=== PATIENT | female | born 1950 | race Caucasian/White ===

== ENCOUNTER → 2016-10-16 | Outpatient (CLI) | payer OTHER ==
[~2016-10-16] MED LIST: ADVIN25/60 INH; ALBUAER2 INH; CHOL100027 PO; CLCC1250 PO; FLUT50SP14 NAE; LEVO25TA34 PO; LORA10TA5 PO; LRT5 PO; OMEP20CA59 PO; [UNRECOGNIZED DRUG - OTHER] PO
--- NOTE | 2016-10-17 14:35 | MAMMOGRAPHY REPORT ---
BILATERAL DIGITAL SCREENING MAMMOGRAM WITH CAD: 10/16/2016 CLINICAL HISTORY: Routine screening. Patient has no complaints. TECHNIQUE: Bilateral CC and MLO views, repeat MLO views and left cleavage view were obtained. Curre nt study was also evaluated with a Computer Aided Detection (CAD) system. COMPARISON: Comparison is made to exams dated: 12/12/2011 mammogram, 09/18/2010 mammogram, 09/15/2009 mammogram - [facility], 08/17/2008, 07/07/2007, and 07/04/2006. BREAST COMPOSITION: The tissue of both breasts is almost entirely fatty. FINDINGS: There are a few benign rim calcifications and minimal vascular calcification in the breast s. No suspicious mass, architectural distortion or cluster of microcalcifications is seen. IMPRESSION: ACR BI-RADS CATEGORY 1: NEGATIVE There is no mammographic evidence of malignancy. A 1 year screening mammogram is recommended. The p atient will receive written notification of the results. Approximately 10% of breast cancers are not detected with mammography. A negative mammographic repor t should not delay biopsy if a clinically suggestive mass is present. Althea Burrell M.D. ay/:10/16/2016 17:14:22 Energy Efficiency Specialist: Genevieve PENN(Albino)([place]), [facility] letter sent: Normal 1/2 BI-RADS Code: ACR BI-RADS Category 1: Negative
== END | disposition home or self-care (01) ==
LOC: C.MAMM 14:22
PROVIDERS: ATTEND Family Medicine
DX: Z12.31 Encounter for screening mammogram for malignant neoplasm of breast (principal)

== ENCOUNTER → 2016-12-17 | Outpatient (CLI) | payer OTHER ==
[2016-12-17 18:25] LABS: ALT/SGPT 20 U/L (12-78); BLOOD UREA NITROGEN 19 mg/dl (7-18); CALCIUM 8.6 mg/dl (8.5-10.1); CARBON DIOXIDE 22 mmol/L (21-32); CHLORIDE 109 mmol/L (98-107); GLUCOSE 100 mg/dl (70-99); POTASSIUM 4.6 mmol/L (3.5-5.1); SODIUM 140 mmol/L (136-145)
[2016-12-17 18:37] LABS: ALB/GLOB RATIO 0.6 (0.9-2); ALKALINE PHOSPHATASE 54 U/L (45-117); AST/SGOT 20 U/L (15-37)
--- NOTE | 2016-12-24 12:31 | CODING QUERY MEDICAL NECESSITY ---
CQSUPPORTING DIAGNOSIS NEEDED A supporting diagnosis is required for the test/procedure performed on this patient in order for us to be reimbursed by the patient's insurance. Please provide a supporting diagnosis for the following test/procedure listed below next to the test name along with your signature. *If there is no additional diagnosis for this patient that would support the following test/procedure please document that below next to the test/procedure. Test(s)/Procedure(s) that require a supporting diagnosis: DOS 12/17/16 VITAMIN D TEST Provider Signature: Date: Thank you Gavi Alford Health Information Management Once completed, please kindly fax back to [phone] For questions please call [phone]
== END | disposition home or self-care (01) ==
LOC: C.LABPVFM 10:59
PROVIDERS: ATTEND Family Medicine
DX: I10 Essential (primary) hypertension (principal); J45.909 Unspecified asthma, uncomplicated; B37.2 Candidiasis of skin and nail; E55.9 Vitamin D deficiency, unspecified

== ENCOUNTER → 2017-01-17 | Outpatient (CLI) | payer OTHER ==
[2017-01-17 17:54] LABS: BASO % 0.6 %; BASO ABS # 0.07 K/uL (0-0.2); COMPLETE YES; EOS % 8.8 %; HEMATOCRIT 44.3 % (37-47); IG% 0.4 %; LYMPH % 16.2 %; LYMPH ABS # 1.77 K/uL (1.2-3.4); MEAN CELL VOLUME 93.3 fL (80-100); MEAN CORPUSCULAR HEMOGLOBIN 29.5 pg (25-34); MEAN CORPUSCULAR HGB CONC 31.6 g/dl (32-36); MEAN PLATELET VOLUME 10.4 fL (7.4-10.4); MONO % 6.7 %; NEUT % 67.3 %; PLATELET COUNT 456 K/uL (130-400); RED BLOOD COUNT 4.75 M/uL (4.2-5.4); WHITE BLOOD COUNT 10.92 K/uL (4.8-10.8)
[2017-01-17 18:26] LABS: ALT/SGPT 18 U/L (12-78); AST/SGOT 22 U/L (15-37); BLOOD UREA NITROGEN 12 mg/dl (7-18); BUN/CREATININE RATIO 11.7 (10-20); CALCIUM 8.5 mg/dl (8.5-10.1); CARBON DIOXIDE 25 mmol/L (21-32); CHLORIDE 108 mmol/L (98-107); GLUCOSE 113 mg/dl (70-99); POTASSIUM 4.4 mmol/L (3.5-5.1); SODIUM 142 mmol/L (136-145)
[2017-01-17 18:29] LABS: ALB/GLOB RATIO 0.7 (0.9-2); ALKALINE PHOSPHATASE 60 U/L (45-117)
== END | disposition home or self-care (01) ==
LOC: C.LABPVFM 10:31
PROVIDERS: ATTEND Nurse Practitioner Family
DX: R21 Rash and other nonspecific skin eruption (principal)

== ENCOUNTER → 2017-07-03 | Outpatient (CLI) | payer OTHER ==
[~2017-07-03] MED LIST changes: -LORA10TA5 PO; +LORA10TA6 PO
[2017-07-03 13:08] LABS: HEMOGLOBIN A1C 5.4 % (4.5-5.6)
[2017-07-03 13:11] LABS: ALT/SGPT 18 U/L (12-78); BLOOD UREA NITROGEN 19 mg/dl (7-18); CARBON DIOXIDE 24 mmol/L (21-32); CREATININE 0.97 mg/dl (0.60-1.20); GLUCOSE 93 mg/dl (70-99); POTASSIUM 4.4 mmol/L (3.5-5.1); SODIUM 141 mmol/L (136-145)
[2017-07-03 13:14] LABS: ALKALINE PHOSPHATASE 49 U/L (45-117); AST/SGOT 22 U/L (15-37); TOTAL PROTEIN 6.9 gm/dl (6.4-8.2)
== END | disposition home or self-care (01) ==
LOC: C.LABPVFM 09:06
PROVIDERS: ATTEND Family Medicine
DX: I10 Essential (primary) hypertension (principal); J45.909 Unspecified asthma, uncomplicated; E66.01 Morbid (severe) obesity due to excess calories; E03.9 Hypothyroidism, unspecified; J30.9 Allergic rhinitis, unspecified; E55.9 Vitamin D deficiency, unspecified; R73.01 Impaired fasting glucose

== ENCOUNTER 2024-09-04 12:56 | Inpatient (IN) ==
--- NOTE | 2024-09-04 13:57 | Emergency Department Note ---
Impression & Plan Wound of left groin, Cellulitis, Elevated lactic acid level ED Provider Note NAME: VONNIE IVY AGE: 74 SEX: F : 1950 ARRIVES VIA: Walk-In INFORMANT: Patient, friend, prior notes ED PROVIDER(S): Rahat Quintanilla MD CHIEF COMPLAINT: Left groin wound, outpatient referral MEDICAL DECISION MAKING: Patient presents with the above. IV was established and blood work was obtained. The patient does have cellulitic change with an open wound in the patient with prior reports of purulent drainage. No obvious purulence on my exam; however, the patient was covered with broad-spectrum antibiotics vancomycin and Zosyn. Patient ordered 1 L of IV fluids. Patient did request pain medication did receive IV morphine [address] abdomen pelvis also performed. Patient with a white count of 11.7 with normal hemoglobin. Platelet count of 479. The patient's kidney function is unremarkable. BSG 120 but nonfasting not DKA. Initial lactate of 2.4. Pro-Gallito not elevated. Patient CT abdomen pelvis shows bilateral inguinal lymphadenopathy left greater than right. 2 of the nodes in the left inguinal area are grossly large and necrotic in appearance. Given these concerns with the addition of significant wound which is been ongoing over the last 2 months do believe the patient would benefit from inpatient treatment as well as further IV antibiotics and wound care assessment. I did speak the on-call hospital service Dr. Rod and the patient was admitted to the medicine service. Repeat lactate was less than 2. Discussion w/ other healthcare providers: Dr. Rod inpatient medicine service Prior /Outside records reviewed: I reviewed parts of prior PCP notes from June and July from Dr. Freeman. The patient had been placed on nystatin prior subsequent follow-up in July patient refused exam but was placed on mupirocin ointment. Of the wound. I reviewed part of a wound care visit note from Dr. Nazario from earlier today which noted the patient to have left perineal wound. Differential diagnosis: Cellulitis, abscess, MRSA infection, DVT, necrotizing fasciitis, dermatitis, drug eruption, allergic reaction, as well as other pathologies were considered. Diagnostics, as interpreted by me: ECG: None Cardiac monitoring: An order was placed for continuous cardiac monitoring. The monitor shows a rate of 75 with sinus rhythm. Patient was placed on pulse oximetry Medical decision rules: None Imaging studies: I informally interpreted the patient's CT abdomen/pelvis does not show evidence of obvious obstruction with formal report to follow. HPI: Patient presents due to concern for wound which has been ongoing for approximate 3 Brownson duration. The patient states that her PCP "was not listening." Patient states that she was initially prescribed some creams and that this has worsened. Patient denies any chest pains or shortness of breath. The patient has had occasional chills but no fevers. No falls or trauma. Patient denies any abdominal pain. No issues with defecation or urination. Patient was reportedly seen in wound care clinic today and then referred here for further evaluation and treatment. PAST MEDICAL HISTORY: See Below PAST SURGICAL HISTORY: See Below SOCIAL HISTORY: See Below HOME MEDICATIONS: See Below ALLERGIES: See Below VITALS: See Below PHYSICAL EXAMINATION: GENERAL: NAD, non-toxic. EYE EXAM: Normal conjunctiva. PERRL, no anisocoria and EOM's grossly intact w/o pain. OROPHARYNX: Moist mucus membranes, grossly normal dentition. NECK: Trachea midline, no stridor. Supple, no nuchal rigidity, no adenopathy, non-tender. No signs of meningismus. FROM of the neck with good chin to chest and neck extension. LUNGS: Clear to auscultation. Normal chest wall mechanics. HEART: NSR, no MRG. ABDOMEN: Abdomen soft, non-tender, no masses, no rebound or guarding. BACK: No CVA TTP. SKIN: No rashes and no bruising. UPPER EXTREMITIES: Upper extremities are grossly normal. LOWER EXTREMITIES: Wound noted to the left medial thigh/perineal, serous drainage noted, surrounding erythema, approximately 9 x 6 cm. NEURO EXAM: A&O x3, cranial nerves II-XII grossly intact, normal speech, moves all 4 extremities. Past Med/Surg History Problem List Wound of left groin Nausea vomiting and diarrhea Rash Wound of groin Family hx of colon cancer Sister Dxed with colon cancer when she was 65yo. RLQ abdominal pain Hypothyroidism associated with surgical procedure Impaired fasting glucose Vitamin D deficiency Asthma no inhalers Macular degeneration of left eye Hearing deficit Osteoarthritis Morbid obesity with BMI of 50.0-59.9, adult HTN (hypertension) GERD (gastroesophageal reflux disease) Medical History COVID-19 virus detected 07/03/21 positive; asymptomatic Nausea and vomiting after administration of anesthetic agent Surgical History History of total hysterectomy with bilateral salpingo-oophorectomy (BSO) History of tooth extraction S/P tonsillectomy and adenoidectomy S/P thyroid surgery x2--d/t goiter S/P cholecystectomy S/P arthroscopy of knee left Family History Sister Colorectal cancer Other Cardiac disorder Diabetes Hypertension Hypothyroidism No family history of adverse response to anesthesia Denies family history of Ovarian cancer Prostate cancer Myocardial infarction Breast cancer Social History Smoking Status: Former smoker Tobacco Type: Cigarettes Smoking End Date: 1999; Second Hand Exposure: No; Do You Dip or Chew Tobacco: No; Hx Alcohol Use: No Hx Substance Use: No Preferred Language: Nepali Communication Ability: Effective Visual Impairment: No Limitations Hearing Ability: Normal Home Care Aide Required: No Beliefs That Will Affect Care: None marital status: Single Current Living Situation: Alone Current Living Situation Comment: lives with daughter current occupational status: retired How many Children do You have: 2 Other Information That Helps Us Care for You: No Feels Safe at Home: Yes Safety Concerns: Feels Safe At This Time Childhood Exposure to Second-Hand Smoke: Yes Diet: regular caffeine: Yes during the past year weight has: remained stable Dental Care, Regularly: Yes Physical Activity Frequency: 1-2 Times per Week Seatbelt Use: always Sunscreen Use: Yes Do you think of yourself as: straight/heterosexual Sexual Activity: has been sexually active, but not for at least 12 months Gender Identity: Female Assistive Devices: Cane and Glasses Allergies Allergies Allergy/AdvReac Type Severity Reaction Status Date / Time tolterodine Allergy Intermediate plaque Verified 09/04/24 10:58 psoriasis nickel Allergy Mild Rash Verified 09/04/24 10:58 Home Meds Home Medications Medication Instructions Recorded Confirmed ascorbate calcium (vitamin C) 500 500 mg PO DAILY 08/12/23 09/04/24 mg tablet multivitamin 1 tab PO DAILY 08/12/23 09/04/24 mv-mn-folic 200 mcg-vit K 15 1 cap PO DIRECTED 09/04/24 09/04/24 mcg-lutein 5 mg-zeaxanthin 1 mg capsule (PreserVision AREDS 2 Plus Multivit) Previous Rx's Medication Instructions Recorded cholecalciferol (vitamin D3) 125 125 mcg PO DAILY #30 caps 06/13/21 mcg (5,000 unit) capsule omeprazole 20 mg capsule,delayed 20 mg PO DAILY PRN Acid Reflux #90 02/07/23 release caps nystatin 100,000 unit/gram topical 1 applic topical BID #30 grams 07/20/24 cream nystatin 100,000 unit/gram topical 1 applic topical BID #60 grams 07/20/24 powder levothyroxine 200 mcg capsule 200 mcg PO QAM #90 caps 08/21/24 levothyroxine 25 mcg capsule 25 mcg PO DAILY #90 caps 08/21/24 lisinopril 20 mg tablet 20 mg PO DAILY #90 tabs 08/21/24 mupirocin 2 % topical ointment 1 applic topical BID #22 grams 08/21/24 Results & Data (ED) Vital Signs Vital Signs - 24 hr 09/04/24 13:02 09/04/24 13:26 09/04/24 15:09 Temperature 36.4 C L Temperature Source Oral Pulse Rate 94 H 80 85 Pulse Rate [Apical] Pulse Rate from SpO2 Sensor Pulse Strength [Apical] Respiratory Rate 25 H 14 Respiratory Effort / Characteristics Spontaneous Respiratory Depth Respiratory Pattern Regular Blood Pressure 135/78 155/69 H Blood Pressure [Right Arm] Blood Pressure Mean 97 97 Blood Pressure Mean [Right Arm] Pulse Oximetry 97 100 Oxygen Delivery Method Room Air Sepsis Recent Fever Within 48 Hours No Sepsis New/Unexplained Change in Mental Status No Sepsis Action Taken by Nursing No Action Required 09/04/24 15:18 09/04/24 15:33 09/04/24 16:00 Temperature Temperature Source Pulse Rate 83 Pulse Rate [Apical] 75 Pulse Rate from SpO2 Sensor 77 82 Pulse Strength [Apical] Normal Respiratory Rate 19 15 Respiratory Effort / Characteristics Non-Labored Spontaneous Respiratory Depth Normal Respiratory Pattern Blood Pressure Blood Pressure [Right Arm] 155/59 H Blood Pressure Mean Blood Pressure Mean [Right Arm] 91 Pulse Oximetry 100 97 100 Oxygen Delivery Method Room Air Room Air Room Air Sepsis Recent Fever Within 48 Hours Sepsis New/Unexplained Change in Mental Status Sepsis Action Taken by Nursing 09/04/24 16:18 Temperature Temperature Source Pulse Rate 75 Pulse Rate [Apical] Pulse Rate from SpO2 Sensor Pulse Strength [Apical] Respiratory Rate 15 Respiratory Effort / Characteristics Respiratory Depth Respiratory Pattern Blood Pressure Blood Pressure [Right Arm] Blood Pressure Mean Blood Pressure Mean [Right Arm] Pulse Oximetry Oxygen Delivery Method Sepsis Recent Fever Within 48 Hours Sepsis New/Unexplained Change in Mental Status Sepsis Action Taken by [facility] Medications Current Medication List: was personally reviewed by me Laboratory Data Attestation: I reviewed the patient's lab results. 09/04/24 13:25 09/04/24 13:25 Lab Results 09/04/24 09/04/24 09/04/24 Range/Units 13:25 13:29 14:58 WBC 11.71 H (4.8-10.8) K/ul RBC 4.10 L (4.20-5.40) M/uL Hgb 12.1 (12.0-16.0) g/dl Hct 36.7 L (37.0-47.0) % MCV 89.5 (80.0-100.0) fL MCH 29.5 (25.0-34.0) pg MCHC 33.0 (32.0-36.0) g/dL RDW Std Deviation 42.4 (36.4-46.3) fL RDW Coeff of Melida 12.9 (11.5-14.5) % Plt Count 479 H (130-400) K/uL MPV 10.2 (9.4-12.4) fL Immature Gran % (Auto) 0.6 % Neut % (Auto) 74.8 % Lymph % (Auto) 12.5 % Dubois % (Auto) 8.0 % Eos % (Auto) 3.1 % Baso % (Auto) 1.0 % Neut # (Auto) 8.76 H (1.40-6.50) K/uL Lymph # (Auto) 1.46 (1.20-3.40) K/uL Dubois # (Auto) 0.94 H (0.11-0.59) K/uL Eos # (Auto) 0.36 (0.00-0.50) K/uL Baso # (Auto) 0.12 (0.00-0.20) K/uL Immature Gran # (Auto) 0.07 (0.01-0.20) K/uL PT Cancelled 11.1 INR Cancelled 1.0 Sodium 139 (136-145) mmol/L Potassium 4.1 (3.5-5.1) mmol/L Chloride 106 (98-107) mmol/L Carbon Dioxide 24 (21-32) mmol/L Anion Gap 9 (3-11) BUN 18 (6-23) mg/dl Creatinine 1.10 (0.6-1.2) mg/dl Est Cr Clr Drug Dosing 66.7 ml/min eGFR 53.06 BUN/Creatinine Ratio 16.4 (10-20) Glucose 120 H (70-99(Fasting)) mg/dl Lactate 2.4 H* (0.4-2.0) mmol/L Calcium 8.9 (8.6-10.3) mg/dl Total Bilirubin 0.8 (0.2-1.0) mg/dl AST 19 (13-39) U/L ALT 15 (7-52) U/L Alkaline Phosphatase 52 (34-104) U/L Troponin I High Sens 5.2 (0-14) pg/ml Total Protein 7.4 (6.0-8.3) gm/dl Albumin 3.4 (3.4-5.0) gm/dl Globulin 4.0 (2.5-4.0) gm/dl Albumin/Globulin Ratio 0.9 (0.9-2) Procalcitonin < 0.02 (0-0.5) ng/ml Adenovirus (PCR) Not Detected (NotDetected) B. pertussis DNA (PCR) Not Detected (NotDetected) B.parapertussis DNA PCR Not Detected (NotDetected) C. pneumoniae DNA (PCR) Not Detected (NotDetected) Coronavirus OC43 (PCR) Not Detected (NotDetected) Coronavirus HKU1 (PCR) Not Detected (NotDetected) Coronavirus 229E (PCR) Not Detected (NotDetected) SARS-CoV-2 (PCR) Not Detected (NotDetected) Coronavirus NL63 (PCR) Not Detected (NotDetected) Human Metapneumovir PCR Not Detected (NotDetected) Influenza Type A (PCR) Not Detected (NotDetected) Influenza Type B (PCR) Not Detected (NotDetected) M. pneumoniae (PCR) Not Detected (NotDetected) Parainfluenza 1 (PCR) Not Detected (NotDetected) Parainfluenza 2 (PCR) Not Detected (NotDetected) Parainfluenza 3 (PCR) Not Detected (NotDetected) Parainfluenza 4 (PCR) Not Detected (NotDetected) RSV (PCR) Not Detected (NotDetected) Entero/Rhino (PCR) Not Detected (NotDetected) 09/04/24 Range/Units 16:13 WBC (4.8-10.8) K/ul RBC (4.20-5.40) M/uL Hgb (12.0-16.0) g/dl Hct (37.0-47.0) % MCV (80.0-100.0) fL MCH (25.0-34.0) pg MCHC (32.0-36.0) g/dL RDW Std Deviation (36.4-46.3) fL RDW Coeff of Melida (11.5-14.5) % Plt Count (130-400) K/uL MPV (9.4-12.4) fL Immature Gran % (Auto) % Neut % (Auto) % Lymph % (Auto) % Dubois % (Auto) % Eos % (Auto) % Baso % (Auto) % Neut # (Auto) (1.40-6.50) K/uL Lymph # (Auto) (1.20-3.40) K/uL Dubois # (Auto) (0.11-0.59) K/uL Eos # (Auto) (0.00-0.50) K/uL Baso # (Auto) (0.00-0.20) K/uL Immature Gran # (Auto) (0.01-0.20) K/uL PT INR Sodium (136-145) mmol/L Potassium (3.5-5.1) mmol/L Chloride (98-107) mmol/L Carbon Dioxide (21-32) mmol/L Anion Gap (3-11) BUN (6-23) mg/dl Creatinine (0.6-1.2) mg/dl Est Cr Clr Drug Dosing ml/min eGFR BUN/Creatinine Ratio (10-20) Glucose (70-99(Fasting)) mg/dl Lactate 1.2 (0.4-2.0) mmol/L Calcium (8.6-10.3) mg/dl Total Bilirubin (0.2-1.0) mg/dl AST (13-39) U/L ALT (7-52) U/L Alkaline Phosphatase (34-104) U/L Troponin I High Sens (0-14) pg/ml Total Protein (6.0-8.3) gm/dl Albumin (3.4-5.0) gm/dl Globulin (2.5-4.0) gm/dl Albumin/Globulin Ratio (0.9-2) Procalcitonin (0-0.5) ng/ml Adenovirus (PCR) (NotDetected) B. pertussis DNA (PCR) (NotDetected) B.parapertussis DNA PCR (NotDetected) C. pneumoniae DNA (PCR) (NotDetected) Coronavirus OC43 (PCR) (NotDetected) Coronavirus HKU1 (PCR) (NotDetected) Coronavirus 229E (PCR) (NotDetected) SARS-CoV-2 (PCR) (NotDetected) Coronavirus NL63 (PCR) (NotDetected) Human Metapneumovir PCR (NotDetected) Influenza Type A (PCR) (NotDetected) Influenza Type B (PCR) (NotDetected) M. pneumoniae (PCR) (NotDetected) Parainfluenza 1 (PCR) (NotDetected) Parainfluenza 2 (PCR) (NotDetected) Parainfluenza 3 (PCR) (NotDetected) Parainfluenza 4 (PCR) (NotDetected) RSV (PCR) (NotDetected) Entero/Rhino (PCR) (NotDetected) Administered Medications Discontinued Medications Sodium Chloride (Nss) 1,000 mls @ 999 mls/hr IV .Q1H1M ONE Stop: 09/04/24 15:20 Last Infusion: 09/04/24 15:44 Dose: Infused Documented By: Admin: 09/04/24 14:43 Dose: 999 mls/hr Documented By: ADELAIDE Vancomycin HCl 2,750 mg/ (Sodium Chloride) 555 mls @ 200 mls/hr IV NOW ONE Stop: 09/04/24 17:06 Last Admin: 09/04/24 15:19 Dose: 200 mls/hr Documented By: KATHE Piperacillin Sod/Tazobactam Sod (Zosyn) 4.5 gm in 100 mls @ 200 mls/hr IV NOW ONE; Protocol Stop: 09/04/24 14:49 Last Infusion: 09/04/24 15:15 Dose: Infused Documented By: Admin: 09/04/24 14:43 Dose: 200 mls/hr Documented By: ADELAIDE Ioversol (Optiray 320 125ml) 118 ml IV ONCE ONE Stop: 09/04/24 15:06 Last Admin: 09/04/24 15:06 Dose: 118 ml Documented By: SADE Morphine Sulfate (Morphine Sulfate 4 Mg/Ml 1 Ml Carp\\Vial) 4 mg IV NOW STA Stop: 09/04/24 15:24 Last Admin: 09/04/24 15:35 Dose: 4 mg Documented By: BRIANNE Imaging Data Radiologist's Impression: Abdomen/Pelvis CT 09/04/24 14:[address] WITH IV CONTRAST CT DOSE: 1579.08 mGy.cm HISTORY: L groin wound, cellulitic TECHNIQUE: Multiaxial CT images of the abdomen and pelvis were performed following the IV administration of 118 cc of Optiray, sagittal and coronal reconstructions were done. A dose lowering technique was utilized adhering to the principles of ALARA. COMPARISON STUDY: None FINDINGS: The lung bases and bone windows demonstrate no acute findings. There is diffuse hepatic steatosis. There are no focal liver lesions identified. The gallbladder surgically absent. The bile ducts are not significantly enlarged. There is no pancreatic lesion identified. There is a small left adrenal nodule that is likely benign. The spleen is unremarkable. There is no obstructive uropathy. Several bilateral renal cysts are identified to clearly on the left. There are no urinary tract calcifications present. There is no bowel obstruction or free air. There is no ascites. There is no aortic aneurysm or periaortic adenopathy. In the pelvis, the appendix is not identified. There is no evidence of appendicitis. There is no fluid in the cul-de-sac. There is no diverticulitis. The uterus is absent. The unopacified urinary bladder is negative. There are enlarged, necrotic lymph nodes identified in the left groin the largest measuring 3.3 cm in long axis. A second necrotic node measures 2.3 cm. Additional nonnecrotic lymph node prominence is noted elsewhere in the left groin and in the right groin. IMPRESSION: Bilateral inguinal lymphadenopathy left greater than right. 2 of the nodes in the left inguinal area are grossly enlarged and necrotic. ACT 112: Negative or not required by law. The above report was generated using voice recognition software. It may contain grammatical, syntax or spelling errors. Electronically signed by: Clarisa Torres M.D. 09/04/2024 3:22 PM Discharge Plan Visit Data Chief Complaint: Infection Stated Complaint: WOUND CENTER REFFERAL, INFECTION ED Provider: Rahat Quintanilla Discharge Problem: Wound of left groin, Cellulitis, Elevated lactic acid level Patient Disposition: Admitted As Inpatient Discharge Instructions Interventions: ED Discharge Assessment Last Done: 09/04/24 17:37 Discharge Problem: Wound of left groin Qualifiers: Encounter type: initial encounter Qualified Code(s): S31.109A - Unspecified open wound of abdominal wall, unspecified quadrant without penetration into peritoneal cavity, initial encounter Cellulitis Qualifiers: Site of cellulitis: extremity Site of cellulitis of extremity: lower extremity Laterality: left Qualified Code(s): L03.116 - Cellulitis of left lower limb
[2024-09-04 14:10] LABS: Basophils # (auto) 0.12 K/uL (0.00-0.20); Eosinophils # (auto) 0.36 K/uL (0.00-0.50); Eosinophils % (auto) 3.1 %; Hematocrit (blood only) 36.7 % (37.0-47.0); Hemoglobin 12.1 g/dl (12.0-16.0); Immature Granulocytes # (auto) 0.07 K/uL (0.01-0.20); Immature Granulocytes % (auto) 0.6 %; Lymphocytes # (auto) 1.46 K/uL (1.20-3.40); Lymphocytes % (auto) 12.5 %; Mean Corpuscular Hemoglobin 29.5 pg (25.0-34.0); Mean Corpuscular Volume 89.5 fL (80.0-100.0); Mean Platelet Volume 10.2 fL (9.4-12.4); Monocytes # (auto) 0.94 K/uL (0.11-0.59); Neutrophils # (auto) 8.76 K/uL (1.40-6.50); Neutrophils % (auto) 74.8 %; Platelet Count 479 K/uL (130-400); RDW Coefficient of Variation 12.9 % (11.5-14.5); RDW Standard Deviation 42.4 fL (36.4-46.3); White Blood Count 11.71 K/ul (4.8-10.8)
[2024-09-04] MEDS ORDERED: VANCOMYCIN CONSULT ACTIVE PRN ×2 (14:20→17:57)
[2024-09-04 14:24] LABS: Albumin Globulin Ratio 0.9 (0.9-2); Albumin Level 3.4 gm/dl (3.4-5.0); BUN Creatinine Ratio 16.4 (10-20); Bilirubin,Total 0.8 mg/dl (0.2-1.0); Calcium 8.9 mg/dl (8.6-10.3); Creatinine Clr Calc Pharmacy 66.7 ml/min; Potassium 4.1 mmol/L (3.5-5.1); Total Protein 7.4 gm/dl (6.0-8.3)
[2024-09-04 14:31] LABS: Troponin I High Sensitivity 5.2 pg/ml (0-14)
[2024-09-04] MEDS: PIPERACILLIN/TAZOBACTAM 4.5 GM/100 ML BAG IV ONE (14:43)
[2024-09-04] MEDS: SODIUM CHLORIDE 0.9% 1,000 ML IV ONE (14:43)
[2024-09-04 14:56] LABS: Adenovirus PCR Not Detected (NotDetected); Bordetella parapertussis PCR Not Detected (NotDetected); Bordetella pertussis PCR Not Detected (NotDetected); Chlamydia pneumoniae PCR Not Detected (NotDetected); Coronavirus 229E PCR Not Detected (NotDetected); Coronavirus CoV-2 (COVID19)PCR Not Detected (NotDetected); Coronavirus HKU1 PCR Not Detected (NotDetected); Coronavirus NL63 PCR Not Detected (NotDetected); Coronavirus OC43PCR Not Detected (NotDetected); Human Metapneumovirus PCR Not Detected (NotDetected); Influenza A PCR Not Detected (NotDetected); Influenza B PCR Not Detected (NotDetected); Mycoplasma pneumoniae PCR Not Detected (NotDetected); Parainfluenza Virus 1 PCR Not Detected (NotDetected); Parainfluenza Virus 2 PCR Not Detected (NotDetected); Parainfluenza Virus 3 PCR Not Detected (NotDetected); Parainfluenza Virus 4 PCR Not Detected (NotDetected); Respiratory Syncytial VirusPCR Not Detected (NotDetected); Rhinovirus/Enterovirus PCR Not Detected (NotDetected)
[2024-09-04] MEDS: OPTIRAY 320 125ml IV ONE (15:06)
[2024-09-04] MEDS: VANCOMYCIN HCL 2,750 MG in SODIUM CHLORIDE 0.9% 500 ML IV ONE (15:19)
--- NOTE | 2024-09-04 15:24 | CT Scan Report ---
ABDOMEN AND PELVIS CT WITH IV CONTRAST CT DOSE: 1579.08 mGy.cm HISTORY: L groin wound, cellulitic TECHNIQUE: Multiaxial CT images of the abdomen and pelvis were performed following the IV administrat ion of 118 cc of Optiray, sagittal and coronal reconstructions were done. A dose lowering technique was utilized adhering to the principles of ALARA. COMPARISON STUDY: None FINDINGS: The lung bases and bone windows demonstrate no acute findings. There is diffuse hepatic steatosis. There are no focal liver lesions identified. The gallbladder surg ically absent. The bile ducts are not significantly enlarged. There is no pancreatic lesion identified. There is a small left adrenal nodule that is likely benign. The spleen is unremarkable. There is no obstructive uropathy. Several bilateral renal cysts are identified to clearly on the left . There are no urinary tract calcifications present. There is no bowel obstruction or free air. There is no ascites. There is no aortic aneurysm or periao rtic adenopathy. In the pelvis, the appendix is not identified. There is no evidence of appendicitis. There is no flui d in the cul-de-sac. There is no diverticulitis. The uterus is absent. The unopacified urinary bladde r is negative. There are enlarged, necrotic lymph nodes identified in the left groin the largest augustus uring 3.3 cm in long axis. A second necrotic node measures 2.3 cm. Additional nonnecrotic lymph node prominence is noted elsewhere in the left groin and in the right groin. IMPRESSION: Bilateral inguinal lymphadenopathy left greater than right. 2 of the nodes in the left in guinal area are grossly enlarged and necrotic. ACT 112: Negative or not required by law. The above report was generated using voice recognition software. It may contain grammatical, syntax o r spelling errors. Electronically signed by: Clarisa Torres M.D. 09/04/2024 3:22 PM
[2024-09-04] MEDS: MoRPHine SULFATE 4 MG/ML 1 ML CARP\\VIAL IV STA (15:35)
[2024-09-04 15:57] LABS: Prothrombin Time 11.1 Seconds (9.0-12.0)
--- NOTE | 2024-09-04 16:07 | History & Physical Report ---
Date of Service September 04, 2024 Assessment & Plan (1) Wound of left groin: Deangelo Thomas is a pleasant 74-year-old female who presented on 09/04 at the behest of the wound clinic for an ongoing left posterior groin infection. She has not been on p.o. antibiotics for this infection (has been on a topical nystatin and mupirocin); wound gradually worsening. Coming in for IV antibiotics. While no abscess on imaging, suspect patient will likely require debridement given depth of wound and purulent drainage. #Left groin wound/infection A/P CT did reveal bilateral inguinal lymphadenopathy with necrotic nodes General Surgery consult appreciated Will make patient n.p.o. at midnight on 09/04 in the event that patient requires debridement Mild leukocytosis at 11.71; afebrile Lactate 2.4 on arrival, repeat pending Procalcitonin WNL Zosyn 4.5 g IV q8h Vancomycin 2000 mg IV q12h; kidney function okay on admission Pain control with acetaminophen and oxycodone tablets as needed Will discontinue topical nystatin/mupirocin as patient reports these have been worsening her symptoms Continuous pulse oximetry Chronic stable conditions: Hypothyroidismlevothyroxine HTNlisinopril GERDomeprazole or Protonix Disposition: Admit to [facility] Full code Regular diet VTE PPx: SCDs; hold chemical DVT PPx prior to general surgery eval History of Present Illness Chief Complaint: Left groin infection Primary Care Provider: Petr Freeman DO Thomas is a pleasant 74-year-old female with PMH of hysterectomy, GERD, HTN, morbid obesity, and hypothyroidism. She was referred by the wound clinic on 09/04 for a left groin wound and ureteral mass with erosion. The wound has been worsening over the past 6 weeks. Patient has been following at the wound clinic for this wound, but today it was found to be malodorous with acute worsening. PPatient has been applying creams to the area (topical nystatin and mupirocin), with no improvement, and patient's daughter believes that these may have worsened her symptoms. Patient endorses pain at the wound site (left posterior groin), with occasional shooting pain down her leg. She rates the pain 0/10 at present while laying still in bed, but 9/10 at worst. She characterizes it as a burning, achy pain with occasional sharp stabbing. She has not been taking any p.o. medications to help with the pain; did try taking aspirin tablets x 2, but this did not help. Additionally, she reports she has had purulent drainage from the site for the past month, and occasional bleeding. She reports she has not been on any p.o. antibiotics for this. No prior history of MRSA infections to her knowledge. She does report she has had intermittent fever, chills, night sweats, but is unsure if this was secondary to her recent flu infections. Patient reports she has had the flu 3 times over the past several months, and has had ongoing congestion. Patient did not take her regular morning medicine today; only recent change in medication was that her lisinopril was decreased from 40 to 20 mg daily 2 weeks ago. Patient manages her own medicine at home. She lives by herself in [place] apartment, but does have a daughter who lives nearby. Patient denies smoking, tobacco use, recent alcohol use. She ambulates with a walker at baseline; no recent falls or injuries. Patient does have a history of gallbladder surgery and hysterectomy. No CPAP HS. Patient is hypertensive at 155/59 at time of admission; vitals otherwise stable. ED course: Vancomycin 2750 mg IV Zosyn 4.5 g IV Morphine 4 mg IV NSS 1000 L IV ROS: Patient endorses fever, chills, night-sweats, MAYER (attributes to pain), dry cough, abdominal pain, nausea, bilious vomiting (attributes to flu), diarrhea, loss of urinary continence (ongoing for years). Patient denies falls, injuries, blood in the urine/stool, dark tarry stool, saddle anesthesia, fecal incontinence, or numbness/tingling in the legs. Allergies Allergy/AdvReac Type Severity Reaction Status Date / Time tolterodine Allergy Intermediate plaque Verified 09/04/24 10:58 psoriasis nickel Allergy Mild Rash Verified 09/04/24 10:58 Home Medications Medication Instructions Recorded Confirmed Type cholecalciferol (vitamin D3) 125 125 mcg PO DAILY #30 caps 06/13/21 09/04/24 Rx mcg (5,000 unit) capsule omeprazole 20 mg capsule,delayed 20 mg PO DAILY PRN Acid Reflux #90 02/07/23 09/04/24 Rx release caps ascorbate calcium (vitamin C) 500 500 mg PO DAILY 08/12/23 09/04/24 History mg tablet multivitamin 1 tab PO DAILY 08/12/23 09/04/24 History nystatin 100,000 unit/gram topical 1 applic topical BID #30 grams 07/20/24 09/04/24 Rx cream nystatin 100,000 unit/gram topical 1 applic topical BID #60 grams 07/20/24 09/04/24 Rx powder levothyroxine 200 mcg capsule 200 mcg PO QAM #90 caps 08/21/24 09/04/24 Rx levothyroxine 25 mcg capsule 25 mcg PO DAILY #90 caps 08/21/24 09/04/24 Rx lisinopril 20 mg tablet 20 mg PO DAILY #90 tabs 08/21/24 09/04/24 Rx mupirocin 2 % topical ointment 1 applic topical BID #22 grams 08/21/24 09/04/24 Rx mv-mn-folic 200 mcg-vit K 15 1 cap PO DIRECTED 09/04/24 09/04/24 History mcg-lutein 5 mg-zeaxanthin 1 mg capsule (PreserVision AREDS 2 Plus Multivit) Past Med/Surg History Problem List (Updated 09/04/24 @ 18:36 by Laith Case PA-C) Wound of left groin Nausea vomiting and diarrhea Rash Wound of groin Family hx of colon cancer Sister Dxed with colon cancer when she was 65yo. RLQ abdominal pain Hypothyroidism associated with surgical procedure Impaired fasting glucose Vitamin D deficiency Asthma no inhalers Macular degeneration of left eye Hearing deficit Osteoarthritis Morbid obesity with BMI of 50.0-59.9, adult HTN (hypertension) GERD (gastroesophageal reflux disease) Medical History COVID-19 virus detected 07/03/21 positive; asymptomatic Nausea and vomiting after administration of anesthetic agent Surgical History History of total hysterectomy with bilateral salpingo-oophorectomy (BSO) History of tooth extraction S/P tonsillectomy and adenoidectomy S/P thyroid surgery x2--d/t goiter S/P cholecystectomy S/P arthroscopy of knee left Family History Sister Colorectal cancer Other Cardiac disorder Diabetes Hypertension Hypothyroidism No family history of adverse response to anesthesia Denies family history of Ovarian cancer Prostate cancer Myocardial infarction Breast cancer Social History Smoking Status: Former smoker Tobacco Type: Cigarettes Smoking End Date: 1999; Second Hand Exposure: No; Do You Dip or Chew Tobacco: No; Hx Alcohol Use: No Hx Substance Use: No Preferred Language: Bhutanese Communication Ability: Effective Visual Impairment: No Limitations Hearing Ability: Normal 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 Beliefs That Will Affect Care: None marital status: Single Current Living Situation: Alone Current Living Situation Comment: lives with daughter current occupational status: retired How many Children do You have: 2 Other Information That Helps Us Care for You: No Feels Safe at Home: Yes Safety Concerns: Feels Safe At This Time Childhood Exposure to Second-Hand Smoke: Yes Diet: regular caffeine: Yes during the past year weight has: remained stable Dental Care, Regularly: Yes Physical Activity Frequency: 1-2 Times per Week Seatbelt Use: always Sunscreen Use: Yes Do you think of yourself as: straight/heterosexual Sexual Activity: has been sexually active, but not for at least 12 months Gender Identity: Female Assistive Devices: Cane and Glasses Review of Systems Review of Systems: See HPI above Physical Exam Physical Exam: General: no acute distress; pleasant affect; daughter and grandson at bedside; non-toxic appearing; cooperative; SpO2 1% on RA HEENT: normocephalic, atraumatic; no scleral icterus; PERRLA; vision and hearing grossly intact Neck: supple; no lymphadenopathy; trachea midline Skin: warm, dry without signs of tenting; no cyanosis; no rashes, bruising, lesions, or erythema noted CV: chest wall NTP; RRR; S1/S2 normal; no murmurs/rubs/gallops; pulses intact and symmetric at radial, DP, and PT Lungs: no acute respiratory distress; symmetrical chest wall expansion; clear breath sounds across all lung bhatti w/o adventitious sounds; no wheezing : Patient's left posterior groin wound was examined with both Dr. Rod and nursing practice consultant at bedside; she does exhibit a deep, gaping wound with purulent drainage (see most recent wound clinic note for picture) ABD: Soft, obese, NTP; BS present; no rebound/guarding; distention secondary body habitus MSK: no tics or fasciculations; no edema noted in the LEs b/l, nonerythematous Neuro: A&Ox3; normal mood and affect; fluent speech; no focal deficits; sensation intact and symmetric in lower EXTR bilaterally Results & Data Results & Data Vital Signs (Past 12 Hours) Vital Signs Temp Pulse Pulse Resp BP BP Pulse Ox 09/04/24 15:18 75 19 155/59 H 100 09/04/24 15:09 85 14 155/69 H 100 09/04/24 13:26 80 09/04/24 13:02 36.4 C L 94 H 25 H 135/78 97 O2 Del Method 09/04/24 15:18 Room Air 09/04/24 15:09 09/04/24 13:26 09/04/24 13:02 Room Air Laboratory Results Abnormal lab results 09/04/24 Range/Units 13:25 WBC 11.71 H (4.8-10.8) K/ul RBC 4.10 L (4.20-5.40) M/uL Hct 36.7 L (37.0-47.0) % Plt Count 479 H (130-400) K/uL Neut # (Auto) 8.76 H (1.40-6.50) K/uL [place] # (Auto) 0.94 H (0.11-0.59) K/uL Glucose 120 H (70-99(Fasting)) mg/dl Lactate 2.4 H* (0.4-2.0) mmol/L Diagnostic Findings Abdomen/Pelvis CT 09/04/24 14:[address] WITH IV CONTRAST CT DOSE: 1579.08 mGy.cm HISTORY: L groin wound, cellulitic TECHNIQUE: Multiaxial CT images of the abdomen and pelvis were performed following the IV administration of 118 cc of Optiray, sagittal and coronal reconstructions were done. A dose lowering technique was utilized adhering to the principles of ALARA. COMPARISON STUDY: None FINDINGS: The lung bases and bone windows demonstrate no acute findings. There is diffuse hepatic steatosis. There are no focal liver lesions identified. The gallbladder surgically absent. The bile ducts are not significantly enlar ged. There is no pancreatic lesion identified. There is a small left adrenal nodule that is likely benign. The spleen is unremarkable. There is no obstructive uropathy. Several bilateral renal cysts are identified to clearly on the left. There are no urinary tract calcifications present. There is no bowel obstruction or free air. There is no ascites. There is no aortic aneurysm or periaortic adenopathy. In the pelvis, the appendix is not identified. There is no evidence of appendicitis. There is no fluid in the cul-de-sac. There is no diverticulitis. The uterus is absent. The unopacified urinary bladder is negative. There are enlarged, necrotic lymph nodes identified in the left groin the largest measuring 3.3 cm in long axis. A second necrotic node measures 2.3 cm. Additional nonnecrotic lymph node prominence is noted elsewhere in the left groin and in the right groin. IMPRESSION: Bilateral inguinal lymphadenopathy left greater than right. 2 of the nodes in the left inguinal area are grossly enlarged and necrotic. ACT 112: Negative or not required by law. The above report was generated using voice recognition software. It may contain grammatical, syntax or spelling errors. Electronically signed by: Clarisa Torres M.D. 09/04/2024 3:22 PM Code Status & VTE Plan Code Status Full code VTE Prophylaxis Plan VTE Prophylaxis will be ordered: Yes Supervising Physician Co-Signing Physician Notes I have personally seen, evaluated and examined the patient. I have also personally discussed the management of the patient with the resident physician/[place] and I agree with the exam findings documented in the history and physical examination and the documented assessment and plan unless otherwise stated below. Brief Exam: In general very pleasant 74-year-old female. Her only complaints are left groin pain. She interacts appropriate pleasantly. HEENT: Normocephalic atraumatic Heart: Regular rate and rhythm no appreciable murmur heart sounds distant due to body habitus. Neck: Greater than 20 inches in circumference by visual estimation. She denies a history of sleep apnea but I suspect there is a underlying occult sleep apnea. Will do continuous pulse ox. Outpatient workup should be considered. Lungs: Diminished but clear. Diminished mostly due to body habitus. Abdomen: Large abdominal wall pannus. Soft. Nontender. Remaining abdominal exam equivocal given her body habitus. Extremities: Intact with a trace peripheral edema. UG examination: Performed in the presence of physician assistant Ozuna and female supervisor public health nursing practice consultant: Patient has a large wound defect just left of labia major on the left. It has purulent discharge present appears to be quite tunneling. The defect appears to be approximately 7 to 8 cm in length. There is surrounding erythema/cellulitic changes. Neurologically: Alert and oriented with no acute distress. Assessment/plan: As discussed above. I personally discussed with general surgery. They are in the process of reviewing films. Will keep the patient n.p.o. after midnight for possible debridement. In the meantime blood cultures. IV antibiotic therapy broad-spectrum in the form of vancomycin and Zosyn. As needed analgesics for pain control. Please refer to orders for further planning. PG Care Time/CCT Total # of Minutes Spent Total Time Spent with Patient: Total time spent is greater than 50% in coordination of care (as documented) at patient's floor/unit and/or counseling patient: Coding [place] [address] INT INP/OBS CARE 3/75MIN Patient Type Established Medical Decision Making High Complexity Diagnoses Wound of left groin S31.109A
[2024-09-04] MEDS ORDERED: oxyCODONE HCL IR 5 MG TAB (IMMEDIATE RELEASE) PO PRN (17:57)
[2024-09-04] MEDS ORDERED: MELATONIN 3 MG TAB PO PRN (17:57)
[2024-09-04] MEDS ORDERED: PANTOprazole 40 MG TAB PO PRN (18:03)
--- NOTE | 2024-09-04 19:14 | Communication Note ---
Date of Service: September 04, 2024 Due to potential for med accumulation and subsequent increased risk of toxicity related to changes in dosing required for patient's weight, Vancomycin was discontinued and Linezolid 600 mg IV BID was ordered. No potential medication interactions found in current orders. Resident Activity Tracking Resident Involvement: Resident Care Provided Care Provided: Adult [facility]
--- NOTE | 2024-09-04 19:27 | Surgery Consultation ---
Date of Consultation September 04, 2024 Assessment & Plan (1) Wound of left groin: Discussion with the patient was had specifically stating that this is a wound that will be very hard to try to heal given its location but said that we probably need debridement but never having been treated with any antibiotics she was started on vancomycin 2000 mg IV every 12 hours and Zosyn 4.5 g IV every 8 hours Agree with antibiotic therapy at this time we will hold off formal debridement for day or 2 to see how she progresses with the cellulitis the surrounding tissue hopefully to try to limit the amount of debridement we need to do All question answered Plan Agree with the antibiotic therapy await 2448 hrs. to see how she progresses with the hope that the extent of the cellulitis in the area minimizes her amount of the debridement At this time we will apply some Aquacel Ag with ABD pad change as needed History of Present Illness Reason for Consultation: Open wound in the left groin area with necrotic lymph nodes Attending Physician: Lito Rod, PhD, DO History of Present Illness 74-year-old female with a past history total hysterectomy and bilateral salpingo-oophorectomy tonsillectomy thyroid surgery cholecystectomy arthroscopic exam of these was seen in the wound clinic today and referred to the emergency room for an open wound no left groin The patient states that this started about 3 months ago without any trauma started as a separation of the skin fold for the first month and a half did not pay any attention to it and did not seek any help but then was seen by primary physician who has been treating her with topical nystatin and mupirocin never received any antibiotic and the wound gradually getting worse and was referred to the wound clinic who referred her to the emergency room for further evaluation She was worked up with CT scan of the abdomen and pelvis which revealed bilateral inguinal lymphadenopathy with necrotic nodes and we were asked to see her for the possibility of debridement Allergies Allergy/AdvReac Type Severity Reaction Status Date / Time tolterodine Allergy Intermediate plaque Verified 09/04/24 10:58 psoriasis nickel Allergy Mild Rash Verified 09/04/24 10:58 Home Medications Medication Instructions Recorded Confirmed Type cholecalciferol (vitamin D3) 125 125 mcg PO DAILY #30 caps 06/13/21 09/04/24 Rx mcg (5,000 unit) capsule omeprazole 20 mg capsule,delayed 20 mg PO DAILY PRN Acid Reflux #90 02/07/23 09/04/24 Rx release caps ascorbate calcium (vitamin C) 500 500 mg PO DAILY 08/12/23 09/04/24 History mg tablet multivitamin 1 tab PO DAILY 08/12/23 09/04/24 History nystatin 100,000 unit/gram topical 1 applic topical BID #30 grams 07/20/24 09/04/24 Rx cream nystatin 100,000 unit/gram topical 1 applic topical BID #60 grams 07/20/24 09/04/24 Rx powder levothyroxine 200 mcg capsule 200 mcg PO QAM #90 caps 08/21/24 09/04/24 Rx levothyroxine 25 mcg capsule 25 mcg PO DAILY #90 caps 08/21/24 09/04/24 Rx lisinopril 20 mg tablet 20 mg PO DAILY #90 tabs 08/21/24 09/04/24 Rx mupirocin 2 % topical ointment 1 applic topical BID #22 grams 08/21/24 09/04/24 Rx mv-mn-folic 200 mcg-vit K 15 1 cap PO DIRECTED 09/04/24 09/04/24 History mcg-lutein 5 mg-zeaxanthin 1 mg capsule (PreserVision AREDS 2 Plus Multivit) Patient History Medical History COVID-19 virus detected 07/03/21 positive; asymptomatic Nausea and vomiting after administration of anesthetic agent Surgical History History of total hysterectomy with bilateral salpingo-oophorectomy (BSO) History of tooth extraction S/P tonsillectomy and adenoidectomy S/P thyroid surgery x2--d/t goiter S/P cholecystectomy S/P arthroscopy of knee left Family History Sister Colorectal cancer Other Cardiac disorder Diabetes Hypertension Hypothyroidism No family history of adverse response to anesthesia Denies family history of Ovarian cancer Prostate cancer Myocardial infarction Breast cancer Social History Smoking Status: Former smoker Tobacco Type: Cigarettes Smoking End Date: 1999; Second Hand Exposure: No; Do You Dip or Chew Tobacco: No; Hx Alcohol Use: No Hx Substance Use: No Preferred Language: Prydein[place] Communication Ability: Effective Visual Impairment: No Limitations Hearing Ability: Normal 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 Beliefs That Will Affect Care: None marital status: Single Current Living Situation: Alone Current Living Situation Comment: lives with daughter current occupational status: retired How many Children do You have: 2 Other Information That Helps Us Care for You: No Feels Safe at Home: Yes Safety Concerns: Feels Safe At This Time Childhood Exposure to Second-Hand Smoke: Yes Diet: regular caffeine: Yes during the past year weight has: remained stable Dental Care, Regularly: Yes Physical Activity Frequency: 1-2 Times per Week Seatbelt Use: always Sunscreen Use: Yes Do you think of yourself as: straight/heterosexual Sexual Activity: has been sexually active, but not for at least 12 months Gender Identity: Female Assistive Devices: Cane Review of Systems Review of Systems: Past as stated above Physical Exam Physical Exam: Patient alert coherent in no distress very pleasant with a BMI of 52.1 Head is normocephalic sclera nonicteric trachea midline Lungs no audible wheezing or rails Heart regular rate Abdomen grossly benign Trying to visualize the area of interest in the left groin the patient was examined with a service counselor externally rotating both upper thighs and with this maneuver we were able to see multiple redundant skin folds with no evidence of any cellulitis or tenderness in the groin areas but on further examination with retraction of the left leg showed a wound with significant slough and fibrin and some necrotic tissue odor present moderate amount of serosanguineous drainage the periwound integrity showed erythema and edema the wound size was 6.5 cm x 9.2 cm x 3.2 cm total size 59.80 cm volume 191.36 cm cub Results & Data Vital Signs (Past 12 Hours) Vital Signs Temp Pulse Pulse Pulse Resp BP BP 09/04/24 17:59 36.4 C L 76 16 157/80 H 09/04/24 17:37 09/04/24 17:33 09/04/24 17:31 128/83 09/04/24 17:18 09/04/24 17:09 09/04/24 17:00 145/73 H 09/04/24 16:18 75 15 09/04/24 16:00 83 15 09/04/24 15:33 09/04/24 15:18 75 19 09/04/24 15:09 85 14 155/69 H 09/04/24 13:26 80 09/04/24 13:02 36.4 C L 94 H 25 H 135/78 BP Pulse Ox O2 Del Method 09/04/24 17:59 98 Room Air 09/04/24 17:37 Room Air 09/04/24 17:33 100 Room Air 09/04/24 17:31 09/04/24 17:18 100 09/04/24 17:09 99 Room Air 09/04/24 17:00 09/04/24 16:18 09/04/24 16:00 100 Room Air 09/04/24 15:33 97 Room Air 09/04/24 15:18 155/59 H 100 Room Air 09/04/24 15:09 100 09/04/24 13:26 09/04/24 13:02 97 Room Air Laboratory Results Noted Diagnostic Findings CT scan was reviewed PG Care Time/CCT Total # of Minutes Spent Total Time Spent with Patient: Total time spent is greater than 50% in coordination of care (as documented) at patient's floor/unit and/or counseling patient: Coding Level of Care Code 09426 INT INP/OBS CARE 1/40MIN Diagnoses Wound of left groin S31.109A
[2024-09-04] MEDS ORDERED: PROCHLORPERAZINE 5 MG in SYRINGE 4 ML IV PRN (19:50)
[2024-09-04] MEDS: PROCHLORPERAZINE 5 MG in SYRINGE 4 ML IV ONE (20:18)
[2024-09-04] MEDS: LINEZOLID 600 MG/300 ML BAG IV SCH (21:07)
[2024-09-04] MEDS: PIPERACILLIN/TAZOBACTAM 4.5 GM/100 ML BAG IV SCH (21:08)
[2024-09-04] MEDS: ACETAMINOPHEN 325 MG TAB PO PRN (21:21)
[2024-09-04 21:54] LABS: Appearance Urine Cloudy (Clear); Bilirubin Urine Negative (Negative); Blood Urine 2+ (Negative); Cast Urine Automated 0-2 /lpf (0-2); Color Urine Yellow; Epithelial Cell Urine Auto 0-2 /hpf (0-2); Glucose Urine UA Negative (Negative); Ketones Urine Trace (Negative); Leukocyte Esterase Urine 2+ (Negative); Nitrite Urine Negative (Negative); Protein Urine Trace (Negative); RBC Urine Automated >20 /hpf (0-2); Specific Gravity Urine > 1.045 (1.000-1.030); Urobilinogen Urine Negative (Negative); WBC Urine Automated 21-50 /hpf (0-5); pH Urine 5.5 (4.5-7.5)
[2024-09-04 22:13] LABS: Amorphous Sediment Urine Present (None Prsent); Bacteria Urine Automated 3+ (None Seen)
[2024-09-05] MEDS: MICONAZOLE NITRATE POWDER 85 GM EXT PRN (01:06)
[2024-09-05] MEDS ORDERED: VANCOMYCIN HCL 2,000 MG in SODIUM CHLORIDE 0.9% 500 ML IV SCH (03:20)
[2024-09-05] MEDS: LEVOTHYROXINE SODIUM 25 MCG TABLET PO SCH (05:31)
[2024-09-05] MEDS: LEVOTHYROXINE SODIUM 200 MCG TABLET PO SCH (05:31)
[2024-09-05 05:55] LABS: Basophils # (auto) 0.08 K/uL (0.00-0.20); Basophils % (auto) 0.8 %; Eosinophils # (auto) 0.79 K/uL (0.00-0.50); Hematocrit (blood only) 33.3 % (37.0-47.0); Hemoglobin 10.8 g/dl (12.0-16.0); Immature Granulocytes # (auto) 0.04 K/uL (0.01-0.20); Immature Granulocytes % (auto) 0.4 %; Lymphocytes # (auto) 1.48 K/uL (1.20-3.40); Lymphocytes % (auto) 14.9 %; Mean Corpuscular Hemoglobin 29.4 pg (25.0-34.0); Mean Corpuscular Hgb Conc 32.4 g/dL (32.0-36.0); Mean Corpuscular Volume 90.7 fL (80.0-100.0); Monocytes # (auto) 0.78 K/uL (0.11-0.59); Monocytes % (auto) 7.9 %; Neutrophils # (auto) 6.73 K/uL (1.40-6.50); Platelet Count 365 K/uL (130-400); RDW Coefficient of Variation 12.9 % (11.5-14.5); RDW Standard Deviation 42.8 fL (36.4-46.3); Red Blood Count 3.67 M/uL (4.20-5.40)
[2024-09-05 06:10] LABS: BUN Creatinine Ratio 13.5 (10-20); Creatinine Clr Calc Pharmacy 71.6 ml/min; Potassium 3.7 mmol/L (3.5-5.1)
--- NOTE | 2024-09-05 08:10 | Hospitalist Progress Note ---
Date of Service September 05, 2024 Assessment & Plan (1) Wound of left groin: Plan: Culture with: Strep agalactiae (group B) No elevation of white count Patient is afebrile A/P CT did reveal bilateral inguinal lymphadenopathy with necrotic nodes General Surgery consult appreciated -they are following and hope to avoid surgical debridement Lactic acidosis is resolved Continue vancomycin and Zosyn (2) Hypothyroidism associated with surgical procedure: Plan: No levothyroxine (3) HTN (hypertension): Plan: Continue home meds (4) GERD (gastroesophageal reflux disease): Plan: Continue pantoprazole Plan Disposition: Admit to [facility] Full code Regular diet VTE PPx: SCDs; hold chemical DVT PPx prior to general surgery eval Admission and Anticipated Discharge Date Admission Date: September 04, 2024 Supervising Physician Co-Signing Physician Notes Attending Attestation - Chart reviewed, care plan d/w PA Vick Munguia. I agree w/ the combs components of his documentation. Drew Mitchell MD Subjective Attending: Dr. Mitchell Patient is a 74 yo female presenting with wound to the left groin. Bilateral inguinal lymphadenopathy with necrotic nodes. Surgery consulted. Procalcitonin within normal limits. IV antibiotics started with vancomycin 2000 mg IV every 12 hours and Zosyn 4.5 g IV every 8 hours. Surgery will follow for a day or 2 and if no improvement patient may need debridement. Patient is afebrile. WBC 10.8. No renal failure. Patient reports the pain is significantly improved. She remains afebrile. No acute complaints. Review of Systems 2 Review of Systems: A total of 10 systems was reviewed and is negative other than as listed in the HPI Physical Exam 2 Physical Exam: GENERAL : No acute distress EYES: No icterus, gaze conjugate NOSE: No evidence of epistaxis MOUTH: No lesions or candidiasis NECK: Supple LUNGS: CTA B/L, no wheezes, rales or rhonchi HEART: Regular, rate controlled ABDOMEN: Soft, NT, ND, BS Present. Wound examined. Patient also with intertriginous candidiasis. EXTREMITIES: No LE edema, pedal pulses intact NEURO: A&OX3 Results & Data Results & Data Vital Signs (Past 12 Hours) Vital Signs Temp Pulse Resp BP Pulse Ox O2 Del Method 09/05/24 07:41 36.7 C 65 18 144/82 H 92 Room Air Laboratory Results 09/05/24 05:25 09/05/24 05:25 Diagnostic Findings Abdomen/Pelvis CT 09/04/24 14:[address] WITH IV CONTRAST CT DOSE: 1579.08 mGy.cm HISTORY: L groin wound, cellulitic TECHNIQUE: Multiaxial CT images of the abdomen and pelvis were performed following the IV administration of 118 cc of Optiray, sagittal and coronal reconstructions were done. A dose lowering technique was utilized adhering to the principles of ALARA. COMPARISON STUDY: None FINDINGS: The lung bases and bone windows demonstrate no acute findings. There is diffuse hepatic steatosis. There are no focal liver lesions identified. The gallbladder surgically absent. The bile ducts are not significantly enlarged. There is no pancreatic lesion identified. There is a small left adrenal nodule that is likely benign. The spleen is unremarkable. There is no obstructive uropathy. Several bilateral renal cysts are identified to clearly on the left. There are no urinary tract calcifications present. There is no bowel obstruction or free air. There is no ascites. There is no aortic aneurysm or periaortic adenopathy. In the pelvis, the appendix is not identified. There is no evidence of appendicitis. There is no fluid in the cul-de-sac. There is no diverticulitis. The uterus is absent. The unopacified urinary bladder is negative. There are enlarged, necrotic lymph nodes identified in the left groin the largest measuring 3.3 cm in long axis. A second necrotic node measures 2.3 cm. Additional nonnecrotic lymph node prominence is noted elsewhere in the left groin and in the right groin. IMPRESSION: Bilateral inguinal lymphadenopathy left greater than right. 2 of the nodes in the left inguinal area are grossly enlarged and necrotic. ACT 112: Negative or not required by law. The above report was generated using voice recognition software. It may contain grammatical, syntax or spelling errors. Electronically signed by: Clarisa Torres M.D. 09/04/2024 3:22 PM PG Care Time/CCT Total # of Minutes Spent Total Time Spent with Patient: Total time spent is greater than 50% in coordination of care (as documented) at patient's floor/unit and/or counseling patient: 25 minutes Coding Level of Care Code 96027 SUB INP/OBS CARE 2/35MIN Diagnoses Wound of left groin S31.109A Hypothyroidism associated with surgical procedure E89.0 HTN (hypertension) I10 GERD (gastroesophageal reflux disease) K21.9 Time Spent (min) 25
[2024-09-05] MEDS: lisinopril 20 MG TAB PO SCH (08:11)
--- NOTE | 2024-09-05 12:59 | Surgery Progress Note ---
Date of Service September 05, 2024 Assessment & Plan (1) Wound of left groin: Plan: pt here w/ wound of L groin region wbc 9.9. vitals stable on IV abx will plan on making NPO at midnight and schedule her for wound debridement tomorrow in the OR pt seen/examined with dr. yuen Admission and Anticipated Discharge Date Admission Date: September 04, 2024 Subjective patient feeling okay, but having a little more pain after walking around this am. Physical Exam Physical Exam: awake/alert, no distress Skin: wound picture noted from wound care visit yesterday Results & Data Vital Signs (Past 12 Hours) Vital Signs Temp Pulse Resp BP Pulse Ox O2 Del Method 09/05/24 11:39 97.3 F L 72 16 134/78 96 Room Air 09/05/24 07:41 98.1 F 65 18 144/82 H 92 Room Air 09/05/24 07:35 Room Air PG Care Time/CCT Total # of Minutes Spent Total Time Spent with Patient: Total time spent is greater than 50% in coordination of care (as documented) at patient's floor/unit and/or counseling patient: Coding Level of Care Code 88728 SUB INP/OBS CARE 07/18MIN Diagnoses Wound of left groin S31.109A
--- NOTE | 2024-09-05 19:35 | Anesthesiology Consultation ---
Date of Service September 05, 2024 Assessment & Plan Chart Review Chart Review: Acceptable Risk for Surgery and Patient NOT seen in Pre Admission Testing Consults Requested none ASA [id number] Proposed Anesthesia Anesthesia Type: General History Surgery Operation Date: 09/06/24 07:30 Proposed Procedures p Incision and Drainage Left Posterior Groin(Left) - Kiel Ortez MD, FACS Height/Weight Height: 5 ft 6 in Weight: 146.4 kg Allergies Allergy/AdvReac Type Severity Reaction Status Date / Time tolterodine Allergy Intermediate plaque Verified 09/04/24 10:58 psoriasis nickel Allergy Mild Rash Verified 09/04/24 10:58 Medications Home Medications Medication Instructions Recorded Confirmed Last Taken cholecalciferol (vitamin D3) 125 125 mcg PO DAILY #30 caps 06/13/21 09/04/24 08/08/21 mcg (5,000 unit) capsule omeprazole 20 mg capsule,delayed 20 mg PO DAILY PRN Acid Reflux #90 02/07/23 09/04/24 Unknown release caps ascorbate calcium (vitamin C) 500 500 mg PO DAILY 08/12/23 09/04/24 Unknown mg tablet multivitamin 1 tab PO DAILY 08/12/23 09/04/24 Unknown nystatin 100,000 unit/gram topical 1 applic topical BID #30 grams 07/20/24 09/04/24 Unknown cream nystatin 100,000 unit/gram topical 1 applic topical BID #60 grams 07/20/24 09/04/24 Unknown powder levothyroxine 200 mcg capsule 200 mcg PO QAM #90 caps 08/21/24 09/04/24 Unknown levothyroxine 25 mcg capsule 25 mcg PO DAILY #90 caps 08/21/24 09/04/24 Unknown lisinopril 20 mg tablet 20 mg PO DAILY #90 tabs 08/21/24 09/04/24 Unknown mupirocin 2 % topical ointment 1 applic topical BID #22 grams 08/21/24 09/04/24 Unknown mv-mn-folic 200 mcg-vit K 15 1 cap PO DIRECTED 09/04/24 09/04/24 Unknown mcg-lutein 5 mg-zeaxanthin 1 mg capsule (PreserVision AREDS 2 Plus Multivit) Active Medications Generic Name Dose Route Start Last Admin Trade Name Freq PRN Reason Stop Dose Admin Acetaminophen 650 mg 09/04/24 17:57 09/05/24 19:32 Acetaminophen 325 Mg Tab PO 10/04/24 17:56 650 mg Q4H PRN Administration Fever/Mild Pain (Pain 1-5) Piperacillin Sod/Tazobactam Sod 4.5 gm in 100 mls @ 25 mls/hr 09/04/24 20:00 09/05/24 17:12 Zosyn IV 09/11/24 13:59 Infused Q8H AMADEO Infusion Protocol Linezolid 600 mg in 300 mls @ 300 mls/hr 09/04/24 20:00 09/05/24 09:52 Zyvox IV 09/11/24 19:59 Infused Q12H AMADEO Infusion Levothyroxine Sodium 25 mcg 09/05/24 06:30 09/05/24 05:31 Levothyroxine Sodium 25 Mcg Tablet PO 10/05/24 06:29 25 mcg DAILYBB AMADEO Administration Levothyroxine Sodium 200 mcg 09/05/24 06:30 09/05/24 05:31 Levothyroxine Sodium 200 Mcg Tablet PO 10/05/24 06:29 200 mcg DAILYBB AMADEO Administration Lisinopril 20 mg 09/05/24 09:00 09/05/24 08:11 Lisinopril 20 Mg Tab PO 10/05/24 08:59 20 mg DAILY AMADEO Administration Miconazole Nitrate 1 appln 09/04/24 23:46 09/05/24 01:06 Miconazole Nitrate Powder 85 Gm EXT 10/04/24 23:45 1 appln PRN PRN Administration Affected Skin Folds Past Medical History Medical History COVID-19 virus detected 07/03/21 positive; asymptomatic Nausea and vomiting after administration of anesthetic agent Hypothyroid HTN Gerd Morbid obesity Asthma OS macular degeneration DJD Anemia Exercise / Class Metabolic Activity III < 4 Walking/Shop/Light housework Past Family History Family History Sister Colorectal cancer Other Cardiac disorder Diabetes Hypertension Hypothyroidism No family history of adverse response to anesthesia Denies family history of Ovarian cancer Prostate cancer Myocardial infarction Breast cancer Past Surgical History Surgical History History of total hysterectomy with bilateral salpingo-oophorectomy (BSO) History of tooth extraction S/P tonsillectomy and adenoidectomy S/P thyroid surgery x2--d/t goiter S/P cholecystectomy S/P arthroscopy of knee left Past Anesthesia History No Hx of Anesthesia Complications and No Family Hx of Anesthesia Complications History of PONV No Hx of PONV and No Hx of Motion Sickness Social History Smoking Status: Former smoker Do You Dip or Chew Tobacco: No Smoking End Date: 1999 Hx Alcohol Use: No Hx Substance Use: No substance use type: does not use Physical Exam Vital Signs Last Vital Signs Temp 36.4 C L 09/05/24 15:11 Pulse 70 09/05/24 15:11 Resp 16 09/05/24 15:11 BP 98/64 L 09/05/24 15:11 Pulse Ox 96 09/05/24 15:11 O2 Del Method Room Air 09/05/24 15:11 Testing Laboratory Results 09/05/24 05:25 09/05/24 05:25 PT 11.1 Seconds (9.0-12.0) 09/04/24 14:58 INR 1.0 (0.9-1.1) 09/04/24 14:58 Urine Color Yellow 09/04/24 21:15 Urine Appearance Cloudy (Clear) A 09/04/24 21:15 Urine pH 5.5 (4.5-7.5) 09/04/24 21:15 Ur Specific [place] > 1.045 (1.000-1.030) H 09/04/24 21:15 Urine Protein Trace (Negative) H 09/04/24 21:15 Urine Glucose (UA) Negative (Negative) 09/04/24 21:15 Urine Ketones Trace (Negative) H 09/04/24 21:15 Urine Nitrite Negative (Negative) 09/04/24 21:15 Ur Leukocyte Esterase 2+ (Negative) H 09/04/24 21:15 Urine WBC (Auto) 21-50 /hpf (0-5) H 09/04/24 21:15 Urine RBC (Auto) >20 /hpf (0-2) H 09/04/24 21:15 U Hyaline Cast (Auto) 0-2 /lpf (0-2) 09/04/24 21:15 U Epithel Cells (Auto) 0-2 /hpf (0-2) 09/04/24 21:15 Urine Bacteria (Auto) 3+ (None Seen) H 09/04/24 21:15 09/04/24 13:30 Aerobic Blood Culture - Preliminary Blood No growth in Aerobic bottle after 24 hours. 09/04/24 13:25 Aerobic Blood Culture - Preliminary Blood No growth in Aerobic bottle after 24 hours. Anaerobic Blood Culture - Preliminary No growth in Anaerobic bottle after 24 hours. 09/04/24 21:15 Urine Culture - Preliminary Urine,Clean Catch No growth - Less than 1,000 colonies/mL, Final report to follow. 09/04/24 14:14 Gram Stain - Final Groin Wound Culture - Preliminary Strep agalactiae (group B)
[2024-09-06] MEDS ORDERED: ONDANSETRON INJ 2 MG/ML 2 ML VIAL ONE (07:18)
[2024-09-06] MEDS ORDERED: SUCCINYLCHOLINE CHLORIDE 20 MG/ML 10 ML VIAL IV ONE (07:18)
[2024-09-06] MEDS ORDERED: PROPOFOL IV EMULSION 10 MG/ML 20 ML VIAL IV ONE (07:18)
[2024-09-06] MEDS ORDERED: LIDOCAINE 2% 2 ML VIAL/AMP(20MG/ML) INFIL ONE (07:18)
[2024-09-06] MEDS ORDERED: fentaNYL citrate PF 100 MCG/2 ML VIAL ONE (07:18)
[2024-09-06] MEDS ORDERED: ACETAMINOPHEN 1000 MG/100 ML IV IV ONE (07:24)
--- NOTE | 2024-09-06 07:49 | Hospitalist Progress Note ---
Date of Service September 06, 2024 Assessment & Plan (1) Wound of left groin: Plan: Culture with: Strep agalactiae (group B) No elevation of white count Patient is afebrile A/P CT did reveal bilateral inguinal lymphadenopathy with necrotic nodes General Surgery consult appreciated -surgical debridement today. Biopsy results are pending. Wound size 6.5 cm x 9.2 cm x 3.2 cm total wound size 59.80 cm that included the slough and the friable granulation tissue (likely malignant) Lactic acidosis is resolved Continue antibiotics - Patient was on vancomycin and Zosyn - now on Linezolid and Zosyn (Today is day #3 IV abx) Can discharge home tomorrow if stable (2) Hypothyroidism associated with surgical procedure: Plan: No levothyroxine (3) HTN (hypertension): Plan: Continue home meds (4) GERD (gastroesophageal reflux disease): Plan: Continue pantoprazole (5) Anemia: Plan: Patient with a drop of hemoglobin of 2 g. No apparent bleeding. Hgb improved from 10.8 to 11.4 Plan Disposition: Admit to [facility] Full code Regular diet VTE PPx: SCDs; hold chemical DVT PPx prior to general surgery eval Anticipate discharge home tomorrow if patient is stable. Admission and Anticipated Discharge Date Admission Date: September 04, 2024 Supervising Physician Co-Signing Physician Notes Attending Attestation - Chart reviewed, care plan d/w RUPERT Munguia. I agree w/ the combs components of his documentation. Drew Mitchell MD Subjective Attending: Dr. Mitchell: Patient is a 74 yo female presenting with wound to the left groin. Bilateral inguinal lymphadenopathy with necrotic nodes. Surgery consulted. Procalcitonin within normal limits. IV antibiotics started with vancomycin 2000 mg IV every 12 hours and Zosyn 4.5 g IV every 8 hours. Patient is afebrile. WBC 10.8. No renal failure. Patient with to the operating room today for debridement. No complications. Patient states that the pain is much improved. Biopsies are pending. Patient will follow-up outpatient per her report. She is aware that there is a high likelihood that this could be malignant. Patient remains afebrile. No acute complaints. Review of Systems 2 Review of Systems: A total of 10 systems was reviewed and is negative other than as listed in the HPI Physical Exam 2 Physical Exam: GENERAL : No acute distress EYES: No icterus, gaze conjugate NOSE: No evidence of epistaxis MOUTH: No lesions or candidiasis NECK: Supple LUNGS: CTA B/L, no wheezes, rales or rhonchi HEART: Regular, rate controlled ABDOMEN: Soft, NT, ND, BS Present EXTREMITIES: No LE edema, pedal pulses intact. Wound not examined today as patient just got back from OR NEURO: A&OX3 Results & Data Results & Data Vital Signs (Past 12 Hours) Vital Signs Temp Pulse Resp BP Pulse Ox O2 Del Method 09/05/24 20:00 36.6 C 72 20 118/74 97 Room Air Laboratory Results 09/05/24 05:25 09/05/24 05:25 PG Care Time/CCT Total # of Minutes Spent Total Time Spent with Patient: Total time spent is greater than 50% in coordination of care (as documented) at patient's floor/unit and/or counseling patient: Coding Level of Care Code 68505 SUB INP/OBS CARE 07/18MIN Diagnoses Wound of left groin S31.109A Hypothyroidism associated with surgical procedure E89.0 HTN (hypertension) I10 GERD (gastroesophageal reflux disease) K21.9 Anemia D64.9
[2024-09-06] MEDS ORDERED: ONDANSETRON INJ 2 MG/ML 2 ML VIAL IV PRN ×2 (07:59→09:57)
[2024-09-06] MEDS ORDERED: FLUMAZENIL 0.1 MG/1 ML 10 ML VIAL IV PRN (07:59)
[2024-09-06] MEDS ORDERED: NALOXONE HCL 0.4 MG/1 ML VIAL/CARP IV PRN (07:59)
[2024-09-06] MEDS ORDERED: ATROPINE SULFATE 0.1 MG/ML 10ML SYR IV PRN (07:59)
[2024-09-06] MEDS ORDERED: fentaNYL citrate PF 100 MCG/2 ML VIAL IV PRN (07:59)
[2024-09-06] MEDS ORDERED: PROMETHAZINE HCL 6.25 MG in SODIUM CHLORIDE 0.9% 50 ML IV PRN (07:59)
[2024-09-06] MEDS ORDERED: ePHEDrine sulfate 50 MG/ML AMP IV PRN (07:59)
[2024-09-06] MEDS ORDERED: DEXAMETHASONE SOD INJ 4 MG/ML VIAL ONE (08:18)
[2024-09-06] MEDS ORDERED: KETAMINE HCL 10MG/ML SYR ONE (08:27)
[2024-09-06] MEDS ORDERED: MIDAZOLAM HCL 1 MG/ML 2ML VIAL ONE (08:33)
[2024-09-06] MEDS: SURGICEL ABSORB HEMOSTAT 2IN X 14IN TOP ONE (08:40)
--- NOTE | 2024-09-06 08:48 | Post Operative Brief Note ---
Immediate Post Op Note Date of Surgery September 06, 2024 Pre & Post Diagnosis Operation Date: 09/06/24 07:30 <No data on this case meets the specified criteria> I identified the patient and participated in the time-out.: Yes Procedure Operation Date: 09/06/24 07:30 <No data on this case meets the specified criteria> Surgeon Kiel Ortez MD, FACS Vessel Crew Member Oscar NOLASCO Estimated Blood Loss 100 Findings Consistent with Post-Op Diagnosis
--- NOTE | 2024-09-06 09:11 | Operative Report ---
PG Post Operative Report Pre & Post Diagnosis Operation Date: 09/06/24 07:30 <No data on this case meets the specified criteria> Open wound left inner thigh with slough present wound size 6.5 cm x 9.2 cm x 3.2 cm total wound size 59.80 cm I identified the patient and participated in the time-out.: Yes Procedure Operation Date: 09/06/24 07:30 <No data on this case meets the specified criteria> Open wound left inner thigh with slough present measuring 6.5 cm x 9.2 cm x 3.2 cm total size 59.80 cm Procedure debridement and biopsy of wound The patient was brought into the operating theater general trach anesthesia to expose the area of interest which was a left inner thigh going towards the labia of this large lesion we externally rotated through the left leg rather than placing stairs since the seem to be a more feasible way to expose the lesion that in the right leg was just similarly externally rotated we used tape on top of towels of both thighs to retract the large thighs laterally so we can expose the lesion once this had been performed we prepped the area with Betadine scrub and solution and properly draped a timeout was had the patient was identified the significant soft that was present on the wound and few areas with very friable tissue especially in the periphery we took some biopsies of and subcutaneous tissue adjacent to the lesion is significant slough that was present using a curette circumferentially freed all the slough and in doing so we found that we had very friable tissue for a granular inside suspicious that this may be a carcinoma therefore we continued with the debridement to we were able to get all the slough present on the wound with good bleeding base that was controlled with just pressure the multiple fragments of debridement were sent for cultures and also for cytology At this point I was suspicious that this was a malignancy I did not send it for frozen section at this time for if it were no malignancy the patient will have to go to a tertiary center where the whole area needed to be excised and poss at plastic surgery available if any reconstruction could be made We elected to dress the wounds the most feasible way with the place Surgicel on the wound and applied ABD pads sure that it would been very difficult to keep a dressing on there due to the location of the wound (pictures were taken) The procedure was tolerated well estimated blood loss 100 cc Addendum Oscar NOLASCO was present throughout the procedure and helped retraction exposure wound closure The patient stated a sister would be in the waiting area after the procedure no one was there I did not have the sister number the only member was her daughter which I did not call since I did not have permission to discuss this with her daughter In summary this was a debridement of the wound size 6.5 cm x 9.2 cm x 3.2 cm total wound size 59.80 cm that included the slough and the friable granulation tissue (likely malignant) Surgeon Kiel Ortez MD, FACS Hog Killer Oscar NOLASCO Estimated Blood Loss 100 Findings Consistent with Post-Op Diagnosis Open wound with very friable tissue slough present wound size greater than 20 cm 59.80 cm (6.5 cm x 9.2 cm x 3.2 cm) using a curette Specimens Multiple fragments of very friable tissue sent for permanent section 1 biopsy was taken that included to the surrounding skin and lesion this was approximately 1 cm in size this was an incisional biopsy Complications None Indications Open necrotic wound the left groin that started last April and the small lesion and recently seen in wound clinic who referred the patient to the hospital for further treatment Description of Procedure merda I attest to the content of the Intraoperative Record and any orders documented therein. Any exceptions are noted below.
[2024-09-06] MEDS ORDERED: MoRPHine SULFATE 4 MG/ML 1 ML CARP\\VIAL IV PRN (09:57)
[2024-09-06] MEDS ORDERED: MoRPHine SULFATE 2 MG/ML CARP IV PRN (09:57)
[2024-09-06] MEDS ORDERED: oxyCODONE HCL IR 5 MG TAB (IMMEDIATE RELEASE) PO PRN ×2 (09:57)
[2024-09-06] MEDS: FAMOTIDINE/PF 20 MG/2 ML VIAL IV ONE (09:58)
[2024-09-06 10:32] LABS: Basophils # (auto) 0.08 K/uL (0.00-0.20); Basophils % (auto) 0.8 %; Eosinophils # (auto) 0.74 K/uL (0.00-0.50); Hematocrit (blood only) 36.1 % (37.0-47.0); Hemoglobin 11.4 g/dl (12.0-16.0); Immature Granulocytes # (auto) 0.06 K/uL (0.01-0.20); Immature Granulocytes % (auto) 0.6 %; Lymphocytes # (auto) 0.78 K/uL (1.20-3.40); Lymphocytes % (auto) 7.4 %; Mean Corpuscular Hemoglobin 29.2 pg (25.0-34.0); Mean Corpuscular Hgb Conc 31.6 g/dL (32.0-36.0); Mean Corpuscular Volume 92.6 fL (80.0-100.0); Monocytes # (auto) 0.31 K/uL (0.11-0.59); Monocytes % (auto) 2.9 %; Neutrophils # (auto) 8.64 K/uL (1.40-6.50); Neutrophils % (auto) 81.3 %; Platelet Count 392 K/uL (130-400); RDW Coefficient of Variation 13.1 % (11.5-14.5); White Blood Count 10.61 K/ul (4.8-10.8)
[2024-09-06 11:06] LABS: BUN Creatinine Ratio 9.5 (10-20); Calcium 8.5 mg/dl (8.6-10.3); Creatinine Clr Calc Pharmacy 64.2 ml/min; Potassium 4.2 mmol/L (3.5-5.1)
--- NOTE | 2024-09-06 11:27 | Anesthesiology Progress Note ---
Date of Service September 06, 2024 Anesthesia Post Procedure Vital Signs Vital Signs: Temp Pulse Pulse Pulse Resp BP BP 09/06/24 11:03 36.3 C L 72 18 106/68 09/06/24 10:21 36.3 C L 64 18 126/81 09/06/24 09:50 36.3 C L 63 18 122/77 09/06/24 09:40 63 18 123/58 L 09/06/24 09:30 36.5 C 64 12 129/62 09/06/24 09:20 65 18 128/67 09/06/24 09:10 70 20 101/63 09/06/24 09:02 36.2 C L 71 14 119/61 09/05/24 20:00 36.6 C 72 20 118/74 09/05/24 19:45 09/05/24 15:11 36.4 C L 70 16 98/64 L 09/05/24 11:39 36.3 C L 72 16 134/78 Pulse Ox O2 Del Method O2 Flow Rate 09/06/24 11:03 97 Room Air 09/06/24 10:21 94 Room Air 09/06/24 09:50 98 Nasal Cannula 3 09/06/24 09:40 94 Nasal Cannula 3 09/06/24 09:30 96 Nasal Cannula 2 09/06/24 09:20 94 Oxymask 6 09/06/24 09:10 94 Oxymask 8 09/06/24 09:02 93 Oxymask 10 09/05/24 20:00 97 Room Air 09/05/24 19:45 Room Air 09/05/24 15:11 96 Room Air 09/05/24 11:39 96 Room Air Pain Intensity Left Groin: Pain Intensity: 5 Transfer of Care Handoff Completed per policy Notes Mental Status: alert / awake / arousable Patient Amnestic to Procedure: Yes Nausea / Vomiting: adequately controlled Pain: adequately controlled Airway Patency, RR, SpO2: stable & adequate BP & HR: stable & adequate Hydration State: stable & adequate Anesthetic Complications: no major complications apparent
--- NOTE | 2024-09-06 12:09 | Electrocardiogram Report ---
Test Reason : Blood Pressure : */* mmHG Vent. Rate : 71 BPM Atrial Rate : 71 BPM P-R Int : 170 ms QRS Dur : 86 ms QT Int : 456 ms P-R-T Axes : 37 41 38 degrees QTcB Int : 495 ms Normal sinus rhythm Prolonged QT Abnormal ECG Confirmed by Damien Burnette ([id number]) on 09/06/2024 12:08:58 PM Referred By: REFERRED SELF Confirmed By: Damien Burnette
[2024-09-07 04:42] VITALS: O2SAT 95
--- NOTE | 2024-09-07 06:32 | Surgery Progress Note ---
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 4 times daily Continue with Aquacel Ag and an attached to the groin area changes needed May shower no bathing Return to wound clinic next week She has not taken anything for pain I recommend she may take some Motrin or Advil on as-needed basis Admission and Anticipated Discharge Date Admission Date: September 04, 2024 Subjective She feels much better than when she first came in. Minimal discomfort in the left groin area She is the second postoperative day status post debridement and biopsy of a large lesion in the left groin area Physical Exam Physical Exam: The wound presents with dressing of Aquacel Ag and a #50 Surendra number as-needed basis This Results & Data Vital Signs (Past 12 Hours) Vital Signs Temp Pulse Resp BP Pulse Ox O2 Del Method 09/07/24 04:41 36.3 C L 78 16 129/79 95 Room Air 09/06/24 23:09 36.4 C L 71 16 129/75 98 Room Air 09/06/24 20:45 Room Air 09/06/24 19:01 36.6 C 89 18 158/90 H 94 Room Air
[2024-09-07 08:32] VITALS: BP 116/72; RESP 18; TEMP 97.5
[2024-09-07 09:16] VITALS: PULSE 63
--- NOTE | 2024-09-07 10:24 | Discharge Summary ---
Discharge Summary Date of Service September 07, 2024 Principal Dx & Hospital Course #1 = Principal Diagnosis (1) Wound of left groin: (2) Hypothyroidism associated with surgical procedure: (3) HTN (hypertension): (4) GERD (gastroesophageal reflux disease): (5) Anemia: Deangelo Thomas is a pleasant 74-year-old female who presented on 09/04 at the behest of the wound clinic for an ongoing left posterior groin infection. She has not be en on p.o. antibiotics for this infection (has been on a topical nystatin and mupirocin); wound gradually worsening. She was admitted for IV antibiotics and surgical consultation given depth of wound and purulent drainage. #Left groin wound/infection CT A/P revealed bilateral inguinal lymphadenopathy with necrotic nodes Wound culture with strep agalactiae (group B) General surgery consulted S/p chemical debridement on 09/[address] Ortez Wound size 6.5 cm x 9.2 cm x 3.2 cm total wound size 59.80 cm that included the slough and the friable granulation tissue (likely malignant). Final pathology report pending Treated with Linezolid IV and Zosyn IV while inpatient; transitioned to Keflex QID on discharge per surgical team Discontinued topical nystatin/mupirocin Follow-up in wound care clinic next week #Anemia Mild, stable at 11.4. No signs of active bleeding Chronic stable conditions: Hypothyroidismlevothyroxine HTNlisinopril GERDomeprazole or Protonix Dispo: Discharged home 09/07 Notes For Next Care Provider Wound of left groin with suspicion for malignancy given very friable tissue. Awaiting final pathology report Medication Changes From Visit Discontinue topical nystatin and mupirocin Continue Keflex 4 times daily until final sensitivities are back Admission HPI Per Admitting Provider Martha is a pleasant 74-year-old female with PMH of hysterectomy, GERD, HTN, morbid obesity, and hypothyroidism. She was referred by the wound clinic on 09/04 for a left groin wound and ureteral mass with erosion. The wound has been worsening over the past 6 weeks. Patient has been following at the wound clinic for this wound, but today it was found to be malodorous with acute worsening. PPatient has been applying creams to the area (topical nystatin and mupirocin), with no improvement, and patient's daughter believes that these may have worsened her symptoms. Patient endorses pain at the wound site (left posterior groin), with occasional shooting pain down her leg. She rates the pain 0/10 at present while laying still in bed, but 9/10 at worst. She characterizes it as a burning, achy pain with occasional sharp stabbing. She has not been taking any p.o. medications to help with the pain; did try taking aspirin tablets x 2, but this did not help. Additionally, she reports she has had purulent drainage from the site for the past month, and occasional bleeding. She reports she has not been on any p.o. antibiotics for this. No prior history of MRSA infections to her knowledge. She does report she has had intermittent fever, chills, night sweats, but is unsure if this was secondary to her recent flu infections. Patient reports she has had the flu 3 times over the past several months, and has had ongoing congestion. Patient did not take her regular morning medicine today; only recent change in medication was that her lisinopril was decreased from 40 to 20 mg daily 2 weeks ago. Patient manages her own medicine at home. She lives by herself in a senior care apartment, but does have a daughter who lives nearby. Patient denies smoking, tobacco use, recent alcohol use. She ambulates with a walker at baseline; no recent falls or injuries. Patient does have a history of gallbladder surgery and hysterectomy. No CPAP HS. Patient is hypertensive at 155/59 at time of admission; vitals otherwise stable. ED course: Vancomycin 2750 mg IV Zosyn 4.5 g IV Morphine 4 mg IV NSS 1000 L IV ROS: Patient endorses fever, chills, night-sweats, MAYER (attributes to pain), dry cough, abdominal pain, nausea, bilious vomiting (attributes to flu), diarrhea, loss of urinary continence (ongoing for years). Patient denies falls, injuries, blood in the urine/stool, dark tarry stool, saddle anesthesia, fecal incontinence, or numbness/tingling in the legs. Discharge Exam General: No acute distress, nondiaphoretic, well-developed, well-nourished. Cardiac: Regular rate and rhythm without murmurs gallops or rubs. Pulm: Clear to auscultation bilaterally without wheezes, rales or rhonchi. Normal respiratory effort. 95% on room air. Abdominal: Soft, nontender, distended secondary to body habitus. Bowel sounds present. : Exam deferred as patient states general surgery team just examined. Neuro: A&O x3. No focal neurological deficits. Discharge Plan Discharge Items Patient Disposition: Home - Self-Care Reason For Visit: LEFT POSTERIOR GROIN INFECTION Discharge Diagnosis: Left groin infection s/p chemical debridement Activity: Per Instructions section Bathing: No limitations Non-emergency contact: Primary Care Provider and Surgeon Call non-emergency contact if: you have any medication questions, your symptoms worsen, your pain is not controlled, your wound has increased redness, your wound has increased drainage and your wound pain has increased Follow-up/Referrals: Kiel Ortez MD, FACS [Surgeon] - (call for follow up in 1 week ) Petr Freeman DO [Primary Care Provider] - (Follow-up in 1-2 weeks) Diet: Regular Addtl Attending Provider Instructions: Keflex 500 mg p.o. 4 times daily Continue with Aquacel Ag and an attached to the groin area changes needed May shower no bathing Return to wound clinic next week Pending Studies at Discharge: Yes Studies:: Pathology report Stand-Alone Forms: My [facility], Smoking Cessation Medications and DC Order Prescriptions: New cephalexin 500 mg capsule 500 mg PO QID 10 Days Qty: 40 0RF Continued PreserVision AREDS 2 Plus MV 200 mcg-15 mcg- 5 mg-1 mg capsule 1 cap PO DIRECTED cholecalciferol (vitamin D3) 125 mcg (5,000 unit) capsule 125 mcg PO DAILY Qty: 30 0RF omeprazole 20 mg capsule,delayed release(DR/EC) 20 mg PO DAILY PRN (Reason: Acid Reflux) Qty: 90 3RF ascorbate calcium (vitamin C) 500 mg tablet 500 mg PO DAILY multivitamin Tablet 1 tab PO DAILY levothyroxine 25 mcg capsule 25 mcg PO DAILY Qty: 90 1RF levothyroxine 200 mcg capsule 200 mcg PO QAM Qty: 90 1RF lisinopril 20 mg tablet 20 mg PO DAILY Qty: 90 3RF Discontinued nystatin 100,000 unit/gram powder 1 applic topical BID Qty: 60 5RF nystatin 100,000 unit/gram cream 1 applic topical BID Qty: 30 5RF mupirocin 2 % ointment 1 applic topical BID Qty: 22 5RF Discharge Orders: Discharge Order (Routine); Ordered 09/07/24 Ordered By: Fina Cerrato Admission Data Admit Date/Time: 09/04/24 16:52 Attending Provider: Brent Salvador Admit Provider: Lito Rod Primary Care Provider: Petr Freeman Other Providers: Lito Rod; Kiel Ortez Other Interventions: Discharge Summary Assessment (RN) Last Done: 09/07/24 09:15 Hospital Stay Data Consultations 09/04/24 15:48 ED Decision to Admit Stat 09/04/24 18:27 Consult General Surgery Routine Procedures Performed Operation Date: 09/06/24 07:30 Actual Procedures p Incision and Drainage Left Posterior Groin(Left) - Kiel Ortez MD, FACS Diagnostic Imagining Performed Abdomen/Pelvis CT 09/04/24 14:[address] WITH IV CONTRAST CT DOSE: 1579.08 mGy.cm HISTORY: L groin wound, cellulitic TECHNIQUE: Multiaxial CT images of the abdomen and pelvis were performed following the IV administration of 118 cc of Optiray, sagittal and coronal reconstructions were done. A dose lowering technique was utilized adhering to the principles of ALARA. COMPARISON STUDY: None FINDINGS: The lung bases and bone windows demonstrate no acute findings. There is diffuse hepatic steatosis. There are no focal liver lesions identified. The gallbladder surgically absent. The bile ducts are not significantly enlarged. There is no pancreatic lesion identified. There is a small left adrenal nodule that is likely benign. The spleen is unremarkable. There is no obstructive uropathy. Several bilateral renal cysts are identified to clearly on the left. There are no urinary tract calcifications present. There is no bowel obstruction or free air. There is no ascites. There is no aortic aneurysm or periaortic adenopathy. In the pelvis, the appendix is not identified. There is no evidence of appendicitis. There is no fluid in the cul-de-sac. There is no diverticulitis. The uterus is absent. The unopacified urinary bladder is negative. There are enlarged, necrotic lymph nodes identified in the left groin the largest measuring 3.3 cm in long axis. A second necrotic node measures 2.3 cm. Additional nonnecrotic lymph node prominence is noted elsewhere in the left groin and in the right groin. IMPRESSION: Bilateral inguinal lymphadenopathy left greater than right. 2 of the nodes in the left inguinal area are grossly enlarged and necrotic. ACT 112: Negative or not required by law. The above report was generated using voice recognition software. It may contain grammatical, syntax or spelling errors. Electronically signed by: Clarisa Torres M.D. 09/04/2024 3:22 PM Pending Results Patient Have Any Pending Studies at Discharge: Yes Discharge Instructions Given to Patient (Per Discharging Provider) Keflex 500 mg p.o. 4 times daily Continue with Aquacel Ag and an attached to the groin area changes needed May shower no bathing Return to wound clinic next week Total Time Total Time Spent Total Time Spent (In Minutes): Greater than 30 minutes spent completing this discharge process including direct patient care, medication reconciliation, documentation, review of labs and images, and coordination of care. Coding Level of Care Code 34488 INP/OBS DISCH >30 MIN Diagnoses Wound of left groin S31.109A Hypothyroidism associated with surgical procedure E89.0 HTN (hypertension) I10 GERD (gastroesophageal reflux disease) K21.9 Anemia D64.9
--- NOTE | 2024-09-15 05:52 | Coding Query ---
PATHOLOGY To promote full compliance with coding requirements relating to patient care, physician participation is requested in all cases of state farm agent uncertainty. Please assist us with the question(s) below: Please review the Pathology report and please document any relevant diagnosis(es) below: Diagnosis(es): none Thank you Rowena GOTTLIEB
== END 2024-09-07 11:14 | disposition home or self-care (01) | DRG 829 ==
LOC: ED 12:56 → SUATTDRO 16:52 → 3E 16:52

== ENCOUNTER 2024-10-04 11:09 | Inpatient (IN) ==
--- OUTSIDE RECORDS SUMMARY | 2024-10-04 11:17 | External Medical Summary | Summary of Care ---
Author Name Unknown Organization [facility] Address [address] [place] [address] Phone [phone] Care Team Providers Care Electronics System Mechanic Name Role Phone Cha Richardson Jamison NOLASCO Primary Care Provider [phone]- [phone] Reason for Referral * Evaluate & Treat - Unlimited Visits (Within 3 days (urgent)) - Authorized Specialty Diagnoses / Procedures Referred By Meera laureano Referred To Contact SURGICAL ONCOLOGY / Surgical Oncology Diagnoses Squamous cell carcinoma of skin Open wound of abdominal wall Kiel Ortez MD [address] [facility] [address] [place] [address] Phone: tel: fax: Referral ID Status Reason Start Date Expiration Date Visits Requested Visits Authorized [id number] Authorized Specialty Services Required 09/21/2024 [id number] Question Answer Referral Priority Within 3 days (urgent) Where should this appointment be scheduled? [facility] Comments Requesting Dr Gonzalo Renee Encounter Details Date Type Department Care Team (Late st Contact Info) Description 09/21/2024 Orders Only Access Center, [address] *DO NOT REMOVE THIS DEPARTMENT* [place] [id number] Request, External Referral Squamous cell carcinoma of skin*; Open wound of abdominal wall Allergies No known active allergiesdocumented as of this encounter (statuses as of 09/22/2024) Medications OMEPRAZOLE 20 MG PO TBEC one tab daily Active LORATADINE 10 MG PO CAPS one tab daily Active LISINOPRIL-HYDROC HLOROTHIAZIDE 20-12.5 MG PO TABS one tab daily Active VITAMIN D3 1000 UNITS PO CAPS one tab daily Ac tive ADVAIR DISKUS 250-50 MCG/DOSE IN AEPB twice daily Active FLUTICASONE PROPIONATE 50 MCG/ACT NA SUSP 2 sprays each nostril once daily Active LEVOTHYROXINE SODIUM 25 MCG OR TABSIndications:N on-toxic multinodular goiter one a day before breakfast 30 Tab 0 2 Active tolterodine (DETROL) 2 MG Tablet 7 Active hydrOXYzine pamoate (VISTARIL) 25 MG Capsule Take 25 mg by mouth 3 times a day as needed for Itching. Active triamcinolone acetonide (ARISTOCORT) 0.1 % creamIndications: Pruritus Apply topically to affected area 2 times a day. Apply to affected areas in the arms. Legs and back twice a day x 2weeks 453.6 g 1 7 Active Betamethasone Dipropionate 0.05 % ointment apply to affected area at bedtime x 2 weeks then break 45 g 2 8 Active documented as of this encounter (statuses as of 09/22/2024) Active Problems Problem Noted Date Diagnosed Date Monoclonal gammopathy 03/04/2014 Asthma with severity to be determined 03/04/2006 Overview (10/03/2015): ICD-10 update of inactive term NONALLERGIC RHINITIS 03/04/2006 Esophageal reflux 03/04/2006 HTN, goal below 140/90 10/19/2003 Hemorrhoids 10/19/2003 Other specified disorders of thyroid 10/19/2003 Migraine 10/19/2003 NONTOX MULTINODUL GOITER 10/19/2003 documented as of this encounter (statuses as of 09/22/2024) Social History Tobacco Use Types Packs/Day Years Used Date Smoking Tobacco: Former Cigarettes 1 30 0 06/24/1968 - 06/24/1998 Smokeless Tobacco: Never Comments:no passive smoke ex posures Alcohol Use Standard Drinks/Week Comments No 0 (1 standard drink = 0.6 oz pur e alcohol) Utilities Answer Date Recorded Do you have trouble paying y our heating, water, or electric bill? (Adult - for ages 18 years and over) Not on file 12/10/2023 Is your family able to pay t he heat, water, or electric bill? (Household - for ages 0-17 years) Not on file 12/10/2023 Does your family have access to good internet? (Household - for ages 0-17 years) Not on file 12/10/2023 Social Connections Answer Date Recorded How often do you feel lonely or isolated from those around you? (Adult - for ages 18 years and over) Not on file 12/10/2023 Comments No Sex and Gender Information Value Date Recorded Sex Assigned at Not on file Legal Sex Female 6:03 AM EST Gender Identity Not on file Sexual Orientation Not on file documented as of this encounter Plan of Treatment Upcoming Encounters Date Type Department Care Team (Late st Contact Info) Description 09/29/2024 11:45 AM EDT Imaging Radiology [address] [place] [id number] 10/07/2024 1:30 PM EDT Office Visit Gynecology/Oncology, [place] [address] [place] [address] Fina Bryant MD [address] [place] [address] Scheduled Referrals Name Type Priority Associated Diagnoses Orde r Schedule SURGICAL ONCOLOGY REFERRAL OP Referral Within 3 days (urgent) Squamous cell carcinoma of skin Open wound of abdominal wall Ordered: 09/21/2024 Health Maintenance Due Date Last Done Comments DXA Scan 1951 Depression Screening 1963 Albumin/Creatinine Ratio 1969 Hepatitis C Screening 1969 DTap/Tdap Vaccines (1 - Tdap) 1970 Pneumococcal Vaccine: 50+ Years (1 of 2 - PCV) 1970 Mammogram 1991 Cologuard 1996 Colonoscopy 1996 Colorectal Cancer Screening 1996 Fecal Occult Blood Test 1996 Sigmoidoscopy 1996 Zoster Vaccines (1 of 2) 2001 Lipid Panel 06/09/2012 06/09/2007, 05/24, 02/10/1999 TSH 02/27/2013 02/28/2012, 05/24, 09/05/2004, Additional history exists GFR 03/04/2015 03/04/2014, 10/2011, 06/09/2007, Additional history exists COVID-19 Vaccine (2023- season) 2024 Influenza Vaccine (FLU shot) (#1) 2024 HPV (Gardasil) Vaccine Aged Out No lo nger eligible based on patient's age to complete this topic Hepatitis B Vaccine Aged Out No longe r eligible based on patient's age to complete this topic MENINGOCOCCAL (MENACTRA/MENVEO) Aged Out No longer eligible based on patient's age to complete this topic Meningitis B Vaccine (Bexsero/Trumemba) Aged Out No longer eligible based on patient's age to complete this topic documented as of this encounter Medical Devices Not on filedocumented as of this encounter Visit Diagnoses Diagnosis Squamous cell carcinoma of skin- Primary Squamous cell carcinoma of skin, site unspecified Open wound of abdominal wall Open wound of abdominal wall, anterior, without mention of complication documented in this encounter Care Teams Electronics System Mechanic Relationship Specialty Start Date End Date Cha Richardson CRNP [address] [place], [place] [address] [address] PCP - General Nurse Practitioner 01/21/17 documented as of this encounter
--- OUTSIDE RECORDS SUMMARY | 2024-10-04 11:17 | External Medical Summary | Summary of Care ---
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) Morbid obesity with BMI of 50.0-59.9, adult (HCC) Procedures PET CT SKULL BASE TO MID-THIGH FDG Fina Bryant MD [address] [place] [address] Phone: tel: fax: Referral ID Status Reason Start Date Expiration Date V isits Requested Visits Authorized [id number] Authorized 09/22/[phone] Encounter Details Date Type Department Care Team (Late st Contact Info) Description 09/21/2024 Orders Only Gynecology/Oncology, [place] [address] [place] [address] Fina Bryant MD [address] [place] [address] 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)*; Morbid obesity with BMI of 50.0-59.9, adult (HCC) Allergies No known active allergiesdocumented as of this encounter (statuses as of 09/21/2024) Medications OMEPRAZOLE 20 MG PO TBEC one [...] as of this encounter (statuses as of 09/21/2024) Active Problems Problem Noted Date Diagnosed Date Monoclonal gammopathy 03/04/2014 Asthma with severity to be determined 03/04/2006 Overview (10/03/2015): ICD-10 update of inactive term NONALLERGIC RHINITIS 03/04/2006 Esophageal reflux 03/04/2006 HTN, goal below 140/90 10/19/2003 Hemorrhoids 10/19/2003 Other specified disorders of thyroid 10/19/2003 Migraine 10/19/2003 NONTOX MULTINODUL GOITER 10/19/2003 documented as of this encounter (statuses as of 09/21/2024) Social History Tobacco Use Types Packs/Day Years [...] Description 09/29/2024 11:45 AM EDT Imaging Radiology [address] [place] [phone] 10/07/2024 1:30 PM EDT Office [facility] [place] [address] [facility] [address] [facility] [address] [facility] [id number] Scheduled Orders Name Type Priority Associated Diagnoses Orde r Schedule PET CT SKULL BASE TO MID-THIGH FDG Medical Imaging Routine 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) Morbid obesity with BMI of 50.0-59.9, adult (HCC) Expected: 09/22/2024, Expires: 10/21/2025 Health Maintenance Due Date Last Done Comments [...] 09/05/2004, Additional history exists GFR 03/04/2015 03/04/2014, 07/0 10/2011, 06/09/2007, Additional history exists COVID-19 Vaccine [...] as of this encounter Visit Diagnoses Diagnosis 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)- Primary Malignant neoplasm of other specified sites of female genital organs Morbid obesity with BMI of 50.0-59.9, adult (HCC) Morbid obesity documented in this encounter Care Teams Tire Stripper Relationship Specialty Start Date End Date Cha Richardson CRNP [address] [place] [address] PCP - General Nurse Practitioner 01/21/17 documented as of this encounter
--- OUTSIDE RECORDS SUMMARY | 2024-10-04 11:17 | External Medical Summary | Summary of Care ---
Author Name Unknown Organization [facility] Address [address] [place] [address] Phone [phone] Care Team Providers Care Car Hiker Name Role Phone Cha Richardson Primary Care Provider +1- [phone] Encounter Details Date Type Department Care Team (Late st Contact Info) Description 09/24/2024 Orders Only Gynecology/Oncology, [place] [address] [place] [address] Fina Bryant MD [address] [place] [address] Squamous cell carcinoma of vulva (HCC)* Allergies No known active allergiesdocumented as of this encounter (statuses as of 09/24/2024) Medications OMEPRAZOLE 20 MG PO TBEC one [...] as of this encounter (statuses as of 09/24/2024) Active Problems Problem Noted Date Diagnosed Date Monoclonal gammopathy 03/04/2014 Asthma with severity to be determined 03/04/2006 Overview (10/03/2015): ICD-10 update of inactive term NONALLERGIC RHINITIS 03/04/2006 Esophageal reflux 03/04/2006 HTN, goal below 140/90 10/19/2003 Hemorrhoids 10/19/2003 Other specified disorders of thyroid 10/19/2003 Migraine 10/19/2003 NONTOX MULTINODUL GOITER 10/19/2003 documented as of this encounter (statuses as of 09/24/2024) Social History Tobacco Use Types Packs/Day Years [...] Description 09/29/2024 11:45 AM EDT Imaging Radiology [facility], [place] [address] [place] [phone] 10/07/2024 1:30 PM EDT Office Visit Gynecology/Oncology, [place] [address] [place] [address] Fina Bryant MD [address] [place] [address] Pending Results Name Type Priority Associated Diagnoses Date /Time MICROSLIDE CONSULTATION Pathology Routine Squamous cell carcinoma of vulva (HCC) 09/24/2024 11:30 AM EDT Health Maintenance Due Date Last Done Comments [...] 09/05/2004, Additional history exists GFR 03/04/2015 03/04/2014, 07/10/2011, 06/09/2007, Additional history exists COVID-19 Vaccine ( season) 2024 Influenza Vaccine (FLU shot) (Season Ended) 2025 HPV (Gardasil) Vaccine Aged Out No lo [...] Visit Diagnoses Diagnosis Squamous cell carcinoma of vulva (HCC)- Primary Malignant neoplasm of vulva, unspecified site documented in this encounter Care Teams Car Hiker Relationship Specialty Start Date End Date Cha Richardson CRNP [address] [place] [address] [place] [address] PCP - General Nurse Practitioner 01/21/17 documented as of this encounter
--- OUTSIDE RECORDS SUMMARY | 2024-10-04 11:17 | External Medical Summary | Summary of Care ---
Author Name Unknown Organization [facility] Address [address] [place] [address] Phone [phone] Care Team Providers Care Bromination Equipment Operator Name Role Phone Cha Richardson CONSTANCE Primary Care Provider [phone] Reason for Referral * Evaluate & Treat - Unlimited Visits (Within 3 days (urgent)) - Authorized Specialty Diagnoses / Procedures Referred By Meera laureano Referred To Contact Gynecologic Oncology / Gynecology Oncology Diagnoses Squamous cell carcinoma of vulva (HCC) Gonzalo Renee MD [address] [place] [address] Phone: tel: fax: Referral ID Status Reason Start Date Expiration Date Visits Requested Visits Authorized [id number] Authorized Specialty Services Required 09/18/2024 999 [id number] Question Answer Referral Priority Within 3 days (urgent) Where should this appointment be scheduled? [facility] Reason for Visit * Reason Onset Date Comments Referral 09/18/2024 Encounter Details Date Type Department Care Team (Late st Contact Info) Description 09/18/2024 Telephone General Surgery, [facility] [address] [place] [address] Gonzalo Renee MD [address] [place] [address] Referral Allergies No known active allergiesdocumented as of this encounter (statuses as of 09/18/2024) Medications OMEPRAZOLE 20 MG PO TBEC one [...] as of this encounter (statuses as of 09/18/2024) Active Problems Problem Noted Date Diagnosed Date Monoclonal gammopathy 03/04/2014 Asthma with severity to be determined 03/04/2006 Overview (10/03/2015): ICD-10 update of inactive term NONALLERGIC RHINITIS 03/04/2006 Esophageal reflux 03/04/2006 HTN, goal below 140/90 10/19/2003 Hemorrhoids 10/19/2003 Other specified disorders of thyroid 10/19/2003 Migraine 10/19/2003 NONTOX MULTINODUL GOITER 10/19/2003 documented as of this encounter (statuses as of 09/18/2024) Social History Tobacco Use Types Packs/Day Years [...] on file documented as of this encounter Miscellaneous Notes * Telephone Encounter - Trinidad Agustin RN - 09/18/2024 3:42 PM EDT Referral received for SCC of the vulva. Notes scanned into the chart. Referral not appropriate for Surgical Oncology. Referral placed for plate cleaner/onc. documented in this encounter Plan of Treatment Scheduled Referrals Name Type Priority Associated Diagnoses Orde r Schedule DIRECTOR BUSINESS/ONC REFERRAL OP Referral Within 3 day s (urgent) Squamous cell carcinoma of vulva (HCC) Ordered: 09/18/2024 Health Maintenance Due Date Last Done Comments [...] site documented in this encounter Care Teams Bromination Equipment Operator Relationship Specialty Start Date End Date Cha Richardson CRNP [address] [place], [place] [address]RUPERT Merino [id number] PCP - General Nurse Practitioner 01/21/17 documented as of this encounter
--- NOTE | 2024-10-04 11:33 | Emergency Department Note ---
Impression & Plan Acute UTI (urinary tract infection), Abscess of groin, left, Sepsis ED Provider Note HISTORY OF PRESENT ILLNESS: Patient is a 74-year-old female presenting with left groin pain. 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 She had surgery during her last admission. Reports she been doing well immediately after surgery, but in the last 2 weeks she has had progressively worsening pain in her left groin. Reports the last 3 to 4 days have been significantly worse. Reports Tylenol and ibuprofen which she has been taking for pain management, have not been helping anymore. She reports subjective fevers and chills at home. Reports nausea and vomiting starting yesterday. States that she is having purulent drainage from the wound. Patient is tearful and stating that the pain is 10 out of 10. She has not been on any recent antibiotics since the end of August 2024. He denies any dysuria or hematuria. Denies any chest pain or significant shortness of breath. ROS: as above PHYSICAL EXAM: Constitutional: Patient appears in no acute distress. Morbidly obese HENT: Head: Normocephalic and atraumatic. Eyes: EOMI, PERRL Mouth/Throat: Mucous membranes moist. Neck: Trachea midline. Neck supple. Cardiovascular: RRR, No murmurs, rubs or gallops. Intact distal pulses. Pulmonary/Chest: No respiratory distress. Breath sounds clear and equal bilaterally. No wheezes or rales. Abdominal: Abdomen soft, no tenderness, rebound or guarding. : Chaperoned by nursing staff. Patient has diffuse erythema and excoriations to the left labia and groin region. Open wound with purulent drainage to the left groin. Area is tender to palpation. No palpable crepitus. Musculoskeletal: No edema, tenderness or deformity noted. Skin: Warm and dry. No rash, erythema, pallor or cyanosis Psychiatric: Appropriate mood and affect for situation. Neurological: Alert and keenly responsive. CN II-XII grossly intact, moving all extremities equally and fully. MDM: - Vitals signs showed tachycardia and tachypnea - History obtained via patient. History as above. - Chronic conditions affecting care: HTN; morbi obesity; squamous cell carcinoma - Differential diagnoses include, but are not limited to: Necrotizing fasciitis; Hiram's gangrene; abscess; cellulitis - Order placed for continuous cardiac monitoring. At this time, monitor showed rate of 78 bpm with normal sinus rhythm, per my interpretation. - External medical records reviewed. Discharge summary dated 09/07/2024 was reviewed. Patient was admitted that time for left groin wound/infection. She had chemical debridement on 09/[address] Ortez. - EKG image interpreted by myself showed normal sinus rhythm. Rate 86 bpm. QT 410. No acute ischemic changes. - Laboratory workup interpreted by myself showed leukocytosis (WBC 13.70); normal PT/INR; stable electrolytes other than slight hypocalcemia (Ca 8.5); normal lactate; normal troponin; normal procalcitonin - Blood cultures obtained - CXR image reviewed by myself is new for pneumonia, per my interpretation. - CT abdomen/pelvis with IV contrast showed increased metastatic lymphadenopathy in the left inguinal region. Noted have no soft tissue abscess in the left groin region. Noted to have superficial subcutaneous abscess in the medial aspect of the left thigh extending anteriorly to the posterior aspect of the left labia. - UA showed evidence of infection. - Patient given IV zosyn for antibiotic coverage. - Patient given 1L NS and 4 mg IV morphine for symptomatic management. - With patient's HR >90, RR >20, elevated WBC and UTI and groin abscess, she meets sepsis criteria. - Patient given an additional 1L NS for a total of 2L NS in ER. Patient's sepsis fluid volume calculation based on ideal body weight is 1772.70 mL. - Discussion was had with nurse case management about patient's case and need for admission - Hospitalist consulted for admission - [facility] for further evaluation and management. ASSESSMENT AND PLAN: Diagnosis: Acute UTI; left groin abscess; sepsis Plan: Admit Past Med/Surg History Problem List (Updated 10/04/24 @ 15:01 by Dianne Schuler MD) Sepsis (Acute) Abscess of groin, left (Acute) Acute UTI (urinary tract infection) (Acute) SCC (squamous cell carcinoma) Carcinoma Open wound of groin with complication (Acute) Anemia Wound of left groin Nausea vomiting and diarrhea Rash Wound of groin RLQ abdominal pain Hypothyroidism associated with surgical procedure Impaired fasting glucose Vitamin D deficiency Asthma no inhalers Macular degeneration of left eye Hearing deficit Osteoarthritis Morbid obesity with BMI of 50.0-59.9, adult HTN (hypertension) GERD (gastroesophageal reflux disease) Medical History (Updated 10/04/24 @ 15:01 by Dianne Schuler MD) Family hx of colon cancer Sister Dxed with colon cancer when she was 65yo. COVID-19 virus detected 07/03/21 positive; asymptomatic Nausea and vomiting after administration of anesthetic agent Surgical History (Updated 09/08/24 @ 16:39 by Elaine Dobson RN) S/P debridement (09/08/24) Open wound left inner thigh with slough present measuring 6.5 cm x 9.2 cm x 3.2 cm total size 59.80 cm History of total hysterectomy with bilateral salpingo-oophorectomy (BSO) History of tooth extraction S/P tonsillectomy and adenoidectomy S/P thyroid surgery x2--d/t goiter S/P cholecystectomy S/P arthroscopy of knee left Family History Sister Colorectal cancer Other Cardiac disorder Diabetes Hypertension Hypothyroidism No family history of adverse response to anesthesia Denies family history of Ovarian cancer Prostate cancer Myocardial infarction Breast cancer Social History Smoking Status: Former smoker Tobacco Type: Cigarettes Second Hand Exposure: No; Do You Dip or Chew Tobacco: No; Hx Alcohol Use: No Hx Substance Use: No Preferred Language: Vietnamese Communication Ability: Effective Visual Impairment: No Limitations Hearing Ability: Normal Dietist Required: No Beliefs That Will Affect Care: None marital status: Single Current Living Situation: Alone Current Living Situation Comment: lives with daughter current occupational status: retired How many Children do You have: 2 Feels Safe at Home: Yes Childhood Exposure to Second-Hand Smoke: Yes Diet: regular caffeine: Yes during the past year weight has: remained stable Dental Care, Regularly: Yes Physical Activity Frequency: 1-2 Times per Week Seatbelt Use: always Sunscreen Use: Yes Do you think of yourself as: straight/heterosexual Sexual Activity: has been sexually active, but not for at least 12 months Gender Identity: Female Assistive Devices: Cane Allergies Allergies Allergy/AdvReac Type Severity Reaction Status Date / Time tolterodine Allergy Intermediate plaque Verified 09/15/24 13:38 psoriasis nickel Allergy Mild Rash Verified 09/15/24 13:38 Home Meds Home Medications Medication Instructions Recorded Confirmed ascorbate calcium (vitamin C) 500 500 mg PO DAILY 08/12/23 09/09/24 mg tablet multivitamin 1 tab PO DAILY 08/12/23 09/09/24 mv-mn-folic 200 mcg-vit K 15 1 cap PO DIRECTED 09/04/24 09/09/24 mcg-lutein 5 mg-zeaxanthin 1 mg capsule (PreserVision AREDS 2 Plus Multivit) Previous Rx's Medication Instructions Recorded cholecalciferol (vitamin D3) 125 125 mcg PO DAILY #30 caps 06/13/21 mcg (5,000 unit) capsule omeprazole 20 mg capsule,delayed 20 mg PO DAILY PRN Acid Reflux #90 02/07/23 release caps levothyroxine 200 mcg capsule 200 mcg PO QAM #90 caps 08/21/24 levothyroxine 25 mcg capsule 25 mcg PO DAILY #90 caps 08/21/24 lisinopril 20 mg tablet 20 mg PO DAILY #90 tabs 08/21/24 Results & Data (ED) Vital Signs Vital Signs - 24 hr 10/04/24 11:13 10/04/24 11:33 10/04/24 11:33 Temperature 36.5 C Temperature Source Oral Pulse Rate 105 H 94 H 83 Pulse Rate from SpO2 Sensor 84 Pulse Strength Normal Respiratory Rate 26 H 16 Respiratory Effort / Characteristics Labored Respiratory Pattern Regular Blood Pressure 134/89 Blood Pressure Mean 104 Blood Pressure Position Sitting Pulse Oximetry 97 97 Oxygen Delivery Method Room Air Sepsis Recent Fever Within 48 Hours No Sepsis New/Unexplained Change in Mental Status No Sepsis Action Taken by Nursing Physician Notified 10/04/24 11:50 10/04/24 11:57 10/04/24 12:00 Temperature Temperature Source Pulse Rate 75 Pulse Rate from SpO2 Sensor 76 Pulse Strength Respiratory Rate 17 Respiratory Effort / Characteristics Respiratory Pattern Blood Pressure 121/71 166/66 H Blood Pressure Mean 87 97 Blood Pressure Position Pulse Oximetry 99 Oxygen Delivery Method Sepsis Recent Fever Within 48 Hours Sepsis New/Unexplained Change in Mental Status Sepsis Action Taken by Nursing 10/04/24 12:03 10/04/24 12:30 10/04/24 12:31 Temperature Temperature Source Pulse Rate 75 73 Pulse Rate from SpO2 Sensor 75 73 Pulse Strength Respiratory Rate 14 20 Respiratory Effort / Characteristics Respiratory Pattern Blood Pressure Blood Pressure Mean Blood Pressure Position Pulse Oximetry 98 98 Oxygen Delivery Method Room Air Sepsis Recent Fever Within 48 Hours Sepsis New/Unexplained Change in Mental Status Sepsis Action Taken by Nursing 10/04/24 12:38 10/04/24 13:00 10/04/24 13:00 Temperature Temperature Source Pulse Rate 98 H Pulse Rate from SpO2 Sensor Pulse Strength Respiratory Rate 21 Respiratory Effort / Characteristics Respiratory Pattern Blood Pressure 168/79 H 168/79 H Blood Pressure Mean 106 106 Blood Pressure Position Pulse Oximetry 98 Oxygen Delivery Method Room Air Sepsis Recent Fever Within 48 Hours Sepsis New/Unexplained Change in Mental Status Sepsis Action Taken by Nursing 10/04/24 13:00 10/04/24 13:30 10/04/24 13:30 Temperature Temperature Source Pulse Rate 76 75 Pulse Rate from SpO2 Sensor 77 74 Pulse Strength Respiratory Rate 23 20 Respiratory Effort / Characteristics Respiratory Pattern Blood Pressure 157/77 H Blood Pressure Mean 95 Blood Pressure Position Pulse Oximetry 98 100 Oxygen Delivery Method Sepsis Recent Fever Within 48 Hours Sepsis New/Unexplained Change in Mental Status Sepsis Action Taken by Nursing 10/04/24 14:00 10/04/24 14:30 Temperature Temperature Source Pulse Rate 80 77 Pulse Rate from SpO2 Sensor 81 77 Pulse Strength Respiratory Rate 22 22 Respiratory Effort / Characteristics Respiratory Pattern Blood Pressure 137/75 151/68 H Blood Pressure Mean 95 95 Blood Pressure Position Pulse Oximetry 100 100 Oxygen Delivery Method Sepsis Recent Fever Within 48 Hours Sepsis New/Unexplained Change in Mental Status Sepsis Action Taken by Nursing Laboratory Data 10/04/24 12:51 10/04/24 12:51 Lab Results 10/04/24 10/04/24 Range/Units 12:51 14:10 WBC 13.70 H (4.8-10.8) K/ul RBC 3.85 L (4.20-5.40) M/uL Hgb 11.3 L (12.0-16.0) g/dl Hct 35.9 L (37.0-47.0) % MCV 93.2 (80.0-100.0) fL MCH 29.4 (25.0-34.0) pg MCHC 31.5 L (32.0-36.0) g/dL RDW Std Deviation 45.8 (36.4-46.3) fL RDW Coeff of Mel[place] 13.5 (11.5-14.5) % Plt Count 432 H (130-400) K/uL MPV 9.9 (9.4-12.4) fL Immature Gran % (Auto) 0.4 % Neut % (Auto) 71.2 % Lymph % (Auto) 10.3 % [place] % (Auto) 9.3 % Eos % (Auto) 8.1 % Baso % (Auto) 0.7 % Neut # (Auto) 9.74 H (1.40-6.50) K/uL Lymph # (Auto) 1.41 (1.20-3.40) K/uL [place] # (Auto) 1.28 H (0.11-0.59) K/uL Eos # (Auto) 1.11 H (0.00-0.50) K/uL Baso # (Auto) 0.10 (0.00-0.20) K/uL Immature Gran # (Auto) 0.06 (0.01-0.20) K/uL PT 11.1 (9.0-12.0) Seconds INR 1.0 (0.9-1.1) APTT 29 (21-31) Seconds PTT Ratio 1.1 Sodium 139 (136-145) mmol/L Potassium 3.9 (3.5-5.1) mmol/L Chloride 107 (98-107) mmol/L Carbon Dioxide 28 (21-32) mmol/L Anion Gap 4 (3-11) BUN 17 (6-23) mg/dl Creatinine 0.92 (0.6-1.2) mg/dl Est Cr Clr Drug Dosing 77.2 ml/min eGFR 65.75 BUN/Creatinine Ratio 18.5 (10-20) Glucose 95 (70-99(Fasting)) mg/dl Lactate 1.5 (0.4-2.0) mmol/L Calcium 8.5 L (8.6-10.3) mg/dl Magnesium 1.9 (1.7-2.4) mg/dl Total Bilirubin 0.5 (0.2-1.0) mg/dl AST 18 (13-39) U/L ALT 10 (7-52) U/L Alkaline Phosphatase 51 (34-104) U/L Troponin I High Sens < 2.3 (0-14) pg/ml Total Protein 6.9 (6.0-8.3) gm/dl Albumin 3.4 (3.4-5.0) gm/dl Globulin 3.5 (2.5-4.0) gm/dl Albumin/Globulin Ratio 1.0 (0.9-2) Procalcitonin 0.03 (0-0.5) ng/ml Urine Color Yellow Urine Appearance Cloudy A (Clear) Urine pH 5.5 (4.5-7.5) Ur Specific [place] 1.037 H (1.000-1.030) Urine Protein Trace H (Negative) Urine Glucose (UA) Negative (Negative) Urine Ketones Trace H (Negative) Urine Blood 2+ H (Negative) Urine Nitrite Negative (Negative) Urine Bilirubin Negative (Negative) Urine Urobilinogen Negative (Negative) Ur Leukocyte Esterase 2+ H (Negative) Urine WBC (Auto) 21-50 H (0-5) /hpf Urine RBC (Auto) >20 H (0-2) /hpf U Hyaline Cast (Auto) 0-2 (0-2) /lpf U Epithel Cells (Auto) 6-10 H (0-2) /hpf Urine Bacteria (Auto) 2+ H (None Seen) Administered Medications Discontinued Medications Sodium Chloride (Nss) 1,000 mls @ 999 mls/hr IV .Q1H1M ONE Stop: 10/04/24 12:29 Last Infusion: 10/04/24 14:27 Dose: Infused Documented By: Admin: 10/04/24 11:54 Dose: 999 mls/hr Documented By: CEF Piperacillin Sod/Tazobactam Sod (Zosyn) 4.5 gm in 100 mls @ 200 mls/hr IV NOW ONE; Protocol Stop: 10/04/24 13:53 Last Infusion: 10/04/24 14:27 Dose: Infused Documented By: Admin: 10/04/24 13:38 Dose: 200 mls/hr Documented By: CEF Ioversol (Optiray 320 125ml) 112 ml IV ONCE ONE Stop: 10/04/24 13:46 Last Admin: 10/04/24 13:46 Dose: 112 ml Documented By: PURVI Morphine Sulfate (Morphine Sulfate 4 Mg/Ml 1 Ml Carp\Vial) 4 mg IV NOW STA Stop: 10/04/24 11:30 Last Admin: 10/04/24 11:51 Dose: 4 mg Documented By: CEF Imaging Data Radiologist's Impression: Chest X-Ray 10/04/24 11:29 XR chest 1V portable CLINICAL HISTORY: Sepsis COMPARISON STUDY: 02/13/2025 FINDINGS: Heart size and pulmonary vasculature are normal. No effusion, consolidation, or pneumothorax. IMPRESSION: No acute findings. ACT 112: Negative or not required by law. Electronically signed by: Mikal Steve M.D. 10/04/2024 11:[address] 10/04/24 11:29 CT pelvis w/IV con only CLINICAL HISTORY: L groin wound with drainage COMPARISON STUDY: 09/04/2024 FINDINGS: Uterus is absent. No adnexal mass. Urinary bladder is nondistended. Visualized bowel shows no inflammation or obstruction. No free fluid or free air. Enlarged necrotic appearing left inguinal lymph nodes are again seen, largest measuring 4.[address] axial dimension, increased in size. Minimally enlarged right inguinal lymph nodes are again seen. No acute osseous finding seen. The left groin wound mentioned in the history is not visualized on CT. No subcutaneous abscess or hematoma seen in the left groin region. There is mild subcutaneous stranding at the medial left upper thigh consistent with cellulitis. At the far medial aspect of the left upper thigh and left side of the buttock cleft there is an oval soft tissue density measuring 6.5 cm AP by 1.8 cm transverse by 3 cm craniocaudad in the superficial subcutaneous fatty tissues, best seen on axial series 3 image 219 and coronal series 300 image 120. This extends from posterior and to the left of the anus and extending anteriorly to near the posterior inferior aspect of the left labia. It has morphology suggestive of superficial subcutaneous abscess. IMPRESSION: 1. Increased metastatic lymphadenopathy at the left inguinal region and stable minimal lymphadenopathy right inguinal region. 2. No soft tissue abscess seen in the left groin region. 3. Findings suggestive of superficial subcutaneous abscess at the medial aspect of the uppermost left thigh extending anteriorly to near the posterior aspect of the left labia. ACT 112: Negative or not required by law. Electronically signed by: Mikal Steve M.D. 10/04/2024 2:07 PM Discharge Plan Visit Data Chief Complaint: Groin Pain Stated Complaint: GROIN PAIN ED Provider: Dianne Schuler Discharge Problem: Acute UTI (urinary tract infection), Abscess of groin, left, Sepsis Forms Stand Alone Forms: hopTo Prescriptions Prescriptions: No Action PreserVision AREDS 2 Plus MV 200 mcg-15 mcg- 5 mg-1 mg capsule 1 cap PO DIRECTED Rx Instructions: otc unable to verify cholecalciferol (vitamin D3) 125 mcg (5,000 unit) capsule 125 mcg PO DAILY Qty: 30 0RF Rx Instructions: otc unable to verify omeprazole 20 mg capsule,delayed release(DR/EC) 20 mg PO DAILY PRN (Reason: Acid Reflux) Qty: 90 3RF Rx Instructions: otc/no fill history available. unable to verify ascorbate calcium (vitamin C) 500 mg tablet 500 mg PO DAILY Rx Instructions: otc unable to verify multivitamin Tablet 1 tab PO DAILY Rx Instructions: otc unable to verify levothyroxine 25 mcg capsule 25 mcg PO DAILY Qty: 90 1RF levothyroxine 200 mcg capsule 200 mcg PO QAM Qty: 90 1RF lisinopril 20 mg tablet 20 mg PO DAILY Qty: 90 3RF Referrals Referrals: Petr Freeman DO [Primary Care Provider] -
[2024-10-04] MEDS: MoRPHine SULFATE 4 MG/ML 1 ML CARP\\VIAL IV STA (11:51)
--- NOTE | 2024-10-04 11:51 | XRay Report ---
XR chest 1V portable CLINICAL HISTORY: Sepsis COMPARISON STUDY: 02/13/2025 FINDINGS: Heart size and pulmonary vasculature are normal. No effusion, consolidation, or pneumothora x. IMPRESSION: No acute findings. ACT 112: Negative or not required by law. Electronically signed by: Mikal Steve M.D. 10/04/2024 11:50 AM
[2024-10-04] MEDS: SODIUM CHLORIDE 0.9% 1,000 ML IV ONE ×2 (11:54→15:02)
[2024-10-04 13:08] LABS: Basophils % (auto) 0.7 %; Eosinophils # (auto) 1.11 K/uL (0.00-0.50); Eosinophils % (auto) 8.1 %; Hematocrit (blood only) 35.9 % (37.0-47.0); Hemoglobin 11.3 g/dl (12.0-16.0); Immature Granulocytes # (auto) 0.06 K/uL (0.01-0.20); Immature Granulocytes % (auto) 0.4 %; Lymphocytes # (auto) 1.41 K/uL (1.20-3.40); Lymphocytes % (auto) 10.3 %; Mean Corpuscular Hemoglobin 29.4 pg (25.0-34.0); Mean Corpuscular Hgb Conc 31.5 g/dL (32.0-36.0); Mean Corpuscular Volume 93.2 fL (80.0-100.0); Mean Platelet Volume 9.9 fL (9.4-12.4); Monocytes # (auto) 1.28 K/uL (0.11-0.59); Monocytes % (auto) 9.3 %; Neutrophils # (auto) 9.74 K/uL (1.40-6.50); Neutrophils % (auto) 71.2 %; Platelet Count 432 K/uL (130-400); RDW Coefficient of Variation 13.5 % (11.5-14.5); RDW Standard Deviation 45.8 fL (36.4-46.3); Red Blood Count 3.85 M/uL (4.20-5.40)
[2024-10-04 13:20] LABS: Alanine Aminotransferase 10 U/L (7-52); Albumin Level 3.4 gm/dl (3.4-5.0); Alkaline Phosphatase 51 U/L (34-104); Anion Gap 4 (3-11); Aspartate Aminotransferase 18 U/L (13-39); BUN Creatinine Ratio 18.5 (10-20); Bilirubin,Total 0.5 mg/dl (0.2-1.0); Blood Urea Nitrogen 17 mg/dl (6-23); Calcium 8.5 mg/dl (8.6-10.3); Carbon Dioxide 28 mmol/L (21-32); Chloride 107 mmol/L (98-107); Creatinine Clr Calc Pharmacy 77.2 ml/min; Globulin 3.5 gm/dl (2.5-4.0); Glucose 95 mg/dl (70-99(Fasting)); Magnesium 1.9 mg/dl (1.7-2.4); Potassium 3.9 mmol/L (3.5-5.1); Sodium 139 mmol/L (136-145); Total Protein 6.9 gm/dl (6.0-8.3)
[2024-10-04 13:27] LABS: Troponin I High Sensitivity < 2.3 pg/ml (0-14)
[2024-10-04 13:34] LABS: Partial Thromboplastin Ratio 1.1; Partial Thromboplastin Time 29 Seconds (21-31); Prothrombin Time 11.1 Seconds (9.0-12.0)
[2024-10-04] MEDS: PIPERACILLIN/TAZOBACTAM 4.5 GM/100 ML BAG IV ONE (13:38)
[2024-10-04] MEDS: OPTIRAY 320 125ml IV ONE (13:46)
--- NOTE | 2024-10-04 14:09 | CT Scan Report ---
CT pelvis w/IV con only CLINICAL HISTORY: L groin wound with drainage COMPARISON STUDY: 09/04/2024 FINDINGS: Uterus is absent. No adnexal mass. Urinary bladder is nondistended. Visualized bowel shows no inflammation or obstruction. No free fluid or free air. Enlarged necrotic appearing left inguinal lymph nodes are again seen, largest measuring 4.[address] axial dimension, increased in size. Minimally enlarged right inguinal lymph nodes are again seen. No acute osseous finding seen. The left groin wound mentioned in the history is not visualized on CT. No subcutaneous abscess or hem atoma seen in the left groin region. There is mild subcutaneous stranding at the medial left upper thigh consistent with cellulitis. At th e far medial aspect of the left upper thigh and left side of the buttock cleft there is an oval soft tissue density measuring 6.5 cm AP by 1.8 cm transverse by 3 cm craniocaudad in the superficial subcu taneous fatty tissues, best seen on axial series 3 image 219 and coronal series 300 image 120. This e xtends from posterior and to the left of the anus and extending anteriorly to near the posterior infe rior aspect of the left labia. It has morphology suggestive of superficial subcutaneous abscess. IMPRESSION: 1. Increased metastatic lymphadenopathy at the left inguinal region and stable minimal lymphadenopath y right inguinal region. 2. No soft tissue abscess seen in the left groin region. 3. Findings suggestive of superficial subcutaneous abscess at the medial aspect of the uppermost left thigh extending anteriorly to near the posterior aspect of the left labia. ACT 112: Negative or not required by law. Electronically signed by: Mikal Steve M.D. 10/04/2024 2:07 PM
[2024-10-04 14:48] LABS: Appearance Urine Cloudy (Clear); Bacteria Urine Automated 2+ (None Seen); Bilirubin Urine Negative (Negative); Blood Urine 2+ (Negative); Cast Urine Automated 0-2 /lpf (0-2); Color Urine Yellow; Glucose Urine UA Negative (Negative); Ketones Urine Trace (Negative); Leukocyte Esterase Urine 2+ (Negative); Nitrite Urine Negative (Negative); Protein Urine Trace (Negative); RBC Urine Automated >20 /hpf (0-2); Specific Gravity Urine 1.037 (1.000-1.030); Urobilinogen Urine Negative (Negative); WBC Urine Automated 21-50 /hpf (0-5); pH Urine 5.5 (4.5-7.5)
--- NOTE | 2024-10-04 16:09 | History & Physical Report ---
Date of Service October 04, 2024 Assessment & Plan (1) SCC (squamous cell carcinoma): (2) Open wound of groin with complication: (3) Morbid obesity with BMI of 50.0-59.9, adult: Plan 74 yo female with h/o SCC of left groin, who has I and D for groin abscess 1 month ago, presented with severe pain at same site , more for last few days. Given extensive involvement of her groin along with posterior labia on left along with very foul smelling infection, she seems to have re-infection if I and D site. Hence admitting her for IV antibiotics and fluid management. We will coordinate with surgery if they will plan any debridement. #Infected wound of groin s/p I and D. - Open wound S/P I and D for groin abscess(09/06/24). - Sx worsening for last 2 weeks. - Previous Wound CS: Strep Agalactiae silva sensitive - WBC: 13.7 with neutrophil predominance, Procal: 0.03, Lactate: 1.5 - UA: Looks contaminated with 2+ LE, Neg Nitrite - Wound/ Blood / Urine CS ordered today. - CT( 10/04): Increased metastatic lymphadenopathy at the left inguinal region and stable minimal lymphadenopathy right inguinal region. No soft tissue abscess seen in the left groin region. Findings suggestive of superficial subcutaneous abscess at the medial aspect of the uppermost left thigh extending anteriorly to near the posterior aspect of the left labia. - Empiric Ceftriaxone 2 gm Q 24 hours should be covering GP and GN bacteria. Previous CS s/o Ceftriaxone sensitive S. agalactia as well. - No h/o MRSA in past, presentation does not favor sepsis criteria, though met some here and there transient. - Do not feel MRSA nasal screen will be much helpful in her case. - Follow CBC Q 24 hours. - Pain : Naren Tylenol + PRN Toradol/ Oxycodone and Dilaudid. - Surgery consult requested. # Superficial Abscess of left upper thigh extending upto posterior labia: - Imaging reveals abscess. Hard to say whether its SC edema or abscess given extensive location on imaging. - On exam no localized fluctuation noted. - Continue Ceftriaxone. - Surgery consul: awaited. # SCC: - ?vulval SCC vs surrounding area SCC. 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 - No e/o mets from anywhere. - Lung CT : Clear - Needs eval by [employer] and Uro team for definitive management. - Appt at [place] coming week. If prolonged admission here, would coordinate team at [place]. #Rash in upper chest - Endorses itching. - likely allergic dermatitis. -Will add Zyrtec and follow #Other Chronic Issues: - HTN: Continue Losartan - GERD: Continue Omeprazole. Dispo: Med/surg DVT prophylaxis: Lovenox 40 BID( BMI >40) Code status : Full History of Present Illness Chief Complaint: Primary Care Provider: Petr Freeman, DO 74 yo female with h/o SCC of left groin, who has I and D for groin abscess 1 month ago, presented with severe pain at same site , more for last few days. She says she was fine until 2 weeks ago, when Infection and drainage started. She felt frequent chills and warmth, however did not document temperature at home. Presented on 09/[address] Ortez, who did I and D for her, she was suggested to go to [facility] for further management of Squamous cell cancer reported on pathology per specimen sent on 09/06. She has appointment with [facility] coming week (Saturday). Meanwhile pain is so severe despite taking Tylenol and Ibuprofen at home, so she decided to come to ED. No urinary symptoms per se, no suprapubic/ flank pain but endorses some burning in incision site after peeing. H/O Hysterectomy done remote. Allergies Allergy/AdvReac Type Severity Reaction Status Date / Time tolterodine Allergy Intermediate plaque Verified 09/15/24 13:38 psoriasis nickel Allergy Mild Rash Verified 09/15/24 13:38 Home Medications Medication Instructions Recorded Confirmed Type cholecalciferol (vitamin D3) 125 125 mcg PO DAILY #30 caps 06/13/21 10/04/24 Rx mcg (5,000 unit) capsule omeprazole 20 mg capsule,delayed 20 mg PO DAILY PRN Acid Reflux #90 02/07/23 10/04/24 Rx release caps ascorbate calcium (vitamin C) 500 500 mg PO DAILY 08/12/23 10/04/24 History mg tablet multivitamin 1 tab PO DAILY 08/12/23 10/04/24 History levothyroxine 200 mcg capsule 200 mcg PO QAM #90 caps 08/21/24 10/04/24 Rx levothyroxine 25 mcg capsule 25 mcg PO DAILY #90 caps 08/21/24 10/04/24 Rx lisinopril 20 mg tablet 20 mg PO DAILY #90 tabs 08/21/24 10/04/24 Rx mv-mn-folic 200 mcg-vit K 15 1 cap PO DIRECTED 09/04/24 10/04/24 History mcg-lutein 5 mg-zeaxanthin 1 mg capsule (PreserVision AREDS 2 Plus Multivit) Past Med/Surg History Problem List (Updated 10/04/24 @ 15:01 by Dianne Schuler MD) Sepsis (Acute) Abscess of groin, left (Acute) Acute UTI (urinary tract infection) (Acute) SCC (squamous cell carcinoma) Carcinoma Open wound of groin with complication (Acute) Anemia Wound of left groin Nausea vomiting and diarrhea Rash Wound of groin RLQ abdominal pain Hypothyroidism associated with surgical procedure Impaired fasting glucose Vitamin D deficiency Asthma no inhalers Macular degeneration of left eye Hearing deficit Osteoarthritis Morbid obesity with BMI of 50.0-59.9, adult HTN (hypertension) GERD (gastroesophageal reflux disease) Medical History (Updated 10/04/24 @ 15:01 by Dianne Schuler MD) Family hx of colon cancer Sister Dxed with colon cancer when she was 65yo. COVID-19 virus detected 07/03/21 positive; asymptomatic Nausea and vomiting after administration of anesthetic agent Surgical History (Updated 09/08/24 @ 16:39 by Elaine Dobson RN) S/P debridement (09/08/24) Open wound left inner thigh with slough present measuring 6.5 cm x 9.2 cm x 3.2 cm total size 59.80 cm History of total hysterectomy with bilateral salpingo-oophorectomy (BSO) History of tooth extraction S/P tonsillectomy and adenoidectomy S/P thyroid surgery x2--d/t goiter S/P cholecystectomy S/P arthroscopy of knee left Family History Sister Colorectal cancer Other Cardiac disorder Diabetes Hypertension Hypothyroidism No family history of adverse response to anesthesia Denies family history of Ovarian cancer Prostate cancer Myocardial infarction Breast cancer Social History Smoking Status: Former smoker Tobacco Type: Cigarettes Second Hand Exposure: No; Do You Dip or Chew Tobacco: No; Hx Alcohol Use: No Hx Substance Use: No Preferred Language: Indonesian Communication Ability: Effective Visual Impairment: No Limitations Hearing Ability: Normal Business Control Specialist Required: No Beliefs That Will Affect Care: None marital status: Single Current Living Situation: Alone Current Living Situation Comment: lives with daughter current occupational status: retired How many Children do You have: 2 Feels Safe at Home: Yes Childhood Exposure to Second-Hand Smoke: Yes Diet: regular caffeine: Yes during the past year weight has: remained stable Dental Care, Regularly: Yes Physical Activity Frequency: 1-2 Times per Week Seatbelt Use: always Sunscreen Use: Yes Do you think of yourself as: straight/heterosexual Sexual Activity: has been sexually active, but not for at least 12 months Gender Identity: Female Assistive Devices: Cane Review of Systems Review of Systems: As per HPI Physical Exam Physical Exam: Constitutional: Well appearing, No acute distress. HEENT: Atraumatic, Normocephalic, No conjunctival injection CVS: S1 S2 no murmur, Regular Rhythm, no LE edema Respiratory: BL equal air entry with NVBS. No rhonchi, wheezes, or crackles. No increased work of breathing GI: Soft, Nondistended, Obese belly, Nontender, Normal Bowel sounds + MSK: No gross deformities noted. Skin: Warm, Dry, Some punctate macular rashes in her upper chest below neck, no similar rash elsewhere. Extensive skin involvement in BL groin alomg with posterior labia in left. 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 I and D incision site noted with slugh in base. Surrounding erythema +, tender diffusely. Very foul smelling order from wound. Neuro: Alert, Oriented to TPP, No Focal deficit Psych: Mood and Affect congruent, Cooperative on exam Results & Data Results & Data Vital Signs (Past 12 Hours) Vital Signs Temp Pulse Resp BP Pulse Ox O2 Del Method 10/04/24 15:27 76 10/04/24 14:30 77 22 151/68 H 100 10/04/24 14:00 80 22 137/75 100 10/04/24 13:30 75 20 100 10/04/24 13:30 157/77 H 10/04/24 13:00 76 23 98 10/04/24 13:00 168/79 H 10/04/24 13:00 168/79 H 10/04/24 12:38 98 H 21 98 Room Air 10/04/24 12:31 Room Air 10/04/24 12:30 73 20 98 10/04/24 12:03 75 14 98 10/04/24 12:00 166/66 H 10/04/24 11:57 75 17 99 10/04/24 11:50 121/71 10/04/24 11:33 83 16 97 10/04/24 11:33 94 H 10/04/24 11:13 36.5 C 105 H 26 H 134/89 97 Room Air Code Status & VTE Plan VTE Prophylaxis Plan VTE Prophylaxis will be ordered: Yes Supervising Physician Co-Signing Physician Notes I personally examined the patient and verified all combs points of history and exam, discussed case, and agree with decision making with Dr Vallejo groin pain. found to have infection/abscess vitals noted nad heent nc at mmm breathing unlabored no accessory muscles good effort skin no rashes no pallor or icterus but (+) excoriated appearance of L>R inner thighs, erythema lateral to labia with visual fullness corresponding w abscess seen on CT groin wound/squamous cell carcinoma with open wound - and now subsequent cellulitis and abscess with sepsis (SIRS HR, WBC) present on admission. -fortunately no severe sepsis/septic shock -> abx to cover gram positives/gram negatives (since pelvic floor) with rocephin, adjust as necessary based on clinical response and/or culture findings -surgical consult for drainage she notes that she is to see [facility] saturday as it relates to her SCC and ongoing care. if she is still hospitalized and unable to make that appointment, would ask that tax associate be informed to help reschedule [facility] follow up in a timely manner
--- NOTE | 2024-10-04 16:27 | Billing Data ---
Date of Service October 04, 2024 Coding Level of Care Code 27216 INT INP/OBS CARE
[2024-10-04] MEDS ORDERED: POLYETHYLENE (MIRALAX) 17 GM PACK PO PRN (18:11)
[2024-10-04] MEDS ORDERED: KETOROLAC TROMETHAMINE 10 MG TABLET PO PRN (18:11)
[2024-10-04] MEDS ORDERED: NON-FORMULARY MEDICATION (Mv-Min-Fa-Vit K-Lutein-Zeaxant [Preservision Areds 2 Plus Mv] 20 PO SCH (18:11)
[2024-10-04] MEDS ORDERED: MELATONIN 3 MG TAB PO PRN (18:11)
[2024-10-04] MEDS ORDERED: PANTOprazole 40 MG TAB PO PRN (18:28)
[2024-10-04] MEDS: ACETAMINOPHEN 325 MG TAB PO SCH (18:36)
[2024-10-04] MEDS: oxyCODONE HCL IR 5 MG TAB (IMMEDIATE RELEASE) PO PRN (18:36)
[2024-10-04] MEDS: cefTRIAXone SODIUM 2,000 MG/50 ML BAG IV ONE (18:44)
[2024-10-04] MEDS: ENOXAPARIN INJ 40 MG/0.4 ML SYR SQ SCH (19:10)
--- NOTE | 2024-10-04 19:25 | Surgery Consultation ---
<Statement entered by Nicol Gonzalez DO - 10/04/24 22:58> I have seen and examined this patient. Her pain is being caused by a very large infected appearing cancerous wound at the lateral aspect of the left labia which is currently very open and does not appear to contain any fluid collections. There is exudate over the base of the wound. Agree with abx management at this time Will follow up in the am. Date of Consultation October 04, 2024 Assessment & Plan (1) Abscess of groin, left: Patient has been admitted on the hospitalist service. From surgery perspective we recommend the following: Broad-spectrum antibiotics in form of Zosyn were initially administered in the emergency department and have been switched to Rocephin by the primary service. Antibiotic should continue to be altered based on patient's clinical response At the present time the patient is nontoxic-appearing (she is normotensive without tachycardia or fever. She does have slight leukocytosis but did not have an elevated lactic acid level.) I therefore, do not feel the patient requires an urgent surgical procedure at this time. We will make the patient empirically n.p.o. after midnight tonight. She will be reevaluated the morning of 10/05/2024 and a determination be made if patient requires further surgical drainage. Serial labs should be followed Local wound care should be employed Additional recommendations will be forthcoming based on her clinical course as it unfolds History of Present Illness Reason for Consultation: Left groin abscess Attending Physician: Sherwin Denise DO History of Present Illness This is a 74-year-old female with a history of a left groin wound. In August this year the patient was seen in the emergency department secondary to a left groin abscess. She was ultimately admitted to the medical service and surgery was consulted. On 09/04/2024 the patient did undergo a CT scan of the abdomen pelvis which demonstrated patient had bilateral inguinal lymphadenopathy with concern the patient had a grossly enlarged and necrotic lymph node in the left inguinal region. Patient was ultimately taken to the operating room on 09/06/[address] Mal Blair where he performed an incision and drainage of the left groin as well as biopsy of the tissue. Culture data from this procedure demonstrated no growth. Pathology results were also reviewed and patient was found to have squamous cell carcinoma (the interpreting pathologist could not determine if this was an in situ squamous cell carcinoma or if it was from an alternate source suggestive of metastatic disease). Patient does report that prior to having the incision and drainage she was having significant pain in her left groin but after the procedure she noted marked improvement of her symptoms. She does report however that the wound was left open and has never completely closed. Because of the diagnosis of squamous cell cancer the patient was referred to [facility] where she believes she is to see a TELECOMMUNICATIONS NETWORK ENGINEER oncologist. She reports that this appointment is scheduled for next week on . Patient presented to the emergency department today because over the past 2 weeks she has been having increased pain in the same groin. She says that the pain is now gone to the point where she cannot tolerated at home. In addition to the pain the patient reports that she is having green/puslike drainage from the wound. She has had some chills and sweats but admits she has not taken her temperature. She has had some intermittent nausea and vomiting. She notes that her bowels are moving normally and she also notes that she is not having any urinary issues. She denies any unexpected weight loss. Since arrival to the emergency department today she has had labs and imaging which independent reviewed. Chest x-ray showed no evidence of pneumonia. She did undergo a CT scan of the pelvis. This showed some subcutaneous stranding in the medial left upper thigh which was felt to be consistent with cellulitis. Patient was also noted to have an oval soft tissue density measuring approximately 6.5 cm x 3 cm in the left side of the buttock cleft concerning for superficial subcutaneous abscess. There is increased adenopathy suggestive of metastatic disease. There is no soft tissue abscess seen in the left groin. Labs including CBC were white blood cell count was elevated 13.7. Hemoglobin and hematocrit were 11.3 and 35.9. Platelet count was 4 and 32,000. Coagulation studies were normal. Chemistry profile showed sodium and potassium as well as the BUN and creatinine were normal. Lactic acid level was not elevated at 1.5. The urinalysis did show 2+ leukocyte esterase and 21-50 white blood cells per high-power field along with 2+ bacteria At the time of my interview she was resting comfortably in bed and she was in no distress. Allergies Allergy/AdvReac Type Severity Reaction Status Date / Time tolterodine Allergy Intermediate plaque Verified 09/15/24 13:38 psoriasis nickel Allergy Mild Rash Verified 09/15/24 13:38 Home Medications Medication Instructions Recorded Confirmed Type cholecalciferol (vitamin D3) 125 125 mcg PO DAILY #30 caps 06/13/21 10/04/24 Rx mcg (5,000 unit) capsule omeprazole 20 mg capsule,delayed 20 mg PO DAILY PRN Acid Reflux #90 02/07/23 10/04/24 Rx release caps ascorbate calcium (vitamin C) 500 500 mg PO DAILY 08/12/23 10/04/24 History mg tablet multivitamin 1 tab PO DAILY 08/12/23 10/04/24 History levothyroxine 200 mcg capsule 200 mcg PO QAM #90 caps 08/21/24 10/04/24 Rx levothyroxine 25 mcg capsule 25 mcg PO DAILY #90 caps 08/21/24 10/04/24 Rx lisinopril 20 mg tablet 20 mg PO DAILY #90 tabs 08/21/24 10/04/24 Rx mv-mn-folic 200 mcg-vit K 15 1 cap PO DIRECTED 09/04/24 10/04/24 History mcg-lutein 5 mg-zeaxanthin 1 mg capsule (PreserVision AREDS 2 Plus Multivit) Patient History Medical History Family hx of colon cancer Sister Dxed with colon cancer when she was 65yo. COVID-19 virus detected 07/03/21 positive; asymptomatic Nausea and vomiting after administration of anesthetic agent Surgical History S/P debridement (09/08/24) Open wound left inner thigh with slough present measuring 6.5 cm x 9.2 cm x 3.2 cm total size 59.80 cm History of total hysterectomy with bilateral salpingo-oophorectomy (BSO) History of tooth extraction S/P tonsillectomy and adenoidectomy S/P thyroid surgery x2--d/t goiter S/P cholecystectomy S/P arthroscopy of knee left Family History Sister Colorectal cancer Other Cardiac disorder Diabetes Hypertension Hypothyroidism No family history of adverse response to anesthesia Denies family history of Ovarian cancer Prostate cancer Myocardial infarction Breast cancer Social History Smoking Status: Former smoker Tobacco Type: Cigarettes Second Hand Exposure: No; Do You Dip or Chew Tobacco: No; Hx Alcohol Use: No Hx Substance Use: No Preferred Language: Bolivian Communication Ability: Effective Visual Impairment: No Limitations Hearing Ability: Normal Prosthetics Technician Required: No Beliefs That Will Affect Care: None marital status: Single Current Living Situation: Alone Current Living Situation Comment: lives with daughter current occupational status: retired How many Children do You have: 2 Other Information That Helps Us Care for You: No Feels Safe at Home: Yes Safety Concerns: Feels Safe At This Time Childhood Exposure to Second-Hand Smoke: Yes Diet: regular caffeine: Yes during the past year weight has: remained stable Dental Care, Regularly: Yes Physical Activity Frequency: 1-2 Times per Week Seatbelt Use: always Sunscreen Use: Yes Do you think of yourself as: straight/heterosexual Sexual Activity: has been sexually active, but not for at least 12 months Gender Identity: Female Assistive Devices: Cane Review of Systems Review of Systems: All systems reviewed & are unremarkable except as noted in HPI & below Physical Exam Constitutional: WD/WN, vitals as above Eyes: no conjunctival abnormality ENMT: Ears: no hearing impairment and no external ear abnormality Mouth: no oropharynx abnormality Neck: trachea midline Respiratory: normal respiratory effort; no respiratory distress and no labored breathing Cardiovascular: Rate/Rhythm: regular rate and regular rhythm Gastrointestinal (Abdomen): Abdomen is soft and nondistended. There is nonpainful to palpation Musculoskeletal: With a nurse coater smoking pipe present the patient's left groin was examined. Patient did have an open wound in the left groin in the medial aspect of the left groin crease extending towards the left labia. There is some slough and some purulent material noted at the wound base. There was a small amount of surrounding erythema but not appreciate any lymphatic streaking. There is no crepitus noted in the soft tissue. Skin: See above Neurologic: moves all extremities Psychiatric: A+Ox3, euthymic affect Results & Data Vital Signs (Past 12 Hours) Vital Signs Temp Pulse Pulse Resp BP BP Pulse Ox 10/04/24 19:00 80 19 127/60 97 10/04/24 17:03 75 15 97 10/04/24 17:00 141/73 H 10/04/24 16:57 74 22 98 10/04/24 16:39 79 22 98 10/04/24 16:35 164/77 H 10/04/24 16:03 75 13 100 10/04/24 16:01 139/86 10/04/24 15:27 76 10/04/24 15:00 76 18 118/73 96 10/04/24 14:30 151/68 H 10/04/24 14:30 77 22 151/68 H 100 10/04/24 14:00 80 22 137/75 100 10/04/24 13:30 75 20 100 10/04/24 13:30 157/77 H 10/04/24 13:00 76 23 98 10/04/24 13:00 168/79 H 10/04/24 13:00 168/79 H 10/04/24 12:38 98 H 21 98 10/04/24 12:31 10/04/24 12:30 73 20 98 10/04/24 12:03 75 14 98 10/04/24 12:00 166/66 H 10/04/24 11:57 75 17 99 10/04/24 11:50 121/71 10/04/24 11:33 83 16 97 10/04/24 11:33 94 H 10/04/24 11:13 36.5 C 105 H 26 H 134/89 97 O2 Del Method 10/04/24 19:00 Room Air 10/04/24 17:03 10/04/24 17:00 10/04/24 16:57 10/04/24 16:39 10/04/24 16:35 10/04/24 16:03 10/04/24 16:01 10/04/24 15:27 10/04/24 15:00 10/04/24 14:30 10/04/24 14:30 10/04/24 14:00 10/04/24 13:30 10/04/24 13:30 10/04/24 13:00 10/04/24 13:00 10/04/24 13:00 10/04/24 12:38 Room Air 10/04/24 12:31 Room Air 10/04/24 12:30 10/04/24 12:03 10/04/24 12:00 10/04/24 11:57 10/04/24 11:50 10/04/24 11:33 10/04/24 11:33 10/04/24 11:13 Room Air PG Care Time/CCT Total # of Minutes Spent Total Time Spent with Patient: Total time spent is greater than 50% in coordination of care (as documented) at patient's floor/unit and/or counseling patient: Coding Level of Care Code 82181 INT INP/OBS CARE 3/75MIN Diagnoses Abscess of groin, left L02.214
[2024-10-04] MEDS: CETIRIZINE HCL 10 MG TABLET PO SCH (20:16)
[2024-10-05] MEDS: LEVOTHYROXINE SODIUM 25 MCG TABLET PO SCH (05:36)
[2024-10-05] MEDS: LEVOTHYROXINE SODIUM 200 MCG TABLET PO SCH (05:37)
[2024-10-05] MEDS: MULTIVITAMIN TAB PO SCH (07:56)
[2024-10-05] MEDS: lisinopril 20 MG TAB PO SCH (07:56)
[2024-10-05] MEDS: CHOLECALCIFEROL 125 MCG (5,000 UNITS) TAB PO SCH (07:56)
[2024-10-05] MEDS: ASCORBIC ACID 500 MG TAB PO SCH (07:57)
--- NOTE | 2024-10-05 08:12 | Hospitalist Progress Note ---
Date of Service October 05, 2024 Assessment & Plan (1) Abscess of groin, left: (2) SCC (squamous cell carcinoma): (3) Morbid obesity with BMI of 50.0-59.9, adult: Plan 74 yo female with h/o SCC of left groin, s/p I and D for groin abscess 1 month ago, presented with severe pain at same site: #Superficial subcutaneous abscess of left groin: #SCC: - Wound S/P I and D for groin abscess(09/06/24). - Previous wound cx +Strep Agalactiae, silva sensitive - WBC with modest downtrend - No wound culture obtained this admission, blood cultures negative at 24H - CT( 10/04): Increased metastatic lymphadenopathy at the left inguinal region and stable minimal lymphadenopathy right inguinal region. No soft tissue abscess seen in the left groin region. Findings suggestive of superficial subcutaneous abscess at the medial aspect of the uppermost left thigh extending anteriorly to near the posterior aspect of the left labia. - Continue Ceftriaxone 2 gm Q 24 hours - Follow CBC Q 24 hours. - Pain : Naren Tylenol + PRN Oxycodone and Dilaudid. - Surgery consulted, appreciate recs: - No surgical intervention at this time, will need to establish with wound center upon discharge - Hopeful for discharge tomorrow so that patient can make it to [place] appointment on Saturday HTN: Continue Losartan GERD: Continue Omeprazole. DVT prophylaxis: Lovenox 40 BID( BMI >40) Admission and Anticipated Discharge Date Admission Date: October 04, 2024 Supervising Physician Co-Signing Physician Notes Attending attestation Pt seen and examined in concert with Dr. Hardy. In agreement with the documented findings as noted in the resident documentation with any exceptions or additions as noted here. Pain somewhat controlled at time of examination, though not routinely using PRN medication. Reports no fever, chills, worsening drainage. On examination, S1/S2 nl RRR no MCG. CTAB. Abd NT/ND BS+ve Groin abscess s/p I&D in the setting of SCC - continue ceftriaxone and narrow with culture results tomorrow with goal of d/c tomorrow for appointment in [place] on Saturday. Can increase oxycodone to 7.5mg TID if pain not adequately controlled. Else see resident documentation as noted. Subjective Pain more manageable, discharge decreased per patient. Denies fevers/chills. Patient has appointment in [place] on Saturday with professional tutor onc related to this wound. Review of Systems Review of Systems: as per HPI Physical Exam Physical Exam: Constitutional: no acute distress HEENT: NCAT, no conjunctival injection CV: extremities well-perfused, no LE edema Resp: no increased work of breathing GI: nondistended MSK: no gross deformities Skin: Fairly well demarcated lesion with erythema extending from superior medial thigh to left labia. Certain areas very tender to palpation. minimal fluctuance, +induration. Neuro: alert, oriented, no focal neurologic deficit appreciated Results & Data Results & Data Vital Signs (Past 12 Hours) Vital Signs Temp Pulse Pulse Resp BP BP Pulse Ox 10/05/24 07:29 36.6 C 75 16 121/72 94 10/04/24 21:45 36.6 C 76 18 134/76 95 10/04/24 21:33 86 18 127/69 97 O2 Del Method 10/05/24 07:29 Room Air 10/04/24 21:45 Room Air 10/04/24 21:33 Room Air Resident Activity Tracking Resident Involvement: Resident Care Provided Care Provided: Adult Hospital Medicine
[2024-10-05 09:20] LABS: Basophils % (auto) 0.9 %; Eosinophils # (auto) 1.09 K/uL (0.00-0.50); Eosinophils % (auto) 9.7 %; Hematocrit (blood only) 33.9 % (37.0-47.0); Hemoglobin 10.6 g/dl (12.0-16.0); Immature Granulocytes # (auto) 0.04 K/uL (0.01-0.20); Immature Granulocytes % (auto) 0.4 %; Lymphocytes # (auto) 1.35 K/uL (1.20-3.40); Mean Corpuscular Hemoglobin 28.7 pg (25.0-34.0); Mean Corpuscular Hgb Conc 31.3 g/dL (32.0-36.0); Mean Corpuscular Volume 91.9 fL (80.0-100.0); Neutrophils # (auto) 7.76 K/uL (1.40-6.50); Platelet Count 422 K/uL (130-400); RDW Coefficient of Variation 13.6 % (11.5-14.5); RDW Standard Deviation 46.3 fL (36.4-46.3); Red Blood Count 3.69 M/uL (4.20-5.40); White Blood Count 11.24 K/ul (4.8-10.8)
[2024-10-05 09:30] LABS: BUN Creatinine Ratio 15.7 (10-20); Calcium 8.5 mg/dl (8.6-10.3); Potassium 3.9 mmol/L (3.5-5.1)
[2024-10-05] MEDS: MoRPHine SULFATE 4 MG/ML 1 ML CARP\\VIAL IV STA (09:39)
--- NOTE | 2024-10-05 10:05 | Surgery Progress Note ---
<Statement entered by Nicol Gonzalez, - 10/05/24 13:32> I have seen and examined this patient this am with the surgical team and I agree with this plan. Most of the soft/thin exudate present was able to be wiped away with a saline soaked gauze. A wet to dry dressing was applied. Date of Service October 05, 2024 Assessment & Plan (1) Abscess of groin, left: Plan: Pt is s/p I&D of L groin wound w/ dr. yuen on 09/06, pathology concerning for squamous cell carcinoma, since has been managed with local wound care and f/u in wound center Pt has referral to doctor in [place] for opinion on wound/cancer diagnosis, this is scheduled for this upcoming saturday wound evaluated with dr. gonzalez, some of the superficial exudate was debrided at bedside, we then irrigated the wound and dressed it with moist/dry kerlex gauze, dry 4x4 gauze, and medipore tape Can continue local wound care w/ daily/prn dressing changes. CT scan has been reviewed, we have no plans for surgical intervention recommend course of abx, WBC down to 11 (13). and hopefully we can have patient discharged in the next 24 hours so that she can attend her appointment with mann regarding further workup/care of this wound & diagnosis would see if medicine can secure her an appt in the wound care center for this upcoming or saturday Admission and Anticipated Discharge Date Admission Date: October 04, 2024 Subjective Patient with ongoing wound pain, but reports it is manageable with PO pain pills. She has an appt with mann this saturday that she really would like to attend regarding her wound. Physical Exam Physical Exam: awake/alert Gastrointestinal (Abdomen): L groin wound open with surrounding erythema, some slough; no significant rossy inage noted. some exudate like tissue noted in wound Results & Data Vital Signs (Past 12 Hours) Vital Signs Temp Pulse Resp BP Pulse Ox O2 Del Method 10/05/24 07:29 97.9 F 75 16 121/72 94 Room Air PG Care Time/CCT Total # of Minutes Spent Total Time Spent with Patient: Total time spent is greater than 50% in coordination of care (as documented) at patient's floor/unit and/or counseling patient: Coding Level of Care Code 96392 SUB INP/OBS CARE 07/18MIN Diagnoses Abscess of groin, left L02.214
--- NOTE | 2024-10-05 11:17 | Electrocardiogram Report ---
Test Reason : Blood Pressure : */* mmHG Vent. Rate : 86 BPM Atrial Rate : 86 BPM P-R Int : 152 ms QRS Dur : 80 ms QT Int : 410 ms P-R-T Axes : 56 53 56 degrees QTcB Int : 490 ms Normal sinus rhythm with sinus arrhythmia Low voltage QRS Prolonged QT Abnormal ECG When compared with ECG of 05-Sep-2024 21:00, No significant change was found Confirmed by Juan Zapata ([id number]) on 10/05/2024 11:17:34 AM Referred By: REFERRED SELF Confirmed By: Juan Zapata
[2024-10-05] MEDS: HYDROmorphone HCL 2 MG TAB PO PRN (14:16)
[2024-10-05] MEDS: LIDOCAINE 2% JELLY 5 ML TUBE EXT ONE (14:16)
[2024-10-05 15:12] VITALS: RESP 18
[2024-10-05] MEDS: cefTRIAXone SODIUM 2,000 MG/50 ML BAG IV SCH (18:00)
[2024-10-06 06:55] LABS: Basophils # (auto) 0.12 K/uL (0.00-0.20); Basophils % (auto) 1.1 %; Eosinophils # (auto) 1.26 K/uL (0.00-0.50); Eosinophils % (auto) 11.1 %; Hematocrit (blood only) 32.3 % (37.0-47.0); Hemoglobin 10.4 g/dl (12.0-16.0); Immature Granulocytes # (auto) 0.06 K/uL (0.01-0.20); Immature Granulocytes % (auto) 0.5 %; Lymphocytes # (auto) 1.44 K/uL (1.20-3.40); Lymphocytes % (auto) 12.7 %; Mean Corpuscular Hemoglobin 29.5 pg (25.0-34.0); Mean Corpuscular Hgb Conc 32.2 g/dL (32.0-36.0); Mean Corpuscular Volume 91.8 fL (80.0-100.0); Mean Platelet Volume 10.3 fL (9.4-12.4); Monocytes # (auto) 0.92 K/uL (0.11-0.59); Monocytes % (auto) 8.1 %; Neutrophils # (auto) 7.55 K/uL (1.40-6.50); Neutrophils % (auto) 66.5 %; Platelet Count 405 K/uL (130-400); RDW Coefficient of Variation 13.3 % (11.5-14.5); RDW Standard Deviation 44.4 fL (36.4-46.3); Red Blood Count 3.52 M/uL (4.20-5.40); White Blood Count 11.35 K/ul (4.8-10.8)
--- NOTE | 2024-10-06 08:32 | Surgery Progress Note ---
Date of Service October 06, 2024 Assessment & Plan (1) Abscess of groin, left: Plan: Pt is s/p I&D of L groin wound w/ dr. yuen on 09/06, pathology concerning for squamous cell carcinoma, since has been managed with local wound care and f/u in wound center Pt has referral to doctor in [place] for opinion on wound/cancer diagnosis, this is scheduled for tomorrow WBC 11 (11, 13). Afebrile Currently wound dressed with wet-dry kerlex, covered by 4x4 gauze, and medipore tape. patient states at home she was just using an ABD in the area Can continue local wound care w/ daily/prn dressing changes. CT scan has been reviewed, we have no plans for surgical intervention Johnson in place to help keep wound clean and cut down on frequent dressing changes if becomes saturated Pt does have appointment with [place] [facility] tomorrow regarding further workup/care of this wound & diagnosis would see if medicine can secure her an appt in the wound care center for this upcoming or saturday If medically cleared can consider dispo and complete course of abx and local wound care, may need home nursing along w/ wound care outpatient f/u Admission and Anticipated Discharge Date Admission Date: October 04, 2024 Subjective Patient reports some ongoing pain in groin/wound but that it is much better than when she came in. Reports dressing needed changed after we did it yesterday Physical Exam Physical Exam: awake/alert, sitting up in bed eating bfast Skin: did not examine wound this AM given patient in bed eating bfast PG Care Time/CCT Total # of Minutes Spent Total Time Spent with Patient: Total time spent is greater than 50% in coordination of care (as documented) at patient's floor/unit and/or counseling patient: Coding Level of Care Code 10339 SUB INP/OBS CARE 07/18MIN Diagnoses Abscess of groin, left L02.214
[2024-10-06 09:14] VITALS: BP 158/77; TEMP 97.3; O2SAT 95
--- NOTE | 2024-10-06 11:07 | Discharge Summary ---
Date of Service October 06, 2024 Admission HPI Per Admitting Provider 74 yo female with h/o SCC of left groin, who has I and D for groin abscess 1 month ago, presented with severe pain at same site , more for last few days. She says she was fine until 2 weeks ago, when Infection and drainage started. She felt frequent chills and warmth, however did not document temperature at home. Presented on 09/[address] Ortez, who did I and D for her, she was suggested to go to [facility] for further management of Squamous cell cancer reported on pathology per specimen sent on 09/06. She has appointment with Shirley coming week (Saturday). Meanwhile pain is so severe despite taking Tylenol and Ibuprofen at home, so she decided to come to ED. No urinary symptoms per se, no suprapubic/ flank pain but endorses some burning in incision site after peeing. H/O Hysterectomy done remote. Admission Exam Per Admitting Provider Constitutional: Well appearing, No acute distress. HEENT: Atraumatic, Normocephalic, No conjunctival injection CVS: S1 S2 no murmur, Regular Rhythm, no LE edema Respiratory: BL equal air entry with NVBS. No rhonchi, wheezes, or crackles. No increased work of breathing GI: Soft, Nondistended, Obese belly, Nontender, Normal Bowel sounds + MSK: No gross deformities noted. Skin: Warm, Dry, Some punctate macular rashes in her upper chest below neck, no similar rash elsewhere. Extensive skin involvement in BL groin alomg with posterior labia in left. 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 I and D incision site noted with slugh in base. Surrounding erythema +, tender diffusely. Very foul smelling order from wound. Neuro: Alert, Oriented to TPP, No Focal deficit Psych: Mood and Affect congruent, Cooperative on exam Principal Diagnosis Groin abscess Discharge Exam Constitutional: no acute distress HEENT: NCAT, no conjunctival injection CV: extremities well-perfused, no LE edema Resp: no increased work of breathing GI: nondistended MSK: no gross deformities Skin: Fairly well demarcated lesion with erythema extending from superior medial thigh to left labia. Certain areas very tender to palpation. minimal fluctuance, +induration. Neuro: alert, oriented, no focal neurologic deficit appreciated Discharge Data Allergies Allergy/AdvReac Type Severity Reaction Status Date / Time tolterodine Allergy Intermediate plaque Verified 09/15/24 13:38 psoriasis nickel Allergy Mild Rash Verified 09/15/24 13:38 Consultations 10/04/24 14:57 ED Decision to Admit Stat 10/04/24 18:11 Consult General Surgery Routine Ordered Studies 10/04/24 11:29 CT pelvis w/IV con only Urgent Hospital Course (1) Abscess of groin, left: (2) SCC (squamous cell carcinoma): (3) Morbid obesity with BMI of 50.0-59.9, adult: Plan 74 yo female with h/o SCC of left groin, s/p I and D for groin abscess 1 month ago, presented with severe pain at same site: #Superficial subcutaneous abscess of left groin: #SCC: - Wound S/P I and D for groin abscess(09/06/24). - WBC with modest downtrend 13->11 - No wound culture obtained this admission, blood cultures negative at 48H (Previous wound cx +Strep Agalactiae, silva sensitive) - CT on admission: Increased metastatic lymphadenopathy at the left inguinal region and stable minimal lymphadenopathy right inguinal region. No soft tissue abscess seen in the left groin region. Findings suggestive of superficial subcutaneous abscess at the medial aspect of the uppermost left thigh extending anteriorly to near the posterior aspect of the left labia. - Treated with IV Ceftriaxone. Discharged on Cefdinir x10 days. - Surgery consulted, no surgical intervention, recommend outpatient wound care and display director-onc evaluation - Test Designer onc eval in [place] scheduled for 10/07/24 - Pt has appointment with wound care on 10/08/24 - Discharged with Perez catheter in place d/t recurrent contamination of wound bed - follow up on Perez management/removal as outpatient. Total Time Total Time Spent Total Time Spent (In Minutes): see attending attestation Discharge Plan Discharge Items Patient Disposition: Home - Self-Care Reason For Visit: INFECTED GROIN WOUND Discharge Diagnosis: Groin abscess, wound infection Activity: Resume your previous activity Non-emergency contact: Primary Care Provider Call non-emergency contact if: you have any medication questions, your symptoms worsen, your pain is worsening and you have a fever Follow-up/Referrals: Zaina Nazario DO, FACEP [Physician] - 10/08/24 2:30 pm Petr Freeman DO [Primary Care Provider] - Diet: Heart Healthy Addtl Attending Provider Instructions: Please continue to follow up in the wound care center for your wound . we recommend you be seen by them by the end of the week. Our case management team set you up for an appointment on 10/08 at 2:30PM. [address], [address], [place] [address] # [phone] Your wound is currently being dressed with moist-dry kerlex gauze, covered with 4x4 gauze, ABD pad, and secured with tape. Change daily and as needed You are being discharged on an antibiotic called Cefdinir - please take 1 tab twice daily for 10 more days. We recommend being evaluated if this fails to improve or if you develop new fevers or increased drainage. Follow up with wound care about your Perez catheter. Should also f/u with your PCP about your Perez catheter. Pending Studies at Discharge: No Stand-Alone Forms: My [facility], Smoking Cessation Medications and DC Order Prescriptions: New cefdinir 300 mg capsule 300 mg PO BID 10 Days Qty: 20 0RF Continued PreserVision AREDS 2 Plus MV 200 mcg-15 mcg- 5 mg-1 mg capsule 1 cap PO DIRECTED Rx Instructions: otc unable to verify cholecalciferol (vitamin D3) 125 mcg (5,000 unit) capsule 125 mcg PO DAILY Qty: 30 0RF Rx Instructions: otc unable to verify omeprazole 20 mg capsule,delayed release(DR/EC) 20 mg PO DAILY PRN (Reason: Acid Reflux) Qty: 90 3RF Rx Instructions: otc/no fill history available. unable to verify ascorbate calcium (vitamin C) 500 mg tablet 500 mg PO DAILY Rx Instructions: otc unable to verify multivitamin Tablet 1 tab PO DAILY Rx Instructions: otc unable to verify levothyroxine 25 mcg capsule 25 mcg PO DAILY Qty: 90 1RF levothyroxine 200 mcg capsule 200 mcg PO QAM Qty: 90 1RF lisinopril 20 mg tablet 20 mg PO DAILY Qty: 90 3RF Discharge Orders: Discharge Order (Routine); Ordered 10/06/24 Ordered By: Jonathan West/Other Patient Handouts: Indwelling Urinary Catheter Dc, ED Perez Catheter, Care Admission Data Admit Date/Time: 10/04/24 16:06 Attending Provider: Juan Barrett Admit Provider: Ignacia Vallejo Primary Care Provider: Petr Freeman Other Providers: Sherwin Denise; Jennifer Pacheco; Maximo Terrell; Kiel Ortez; Fredrick Gonzales; Mikal Villasenor; Acacia Hood; Kashmir Ng; Dale Ahn; Nicol Gonzalez; Felecia Doss; Kehinde Patterson; [facility] Other Interventions: Discharge Summary Assessment (RN) Last Done: 10/06/24 12:15 Supervising Physician Co-Signing Physician Notes Attending attestation Pt seen and examined in concert with Dr. Hardy. In agreement with the documented findings as noted in the resident documentation with any exceptions or additions as noted here. Pain controlled at time of examination, not routinely using PRN medication. Reports no fever, chills, worsening drainage. On examination, S1/S2 nl RRR no MCG. CTAB. Abd NT/ND BS+ve Groin abscess s/p I&D in the setting of SCC - transition to cefdinir with close follow up with appointment in [place] on Saturday. Continue perez until then and re-evaluate. Resume home pain control regimen. Else see resident documentation as noted. Total attending physician time spent with this patient's care on the day of discharge: 35 minutes.
[2024-10-06 12:17] VITALS: PULSE 80
--- NOTE | 2024-10-08 11:11 | Coding Query ---
To promote full compliance with coding requirements relating to patient care, provider participation is requested in all cases of dovetailer uncertainty. Please assist us with the question(s) below: Coding Question(s): The diagnosis below was documented in the ER and H&P, then subsequently fell off all further documentation. Please indicate if it is still a possible diagnosis or ruled out. Physician's Response(s): SEPSIS (documented in ER and by Supervising Physician on H&P) ( ) Diagnosed and POA ( ) Diagnosed and not POA ( x ) Ruled out ( ) Other (please specify) MTDD
--- NOTE | 2024-10-08 11:16 | Coding Query ---
CODING QUERY To promote full compliance with coding requirements relating to patient care, provider participation is requested in all cases of remote inpatient coder uncertainty. Please assist us with the question(s) below: Coding Question(s): There is documentation in the record, as on the H&P of, " Open wound of groin with complication", and, "she seems to have re-infection if I and D site", and, "groin wound/squamous cell carcinoma with open wound - and now subsequent cellulitis and abscess". Please specify below, in your clinical opinion: ( ) likely postoperative complication ( X ) not postoperative complication Physician's Response(s): Thank you Ruma Graham Principal Diagnosis: "that condition established after study, to be chiefly responsible for occasioning the admission of the patient to the hospital for care." Co-Existing Principal Diagnosis: "when two or more diagnoses equally meet the criteria for principal diagnosis as determined by the circumstances of admission, diagnostic work up, and/or therapy provided, and the Alphabetic Index, Tabular List, or another coding guideline does not provide sequencing direction, any one of the diagnoses may be sequenced first." "When the physician has documented what appears to be a current diagnosis in the body of the record, but has not included the diagnosis in the final diagnostic statement, the physician should be asked whether the diagnosis should be added." (Source Coding [facility] 2 QTR90. p3-4) CHERY
== END 2024-10-06 14:09 | disposition home or self-care (01) | DRG 603 ==
LOC: ED 11:09 → SUATTDRO 16:06 → EDINP 16:06 → 3W 22:03

== ENCOUNTER 2024-12-28 10:37 | Inpatient (IN) ==
--- NOTE | 2024-12-28 11:13 | Emergency Department Note ---
Impression & Plan Cellulitis, Anemia, Hypomagnesemia, Leukopenia, Urinary tract infection ED Provider Note NAME: VONNIE IVY AGE: 74 SEX: F : 1950 ARRIVES VIA: Ambulance INFORMANT: Patient, ED PROVIDER(S): Damien Kessler DO CHIEF COMPLAINT: Abdominal pain HPI: The patient is a 74-year-old female who has a diagnosis of squamous cell carcinoma of the vulva who presented to the emergency department for pain. The patient noticed lower abdominal pain as well as pelvic pain over the course of the last 10 days. She was recently in [facility] for similar issues. The patient does receive radiation to that area. She is denying pain and discharge in that area for many months. The patient called the ambulance today because she cannot take this anymore. ROS: See above HPI for pertinent positives & negatives. A total of 10 systems reviewed and were otherwise negative. PAST MEDICAL HISTORY: See Below PAST SURGICAL HISTORY: See Below FAMILY HISTORY: See Below SOCIAL HISTORY: See Below HOME MEDICATIONS: See Below ALLERGIES: See Below VITALS: See Below PHYSICAL EXAMINATION: GENERAL: The patient is awake and alert. She is very anxious and appears to be uncomfortable. EYES: The conjunctivae are clear. The pupils are round and reactive. EARS, NOSE, MOUTH AND THROAT: The nose is without any evidence of any deformity. NECK: The neck is nontender and supple. RESPIRATORY: Normal respiratory effort is noted there is no evidence of wheezing rhonchi or rales CARDIOVASCULAR: Regular rate and rhythm noted there no murmurs rubs or gallops normal S1 normal S2. GASTROINTESTINAL: The abdomen is soft. There is significant left-sided tenderness to palpation. : The external genitalia is very excoriated and red. There is significant amounts of discharge. Tenderness diffusely in that area. MUSCULOSKELETAL/EXTREMITIES: There is no evidence of gross deformity full range of motion is noted in the hips and shoulders. SKIN: Skin is warm and dry. There is no significant pedal edema. NEUROLOGIC: Patient is awake alert and oriented x3 MEDICAL DECISION MAKING: The patient is a 74-year-old female who presented to the emergency department for an evaluation of perineal pain. The patient has a history of vulvar cancer which is being treated with radiation and chemotherapy. The patient has had diarrhea and discharge in that area. I discussed patient's laboratory and radiographic studies with her. She was treated with IV antibiotics IV pain medication and IV fluids. Ultimately there was no signs of Hiram's gangrene but given the patient's findings I do not feel that she is a good candidate for outpatient management. This reason I discussed her condition with the on-call [facility] hospitalist. They have agreed to evaluate the patient in the emergency department. Triage Nursing notes reviewed. Prior medical records reviewed Vital Signs: reviewed and remarkable for hypotension. Differential diagnosis: Cellulitis, abscess, MRSA infection, DVT, necrotizing fasciitis, dermatitis, drug eruption, allergic reaction, as well as other pathologies. ER treatment provided: See below Diagnostics interpreted by me: ECG: EKG was obtained in the emergency department. My interpretation is normal sinus rhythm at 83 bpm. There is no ectopy. There is no acute ST segment abnormalities noted. QTc was 470 ms. Cardiac Monitoring: An order was placed for continuous cardiac monitoring. The monitor shows a rate of 80 bpm with sinus rhythm. Laboratory studies: As stated above and show below. Imaging studies: See below. Radiographic imaging was reviewed by myself Consultation(s): I discussed this case with Dr. Singleton who is on-call for the [facility] hospitalist group. Past Med/Surg History Problem List (Updated 12/28/24 @ 16:45 by Zuri Mendieta) Urinary tract infection (Acute) Cellulitis of groin Urinary tract infection Neutropenia associated with infection Leukopenia (Acute) Hypomagnesemia (Acute) Anemia (Acute) Cellulitis (Acute) Wound discharge 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 COVID-19 virus detected 07/03/21 positive; asymptomatic Nausea and vomiting after administration of anesthetic agent Surgical History History of cataract surgery Bilateral H/O thyroidectomy Excision of cystic mass left neck, completion total thyroidectomy with resection of the right lobe of the thyroid and the remaining part of the isthmus 01/15/12 H/O partial thyroidectomy Left thyroid lobectomy and isthmectomy 11/10/03 S/P debridement (09/08/24) Open wound left inner thigh with slough present measuring 6.5 cm x 9.2 cm x 3.2 cm total size 59.80 cm History of total hysterectomy with bilateral salpingo-oophorectomy (BSO) History of tooth extraction S/P tonsillectomy and adenoidectomy S/P thyroid surgery x2--d/t goiter S/P cholecystectomy S/P arthroscopy of knee left Family History Sister Colorectal cancer Mother , in her 80s Diabetes Stroke Asthma Father , in his 80s Myocardial infarction Brother Hypertension Asthma COPD (chronic obstructive pulmonary disease) Sister Asthma Endometrial cancer Brother Stroke Sister Medical history unknown Sister No problems noted. Daughter No problems noted. Son No problems noted. Other Cardiac disorder Hypothyroidism No family history of adverse response to anesthesia Denies family history of Ovarian cancer Prostate cancer Breast cancer Social History Smoking Status: Never smoker Tobacco Type: Cigarettes Cigarettes Per Day: 1 PPD x 30yrs; Second Hand Exposure: No; Do You Dip or Chew Tobacco: No; Hx Alcohol Use: No Hx Substance Use: No Preferred Language: Amharic Communication Ability: Effective Visual Impairment: No Limitations Hearing Ability: Normal Refining Supervisor Required: No Beliefs That Will Affect Care: None marital status: Single Current Living Situation: Alone Current Living Situation Comment: lives with daughter current occupational status: retired How many Children do You have: 2 Feels Safe at Home: Yes Childhood Exposure to Second-Hand Smoke: Yes Diet: regular caffeine: Yes during the past year weight has: remained stable Dental Care, Regularly: Yes Physical Activity Frequency: 1-2 Times per Week Seatbelt Use: always Sunscreen Use: Yes Do you think of yourself as: straight/heterosexual Sexual Activity: has been sexually active, but not for at least 12 months Gender Identity: Female Assistive Devices: Cane and Glasses Allergies Allergies Allergy/AdvReac Type Severity Reaction Status Date / Time tolterodine Allergy Intermediate plaque Verified 12/21/24 08:20 psoriasis nickel Allergy Mild Rash Verified 12/21/24 08:20 Home Meds Home Medications Medication Instructions Recorded Confirmed multivitamin 1 tab PO DAILY 08/12/23 12/28/24 mv-mn-folic 200 mcg-vit K 15 1 cap PO DIRECTED 09/04/24 12/28/24 mcg-lutein 5 mg-zeaxanthin 1 mg capsule (PreserVision AREDS 2 Plus Multivit) betamethasone dipropionate 0.05 % 1 applic topical DAILY PRN Other 10/14/24 12/28/24 topical ointment calcium 600 mg (as 1 tab PO DAILY 10/14/24 12/28/24 carbonate)-vitamin D3 10 mcg (400 unit) tablet (Calcium with Vitamin D) cholecalciferol (vitamin D3) 25 25 mcg PO DAILY 10/14/24 12/28/24 mcg (1,000 unit) capsule fluticasone 250 mcg-salmeterol 50 1 inh inhalation BID PRN sob 10/14/24 12/28/24 mcg/dose blistr powdr for inhalation (Advair Diskus) hydroxyzine HCl 25 mg tablet 25 mg PO TID PRN Other 10/14/24 12/28/24 loratadine 10 mg tablet 10 mg PO DAILY 10/14/24 12/28/24 omeprazole 20 mg capsule,delayed 0 mg PO DAILY Acid Reflux 10/14/24 12/28/24 release ondansetron HCl 8 mg tablet 8 mg PO Q8H PRN n/v 10/14/24 12/28/24 oxycodone 5 mg tablet 5 mg PO Q4H PRN Pain 10/14/24 12/28/24 prochlorperazine maleate 10 mg 10 mg PO Q6H PRN n/v 10/14/24 12/28/24 tablet (Compazine) triamcinolone acetonide 0.1 % 1 applic topical BID PRN Other 10/14/24 12/28/24 topical cream apixaban 5 mg tablet (Eliquis) 0 mg PO BID 11/23/24 12/28/24 silver sulfadiazine 1 % topical 1 applic topical BID 12/21/24 12/28/24 cream (Silvadene) diphenoxylate-atropine 2.5 1 tab PO QID PRN Diarrhea 12/28/24 12/28/24 mg-0.025 mg tablet fluconazole 100 mg tablet 0 mg PO DAILY 12/28/24 12/28/24 (Diflucan) levothyroxine 200 mcg capsule 0 mcg PO QAM 12/28/24 12/28/24 levothyroxine 25 mcg capsule 0 mcg PO DAILY 12/28/24 12/28/24 lisinopril 20 mg tablet 0 mg PO DAILY 12/28/24 12/28/24 Results & Data (ED) Vital Signs Vital Signs - 24 hr 12/28/24 10:46 12/28/24 10:46 12/28/24 11:01 Temperature 36.9 C Temperature Source Oral Pulse Rate 85 94 H Pulse Rate from SpO2 Sensor Pulse Rhythm Regular Pulse Strength Normal Respiratory Rate 24 22 Respiratory Effort / Characteristics Non-Labored Spontaneous Respiratory Depth Normal Respiratory Pattern Regular Blood Pressure 114/92 Blood Pressure Mean 99 Blood Pressure Position Semi-fowlers Pulse Oximetry 95 95 93 Oxygen Delivery Method Room Air Room Air Room Air Sepsis Recent Fever Within 48 Hours No Sepsis New/Unexplained Change in Mental Status N/A Sepsis Action Taken by Nursing No Action Required 12/28/24 11:01 12/28/24 11:12 12/28/24 11:21 Temperature Temperature Source Pulse Rate 88 90 Pulse Rate from SpO2 Sensor 87 91 H Pulse Rhythm Pulse Strength Respiratory Rate 22 19 Respiratory Effort / Characteristics Respiratory Depth Respiratory Pattern Blood Pressure 124/84 Blood Pressure Mean 100 Blood Pressure Position Pulse Oximetry 100 100 Oxygen Delivery Method Sepsis Recent Fever Within 48 Hours Sepsis New/Unexplained Change in Mental Status Sepsis Action Taken by Nursing 12/28/24 11:30 12/28/24 11:30 12/28/24 11:33 Temperature Temperature Source Pulse Rate 80 Pulse Rate from SpO2 Sensor 81 Pulse Rhythm Pulse Strength Respiratory Rate 13 Respiratory Effort / Characteristics Respiratory Depth Respiratory Pattern Blood Pressure 132/62 132/62 Blood Pressure Mean 76 76 Blood Pressure Position Pulse Oximetry 100 Oxygen Delivery Method Sepsis Recent Fever Within 48 Hours Sepsis New/Unexplained Change in Mental Status Sepsis Action Taken by Nursing 12/28/24 11:42 12/28/24 12:12 12/28/24 12:30 Temperature Temperature Source Pulse Rate 89 89 78 Pulse Rate from SpO2 Sensor 84 Pulse Rhythm Pulse Strength Respiratory Rate 18 22 16 Respiratory Effort / Characteristics Respiratory Depth Respiratory Pattern Blood Pressure Blood Pressure Mean Blood Pressure Position Pulse Oximetry 100 Oxygen Delivery Method Sepsis Recent Fever Within 48 Hours Sepsis New/Unexplained Change in Mental Status Sepsis Action Taken by Nursing 12/28/24 12:45 12/28/24 12:46 12/28/24 12:46 Temperature Temperature Source Pulse Rate 112 H Pulse Rate from SpO2 Sensor 93 H Pulse Rhythm Pulse Strength Respiratory Rate 18 Respiratory Effort / Characteristics Respiratory Depth Respiratory Pattern Blood Pressure 128/70 128/70 Blood Pressure Mean 79 79 Blood Pressure Position Pulse Oximetry 77 L Oxygen Delivery Method Sepsis Recent Fever Within 48 Hours Sepsis New/Unexplained Change in Mental Status Sepsis Action Taken by Nursing 12/28/24 12:57 12/28/24 13:01 12/28/24 13:01 Temperature Temperature Source Pulse Rate 109 H Pulse Rate from SpO2 Sensor 110 H Pulse Rhythm Pulse Strength Respiratory Rate 18 Respiratory Effort / Characteristics Respiratory Depth Respiratory Pattern Blood Pressure 118/91 118/91 Blood Pressure Mean 104 104 Blood Pressure Position Pulse Oximetry 100 Oxygen Delivery Method Sepsis Recent Fever Within 48 Hours Sepsis New/Unexplained Change in Mental Status Sepsis Action Taken by Nursing 12/28/24 13:06 12/28/24 13:09 12/28/24 13:15 Temperature Temperature Source Pulse Rate 108 H 103 H Pulse Rate from SpO2 Sensor 107 H 103 H Pulse Rhythm Pulse Strength Respiratory Rate 18 28 H Respiratory Effort / Characteristics Respiratory Depth Respiratory Pattern Blood Pressure 108/59 L Blood Pressure Mean 92 Blood Pressure Position Pulse Oximetry 100 100 Oxygen Delivery Method Sepsis Recent Fever Within 48 Hours Sepsis New/Unexplained Change in Mental Status Sepsis Action Taken by Nursing 12/28/24 13:27 12/28/24 13:30 12/28/24 13:30 Temperature Temperature Source Pulse Rate 93 H Pulse Rate from SpO2 Sensor 93 H Pulse Rhythm Pulse Strength Respiratory Rate 19 Respiratory Effort / Characteristics Respiratory Depth Respiratory Pattern Blood Pressure 109/77 109/77 Blood Pressure Mean 99 99 Blood Pressure Position Pulse Oximetry 100 Oxygen Delivery Method Sepsis Recent Fever Within 48 Hours Sepsis New/Unexplained Change in Mental Status Sepsis Action Taken by Nursing 12/28/24 13:39 12/28/24 13:41 12/28/24 13:45 Temperature Temperature Source Pulse Rate 86 84 Pulse Rate from SpO2 Sensor 89 82 Pulse Rhythm Pulse Strength Respiratory Rate 22 17 Respiratory Effort / Characteristics Respiratory Depth Respiratory Pattern Blood Pressure 106/80 Blood Pressure Mean 82 Blood Pressure Position Pulse Oximetry 97 100 Oxygen Delivery Method Sepsis Recent Fever Within 48 Hours Sepsis New/Unexplained Change in Mental Status Sepsis Action Taken by Nursing 12/28/24 13:45 12/28/24 13:45 12/28/24 13:45 Temperature Temperature Source Pulse Rate 89 Pulse Rate from SpO2 Sensor 87 Pulse Rhythm Pulse Strength Respiratory Rate 24 Respiratory Effort / Characteristics Respiratory Depth Respiratory Pattern Blood Pressure 106/80 106/80 Blood Pressure Mean 82 82 Blood Pressure Position Pulse Oximetry 100 Oxygen Delivery Method Sepsis Recent Fever Within 48 Hours Sepsis New/Unexplained Change in Mental Status Sepsis Action Taken by Nursing 12/28/24 14:00 Temperature Temperature Source Pulse Rate 80 Pulse Rate from SpO2 Sensor 79 Pulse Rhythm Pulse Strength Respiratory Rate 18 Respiratory Effort / Characteristics Respiratory Depth Respiratory Pattern Blood Pressure Blood Pressure Mean Blood Pressure Position Pulse Oximetry 67 L Oxygen Delivery Method Sepsis Recent Fever Within 48 Hours Sepsis New/Unexplained Change in Mental Status Sepsis Action Taken by Usp Medications Current Medication List: was personally reviewed by me Laboratory Data Attestation: I reviewed the patient's lab results. 12/28/24 11:17 12/28/24 11:17 Lab Results 12/28/24 12/28/24 12/28/24 Range/Units 11:17 12:30 12:57 WBC 1.67 L (4.8-10.8) K/ul RBC 2.38 L (4.20-5.40) M/uL Hgb 7.7 L (12.0-16.0) g/dl Hct 23.3 L (37.0-47.0) % MCV 97.9 (80.0-100.0) fL MCH 32.4 (25.0-34.0) pg MCHC 33.0 (32.0-36.0) g/dL RDW Std Deviation 65.9 H (36.4-46.3) fL RDW Coeff of Melida 18.6 H (11.5-14.5) % Plt Count 288 (130-400) K/uL MPV 10.4 (9.4-12.4) fL Immature Gran % (Auto) 1.2 % Neut % (Auto) 61.0 % Lymph % (Auto) 8.4 % [place] % (Auto) 17.4 % Eos % (Auto) 10.8 % Baso % (Auto) 1.2 % Neut # (Auto) 1.02 L (1.40-6.50) K/uL Lymph # (Auto) 0.14 L (1.20-3.40) K/uL [place] # (Auto) 0.29 (0.11-0.59) K/uL Eos # (Auto) 0.18 (0.00-0.50) K/uL Baso # (Auto) 0.02 (0.00-0.20) K/uL Immature Gran # (Auto) 0.02 (0.01-0.20) K/uL Polychromasia 1+ Ovalocytes 1+ PT Cancelled 11.4 INR Cancelled 1.1 APTT Cancelled 22 PTT Ratio Cancelled 0.8 VBG pH 7.51 H (7.36-7.41) VBG pCO2 32 L (38-50) mmHg VBG pO2 32 mmHg VBG HCO3 26 mmol/L VBG O2 Saturation < 60.0 % VBG Base Excess 2.5 mEq/L Sodium 138 (136-145) mmol/L Potassium 3.7 (3.5-5.1) mmol/L Chloride 102 (98-107) mmol/L Carbon Dioxide 26 (21-32) mmol/L Anion Gap 10 (3-11) BUN 19 (6-23) mg/dl Creatinine 1.05 (0.6-1.2) mg/dl Est Cr Clr Drug Dosing 66.6 ml/min eGFR 56.10 BUN/Creatinine Ratio 18.1 (10-20) Glucose 101 H (70-99(Fasting)) mg/dl Lactate 1.5 (0.4-2.0) mmol/L Calcium 7.5 L (8.6-10.3) mg/dl Magnesium 1.5 L (1.7-2.4) mg/dl Total Bilirubin 1.1 H (0.2-1.0) mg/dl Direct Bilirubin 0.3 H (0-0.2) mg/dl AST 15 (13-39) U/L ALT 9 (7-52) U/L Alkaline Phosphatase 46 (34-104) U/L Troponin I High Sens 13.2 (0-14) pg/ml Total Protein 5.6 L (6.0-8.3) gm/dl Albumin 2.7 L (3.4-5.0) gm/dl Procalcitonin 0.06 (0-0.5) ng/ml Urine Color Yellow Urine Appearance Clear (Clear) Urine pH 5.5 (4.5-7.5) Ur Specific [place] 1.037 H (1.000-1.030) Urine Protein 1+ H (Negative) Urine Glucose (UA) Negative (Negative) Urine Ketones 1+ H (Negative) Urine Blood Negative (Negative) Urine Nitrite Positive A (Negative) Urine Bilirubin Negative (Negative) Urine Urobilinogen Negative (Negative) Ur Leukocyte Esterase 2+ H (Negative) Urine WBC (Auto) 21-50 H (0-5) /hpf Urine RBC (Auto) 3-5 H (0-2) /hpf U Hyaline Cast (Auto) 3-5 H (0-2) /lpf U Epithel Cells (Auto) 0-2 (0-2) /hpf Urine Bacteria (Auto) 4+ H (None Seen) Urine Comment Blood Type Antibody Screen 12/28/24 Range/Units 13:52 WBC (4.8-10.8) K/ul RBC (4.20-5.40) M/uL Hgb (12.0-16.0) g/dl Hct (37.0-47.0) % MCV (80.0-100.0) fL MCH (25.0-34.0) pg MCHC (32.0-36.0) g/dL RDW Std Deviation (36.4-46.3) fL RDW Coeff of Mel[place] (11.5-14.5) % Plt Count (130-400) K/uL MPV (9.4-12.4) fL Immature Gran % (Auto) % Neut % (Auto) % Lymph % (Auto) % [place] % (Auto) % Eos % (Auto) % Baso % (Auto) % Neut # (Auto) (1.40-6.50) K/uL Lymph # (Auto) (1.20-3.40) K/uL [place] # (Auto) (0.11-0.59) K/uL Eos # (Auto) (0.00-0.50) K/uL Baso # (Auto) (0.00-0.20) K/uL Immature Gran # (Auto) (0.01-0.20) K/uL Polychromasia Ovalocytes PT INR APTT PTT Ratio VBG pH (7.36-7.41) VBG pCO2 (38-50) mmHg VBG pO2 mmHg VBG HCO3 mmol/L VBG O2 Saturation % VBG Base Excess mEq/L Sodium (136-145) mmol/L Potassium (3.5-5.1) mmol/L Chloride (98-107) mmol/L Carbon Dioxide (21-32) mmol/L Anion Gap (3-11) BUN (6-23) mg/dl Creatinine (0.6-1.2) mg/dl Est Cr Clr Drug Dosing ml/min eGFR BUN/Creatinine Ratio (10-20) Glucose (70-99(Fasting)) mg/dl Lactate (0.4-2.0) mmol/L Calcium (8.6-10.3) mg/dl Magnesium (1.7-2.4) mg/dl Total Bilirubin (0.2-1.0) mg/dl Direct Bilirubin (0-0.2) mg/dl AST (13-39) U/L ALT (7-52) U/L Alkaline Phosphatase (34-104) U/L Troponin I High Sens (0-14) pg/ml Total Protein (6.0-8.3) gm/dl Albumin (3.4-5.0) gm/dl Procalcitonin (0-0.5) ng/ml Urine Color Urine Appearance (Clear) Urine pH (4.5-7.5) Ur Specific [place] (1.000-1.030) Urine Protein (Negative) Urine Glucose (UA) (Negative) Urine Ketones (Negative) Urine Blood (Negative) Urine Nitrite (Negative) Urine Bilirubin (Negative) Urine Urobilinogen (Negative) Ur Leukocyte Esterase (Negative) Urine WBC (Auto) (0-5) /hpf Urine RBC (Auto) (0-2) /hpf U Hyaline Cast (Auto) (0-2) /lpf U Epithel Cells (Auto) (0-2) /hpf Urine Bacteria (Auto) (None Seen) Urine Comment Blood Type O Positive Antibody Screen NEGATIVE Administered Medications Magnesium Sulfate/Dextrose (Magnesium Sulfate / D5w) 1 gm in 100 mls @ 50 mls/hr IV Q2H AMADEO Stop: 12/28/24 18:14 Last Admin: 12/28/24 17:13 Dose: 50 mls/hr Documented By: Infusion: 12/28/24 16:47 Dose: Infused Documented By: Admin: 12/28/24 14:47 Dose: 50 mls/hr Documented By: CHARLENE Albumin Human (Albumin 25%) 25 gm in 100 mls @ 50 mls/hr IV Q2H AMADEO Stop: 12/28/24 18:14 Last Admin: 12/28/24 17:13 Dose: 50 mls/hr Documented By: Infusion: 12/28/24 16:20 Dose: Infused Documented By: Admin: 12/28/24 14:20 Dose: 50 mls/hr Documented By: CHARLENE Potassium Chloride/Sodium Chloride (Normal Saline W/20 Meq Kcl) 20 meq in 1,000 mls @ 100 mls/hr IV .Q10H AMADEO Stop: 12/29/24 10:29 Last Admin: 12/28/24 15:07 Dose: 100 mls/hr Documented By: CHARLENE Discontinued Medications Hydromorphone HCl (Hydromorphone Inj 0.5 Mg/0.5 Ml Syr) 0.5 mg IV Q15M PRN PRN Reason: Pain Stop: 01/11/25 11:00 Last Admin: 12/28/24 13:09 Dose: 0.5 mg Documented By: Admin: 12/28/24 12:45 Dose: 0.5 mg Documented By: Admin: 12/28/24 11:15 Dose: 0.5 mg Documented By: CHARLENE Sodium Chloride (Nss) 1,000 mls @ 999 mls/hr IV .Q1H1M ONE Stop: 12/28/24 12:01 Last Infusion: 12/28/24 14:01 Dose: Infused Documented By: Admin: 12/28/24 11:15 Dose: 999 mls/hr Documented By: CHARLENE Ceftriaxone Sodium (Rocephin) 2,000 mg in 50 mls @ 100 mls/hr IV NOW STA Stop: 12/28/24 13:18 Last Infusion: 12/28/24 14:01 Dose: Infused Documented By: Admin: 12/28/24 13:07 Dose: 100 mls/hr Documented By: CHARLENE Sodium Chloride (Nss) 1,000 mls @ 999 mls/hr IV .Q1H1M ONE Stop: 12/28/24 14:31 Last Infusion: 12/28/24 17:13 Dose: Infused Documented By: Admin: 12/28/24 13:35 Dose: 999 mls/hr Documented By: CHARLENE Vancomycin HCl 2,750 mg/ (Sodium Chloride) 555 mls @ 200 mls/hr IV NOW ONE Stop: 12/28/24 16:21 Last Admin: 12/28/24 13:58 Dose: 200 mls/hr Documented By: CHARLENE Piperacillin Sod/Tazobactam Sod (Zosyn) 4.5 gm in 100 mls @ 200 mls/hr IV NOW ONE; Protocol Stop: 12/28/24 14:04 Last Infusion: 12/28/24 14:59 Dose: Infused Documented By: Admin: 12/28/24 13:41 Dose: 200 mls/hr Documented By: CHARLENE Ioversol (Optiray 320 100ml) 93 ml IV ONCE ONE Stop: 12/28/24 12:06 Last Admin: 12/28/24 12:06 Dose: 93 ml Documented By: SERG Ondansetron HCl (Ondansetron Inj 2 Mg/Ml 2 Ml Vial) 4 mg IV NOW STA Stop: 12/28/24 11:02 Last Admin: 12/28/24 11:15 Dose: 4 mg Documented By: CHARLENE Imaging Data Attestation: I personally reviewed and interpreted this imaging study as follows: My Impression: CT of the abdomen and pelvis was obtained in the emergency department. My interpretation is no free air or signs of bowel obstruction, final report below. Radiologist's Impression: Abdomen/Pelvis CT 12/28/24 11:[address] WITH IV CONTRAST CT DOSE: 1394.82 mGy.cm HISTORY: Acute left lower quadrant abdominal pain LLQ pain TECHNIQUE: Multiaxial CT images of the abdomen and pelvis were performed following the IV administration of 93 cc of Optiray, A dose lowering technique was utilized adhering to the principles of ALARA. COMPARISON STUDY: CT pelvis 10/04/2024, PET/CT 09/29/2024 FINDINGS: No acute lower thoracic abnormality. There are a few subpleural nodular foci within the lung bases measuring up to 6 mm within the left lower lobe on image 63, likely atelectatic. No pneumatosis or pneumoperitoneum. Unremarkable spleen, pancreas and adrenal glands. Cholecystectomy with likely postsurgical biliary ductal dilation, unchanged. Liver is within normal limits. Patent portal vein. Renal cysts are redemonstrated. No hydronephrosis. Decompressed urinary bladder. Hysterectomy. Atherosclerosis of the aorta without aneurysm. Inguinal lymphadenopathy redemonstrated. Index right inguinal lymph node on image 317 measures 2.3 x 1.6 cm, 2.1 x 1.2 cm on the prior pelvic CT. Hypodense left inguinal lesion/collection measures 8.3 x 8.3 cm on image 338, previously 5.0 x 4.3 cm. Additional left inguinal lymph nodes appear generally stable. Small hiatal hernia. No bowel obstruction or bowel wall thickening. Colonic diverticulosis without acute diverticulitis. No CT evidence of acute appendicitis. Body wall edema. Degenerative changes of the spine, pelvis and hips. IMPRESSION: 1. Pathologic inguinal lymphadenopathy redemonstrated. Hypodense lesion within the left inguinal tissues has increased in size from the October 04, 2024 exam suggestive of a necrotic lymph node. Lymphocele or postoperative collection could appear similarly. 2. No bowel obstruction or bowel wall thickening. 3. Cholecystectomy and hysterectomy. 4. Colonic diverticulosis. ACT 112: Negative or not required by law. The above report was generated using voice recognition software. It may contain grammatical, syntax or spelling errors. Electronically signed by: Kimani Gutierrez M.D. 12/28/2024 12:38 PM Chest X-Ray 12/28/24 11:01 SINGLE VIEW CHEST CLINICAL HISTORY: Sepsis FINDINGS: 2 AP, portable, upright chest radiographs are compared to study dated 10/04/2024 and correlated with chest CT dated 09/13/2024. The examination is degraded by portable technique and apical lordotic positioning. The cardiomediastinal silhouette is unremarkable noting atherosclerotic calcification of the thoracic aorta. Chronic interstitial thickening is similar to previous. There is mild elevation of the right hemidiaphragm and bibasilar scarring/atelectasis. No airspace consolidation or large pleural effusion is identified. No pneumothorax is seen. The skeletal structures are osteopenic. The bony thorax is grossly intact. Degenerative change is noted in the thoracic spine. IMPRESSION: No acute cardiopulmonary abnormality is identified. ACT 112: Negative or not required by law. Electronically signed by: Vick Jett M.D. 12/28/2024 11:46 AM Discharge Plan Visit Data Chief Complaint: Weakness ED Provider: Damien Kessler Discharge Problem: Cellulitis, Anemia, Hypomagnesemia, Leukopenia, Urinary tract infection Patient Disposition: Admitted As Inpatient Condition: Fair Discharge Instructions Interventions: ED Discharge Assessment Last Done: 12/28/24 16:05
[2024-12-28] MEDS: ONDANSETRON INJ 2 MG/ML 2 ML VIAL IV STA (11:15)
[2024-12-28] MEDS: SODIUM CHLORIDE 0.9% 1,000 ML IV ONE ×2 (11:15→13:35)
[2024-12-28] MEDS: HYDROmorphone INJ 0.5 MG/0.5 ML SYR IV PRN (11:15)
[2024-12-28 11:27] LABS: Base Excess VBG 2.5 mEq/L; HCO3 VBG 26 mmol/L; Oxygen Saturation VBG < 60.0 %; PCO2 VBG 32 mmHg (38-50); PO2 VBG 32 mmHg; pH VBG 7.51 (7.36-7.41)
[2024-12-28 11:35] LABS: Hematocrit (blood only) 23.3 % (37.0-47.0); Hemoglobin 7.7 g/dl (12.0-16.0); Mean Corpuscular Hemoglobin 32.4 pg (25.0-34.0); Mean Corpuscular Volume 97.9 fL (80.0-100.0); Platelet Count 288 K/uL (130-400); RDW Standard Deviation 65.9 fL (36.4-46.3); Red Blood Count 2.38 M/uL (4.20-5.40); White Blood Count 1.67 K/ul (4.8-10.8)
--- NOTE | 2024-12-28 11:47 | XRay Report ---
SINGLE VIEW CHEST CLINICAL HISTORY: Sepsis FINDINGS: 2 AP, portable, upright chest radiographs are compared to study dated 10/04/2024 and correla veronica with chest CT dated 09/13/2024. The examination is degraded by portable technique and apical lordo tic positioning. The cardiomediastinal silhouette is unremarkable noting atherosclerotic calcificatio n of the thoracic aorta. Chronic interstitial thickening is similar to previous. There is mild elevat ion of the right hemidiaphragm and bibasilar scarring/atelectasis. No airspace consolidation or large pleural effusion is identified. No pneumothorax is seen. The skeletal structures are osteopenic. The bony thorax is grossly intact. Degenerative change is noted in the thoracic spine. IMPRESSION: No acute cardiopulmonary abnormality is identified. ACT 112: Negative or not required by law. Electronically signed by: Vick Jett M.D. 12/28/2024 11:46 AM
[2024-12-28 11:54] LABS: Alanine Aminotransferase 9.0 U/L (7-52); Alkaline Phosphatase 46.0 U/L (34-104); Anion Gap 10.0 (3-11); Bilirubin,Total 1.1 mg/dl (0.2-1.0); Blood Urea Nitrogen 19.0 mg/dl (6-23); Calcium 7.5 mg/dl (8.6-10.3); Carbon Dioxide 26.0 mmol/L (21-32); Chloride 102.0 mmol/L (98-107); Creatinine Clr Calc Pharmacy 66.6 ml/min; Glucose 101.0 mg/dl (70-99(Fasting)); Magnesium 1.5 mg/dl (1.7-2.4); Potassium 3.7 mmol/L (3.5-5.1); Sodium 138.0 mmol/L (136-145); Total Protein 5.6 gm/dl (6.0-8.3)
[2024-12-28] MEDS: OPTIRAY 320 100ml IV ONE (12:06)
[2024-12-28 12:08] LABS: Immature Granulocytes # (auto) 0.02 K/uL (0.01-0.20); Immature Granulocytes % (auto) 1.2 %; Ovalocytes 1+; Polychromasia 1+
--- NOTE | 2024-12-28 12:41 | CT Scan Report ---
ABDOMEN AND PELVIS CT WITH IV CONTRAST CT DOSE: 1394.82 mGy.cm HISTORY: Acute left lower quadrant abdominal pain LLQ pain TECHNIQUE: Multiaxial CT images of the abdomen and pelvis were performed following the IV administrat ion of 93 cc of Optiray, A dose lowering technique was utilized adhering to the principles of ALARA. COMPARISON STUDY: CT pelvis 10/04/2024, PET/CT 09/29/2024 FINDINGS: No acute lower thoracic abnormality. There are a few subpleural nodular foci within the autumn g bases measuring up to 6 mm within the left lower lobe on image 63, likely atelectatic. No pneumatos is or pneumoperitoneum. Unremarkable spleen, pancreas and adrenal glands. Cholecystectomy with likely postsurgical biliary ductal dilation, unchanged. Liver is within normal limits. Patent portal vein. Renal cysts are redemonstrated. No hydronephrosis. Decompressed urinary bladder. Hysterectomy. Athero sclerosis of the aorta without aneurysm. Inguinal lymphadenopathy redemonstrated. Index right inguinal lymph node on image 317 measures 2.3 x 1.6 cm, 2.1 x 1.2 cm on the prior pelvic CT. Hypodense left inguinal lesion/collection measures 8.3 x 8.3 cm on image 338, previously 5.0 x 4.3 cm. Additional left inguinal lymph nodes appear generally stable. Small hiatal hernia. No bowel obstruction or bowel wall thickening. Colonic diverticulosis without ac deering diverticulitis. No CT evidence of acute appendicitis. Body wall edema. Degenerative changes of th e spine, pelvis and hips. IMPRESSION: 1. Pathologic inguinal lymphadenopathy redemonstrated. Hypodense lesion within the left inguinal tiss ues has increased in size from the October 04, 2024 exam suggestive of a necrotic lymph node. Lymphocel e or postoperative collection could appear similarly. 2. No bowel obstruction or bowel wall thickening. 3. Cholecystectomy and hysterectomy. 4. Colonic diverticulosis. ACT 112: Negative or not required by law. The above report was generated using voice recognition software. It may contain grammatical, syntax o r spelling errors. Electronically signed by: Kimani Gutierrez M.D. 12/28/2024 12:38 PM
[2024-12-28] MEDS: cefTRIAXone SODIUM 2,000 MG/50 ML BAG IV STA (13:07)
[2024-12-28 13:17] LABS: INR 1.1 (0.9-1.1); Partial Thromboplastin Time 22 Seconds (21-31); Prothrombin Time 11.4 Seconds (9.0-12.0)
[2024-12-28 13:29] LABS: Appearance Urine Clear (Clear); Bacteria Urine Automated 4+ (None Seen); Epithelial Cell Urine Auto 0-2 /hpf (0-2); Glucose Urine UA Negative (Negative); WBC Urine Automated 21-50 /hpf (0-5)
[2024-12-28] MEDS ORDERED: VANCOMYCIN CONSULT ACTIVE PRN ×2 (13:35→17:13)
[2024-12-28] MEDS: PIPERACILLIN/TAZOBACTAM 4.5 GM/100 ML BAG IV ONE (13:41)
[2024-12-28] MEDS: VANCOMYCIN HCL 2,750 MG in SODIUM CHLORIDE 0.9% 500 ML IV ONE (13:58)
--- NOTE | 2024-12-28 14:07 | History & Physical Report ---
Date of Service December 28, 2024 Assessment & Plan (1) Neutropenia associated with infection: (2) Leukopenia: (3) Hypomagnesemia: (4) Squamous cell carcinoma of vulva: (5) Urinary tract infection: (6) Cellulitis of groin: Plan Neutropenia associated with groin infection/vulvitis/urinary tract infection/ongoing chemotherapy- Patient had already been given ceftriaxone in the ED Changing to vancomycin IV and Zosyn IV Consult wound care Infection as source of borderline blood pressure, patient will therefore be admitted to the PCU Neutropenic precautions are ordered now Follow urine culture and sensitivity Follow blood culture and sensitivity Follow serial CBC with differential, chemistry profile Relative hypotension- Holding lisinopril Receiving 1 L normal saline in ED Continue rehydration with NSS at 80 mL/h x 2 L Anemia- Hemoglobin 7.7 on admission, with most recent 10.4 Hemoccult stools Follow laboratory serially Have asked emergency department to add type and screen to laboratories Patient would be willing to undergo transfusion if needed Right lower extremity DVT- Patient reports being diagnosed about 2 weeks ago Continue Eliquis Squamous cell carcinoma of vulva- Patient is due to have radiation therapy with Dr. Doe the next [address] Doe and allow him to determine whether radiation therapy can still be given at this time Patient reports that she completed cisplatin therapy on 12/24/2024. She does have upcoming Keytruda therapy but does not know the date. Hypomagnesemia- Magnesium 1.5 on admission She did receive 2 g magnesium IV on 12/24 Give 2 g magnesium sulfate IV, and repeat laboratory in the a.m. History of Present Illness Chief Complaint: The patient presents to the emergency department with complaint of severe and worsening groin and pelvic pain over the past several days. She has a known history of vulvar cancer, with secondary groin infection for which she has been admitted most recently from 10/04-10/06/2024. Primary Care Provider: Petr Freeman DO The patient is a 74-year-old female with a past medical history including localized spread of vulvar carcinoma, hypomagnesemia, groin infection, anemia, hypothyroidism, asthma, morbid obesity, hypertension, and GERD. She presents to the emergency department with complaint of severe and worsening groin and pelvic pain over the past several days. Her most recent chemotherapy with cisplatin was on 7/3, and is expected to undergo radiation therapy on Saturday, Saturday and , the next 3 days. She also is undergoing treatment with Keytruda, does not have her schedule with her at this time. In emergency department, patient was noted to be neutropenic, with a WBC of 1.67, and ANC of 1.02. She was also noted to have urinary tract infection. Emergency department was asked to change antibiotics from ceftriaxone to vancomycin IV and Zosyn IV. Patient will be placed on neutropenic precautions. Allergies Allergy/AdvReac Type Severity Reaction Status Date / Time tolterodine Allergy Intermediate plaque Verified 12/21/24 08:20 psoriasis nickel Allergy Mild Rash Verified 12/21/24 08:20 Home Medications Medication Instructions Recorded Confirmed Type multivitamin 1 tab PO DAILY 08/12/23 12/21/24 History levothyroxine 200 mcg capsule 200 mcg PO QAM #90 caps 08/21/24 12/21/24 Rx levothyroxine 25 mcg capsule 25 mcg PO DAILY #90 caps 08/21/24 12/21/24 Rx lisinopril 20 mg tablet 20 mg PO DAILY #90 tabs 08/21/24 12/21/24 Rx mv-mn-folic 200 mcg-vit K 15 1 cap PO DIRECTED 09/04/24 12/21/24 History mcg-lutein 5 mg-zeaxanthin 1 mg capsule (PreserVision AREDS 2 Plus Multivit) betamethasone dipropionate 0.05 % 1 applic topical DAILY PRN 10/14/24 12/21/24 History topical ointment calcium 600 mg (as 1 tab PO DAILY 10/14/24 12/21/24 History carbonate)-vitamin D3 10 mcg (400 unit) tablet (Calcium with Vitamin D) cholecalciferol (vitamin D3) 25 25 mcg PO DAILY 10/14/24 12/21/24 History mcg (1,000 unit) capsule fluticasone 250 mcg-salmeterol 50 1 inh inhalation BID PRN 10/14/24 12/21/24 History mcg/dose blistr powdr for inhalation (Advair Diskus) hydroxyzine HCl 25 mg tablet 25 mg PO TID PRN 10/14/24 12/21/24 History loratadine 10 mg tablet 10 mg PO DAILY 10/14/24 12/21/24 History omeprazole 20 mg capsule,delayed 20 mg PO DAILY Acid Reflux 10/14/24 12/21/24 History release ondansetron HCl 8 mg tablet 8 mg PO Q8H PRN 10/14/24 12/21/24 History oxycodone 5 mg tablet 5 mg PO Q4H PRN 10/14/24 12/21/24 History prochlorperazine maleate 10 mg 10 mg PO Q6H PRN 10/14/24 12/21/24 History tablet (Compazine) triamcinolone acetonide 0.1 % 1 applic topical BID PRN 10/14/24 12/21/24 History topical cream apixaban 5 mg tablet (Eliquis) 5 mg PO BID 11/23/24 12/21/24 History fluconazole 100 mg tablet 100 mg PO DAILY #10 tabs 11/23/24 12/21/24 Rx (Diflucan) silver sulfadiazine 1 % topical 1 applic topical BID 12/21/24 12/21/24 History cream (Silvadene) Past Med/Surg History Problem List (Updated 12/28/24 @ 14:33 by Damien Kessler DO) Urinary tract infection (Acute) Cellulitis of groin Urinary tract infection Neutropenia associated with infection Leukopenia (Acute) Hypomagnesemia (Acute) Anemia (Acute) Cellulitis (Acute) Wound discharge 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 COVID-19 virus detected 07/03/21 positive; asymptomatic Nausea and vomiting after administration of anesthetic agent Surgical History History of cataract surgery Bilateral H/O thyroidectomy Excision of cystic mass left neck, completion total thyroidectomy with resection of the right lobe of the thyroid and the remaining part of the isthmus 01/15/12 H/O partial thyroidectomy Left thyroid lobectomy and isthmectomy 11/10/03 S/P debridement (09/08/24) Open wound left inner thigh with slough present measuring 6.5 cm x 9.2 cm x 3.2 cm total size 59.80 cm History of total hysterectomy with bilateral salpingo-oophorectomy (BSO) History of tooth extraction S/P tonsillectomy and adenoidectomy S/P thyroid surgery x2--d/t goiter S/P cholecystectomy S/P arthroscopy of knee left Family History Sister Colorectal cancer Mother , in her 80s Diabetes Stroke Asthma Father , in his 80s Myocardial infarction Brother Hypertension Asthma COPD (chronic obstructive pulmonary disease) Sister Asthma Endometrial cancer Brother Stroke Sister Medical history unknown Sister No problems noted. Daughter No problems noted. Son No problems noted. 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 Beliefs That Will Affect Care: None marital status: Single Current Living Situation: Alone Current Living Situation Comment: lives with daughter current occupational status: retired How many Children do You have: 2 Feels Safe at Home: Yes Childhood Exposure to Second-Hand Smoke: Yes Diet: regular caffeine: Yes during the past year weight has: remained stable Dental Care, Regularly: Yes Physical Activity Frequency: 1-2 Times per Week Seatbelt Use: always Sunscreen Use: Yes Do you think of yourself as: straight/heterosexual Sexual Activity: has been sexually active, but not for at least 12 months Gender Identity: Female Assistive Devices: Cane Review of Systems Review of Systems: The patient denies chest pain, palpitations, shortness of breath, dyspnea on exertion, cough, lower extremity swelling, sore throat, fevers, chills, sweats, nausea, vomiting, diarrhea , constipation, blood in urine or stool, lightheadedness, dizziness, headache, memory loss, loss of consciousness, imbalance, focal or generalized weakness, numbness or tingling in arms or legs, generalized arthralgias or myalgias, back or neck pain, or night sweats. The review of systems is otherwise negative other than for that already noted above, and at least 10 systems have been reviewed. Physical Exam Physical Exam: The patient is awake, alert and oriented 3, well developed and well nourished, normocephalic and atraumatic, lying in bed and in pain with movement of covers over excoriated groin and pelvic area HEENT--PERRL, EOMI, mucous membranes and oropharynx mildly dry. Neck--supple. No JVD. No bruits. Thyroid normal, trachea midline, no adenopathy. Heart--normal S1 and S2. No murmurs, rubs or gallops. Lungs--clear bilaterally, no respiratory distress, no accessory muscle use. Abdomen--normal bowel sounds and soft. Nontender. Nondistended, no hernias or masses, no organomegaly. Extremities--no cyanosis or clubbing. No edema. There are good distal pulses b/l. Dermatologic-- excoriation noted over the vulvar area, groin and lower pelvic area. Any available Neurologic--cranial nerves II through XII grossly intact. Rheumatologic--normal range of motion. Psychiatric--normal affect. Results & Data Results & Data Vital Signs (Past 12 Hours) Vital Signs Temp Pulse Resp BP Pulse Ox O2 Del Method 12/28/24 13:45 89 24 100 12/28/24 13:45 106/80 12/28/24 13:45 106/80 12/28/24 13:45 /80 12/28/24 13:41 84 17 100 12/28/24 13:39 86 22 97 12/28/24 13:30 109/77 12/28/24 13:30 109/77 12/28/24 13:27 93 H 19 100 12/28/24 13:15 108/59 L 12/28/24 13:09 103 H 28 H 100 12/28/24 13:06 108 H 18 12/28/24 13:01 118/12/28/24 13:01 118/12/28/24 12:57 109 H 18 100 12/28/24 12:46 128/70 12/28/24 12:46 128/70 12/28/24 12:45 112 H 18 77 L 12/28/24 12:30 78 16 12/28/24 12:12 89 22 12/28/24 11:42 89 18 100 12/28/24 11:33 80 13 100 12/28/24 11:30 132/62 12/28/24 11:30 132/62 12/28/24 11:21 90 19 100 12/28/24 11:12 88 22 100 12/28/24 11:01 124/84 12/28/24 11:01 94 H 22 93 Room Air 12/28/24 10:46 95 Room Air 12/28/24 10:46 36.9 C 85 24 114/92 95 Room Air Laboratory Results Laboratory Results WBC 1.67 K/ul (4.8-10.8) L 12/28/24 11:17 RBC 2.38 M/uL (4.20-5.40) L 12/28/24 11:17 Hgb 7.7 g/dl (12.0-16.0) L 12/28/24 11:17 Hct 23.3 % (37.0-47.0) L 12/28/24 11:17 MCV 97.9 fL (80.0-100.0) 12/28/24 11:17 MCH 32.4 pg (25.0-34.0) 12/28/24 11:17 MCHC 33.0 g/dL (32.0-36.0) 12/28/24 11:17 RDW Std Deviation 65.9 fL (36.4-46.3) H 12/28/24 11:17 RDW Coeff of Melida 18.6 % (11.5-14.5) H 12/28/24 11:17 Plt Count 288 K/uL (130-400) 12/28/24 11:17 MPV 10.4 fL (9.4-12.4) 12/28/24 11:17 Immature Gran % (Auto) 1.2 % 12/28/24 11:17 Neut % (Auto) 61.0 % 12/28/24 11:17 Lymph % (Auto) 8.4 % 12/28/24 11:17 [place] % (Auto) 17.4 % 12/28/24 11:17 Eos % (Auto) 10.8 % 12/28/24 11:17 Baso % (Auto) 1.2 % 12/28/24 11:17 Neut # (Auto) 1.02 K/uL (1.40-6.50) L 12/28/24 11:17 Lymph # (Auto) 0.14 K/uL (1.20-3.40) L 12/28/24 11:17 [place] # (Auto) 0.29 K/uL (0.11-0.59) 12/28/24 11:17 Eos # (Auto) 0.18 K/uL (0.00-0.50) 12/28/24 11:17 Baso # (Auto) 0.02 K/uL (0.00-0.20) 12/28/24 11:17 Immature Gran # (Auto) 0.02 K/uL (0.01-0.20) 12/28/24 11:17 Polychromasia 1+ 12/28/24 11:17 Ovalocytes 1+ 12/28/24 11:17 PT 11.4 Seconds (9.0-12.0) 12/28/24 12:30 INR 1.1 (0.9-1.1) 12/28/24 12:30 APTT 22 Seconds (21-31) 12/28/24 12:30 PTT Ratio 0.8 12/28/24 12:30 VBG pH 7.51 (7.36-7.41) H 12/28/24 11:17 VBG pCO2 32 mmHg (38-50) L 12/28/24 11:17 VBG pO2 32 mmHg 12/28/24 11:17 VBG HCO3 26 mmol/L 12/28/24 11:17 VBG O2 Saturation < 60.0 % 12/28/24 11:17 VBG Base Excess 2.5 mEq/L 12/28/24 11:17 Sodium 138 mmol/L (136-145) 12/28/24 11:17 Potassium 3.7 mmol/L (3.5-5.1) 12/28/24 11:17 Chloride 102 mmol/L (98-107) 12/28/24 11:17 Carbon Dioxide 26 mmol/L (21-32) 12/28/24 11:17 Anion Gap 10 (3-11) 12/28/24 11:17 BUN 19 mg/dl (6-23) 12/28/24 11:17 Creatinine 1.05 mg/dl (0.6-1.2) 12/28/24 11:17 Est Cr Clr Drug Dosing 66.6 ml/min 12/28/24 11:17 eGFR 56.10 12/28/24 11:17 BUN/Creatinine Ratio 18.1 (10-20) 12/28/24 11:17 Glucose 101 mg/dl (70-99(Fasting)) H 12/28/24 11:17 Lactate 1.5 mmol/L (0.4-2.0) 12/28/24 11:17 Calcium 7.5 mg/dl (8.6-10.3) L 12/28/24 11:17 Magnesium 1.5 mg/dl (1.7-2.4) L 12/28/24 11:17 Total Bilirubin 1.1 mg/dl (0.2-1.0) H 12/28/24 11:17 Direct Bilirubin 0.3 mg/dl (0-0.2) H 12/28/24 11:17 AST 15 U/L (13-39) 12/28/24 11:17 ALT 9 U/L (7-52) 12/28/24 11:17 Alkaline Phosphatase 46 U/L (34-104) 12/28/24 11:17 Troponin I High Sens 13.2 pg/ml (0-14) 12/28/24 11:17 Total Protein 5.6 gm/dl (6.0-8.3) L 12/28/24 11:17 Albumin 2.7 gm/dl (3.4-5.0) L 12/28/24 11:17 Procalcitonin 0.06 ng/ml (0-0.5) 12/28/24 11:17 Urine Color Yellow 12/28/24 12:57 Urine Appearance Clear (Clear) 12/28/24 12:57 Urine pH 5.5 (4.5-7.5) 12/28/24 12:57 Ur Specific Banks 1.037 (1.000-1.030) H 12/28/24 12:57 Urine Protein 1+ (Negative) H 12/28/24 12:57 Urine Glucose (UA) Negative (Negative) 12/28/24 12:57 Urine Ketones 1+ (Negative) H 12/28/24 12:57 Urine Blood Negative (Negative) 12/28/24 12:57 Urine Nitrite Positive (Negative) A 12/28/24 12:57 Urine Bilirubin Negative (Negative) 12/28/24 12:57 Urine Urobilinogen Negative (Negative) 12/28/24 12:57 Ur Leukocyte Esterase 2+ (Negative) H 12/28/24 12:57 Urine WBC (Auto) 21-50 /hpf (0-5) H 12/28/24 12:57 Urine RBC (Auto) 3-5 /hpf (0-2) H 12/28/24 12:57 U Hyaline Cast (Auto) 3-5 /lpf (0-2) H 12/28/24 12:57 U Epithel Cells (Auto) 0-2 /hpf (0-2) 12/28/24 12:57 Urine Bacteria (Auto) 4+ (None Seen) H 12/28/24 12:57 Urine Comment 12/28/24 12:57 Impressions Abdomen/Pelvis CT 12/28/24 11:[address] WITH IV CONTRAST CT DOSE: 1394.82 mGy.cm HISTORY: Acute left lower quadrant abdominal pain LLQ pain TECHNIQUE: Multiaxial CT images of the abdomen and pelvis were performed following the IV administration of 93 cc of Optiray, A dose lowering technique was utilized adhering to the principles of ALARA. COMPARISON STUDY: CT pelvis 10/04/2024, PET/CT 09/29/2024 FINDINGS: No acute lower thoracic abnormality. There are a few subpleural nodular foci within the lung bases measuring up to 6 mm within the left lower lobe on image 63, likely atelectatic. No pneumatosis or pneumoperitoneum. Unremarkable spleen, pancreas and adrenal glands. Cholecystectomy with likely postsurgical biliary ductal dilation, unchanged. Liver is within normal limits. Patent portal vein. Renal cysts are redemonstrated. No hydronephrosis. Decompressed urinary bladder. Hysterectomy. Atherosclerosis of the aorta without aneurysm. Inguinal lymphadenopathy redemonstrated. Index right inguinal lymph node on image 317 measures 2.3 x 1.6 cm, 2.1 x 1.2 cm on the prior pelvic CT. Hypodense left inguinal lesion/collection measures 8.3 x 8.3 cm on image 338, previously 5.0 x 4.3 cm. Additional left inguinal lymph nodes appear generally stable. Small hiatal hernia. No bowel obstruction or bowel wall thickening. Colonic diverticulosis without acute diverticulitis. No CT evidence of acute appendicitis. Body wall edema. Degenerative changes of the spine, pelvis and hips. IMPRESSION: 1. Pathologic inguinal lymphadenopathy redemonstrated. Hypodense lesion within the left inguinal tissues has increased in size from the October 04, 2024 exam suggestive of a necrotic lymph node. Lymphocele or postoperative collection could appear similarly. 2. No bowel obstruction or bowel wall thickening. 3. Cholecystectomy and hysterectomy. 4. Colonic diverticulosis. ACT 112: Negative or not required by law. The above report was generated using voice recognition software. It may contain grammatical, syntax or spelling errors. Electronically signed by: Kimani Gutierrez M.D. 12/28/2024 12:38 PM Chest X-Ray 12/28/24 11:01 SINGLE VIEW CHEST CLINICAL HISTORY: Sepsis FINDINGS: 2 AP, portable, upright chest radiographs are compared to study dated 10/04/2024 and correlated with chest CT dated 09/13/2024. The examination is degraded by portable technique and apical lordotic positioning. The cardiomediastinal silhouette is unremarkable noting atherosclerotic calcification of the thoracic aorta. Chronic interstitial thickening is similar to previous. There is mild elevation of the right hemidiaphragm and bibasilar scarring/atelectasis. No airspace consolidation or large pleural effusion is identified. No pneumothorax is seen. The skeletal structures are osteopenic. The bony thorax is grossly intact. Degenerative change is noted in the thoracic spine. IMPRESSION: No acute cardiopulmonary abnormality is identified. ACT 112: Negative or not required by law. Electronically signed by: Vick Jett M.D. 12/28/2024 11:46 AM Code Status & VTE Plan Code Status full [email or web address] Dr. Hawkins 0 VTE Prophylaxis Plan VTE Prophylaxis will be ordered: Yes PG Care Time/CCT Total # of Minutes Spent Total Time Spent with Patient: Total time spent is greater than 50% in coordination of care (as documented) at patient's floor/unit and/or counseling patient: Coding Level of Care Code 12688 INT INP/OBS CARE 375MIN Diagnoses Neutropenia associated with infection D70.3 Leukopenia D72.819 Hypomagnesemia E83.42 Squamous cell carcinoma of vulva C51.9 Urinary tract infection N39.0 Cellulitis of groin L03.314
[2024-12-28] MEDS: ALBUMIN 25% 25 GM/100 ML VIAL IV SCH (14:20)
[2024-12-28] MEDS: MAGNESIUM SULFATE / D5W 1 GM/100 ML BAG IV SCH (14:47)
[2024-12-28] MEDS: NSS + 20MEQ KCL 20 MEQ/1,000 ML BAG IV SCH (15:07)
[2024-12-28] MEDS ORDERED: ACETAMINOPHEN 325 MG TAB PO PRN (17:13)
[2024-12-28] MEDS ORDERED: NON-FORMULARY MEDICATION (Mv-Min-Fa-Vit K-Lutein-Zeaxant [Preservision Areds 2 Plus Mv] 20 PO SCH (17:13)
--- NOTE | 2024-12-28 18:02 | Pharmacy Report ---
Pharmacy PK ABX Note - Date of Service December 28, 2024 - Assessment and Plan Assessment 74 year old started on vancomycin/zosyn for groin infection/UTI in setting of neutropenia. PMHx significant for squamous cell carcinoma and is receiving chemotherapy with last session 12/24. Cultures pending. Plan Vancomycin * Loading dose: 2750 mg IV x 1 * Maintenance dose: 1250 mg IV every 24 hours * Regimen is predicted to achieve target AUC/NADIRA of 400-600 mg/L.hr * Level to be ordered if continued >48 hours Pharmacy will continue to follow and will adjust dose/frequency as necessary. Thank you. Pharmacy has transitioned to AUC monitoring for vancomycin. AUC/NADIRA is the preferred PK/PD target and is associated with decreased risk of nephrotoxicity compared to traditional trough targets.
--- NOTE | 2024-12-28 18:31 | Electrocardiogram Report ---
Test Reason : Blood Pressure : */* mmHG Vent. Rate : 83 BPM Atrial Rate : 83 BPM P-R Int : 152 ms QRS Dur : 74 ms QT Int : 400 ms P-R-T Axes : 87 60 56 degrees QTcB Int : 470 ms Normal sinus rhythm Low voltage QRS Borderline ECG When compared with ECG of 04-Oct-2024 11:24, No significant change was found Confirmed by Juan Zapata ([id number]) on 12/28/2024 6:31:33 PM Referred By: REFERRED SELF Confirmed By: Juan Zapata
[2024-12-28] MEDS: PIPERACILLIN/TAZOBACTAM 4.5 GM/100 ML BAG IV SCH (20:37)
[2024-12-28] MEDS: APIXABAN 5 MG TABLET PO SCH (20:38)
[2024-12-28] MEDS: SILVER SULFADIAZINE 1% CR 50 GM JAR/TUBE TOP SCH (20:45)
[2024-12-29] MEDS: VANCOMYCIN HCL 1,250 MG in SODIUM CHLORIDE 0.9% 250 ML IV SCH (04:52)
[2024-12-29 06:01] LABS: Anion Gap 7.0 (3-11); Bilirubin,Total 0.8 mg/dl (0.2-1.0); Calcium 6.8 mg/dl (8.6-10.3); Carbon Dioxide 24.0 mmol/L (21-32); Chloride 107.0 mmol/L (98-107); Magnesium 1.8 mg/dl (1.7-2.4); Potassium 3.7 mmol/L (3.5-5.1); Sodium 138.0 mmol/L (136-145)
[2024-12-29 06:07] LABS: Alanine Aminotransferase 6.0 U/L (7-52); Albumin Globulin Ratio 1.3 (0.9-2); Alkaline Phosphatase 39.0 U/L (34-104); Blood Urea Nitrogen 15.0 mg/dl (6-23); Creatinine Clr Calc Pharmacy 65.8 ml/min; Globulin 2.1 gm/dl (2.5-4.0); Glucose 86.0 mg/dl (70-99(Fasting)); Total Protein 4.8 gm/dl (6.0-8.3)
[2024-12-29] MEDS: LEVOTHYROXINE SODIUM 200 MCG TABLET PO SCH (06:18)
[2024-12-29] MEDS: LEVOTHYROXINE SODIUM 25 MCG TABLET PO SCH (06:18)
[2024-12-29 07:13] LABS: Mean Corpuscular Hemoglobin 31.1 pg (25.0-34.0); Mean Corpuscular Volume 99.0 fL (80.0-100.0); Platelet Count 188 K/uL (130-400); RDW Standard Deviation 67.9 fL (36.4-46.3); Red Blood Count 1.93 M/uL (4.20-5.40); White Blood Count 1.54 K/ul (4.8-10.8)
[2024-12-29 07:33] LABS: Anisocytosis Present; Hematocrit (blood only) 19.1 % (37.0-47.0); Hemoglobin 6.0 g/dl (12.0-16.0); Immature Granulocytes # (auto) 0.02 K/uL (0.01-0.20); Immature Granulocytes % (auto) 1.3 %; Ovalocytes 1+; Polychromasia 1+; Tear Drop Cells 1+
[2024-12-29] MEDS ORDERED: SODIUM CHLORIDE 0.9% 100 ML IV PRN (07:45)
--- NOTE | 2024-12-29 07:51 | Hospitalist Progress Note ---
Date of Service December 29, 2024 Assessment & Plan (1) Neutropenia associated with infection: (2) Leukopenia: (3) Hypomagnesemia: (4) Squamous cell carcinoma of vulva: (5) Urinary tract infection: (6) Cellulitis of groin: Plan 74yo female presented with worsening groin pain and pelvic pain over the past several days. Recent chemotherapy for vulvar carcinoma on 12/24 with cisplatin and has been undergoing radiation to affected area. Also reporting increased urinary frequency/burning and found to have UA concerning for infection as well as neutropenic on admission w/ ANC 1.02/WBC 1.67 likely from recent chemotherapy. CTAP on admission w/ noted pathological lymphadenopathy redomonstrated w/ hypodense lesion within left inguinal tissues increased from September 2024 concerning for necrotic lymph noted, lymphocele or post op collection could appear similarly. #Neutropenia associated with groin infection/vulvitis/urinary tract infection/ongoing chemotherapy-Given Ceftriaxone, 2L IVF in ER Continue Vancomycin, Zosyn IV given neutopenia/fever/chills at home WBC 1.67--> 1.54, ANC 1.02--> 0.73 Continue Neutropenic precautions Follow up urine cx Blood culture pending Wound care pending Hgb 7.7--> 6.0- suspect aspect of dilution as given 2L on admission and additional 2L for hypotension/LAURA, but given recent chemo/neutropenia/BP 99/64 will obtain consent for transfusion for 1u PRBC. (Per message to oncology, does not need to be irradiated.) Will check iron studies prior for completeness, but also add B12/folate given MCV 99 to ensure no other deficiencies needing addressed Ca 6.8, ionized ca added - 1gm IV calcium gluconate. Ionized Ca 1.03L -Monitor to repeat Radiation consult placed to see if still able to undergo radiation at this time- per patient, likely not until tomorrow DVT proph- continue eliquis BID for recent hx DVT, protonix once daily for GI proph No bleeding reported but ?increase PPI to BID if any issues. Diclofenac on hold #Relative hypotension- suspected 2nd to ongoing lisinopril in setting of UTI/infection IVF ordered x2L, 1u PRBC for anemia above PO intake encouraged Continue to hold lisinopril Monitor #Anemia- Hemoglobin 7.7 on admission, with most recent 10.4 Hemoccult stools (denied blood in stool but on eliquis and using diclofenac for pain) Hgb down to 6 as above, no active bleeding reported but consent obtained and type/cross/transfuse 1u PRBC and will monitor on repeat Added iron/B12/folate prior to transfusion and can replete as needed Monitor CBC #Right lower extremity DVT- Patient reports being diagnosed about 2 weeks ago (acute RLE DVT/PE) and has been complaint with eliquis BID. No pleuritic CP, not hypoxia. RLE is edematous. Continue eliquis BID #Squamous cell carcinoma of vulva- Patient is due to have radiation therapy with Dr. Doe the next 3 days - consult has been placed and hopefully can still occur Recent tx cisplatin on 12/24, upcoming Keytruda therapy but does not know date and can touch base w/ [facility] oncology as needed Transfusion for anemia above Maintain neutropenia precautions, wound care, abx as outlined. May need antifungals #Hypomagnesemia- Magnesium 1.5 on admission, IV replacement ordered and wnl on repeat but did get IV mag on 12/24 and will monitor in AM #Hypocalcemia- low, ionized ca added and low. 1gm IV ca gluconate ordered and monitor on repeat Dispo: continued inpatient stay for IV abx/tx infection, tranfusion DVT proph: eliquis, recent DVT 2 wks ago Admission and Anticipated Discharge Date Admission Date: December 28, 2024 Supervising Physician Co-Signing Physician Notes Attending Attestation - Chart reviewed, care plan d/w RUPERT Rene. I agree w/ the combs components of her documentation. Drew Mitchell MD Subjective Evaluated this morning, resting in bed. Some chills at night prior but none overnight. Did report some burning with urination, remains on antibiotics. Hungry, hasn't eaten in ~ 2 days. Was taking diclofenac for pain, stable at present. Also using topical Silvadene. Consult for radiation, reports being seen this morning and not getting today but potentially tomorrow. Discussed hgb 6.0, no bleeding reported in urine/stool with diclofenac use. Has been on Eliquis for DVT to her RLE, not missed any doses. Discussed hgb, never received blood before. Discussed w/ her oncology team, no need for irradiated product. Obtained consent under direction of supervising provider for PRBC and discussed s/sx to alert nursing if occurs. No CP/SOB. Remains inpatient at this time. Questions/concerns addressed at this time. Physical Exam 2 Physical Exam: General: 74yo female sitting up in bed, NAD, fatigued appearing HEENT: head atraumatic, normocephalic, mmm, trachea midline Resp: even/unlabored, slightly diminished in the bases but no wheezing/rales, on room air CV: regular, no significant m/r/g, RLE edema > LLE (RLE recent DVT), sensation intact, cap refill wnl GI: +BS, soft, slight distended, no overt tenderness but some suprapubic fullness/discomfort /groin/skin: no perez excoriated over vulvar region/groin/lower pelvis area, +tenderness/warmth, fungal appearance MSK/Neuro: nonfocal not confused Psych: AOx3, cooperative with exam Results & Data Results & Data Vital Signs (Past 12 Hours) Vital Signs Temp Pulse Pulse Resp BP Pulse Ox O2 Del Method 12/29/24 07:22 36.5 C 71 18 99/64 L 97 Room Air 12/29/24 03:04 36.5 C 72 18 103/61 97 Nasal Cannula 12/28/24 23:00 79 12/28/24 22:37 37.0 C 81 20 105/61 96 Nasal Cannula O2 Flow Rate 12/29/24 07:22 12/29/24 03:04 1.0 12/28/24 23:00 12/28/24 22:37 1.0 Laboratory Results 12/29/24 06:32 12/29/24 04:43 Ca 6.8 Ionized Ca 1.03 Iron 28, TIBC TNP Transferrin <95, Transferrin % sat TNP, ferritin pending TB 0.8, AST 12, ALT6, ALP 39 B12, folate pending Diagnostic Findings Abdomen/Pelvis CT 12/28/24 11:[address] WITH IV CONTRAST CT DOSE: 1394.82 mGy.cm HISTORY: Acute left lower quadrant abdominal pain LLQ pain TECHNIQUE: Multiaxial CT images of the abdomen and pelvis were performed following the IV administration of 93 cc of Optiray, A dose lowering technique was utilized adhering to the principles of ALARA. COMPARISON STUDY: CT pelvis 10/04/2024, PET/CT 09/29/2024 FINDINGS: No acute lower thoracic abnormality. There are a few subpleural nodular foci within the lung bases measuring up to 6 mm within the left lower lobe on image 63, likely atelectatic. No pneumatosis or pneumoperitoneum. Unremarkable spleen, pancreas and adrenal glands. Cholecystectomy with likely postsurgical biliary ductal dilation, unchanged. Liver is within normal limits. Patent portal vein. Renal cysts are redemonstrated. No hydronephrosis. Decompressed urinary bladder. Hysterectomy. Atherosclerosis of the aorta without aneurysm. Inguinal lymphadenopathy redemonstrated. Index right inguinal lymph node on image 317 measures 2.3 x 1.6 cm, 2.1 x 1.2 cm on the prior pelvic CT. Hypodense left inguinal lesion/collection measures 8.3 x 8.3 cm on image 338, previously 5.0 x 4.3 cm. Additional left inguinal lymph nodes appear generally stable. Small hiatal hernia. No bowel obstruction or bowel wall thickening. Colonic diverticulosis without acute diverticulitis. No CT evidence of acute appendicitis. Body wall edema. Degenerative changes of the spine, pelvis and hips. IMPRESSION: 1. Pathologic inguinal lymphadenopathy redemonstrated. Hypodense lesion within the left inguinal tissues has increased in size from the October 04, 2024 exam suggestive of a necrotic lymph node. Lymphocele or postoperative collection could appear similarly. 2. No bowel obstruction or bowel wall thickening. 3. Cholecystectomy and hysterectomy. 4. Colonic diverticulosis. ACT 112: Negative or not required by law. The above report was generated using voice recognition software. It may contain grammatical, syntax or spelling errors. Electronically signed by: Kimani Gutierrez M.D. 12/28/2024 12:38 PM Chest X-Ray 12/28/24 11:01 SINGLE VIEW CHEST CLINICAL HISTORY: Sepsis FINDINGS: 2 AP, portable, upright chest radiographs are compared to study dated 10/04/2024 and correlated with chest CT dated 09/13/2024. The examination is degraded by portable technique and apical lordotic positioning. The cardiomediastinal silhouette is unremarkable noting atherosclerotic calcification of the thoracic aorta. Chronic interstitial thickening is similar to previous. There is mild elevation of the right hemidiaphragm and bibasilar scarring/atelectasis. No airspace consolidation or large pleural effusion is identified. No pneumothorax is seen. The skeletal structures are osteopenic. The bony thorax is grossly intact. Degenerative change is noted in the thoracic spine. IMPRESSION: No acute cardiopulmonary abnormality is identified. ACT 112: Negative or not required by law. Electronically signed by: Vick Jett M.D. 12/28/2024 11:46 AM PG Care Time/CCT Total # of Minutes Spent Total Time Spent with Patient: Total time spent is greater than 50% in coordination of care (as documented) at patient's floor/unit and/or counseling patient: Coding Level of Care Code 51486 SUB INP/OBS CARE 3/50MIN Diagnoses Neutropenia associated with infection D70.3 Leukopenia D72.819 Hypomagnesemia E83.42 Squamous cell carcinoma of vulva C51.9 Urinary tract infection N39.0 Cellulitis of groin L03.314
[2024-12-29] MEDS ORDERED: FLUCONAZOLE 100 MG TAB PO SCH (09:00)
[2024-12-29 09:09] LABS: Iron 28 mcg/dl (35-150); Transferrin < 95 mg/dl (200-360)
[2024-12-29 09:25] LABS: Ferritin 530.7 ng/ml (8-388)
[2024-12-29] MEDS: CALCIUM GLUCONATE 1,000 MG/60 ML BAG IV STA (09:34)
[2024-12-29 09:39] LABS: Folate (Folic Acid),Ser orPlas 9.46 ng/ml (>5.38)
[2024-12-29 09:40] LABS: Vitamin B12 886.0 pg/ml (180-914)
[2024-12-29] MEDS: MULTIVITAMIN TAB PO SCH (09:44)
[2024-12-29] MEDS: CALCIUM 600MG + VIT D 400 IU TAB PO SCH (09:44)
[2024-12-29] MEDS: LORATADINE 10 MG TAB PO SCH (09:44)
[2024-12-29] MEDS: CHOLECALCIFEROL 25 MCG (1000 UNITS) TAB PO SCH (09:44)
--- NOTE | 2024-12-29 12:24 | Radiation OncologyConsultation ---
Date of Consultation December 29, 2024 Assessment & Plan (1) Squamous cell carcinoma of vulva: Plan ATTENDING ADDENDUM Assessment: Ms. Womack is a 74-year-old female who is currently under treatment with chemotherapy and radiation therapy for vulvar cancer. She has received 35/39 fractions of radiation therapy. The patient has been admitted for infections including cellulitis and neutropenia. We have been asked to evaluate the patient regarding continuation of radiation therapy. Plan: 1. Hold radiation therapy for today. 2. Reevaluate patient's status and consider treatment depending on patient's status. 3. Defer all other management to primary medical team. 4. Patient and primary medical team are encouraged to call us with any further questions or concerns. History of Present Illness Reason for Consultation: Patient currently undergoing radiation therapy. Requesting Physician: Drew Mitchell MD Attending Physician: Drew Mitchell MD History of Present Illness 07/20/2024. Patient seen by primary care due to left groin wound. This had started in June. Nystatin powder given. 09/04/2024. CT of the abdomen and pelvis. Due to cellulitis of the left groin wound. Bilateral inguinal lymphadenopathy left greater than right. 2 of the nodes in the left groin are grossly enlarged and necrotic. 09/06/2024. Patient was hospitalized. Patient underwent debridement and biopsy lesion. Path report reveals: FINAL DIAGNOSIS A. Skin and subcutaneous tissue, left groin, "biopsy of left groin wound" (debridement and biopsy of wound): - Moderately differentiated squamous cell carcinoma with associated necrosis is seen. - The epidermis reveals pseudoepitheliomatous epidermal hyperplasia but an in situ squamous cell carcinoma is not seen on microscopy. - See comment. B. Skin and subcutaneous tissue, left groin, "skin lesion left groin" (debridement and biopsy of wound): - Moderately differentiated, infiltrative squamous cell carcinoma is seen. - An in situ squamous cell carcinoma is not identified on microscopy. - See comment. Comment: As in situ squamous cell carcinoma is not seen in the epidermis, I cannot exclude the possibility that this represents metastatic squamous cell carcinoma from a distant site such as the cervix of uterus in light of the anatomic location of the debridement at left groin. Clinical correlation is required in this regard. 09/07/2024. Hospital discharge. 09/18/2024. Wound care. Patient's wound care is guarded secondary to malignancy. Patient will need oncologic follow-up. Dressings only at this time. 09/13/2024. Chest CT. No evidence of metastatic disease to the chest. 09/15/2024. Surgical consultation (Dr. Ortez). Patient was referred for tertiary care to be seen. 09/24/2024 pathology review at [facility]. Poorly differentiated invasive squamous cell carcinoma right groin. 09/29/2024. PET/CT. Hypermetabolic left vulvar mass with metastatic left inguinal lymphadenopathy. No evidence of distant metastatic disease. 10/04/2024. Hospital discharge. 10/04/2024. Surgical consultation (Dr. Gonzalez). Patient will be on a broad-spectrum antibiotic. She was normotensive without tachycardia or fever. 10/04/2024. CT of the abdomen pelvis. 1. Increased metastatic lymphadenopathy at the left inguinal region and stable minimal lymphadenopathy right inguinal region. 2. No soft tissue abscess seen in the left groin region. 3. Findings suggestive of superficial subcutaneous abscess at the medial aspect of the uppermost left thigh extending anteriorly to near the posterior aspect of the left labia. 10/05/2024. Surgical follow-up. Continue wound care with daily dressings. Continue antibiotic therapy. Continue to follow wound care. Planning evaluation at tertiary care in [place]. 10/06/2024. Surgical inpatient follow-up. Will be seen in [place]. 10/07/2024. Gynecologic oncology consultation (Dr. [facility]). Patient has vulvar cancer. 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 Based on the size of the tumor surgical resection is not an option. There is a recommendation for chemotherapy with radiation. It will be discussed at their tumor board. Referral to radiation oncology at [facility] and medical oncology at [facility] 10/14/2024. Radiation oncology consultation. Patient is symptomatic with discomfort and pain. Plans to proceed with chemotherapy and radiation therapy. 11/02/2024. Initiation of combined radiation and chemotherapy. Chemotherapy comprised of weekly cisplatin. 12/28/2024. Patient is admitted with neutropenia. She has an infection of the groin. She also has a urinary tract infection. She was started on ceftriaxone in the emergency room. This was changed to vancomycin and Zosyn. She has ongoing wound care. She was also found to have anemia. 12/29/2024. Radiation oncology consultation (Marcelo/Sharon Doe). She has completed 35 of a planned 39 fractions of therapy. She has had ongoing skin breakdown issues. Initially was on Keflex. She completed a regimen of 7 days. She was then on Diflucan for 7 days. There has been breakdown in the groin as well as perineum. Yesterday she developed chills. She felt poorly in general and presented to the emergency room. She was found to have neutropenia. Workup has revealed a urinary tract infection. She has a ongoing cellulitis of the groin. She was admitted for further evaluation and treatment. Allergies Allergy/AdvReac Type Severity Reaction Status Date / Time tolterodine Allergy Intermediate plaque Verified 12/21/24 08:20 psoriasis nickel Allergy Mild Rash Verified 12/21/24 08:20 Home Medications Medication Instructions Recorded Confirmed Type multivitamin 1 tab PO DAILY 08/12/23 12/28/24 History mv-mn-folic 200 mcg-vit K 15 1 cap PO DIRECTED 09/04/24 12/28/24 History mcg-lutein 5 mg-zeaxanthin 1 mg capsule (PreserVision AREDS 2 Plus Multivit) betamethasone dipropionate 0.05 % 1 applic topical DAILY PRN Other 10/14/24 12/28/24 History topical ointment calcium 600 mg (as 1 tab PO DAILY 10/14/24 12/28/24 History carbonate)-vitamin D3 10 mcg (400 unit) tablet (Calcium with Vitamin D) cholecalciferol (vitamin D3) 25 25 mcg PO DAILY 10/14/24 12/28/24 History mcg (1,000 unit) capsule fluticasone 250 mcg-salmeterol 50 1 inh inhalation BID PRN sob 10/14/24 12/28/24 History mcg/dose blistr powdr for inhalation (Advair Diskus) hydroxyzine HCl 25 mg tablet 25 mg PO TID PRN Other 10/14/24 12/28/24 History loratadine 10 mg tablet 10 mg PO DAILY 10/14/24 12/28/24 History omeprazole 20 mg capsule,delayed 0 mg PO DAILY Acid Reflux 10/14/24 12/28/24 History release ondansetron HCl 8 mg tablet 8 mg PO Q8H PRN n/v 10/14/24 12/28/24 History oxycodone 5 mg tablet 5 mg PO Q4H PRN Pain 10/14/24 12/28/24 History prochlorperazine maleate 10 mg 10 mg PO Q6H PRN n/v 10/14/24 12/28/24 History tablet (Compazine) triamcinolone acetonide 0.1 % 1 applic topical BID PRN Other 10/14/24 12/28/24 History topical cream apixaban 5 mg tablet (Eliquis) 0 mg PO BID 11/23/24 12/28/24 History silver sulfadiazine 1 % topical 1 applic topical BID 12/21/24 12/28/24 History cream (Silvadene) diphenoxylate-atropine 2.5 1 tab PO QID PRN Diarrhea 12/28/24 12/28/24 History mg-0.025 mg tablet fluconazole 100 mg tablet 0 mg PO DAILY 12/28/24 12/28/24 History (Diflucan) levothyroxine 200 mcg capsule 0 mcg PO QAM 12/28/24 12/28/24 History levothyroxine 25 mcg capsule 0 mcg PO DAILY 12/28/24 12/28/24 History lisinopril 20 mg tablet 0 mg PO DAILY 12/28/24 12/28/24 History Patient History Medical History Rhinitis Migraines Hemorrhoids Family hx of colon cancer Sister Dxed with colon cancer when she was 65yo. COVID-19 virus detected 07/03/21 positive; asymptomatic Nausea and vomiting after administration of anesthetic agent Surgical History History of cataract surgery Bilateral H/O thyroidectomy Excision of cystic mass left neck, completion total thyroidectomy with resection of the right lobe of the thyroid and the remaining part of the isthmus 01/15/12 H/O partial thyroidectomy Left thyroid lobectomy and isthmectomy 11/10/03 S/P debridement (09/08/24) Open wound left inner thigh with slough present measuring 6.5 cm x 9.2 cm x 3.2 cm total size 59.80 cm History of total hysterectomy with bilateral salpingo-oophorectomy (BSO) History of tooth extraction S/P tonsillectomy and adenoidectomy S/P thyroid surgery x2--d/t goiter S/P cholecystectomy S/P arthroscopy of knee left Family History Sister Colorectal cancer Mother , in her 80s Diabetes Stroke Asthma Father , in his 80s Myocardial infarction Brother Hypertension Asthma COPD (chronic obstructive pulmonary disease) Sister Asthma Endometrial cancer Brother Stroke Sister Medical history unknown Sister No problems noted. Daughter No problems noted. Son No problems noted. Other Cardiac disorder Hypothyroidism No family history of adverse response to anesthesia Denies family history of Ovarian cancer Prostate cancer Breast cancer Social History Smoking Status: Never smoker Tobacco Type: Cigarettes Cigarettes Per Day: 1 PPD x 30yrs; Second Hand Exposure: No; Do You Dip or Chew Tobacco: No; Hx Alcohol Use: No Hx Substance Use: No Preferred Language: Arabic Communication Ability: Effective Visual Impairment: No Limitations Hearing Ability: Normal Utility Forester Required: No Beliefs That Will Affect Care: None marital status: Single Current Living Situation: Alone Current Living Situation Comment: lives with daughter current occupational status: retired How many Children do You have: 2 Feels Safe at Home: Yes Childhood Exposure to Second-Hand Smoke: Yes Diet: regular caffeine: Yes during the past year weight has: remained stable Dental Care, Regularly: Yes Physical Activity Frequency: 1-2 Times per Week Seatbelt Use: always Sunscreen Use: Yes Do you think of yourself as: straight/heterosexual Sexual Activity: has been sexually active, but not for at least 12 months Gender Identity: Female Assistive Devices: Cane and Walker Physical Exam Constitutional: WD/WN, vitals as above Eyes: PERRL, conjunctivae normal, anicteric sclerae ENMT: Ears: no hearing impairment Neck: trachea midline, no thyromegaly Respiratory: normal respiratory effort, lungs clear to auscultation Cardiovascular: Rate/Rhythm: regular rate and regular rhythm Gastrointestinal (Abdomen): normal bowel sounds, soft, nontender, no hepatosplenomegaly Skin: no rashes, warm and dry There is wet desquamation of the left groin. There are some areas of skin islands. There is purulent drainage. Examination is limited to large body habitus and current position. Psychiatric: A+Ox3, euthymic affect Time Spent Midlevel I spent [15] minutes in preparation for this follow up evaluation including reviewing all the clinical records, reviewing laboratory studies, pathology reports and imaging results. I spent [25] minutes with direct face to face interaction with the patient and/or family including performing a physical exam and answering all questions. I spent [10] minutes documenting this patient's visit. Attending I spent 10 minutes in total reviewing the case with the midlevel provider and documenting regarding her care. PG Care Time/CCT Total # of Minutes Spent Total Time Spent with Patient: Total time spent is greater than 50% in coordination of care (as documented) at patient's floor/unit and/or counseling patient: Coding [place] [address] INT INP/OBS CARE 1/40MIN Patient Type Established History Problem Focused Exam Problem Focused Medical Decision Making Straight Forward Diagnoses Squamous cell carcinoma of vulva C51.9
[2024-12-29] MEDS: HYDROmorphone INJ 0.5 MG/0.5 ML SYR IV PRN (13:19)
[2024-12-29] MEDS ORDERED: VANCOMYCIN HCL 2,000 MG in SODIUM CHLORIDE 0.9% 500 ML IV SCH (14:00)
[2024-12-29] MEDS: NYSTATIN POWDER 15GM BTL EXT SCH (20:39)
[2024-12-29] MEDS: ONDANSETRON INJ 2 MG/ML 2 ML VIAL IV PRN (22:40)
[2024-12-29] MEDS: SODIUM CHLORIDE 0.9% 500 ML IV ONE (23:06)
[2024-12-29 23:32] LABS: Hematocrit (blood only) 23.6 % (37.0-47.0); Hemoglobin 7.4 g/dl (12.0-16.0)
[2024-12-29] MEDS: SODIUM CHLORIDE 0.9% 1,000 ML IV SCH (23:57)
[2024-12-30] MEDS ORDERED: PROCHLORPERAZINE 10 MG in SYRINGE 4 ML IV ONE
[2024-12-30] MEDS: ACETAMINOPHEN 325 MG TAB PO SCH (00:12)
[2024-12-30] MEDS: PROCHLORPERAZINE 10 MG in SYRINGE 8 ML IV ONE (00:12)
[2024-12-30] MEDS: PROCHLORPERAZINE 5 MG/ML 2 ML VIAL IV STA (02:04)
[2024-12-30 04:09] LABS: Hematocrit (blood only) 23.8 % (37.0-47.0); Hemoglobin 7.7 g/dl (12.0-16.0); Mean Corpuscular Hemoglobin 31.6 pg (25.0-34.0); Mean Corpuscular Volume 97.5 fL (80.0-100.0); Platelet Count 214 K/uL (130-400); RDW Standard Deviation 65.3 fL (36.4-46.3); Red Blood Count 2.44 M/uL (4.20-5.40); White Blood Count 1.92 K/ul (4.8-10.8)
[2024-12-30 04:23] LABS: Alanine Aminotransferase 7.0 U/L (7-52); Albumin Globulin Ratio 1.0 (0.9-2); Alkaline Phosphatase 45.0 U/L (34-104); Anion Gap 7.0 (3-11); Bilirubin,Total 0.9 mg/dl (0.2-1.0); Blood Urea Nitrogen 14.0 mg/dl (6-23); Calcium 7.1 mg/dl (8.6-10.3); Carbon Dioxide 23.0 mmol/L (21-32); Chloride 108.0 mmol/L (98-107); Creatinine Clr Calc Pharmacy 53.2 ml/min; Globulin 2.7 gm/dl (2.5-4.0); Glucose 117.0 mg/dl (70-99(Fasting)); Magnesium 1.6 mg/dl (1.7-2.4); Potassium 3.5 mmol/L (3.5-5.1); Sodium 138.0 mmol/L (136-145); Total Protein 5.3 gm/dl (6.0-8.3)
[2024-12-30 04:38] LABS: Thyroid Stimulating Hormone 22.493 uIu/ml (0.300-4.500)
[2024-12-30 05:05] LABS: Adenovirus F 40/41 PCR Not Detected (NotDetected); Campylobacter PCR Not Detected (NotDetected); Enteroaggregative E.coli(EAEC) Not Detected (NotDetected); Shiga-like Toxin E.coli (STEC) Not Detected (NotDetected); Vibrio species PCR Not Detected (NotDetected)
[2024-12-30 05:15] LABS: Immature Granulocytes # (auto) 0.03 K/uL (0.01-0.20); Immature Granulocytes % (auto) 1.6 %; RBC Morphology Unremarkable
[2024-12-30 05:17] LABS: Cdiff Toxin B Gene (2yr or >) Positive Cdiff Gene (Neg)
[2024-12-30 05:39] LABS: Cdiff Toxin A+B Negative Cdiff Toxin (Negative)
--- NOTE | 2024-12-30 08:32 | Hospitalist Progress Note ---
Date of Service December 30, 2024 Assessment & Plan (1) Neutropenia associated with infection: (2) Leukopenia: (3) Hypomagnesemia: (4) Squamous cell carcinoma of vulva: (5) Urinary tract infection: (6) Cellulitis of groin: Plan 74yo female presented with worsening groin pain and pelvic pain over the past several days. Recent chemotherapy for vulvar carcinoma on 12/24 with cisplatin and has been undergoing radiation to affected area. Also reporting increased urinary frequency/burning and found to have UA concerning for infection as well as neutropenic on admission w/ ANC 1.02/WBC 1.67 likely from recent chemotherapy. CTAP on admission w/ noted pathological lymphadenopathy re-demonstrated w/ hypodense lesion within left inguinal tissues increased from September 2024 concerning for necrotic lymph noted, lymphocele or post op collection could appear similarly. #Neutropenia associated with groin infection/vulvitis/urinary tract infection/ongoing chemotherapy.candidiasis-Given Ceftriaxone, 2L IVF in ER. WBC 1.67 w/ ANC 1.02 and placed on neutropenic precautions. WBC 1.53--> 1.2, neutropenia improving Groin cx MSSA/pseudomonas. Urine Citrobacter -- follow sensitivities Continue Zosyn. Vanco has been discontinued and should be covered w/ Zosyn Blood cultures pending Wound RN consulted Topical Nystatin powder -->slight improvement w/ topical nystatin powder but given severe nature/immunocompromised status, will order FLUCONAZOLE 150mg PO x 1, repeat q72hr 2-3 doses. DC topical silvadene 1u PRBC for hgb 6.0--> 7.7 and stable/no bleeding reported IVF ordered for hydration/hypotension. Pain control Cr bump 1.23 w/ concentrated/darkened urine. ?ATN vs transfusion reaction. CK/LDH/Haptoglobin level ordered - CK wnl, minimal elevation LDH, haptoglobin pending but does not appear w/ transfusion reaction but will monitor 1u PRBC. LFTs wnl PT/OT consults placed Monitor labs/exam in AM #Diarrhea reported in setting of abx/immunocompromised state cdiff testing obtained and cdiff gene + but negative toxin No prior hx -- placing on Vanco 125mg PO daily w/ ongoing abx for above. Monitor for increase if worsened diarrhea #Hypomagnesemia - low 1.6, IV replacement ordered and monitoring on repeat #Hypocalcemia- ca/ionized ca remain low -- 1gm IV ca-gluconate ordered. Monitor on repeat #Hypothyroidism - TSH ELEVATED 22.4, T4 wnl 0.94. Checking T3, on 225mcg Synthroid daily. Given acute infection could repeat as outpatient prior to adjustment but does appear TSH 5 in Fe and on Keytruda. ?adjustment. Will f/u discussion w/ supervising provider given normal T3/T4 but if not increasing would rec repeat TFT outpatient and increase pending results #Relative hypotension- suspected 2nd to ongoing lisinopril in setting of UTI/infection. IVF have been ordered and will monitor once completed. Remaining OFF lisinopril to prevent hypotension and has had adjustments over the past couple months and may need to consider holding off resuming at dc BP 103/68 and monitoring #Anemia- Hemoglobin 7.7 on admission, with most recent 10.4 and suspect related to recent chemotherapy but also had been using diclofenac for pain with recent rx Eliquis 2 wks ago for DVT/PE and advised AGAINST NSAIDs. No epigastric discomfort and remains on PPI once daily s/p 1u PRBC for hgb 6.0 on 12/29, improved and stable 7.7 and checking hemoccult stools (no bleeding reported) Checking LDH,CK, Haptoglobin as above Monitor CBC #Right lower extremity DVT- Patient reports being diagnosed about 2 weeks ago (acute RLE DVT/PE) and has been complaint with eliquis BID. No pleuritic CP, not hypoxia. RLE is edematous.Continues on eliquis BID #Squamous cell carcinoma of vulva- patient is due to have radiation therapy with Dr. Doe the next 3 days - consult has been placed and to go for XRT 12/30 per discussion Recent tx cisplatin on 12/24, upcoming Keytruda therapy but does not know date and can touch base w/ [facility] as needed Transfusion for anemia above w/ improvement and neutropenia improving Wound care, antifungals for tyson as above DVT proph: eliquis, recent DVT 2 wks ago Dispo: continued inpatient stay for IV abx/tx infection and therapy evaluations Admission and Anticipated Discharge Date Admission Date: December 28, 2024 Supervising Physician Co-Signing Physician Notes The patient was not seen by me. The chart was reviewed. Case discussed with RUPERT Pedersen. Agree with assessment and plan Subjective Evaluated this morning, had significant diarrhea explosion. Cdiff gene positive but toxin negative however given immunocompromised state and diarrhea will put on once daily vanco. To alert nursing if any worsened diarrhea. Agreeable to radiation. Discussed wound culture Reports feeling better today, still painful to groin. Discussed fungal appearance, wound care to see. Dc Silvadene, continue nystatin and will add PO antifungal given significant appearance. Peerz in place, darkened urine. No significant hypotension/low back pain or rash but given PRBC will check labs for hemolysis. No CP/SOB. Questions/concerns addressed at this time. PT/OT consults placed. Physical Exam 2 Physical Exam: General: 74yo female sitting up in bed, NAD, fatigued appearing but appears IMPROVED from yesterday HEENT: head atraumatic, normocephalic, mmm, trachea midline Resp: even/unlabored, slightly diminished in the bases but no wheezing/rales, on room air CV: regular, no significant m/r/g, RLE edema > LLE (RLE recent DVT), sensation intact, cap refill wnl GI: +BS, soft, slight distended, +lower abdominal tenderness (region of significant fungal appearance to groin folds) : perez w/ darkened urine/?myoglobin vs ATN tea type colored, SIGNIFICANT fungal appearance to groins w/ exudate, +tenderness/warmth, no abscess/fluid collection appreciated MSK/Neuro: nonfocal not confused Psych: AOx3, cooperative with exam Results & Data Results & Data Vital Signs (Past 12 Hours) Vital Signs Temp Pulse Pulse Resp BP Pulse Ox O2 Del Method 12/30/24 07:21 36.4 C L 73 18 116/75 99 Room Air 12/30/24 02:45 36.4 C L 73 18 112/72 98 Room Air 12/29/24 22:40 36.7 C 70 19 99/53 L 93 Room Air 12/29/24 21:44 69 Laboratory Results 12/30/24 03:49 12/30/24 03:44 Diagnostic Findings 12/30/24 12/30/24 12/30/24 Range/Units Unknown 09:33 09:27 WBC (4.8-10.8) K/ul RBC (4.20-5.40) M/uL Hgb (12.0-16.0) g/dl Hct (37.0-47.0) % MCV (80.0-100.0) fL MCH (25.0-34.0) pg MCHC (32.0-36.0) g/dL RDW Std Deviation (36.4-46.3) fL RDW Coeff of Melida (11.5-14.5) % Plt Count (130-400) K/uL MPV (9.4-12.4) fL Immature Gran % (Auto) % Neut % (Auto) % Lymph % (Auto) % Miner % (Auto) % Eos % (Auto) % Baso % (Auto) % Neut # (Auto) (1.40-6.50) K/uL Lymph # (Auto) (1.20-3.40) K/uL Miner # (Auto) (0.11-0.59) K/uL Eos # (Auto) (0.00-0.50) K/uL Baso # (Auto) (0.00-0.20) K/uL Immature Gran # (Auto) (0.01-0.20) K/uL RBC Morphology Haptoglobin Pending Sodium (136-145) mmol/L Potassium (3.5-5.1) mmol/L Chloride (98-107) mmol/L Carbon Dioxide (21-32) mmol/L Anion Gap (3-11) BUN (6-23) mg/dl Creatinine (0.6-1.2) mg/dl Est Cr Clr Drug Dosing ml/min eGFR BUN/Creatinine Ratio (10-20) Glucose (70-99(Fasting)) mg/dl Calcium (8.6-10.3) mg/dl Ionized Calcium (1.12-1.32) mmol/L Magnesium (1.7-2.4) mg/dl Total Bilirubin (0.2-1.0) mg/dl AST (13-39) U/L ALT (7-52) U/L Alkaline Phosphatase (34-104) U/L Lactate Dehydrogenase 257 H (86-244) U/L Total Creatine Kinase 27 (26-192) U/L Total Protein (6.0-8.3) gm/dl Albumin (3.4-5.0) gm/dl Globulin (2.5-4.0) gm/dl Albumin/Globulin Ratio (0.9-2) TSH (0.300-4.500) uIu/ml Free T4 (0.61-1.60) ng/dl Free T3 2.30 (2.3-4.2) pg/ml Urine Color Pending Urine Appearance Pending Urine pH Pending Ur Specific Scurry Pending Urine Protein Pending Urine Glucose (UA) Pending Urine Ketones Pending Urine Blood Pending Urine Nitrite Pending Urine Bilirubin Pending Urine Urobilinogen Pending Ur Leukocyte Esterase Pending Urine Comment Pending Stl C. cayetanensis PCR (NotDetected) Stool Rotavirus A PCR (NotDetected) Stl Adenov F 40/41 PCR (NotDetected) Stool Astrovirus (PCR) (NotDetected) Stool Campylobacter PCR (NotDetected) Stl C. diff Tox B Gene (Neg) Stl C.difficile Tox A&B (Negative) Stl C. diff 027-NAP1-BI Stool Cryptosporidium PCR (NotDetected) Stl E.coli Shiga Tox PCR (NotDetected) Stl Enterotoxigenic E PCR (NotDetected) Stool EPEC (PCR) (NotDetected) Stool EAEC (PCR) (NotDetected) Stl E. histolytica PCR (NotDetected) Stool Giardia Lamblia PCR (NotDetected) Stool Salmonella PCR (NotDetected) Stool Sapovirus (PCR) (NotDetected) Stl P. shigelloides PCR (NotDetected) Stl Shigella/EIEC PCR (NotDetected) St Y.enterocolitica PCR (NotDetected) Stool Vibrio (PCR) (NotDetected) Stl Vibrio cholerae PCR (NotDetected) Stl Norovirus GI/GII PCR (NotDetected) Blood Type Antibody Screen Crossmatch 12/30/24 12/30/24 12/30/24 Range/Units 03:49 03:44 03:00 WBC 1.92 L (4.8-10.8) K/ul RBC 2.44 L (4.20-5.40) M/uL Hgb 7.7 L (12.0-16.0) g/dl Hct 23.8 L (37.0-47.0) % MCV 97.5 (80.0-100.0) fL MCH 31.6 (25.0-34.0) pg MCHC 32.4 (32.0-36.0) g/dL RDW Std Deviation 65.3 H (36.4-46.3) fL RDW Coeff of Melida 19.0 H (11.5-14.5) % Plt Count 214 (130-400) K/uL MPV 10.1 (9.4-12.4) fL Immature Gran % (Auto) 1.6 % Neut % (Auto) 54.2 % Lymph % (Auto) 9.9 % Miner % (Auto) 16.1 % Eos % (Auto) 17.2 % Baso % (Auto) 1.0 % Neut # (Auto) 1.04 L (1.40-6.50) K/uL Lymph # (Auto) 0.19 L (1.20-3.40) K/uL Miner # (Auto) 0.31 (0.11-0.59) K/uL Eos # (Auto) 0.33 (0.00-0.50) K/uL Baso # (Auto) 0.02 (0.00-0.20) K/uL Immature Gran # (Auto) 0.03 (0.01-0.20) K/uL RBC Morphology Unremarkable Haptoglobin Sodium 138 (136-145) mmol/L Potassium 3.5 (3.5-5.1) mmol/L Chloride 108 H (98-107) mmol/L Carbon Dioxide 23 (21-32) mmol/L Anion Gap 7 (3-11) BUN 14 (6-23) mg/dl Creatinine 1.32 H (0.6-1.2) mg/dl Est Cr Clr Drug Dosing 53.2 ml/min eGFR 42.63 BUN/Creatinine Ratio 10.6 (10-20) Glucose 117 H (70-99(Fasting)) mg/dl Calcium 7.1 L (8.6-10.3) mg/dl Ionized Calcium 1.02 L (1.12-1.32) mmol/L Magnesium 1.6 L (1.7-2.4) mg/dl Total Bilirubin 0.9 (0.2-1.0) mg/dl AST 13 (13-39) U/L ALT 7 (7-52) U/L Alkaline Phosphatase 45 (34-104) U/L Lactate Dehydrogenase (86-244) U/L Total Creatine Kinase (26-192) U/L Total Protein 5.3 L (6.0-8.3) gm/dl Albumin 2.6 L (3.4-5.0) gm/dl Globulin 2.7 (2.5-4.0) gm/dl Albumin/Globulin Ratio 1.0 (0.9-2) TSH 22.493 H (0.300-4.500) uIu/ml Free T4 0.94 (0.61-1.60) ng/dl Free T3 (2.3-4.2) pg/ml Urine Color Urine Appearance Urine pH Ur Specific Scurry Urine Protein Urine Glucose (UA) Urine Ketones Urine Blood Urine Nitrite Urine Bilirubin Urine Urobilinogen Ur Leukocyte Esterase Urine Comment Stl C. cayetanensis PCR Not Detected (NotDetected) Stool Rotavirus A PCR Not Detected (NotDetected) Stl Adenov F 40/41 PCR Not Detected (NotDetected) Stool Astrovirus (PCR) Not Detected (NotDetected) Stool Campylobacter PCR Not Detected (NotDetected) Stl C. diff Tox B Gene Positive Cdiff Gene A (Neg) Stl C.difficile Tox A&B Negative Cdiff Toxin (Negative) Stl C. diff 027-NAP1-BI NEGATIVE Stool Cryptosporidium PCR Not Detected (NotDetected) Stl E.coli Shiga Tox PCR Not Detected (NotDetected) Stl Enterotoxigenic E PCR Not Detected (NotDetected) Stool EPEC (PCR) Not Detected (NotDetected) Stool EAEC (PCR) Not Detected (NotDetected) Stl E. histolytica PCR Not Detected (NotDetected) Stool Giardia Lamblia PCR Not Detected (NotDetected) Stool Salmonella PCR Not Detected (NotDetected) Stool Sapovirus (PCR) Not Detected (NotDetected) Stl P. shigelloides PCR Not Detected (NotDetected) Stl Shigella/EIEC PCR Not Detected (NotDetected) St Y.enterocolitica PCR Not Detected (NotDetected) Stool Vibrio (PCR) Not Detected (NotDetected) Stl Vibrio cholerae PCR Not Detected (NotDetected) Stl Norovirus GI/GII PCR Not Detected (NotDetected) Blood Type Antibody Screen Crossmatch 12/29/24 12/29/24 12/28/24 Range/Units 23:11 16:44 13:52 WBC (4.8-10.8) K/ul RBC (4.20-5.40) M/uL Hgb 7.4 L 8.6 L (12.0-16.0) g/dl Hct 23.6 L 26.9 L (37.0-47.0) % MCV (80.0-100.0) fL MCH (25.0-34.0) pg MCHC (32.0-36.0) g/dL RDW Std Deviation (36.4-46.3) fL RDW Coeff of Melida (11.5-14.5) % Plt Count (130-400) K/uL MPV (9.4-12.4) fL Immature Gran % (Auto) % Neut % (Auto) % Lymph % (Auto) % Miner % (Auto) % Eos % (Auto) % Baso % (Auto) % Neut # (Auto) (1.40-6.50) K/uL Lymph # (Auto) (1.20-3.40) K/uL Miner # (Auto) (0.11-0.59) K/uL Eos # (Auto) (0.00-0.50) K/uL Baso # (Auto) (0.00-0.20) K/uL Immature Gran # (Auto) (0.01-0.20) K/uL RBC Morphology Haptoglobin Sodium (136-145) mmol/L Potassium (3.5-5.1) mmol/L Chloride (98-107) mmol/L Carbon Dioxide (21-32) mmol/L Anion Gap (3-11) BUN (6-23) mg/dl Creatinine (0.6-1.2) mg/dl Est Cr Clr Drug Dosing ml/min eGFR BUN/Creatinine Ratio (10-20) Glucose (70-99(Fasting)) mg/dl Calcium (8.6-10.3) mg/dl Ionized Calcium (1.12-1.32) mmol/L Magnesium (1.7-2.4) mg/dl Total Bilirubin (0.2-1.0) mg/dl AST (13-39) U/L ALT (7-52) U/L Alkaline Phosphatase (34-104) U/L Lactate Dehydrogenase (86-244) U/L Total Creatine Kinase (26-192) U/L Total Protein (6.0-8.3) gm/dl Albumin (3.4-5.0) gm/dl Globulin (2.5-4.0) gm/dl Albumin/Globulin Ratio (0.9-2) TSH (0.300-4.500) uIu/ml Free T4 (0.61-1.60) ng/dl Free T3 (2.3-4.2) pg/ml Urine Color Urine Appearance Urine pH Ur Specific Scurry Urine Protein Urine Glucose (UA) Urine Ketones Urine Blood Urine Nitrite Urine Bilirubin Urine Urobilinogen Ur Leukocyte Esterase Urine Comment Stl C. cayetanensis PCR (NotDetected) Stool Rotavirus A PCR (NotDetected) Stl Adenov F 40/41 PCR (NotDetected) Stool Astrovirus (PCR) (NotDetected) Stool Campylobacter PCR (NotDetected) Stl C. diff Tox B Gene (Neg) Stl C.difficile Tox A&B (Negative) Stl C. diff 027-NAP1-BI Stool Cryptosporidium PCR (NotDetected) Stl E.coli Shiga Tox PCR (NotDetected) Stl Enterotoxigenic E PCR (NotDetected) Stool EPEC (PCR) (NotDetected) Stool EAEC (PCR) (NotDetected) Stl E. histolytica PCR (NotDetected) Stool Giardia Lamblia PCR (NotDetected) Stool Salmonella PCR (NotDetected) Stool Sapovirus (PCR) (NotDetected) Stl P. shigelloides PCR (NotDetected) Stl Shigella/EIEC PCR (NotDetected) St Y.enterocolitica PCR (NotDetected) Stool Vibrio (PCR) (NotDetected) Stl Vibrio cholerae PCR (NotDetected) Stl Norovirus GI/GII PCR (NotDetected) Blood Type O Positive Antibody Screen NEGATIVE Crossmatch See Detail PG Care Time/CCT Total # of Minutes Spent Total Time Spent with Patient: Total time spent is greater than 50% in coordination of care (as documented) at patient's floor/unit and/or counseling patient: Coding Level of Care Code 84386 SUB INP/OBS CARE 50MIN Diagnoses Neutropenia associated with infection D70.3 Leukopenia D72.819 Hypomagnesemia E83.42 Squamous cell carcinoma of vulva C51.9 Urinary tract infection N39.0 Cellulitis of groin L03.314
[2024-12-30] MEDS: MAGNESIUM SULFATE / D5W 1 GM/100 ML BAG IV SCH (09:19)
[2024-12-30] MEDS: CALCIUM GLUCONATE 1,000 MG/60 ML BAG IV STA (09:40)
[2024-12-30] MEDS: VANCOMYCIN HCL 125 MG/2.5ML SOLN PO SCH (10:38)
[2024-12-30] MEDS: CHERRY SYRUP 5 ML UDP PO SCH (10:38)
[2024-12-30] MEDS: FLUCONAZOLE 50 MG TAB PO SCH (10:40)
[2024-12-30 12:06] LABS: Creatine Kinase 27 U/L (26-192)
[2024-12-30] MEDS: Nursing to Pharmacy Communication SCH (14:15)
[2024-12-30 14:27] LABS: Appearance Urine Turbid (Clear); Glucose Urine UA Negative (Negative); RBC Urine Automated >20 /hpf (0-2)
[2024-12-30 14:51] LABS: Bacteria Urine Automated 1+ (None Seen); Cast Urine Automated 0-2 /lpf (0-2)
[2024-12-31] MEDS ORDERED: VANCOMYCIN LEVEL ONE (05:00)
[2024-12-31 05:49] LABS: Hematocrit (blood only) 23.0 % (37.0-47.0); Hemoglobin 7.3 g/dl (12.0-16.0); Mean Corpuscular Hemoglobin 30.9 pg (25.0-34.0); Mean Corpuscular Volume 97.5 fL (80.0-100.0); Platelet Count 207 K/uL (130-400); RDW Standard Deviation 66.2 fL (36.4-46.3); Red Blood Count 2.36 M/uL (4.20-5.40); White Blood Count 1.80 K/ul (4.8-10.8)
[2024-12-31 06:04] LABS: Alanine Aminotransferase 7.0 U/L (7-52); Albumin Globulin Ratio 1.0 (0.9-2); Alkaline Phosphatase 41.0 U/L (34-104); Anion Gap 6.0 (3-11); Bilirubin,Total 0.6 mg/dl (0.2-1.0); Blood Urea Nitrogen 12.0 mg/dl (6-23); Calcium 7.0 mg/dl (8.6-10.3); Carbon Dioxide 24.0 mmol/L (21-32); Chloride 110.0 mmol/L (98-107); Creatinine Clr Calc Pharmacy 62.0 ml/min; Globulin 2.4 gm/dl (2.5-4.0); Glucose 80.0 mg/dl (70-99(Fasting)); Magnesium 1.7 mg/dl (1.7-2.4); Potassium 3.4 mmol/L (3.5-5.1); Sodium 140.0 mmol/L (136-145); Total Protein 4.8 gm/dl (6.0-8.3)
[2024-12-31 07:31] LABS: Ovalocytes 1+; Polychromasia 1+; Tear Drop Cells 1+
[2024-12-31 07:33] LABS: Immature Granulocytes # (auto) 0.06 K/uL (0.01-0.20); Immature Granulocytes % (auto) 3.3 %
--- NOTE | 2024-12-31 09:10 | Hospitalist Progress Note ---
Date of Service December 31, 2024 Assessment & Plan (1) Neutropenia associated with infection: (2) Leukopenia: (3) Hypomagnesemia: (4) Squamous cell carcinoma of vulva: (5) Urinary tract infection: (6) Cellulitis of groin: Plan 74yo female presented with worsening groin pain and pelvic pain over the past several days. Recent chemotherapy for vulvar carcinoma on 12/24 with cisplatin and has been undergoing radiation to affected area. Also reporting increased urinary frequency/burning and found to have UA concerning for infection as well as neutropenic on admission w/ ANC 1.02/WBC 1.67 likely from recent chemotherapy. CTAP on admission w/ noted pathological lymphadenopathy redemonstrated w/ hypodense lesion within left inguinal tissues increased from September 2024 concerning for necrotic lymph node, lymphocele or post op collection could appear similarly. #Neutropenia due to antineoplastic chemotherapy #SSTI of pannus/vulva/groins with wounds #UTI Continue pip-tazo based on wound cultures (MSSA, Pseudomonas, Prevotella), reviewed UTI - Cx silva-sensitive citrobacter on 12/28 Blood cultures reviewed - ngtd ANC improved to 900 Continue wound care, WON consulted #Squamous cell carcinoma of vulva with mets to groin lymph nodes but no distant spread Too large for surgical resection so treatment with chemo and XRT was recommended She reports she completed her chemotherapy with cisplatin 12/24 and going forward will be on keytruda q2 week infusion Has undergone 36/39 fractions of planned XRT. Should be completed saturday #Anemia due to antineoplastic chemotherapy- Transfused 1 unit RBC for Hg 6 early in admission. Thereafter has been stable at apx 7.5 Iron mildly low at 28, ferritin in 500s consistent with inflammatory block. B12/folate were normal Monitor CBC #Right lower extremity DVT- diagnosed about 2 weeks ago Continue eliquis BID #Hypomagnesemia- Magnesium 1.5 on admission, IV replacement. 1.7 today #Hypocalcemia- low, ionized ca added and low. 1gm IV ca gluconate given, remains low, not symptomatic #HTN - mild hypotension early admission resolved with treatment of infection, transfusion. Normotensive currently. Holding lisinopril Dispo: continued inpatient stay for IV abx/tx infection. Lives alone, elevator access, below baseline functional status. Continue PT/OT, ambulated 15 feet to recliner today, planned to return home with home health however may need short- term rehab DVT proph: domenic, recent DVT 2 wks ago Admission and Anticipated Discharge Date Admission Date: December 28, 2024 Subjective pannus and vulvar area still really sore getting cleaned up for wound care was very tender has been OOB to commode otherwise in bed XRT 12/30, today, tomorrow, then one more day completed chemo with weekly cisplatin and going on to a q2week treatment in the future Physical Exam 2 Physical Exam: Last 24h vitals reviewed GEN: no acute distress, lying flat on bed HEENT: pupils equal, sclerae anicteric, moist MM RESP: normal WOB, CTAB anteriiorly CV: reg no mrg ABD: soft/nt/nd +BT : vulvar and pannus induration and darkening erythema, skin breakdown/ulceration in groins, pannus folds SKIN: warm and dry, no generalized rashes. Photos of multiple bilateral buttock wounds reviewed NEURO: AOx person, place, and situation. Face symmetric, speech normal, moves 4 ext spontaneously and equally Results & Data Results & Data Vital Signs (Past 12 Hours) Vital Signs Temp Pulse Pulse Resp BP Pulse Ox O2 Del Method 12/31/24 08:07 36.2 C L 72 18 113/64 98 Room Air 12/31/24 04:39 36.7 C 74 18 105/65 99 Room Air 12/30/24 21:54 73 Laboratory Results 12/31/24 05:33 12/31/24 05:33 ANC 910 Mag 1.7 Albumin 2.4 PG Care Time/CCT Total # of Minutes Spent Total Time Spent with Patient: Total time spent is greater than 50% in coordination of care (as documented) at patient's floor/unit and/or counseling patient: Coding Level of Care Code 02410 SUB INP/OBS CARE 2/35MIN Diagnoses Neutropenia associated with infection D70.3 Leukopenia D72.819 Hypomagnesemia E83.42 Squamous cell carcinoma of vulva C51.9 Urinary tract infection N39.0 Cellulitis of groin L03.314
[2025-01-01 06:08] LABS: Hematocrit (blood only) 22.1 % (37.0-47.0); Hemoglobin 7.2 g/dl (12.0-16.0); Mean Corpuscular Hemoglobin 32.1 pg (25.0-34.0); Mean Corpuscular Volume 98.7 fL (80.0-100.0); Platelet Count 225 K/uL (130-400); RDW Standard Deviation 67.2 fL (36.4-46.3); Red Blood Count 2.24 M/uL (4.20-5.40); White Blood Count 1.89 K/ul (4.8-10.8)
[2025-01-01 06:23] LABS: Anion Gap 4.0 (3-11); Blood Urea Nitrogen 12.0 mg/dl (6-23); Calcium 7.0 mg/dl (8.6-10.3); Carbon Dioxide 25.0 mmol/L (21-32); Chloride 110.0 mmol/L (98-107); Creatinine Clr Calc Pharmacy 59.8 ml/min; Glucose 75.0 mg/dl (70-99(Fasting)); Magnesium 1.6 mg/dl (1.7-2.4); Potassium 3.4 mmol/L (3.5-5.1); Sodium 139.0 mmol/L (136-145)
[2025-01-01] MEDS: POTASSIUM CHLORIDE CRTAB 20 MEQ TABCR PO ONE (08:46)
[2025-01-01] MEDS: MAGNESIUM SULFATE / D5W 1 GM/100 ML BAG IV SCH (08:47)
[2025-01-01] MEDS: LOPERAMIDE HCL 2 MG CAP PO PRN (08:55)
[2025-01-01 09:20] LABS: Hematocrit (blood only) 23.7 % (37.0-47.0); Hemoglobin 7.7 g/dl (12.0-16.0); Mean Corpuscular Hemoglobin 32.2 pg (25.0-34.0); Mean Corpuscular Volume 99.2 fL (80.0-100.0); Platelet Count 230 K/uL (130-400); RDW Standard Deviation 68.5 fL (36.4-46.3); Red Blood Count 2.39 M/uL (4.20-5.40); White Blood Count 1.82 K/ul (4.8-10.8)
[2025-01-01 09:42] LABS: Dohle Bodies 1+; Ovalocytes 1+; Polychromasia 1+; Toxic Granulation 1+; Toxic Vacuolation 1+
[2025-01-01 09:52] LABS: Immature Granulocytes # (auto) 0.05 K/uL (0.01-0.20); Immature Granulocytes % (auto) 2.7 %
[2025-01-01] MEDS: HYDROmorphone INJ 0.5 MG/0.5 ML SYR IV PRN (12:00)
--- NOTE | 2025-01-01 17:12 | Hospitalist Progress Note ---
Date of Service January 01, 2025 Assessment & Plan (1) Neutropenia associated with infection: (2) Leukopenia: (3) Hypomagnesemia: (4) Squamous cell carcinoma of vulva: (5) Urinary tract infection: (6) Cellulitis of groin: Plan 74yo female presented with worsening groin pain and pelvic pain over the past several days. Recent chemotherapy for vulvar carcinoma on 12/24 with cisplatin and has been undergoing radiation to affected area. Also reporting increased urinary frequency/burning and found to have UA concerning for infection as well as neutropenic on admission w/ ANC 1.02/WBC 1.67 likely from recent chemotherapy. CTAP on admission w/ noted pathological lymphadenopathy redemonstrated w/ hypodense lesion within left inguinal tissues increased from September 2024 concerning for necrotic lymph node, lymphocele or post op collection could appear similarly. #Neutropenia due to antineoplastic chemotherapy #SSTI of pannus/vulva/groins with wounds #UTI Continue pip-tazo based on wound cultures (MSSA, Pseudomonas, Prevotella), reviewed UTI - Cx silva-sensitive citrobacter on 12/28 Blood cultures reviewed - ngtd ANC improved to 970 Continue wound care, WON consulted Plan to continue pip-tazo through the weekend - still with neutropenia and undergoing radiation. 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 Last session saturday #Anemia due to antineoplastic chemotherapy- Transfused 1 unit RBC for Hg 6 early in admission. Thereafter has been stable at apx 7.5 Iron mildly low at 28, ferritin in 500s consistent with inflammatory block. B12/folate were normal Monitor CBC - Hg 7.5 #Right lower extremity DVT- diagnosed about 2 weeks ago Continue eliquis BID #Hypomagnesemia- Magnesium 1.5 on admission, IV replacement. IV replacement ordered today for mild hypomag #Diarrhea- recent chemo and IV antibiotics aggravating this. PRN loperamide. Avoid probiotic while neutropenic #Hypocalcemia- low, ionized ca added and low. 1gm IV ca gluconate given, remains low, not symptomatic #HTN - mild hypotension early admission resolved with treatment of infection, transfusion. Normotensive currently. Holding lisinopril Dispo: continued inpatient stay for IV abx/tx infection. Was well below functional status on PT/OT eval. Significant wound care. Will benefit from rehab. [facility]. Probably d ischarge Saturday next week DVT proph: domenic, recent DVT 2 wks ago Admission and Anticipated Discharge Date Admission Date: December 28, 2024 Subjective Martha feels a lot better today constitutionally Her sister is visiting at bedside - updated Wounds still painful but much less tender than on admission Physical Exam Physical Exam: Last 24h vitals reviewed GEN: no acute distress, semi-upright in bed HEENT: pupils equal, sclerae anicteric, moist MM RESP: normal WOB CV: reg no mrg ABD: soft/nt/nd +BT : not examined today with visitor present: vulvar and pannus induration and da rkening erythema, skin breakdown/ulceration in groins, pannus folds SKIN: warm and dry, no generalized rashes. Photos of multiple bilateral buttock wounds reviewed NEURO: AOx person, place, and situation. Face symmetric, speech normal, moves 4 ext spontaneously and equally Results & Data Results & Data Vital Signs (Past 12 Hours) Vital Signs Temp Pulse Pulse Pulse Resp BP Pulse Ox 01/01/25 15:48 77 01/01/25 15:41 36.5 C 95 H 18 115/77 92 01/01/25 13:05 36.4 C L 76 150/75 H 97 01/01/25 11:12 69 01/01/25 11:00 01/01/25 10:51 36.6 C 68 18 132/75 98 01/01/25 08:09 01/01/25 07:27 36.6 C 78 18 130/74 96 01/01/25 05:44 36.5 C 77 18 96/63 L 96 Pulse Ox O2 Del Method O2 Del Method 01/01/25 15:48 01/01/25 15:41 Room Air 01/01/25 13:05 Room Air 01/01/25 11:12 01/01/25 11:00 98 Room Air 01/01/25 10:51 Room Air 01/01/25 08:09 Room Air 01/01/25 07:27 Room Air 01/01/25 05:44 Room Air PG Care Time/CCT Total # of Minutes Spent Total Time Spent with Patient: Total time spent is greater than 50% in coordination of care (as documented) at patient's floor/unit and/or counseling patient: Coding Level of Care Code 14697 SUB INP/OBS CARE 2/35MIN Diagnoses Neutropenia associated with infection D70.3 Leukopenia D72.819 Hypomagnesemia E83.42 Squamous cell carcinoma of vulva C51.9 Urinary tract infection N39.0 Cellulitis of groin L03.314
[2025-01-02 05:55] LABS: Hematocrit (blood only) 23.1 % (37.0-47.0); Hemoglobin 7.5 g/dl (12.0-16.0); Immature Granulocytes # (auto) 0.07 K/uL (0.01-0.20); Immature Granulocytes % (auto) 3.0 %; Mean Corpuscular Hemoglobin 31.8 pg (25.0-34.0); Mean Corpuscular Volume 97.9 fL (80.0-100.0); Platelet Count 205 K/uL (130-400); RDW Standard Deviation 67.7 fL (36.4-46.3); Red Blood Count 2.36 M/uL (4.20-5.40); White Blood Count 2.31 K/ul (4.8-10.8)
[2025-01-02 06:45] LABS: Ovalocytes 1+
--- NOTE | 2025-01-02 15:17 | Hospitalist Progress Note ---
Date of Service January 02, 2025 Assessment & Plan (1) Cellulitis of groin: (2) Neutropenia associated with infection: (3) Hypomagnesemia: (4) Squamous cell carcinoma of vulva: (5) Urinary tract infection: Plan 74yo female presented with worsening groin pain and pelvic pain over the past several days. Recent chemotherapy for vulvar carcinoma on 12/24 with cisplatin and has been undergoing radiation to affected area. Also reporting increased urinary frequency/burning and found to have UA concerning for infection as well as neutropenic on admission w/ ANC 1.02/WBC 1.67 likely from recent chemotherapy. CTAP on admission w/ noted pathological lymphadenopathy redemonstrated w/ hypodense lesion within left inguinal tissues increased from September 2024 concerning for necrotic lymph node, lymphocele or post op collection could appear similarly. #Neutropenia due to antineoplastic chemotherapy #SSTI of pannus/vulva/groins with wounds #UTI Continue pip-tazo based on wound cultures (MSSA, Pseudomonas, Prevotella), reviewed UTI - Cx silva-sensitive citrobacter on 12/28 Blood cultures reviewed - finalized negative ANC improved to 1400, neutropenia resolved Continue wound care, WON consulted cellulitis improved, immune system and wound healing are impaired. 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 Last session saturday #Anemia due to antineoplastic chemotherapy- Transfused 1 unit RBC for Hg 6 early in admission. Thereafter has been stable at apx 7.5 Iron mildly low at 28, ferritin in 500s consistent with inflammatory block. B12/folate were normal Monitor CBC - Hg remains 7.5 #Right lower extremity DVT- diagnosed about 2 weeks ago, symptomatically improved Continue eliquis BID #Hypomagnesemia- repleting #Diarrhea- recent chemo and IV antibiotics aggravating this. PRN loperamide. Avoid probiotic while neutropenic but can start soon #Hypocalcemia- low, ionized ca added and low. 1gm IV ca gluconate given, remains low, not symptomatic -BMP with mag and iCa in AM for these issues #HTN - mild hypotension early admission resolved with treatment of infection, transfusion. Normotensive currently. Holding lisinopril Dispo: continued inpatient stay for IV abx/tx infection. Was well below functional status on PT/OT eval. Significant wound care. Will benefit from rehab. She is agreeable to [facility] if there is a bed. Probably discharge Saturday next week DVT proph: domenic, recent DVT 2 wks ago Admission and Anticipated Discharge Date Admission Date: December 28, 2024 Subjective Feeling a lot better than a few days ago pannus/vulva area still sore but less painful tolerating being up to chair Physical Exam 2 Physical Exam: Last 24h vitals reviewed GEN: no acute distress, semi-upright in bed HEENT: pupils equal, sclerae anicteric, moist MM RESP: normal WOB CV: reg no mrg ABD: soft/nt/nd +BT : cellulitis of pannus, vulva resolving - erythema and induration improed, continues to have multiple ulcers in groins and between folds of pannus SKIN: warm and dry, no generalized rashes. Photos of multiple bilateral buttock wounds reviewed EXT: right calf mild-moderately larger than L calf NEURO: AOx person, place, and situation. Face symmetric, speech normal, moves 4 ext spontaneously and equally Results & Data Results & Data Vital Signs (Past 12 Hours) Vital Signs Temp Pulse Pulse Resp BP Pulse Ox O2 Del Method 01/02/25 14:15 108 H 01/02/25 11:00 01/02/25 10:33 36.5 C 81 138/81 96 Room Air 01/02/25 08:02 36.4 C L 81 18 103/67 97 Room Air 01/02/25 07:50 Room Air 01/02/25 07:06 76 01/02/25 03:18 36.5 C 84 20 136/66 95 Room Air O2 Del Method 01/02/25 14:15 01/02/25 11:00 Room Air 01/02/25 10:33 01/02/25 08:02 01/02/25 07:50 01/02/25 07:06 01/02/25 03:18 Laboratory Results 01/02/25 05:20 01/01/25 05:19 PG Care Time/CCT Total # of Minutes Spent Total Time Spent with Patient: Total time spent is greater than 50% in coordination of care (as documented) at patient's floor/unit and/or counseling patient: Coding Level of Care Code 11384 SUB INP/OBS CARE MIN Diagnoses Cellulitis of groin L03.314 Neutropenia associated with infection D70.3 Hypomagnesemia E83.42 Squamous cell carcinoma of vulva C51.9 Urinary tract infection N39.0
[2025-01-03 06:22] LABS: Hematocrit (blood only) 23.6 % (37.0-47.0); Hemoglobin 7.5 g/dl (12.0-16.0); Mean Corpuscular Hemoglobin 31.6 pg (25.0-34.0); Mean Corpuscular Volume 99.6 fL (80.0-100.0); Platelet Count 215 K/uL (130-400); RDW Standard Deviation 71.3 fL (36.4-46.3); Red Blood Count 2.37 M/uL (4.20-5.40); White Blood Count 1.99 K/ul (4.8-10.8)
[2025-01-03 06:43] LABS: Anion Gap 6.0 (3-11); Blood Urea Nitrogen 14.0 mg/dl (6-23); Calcium 7.2 mg/dl (8.6-10.3); Carbon Dioxide 23.0 mmol/L (21-32); Chloride 110.0 mmol/L (98-107); Creatinine Clr Calc Pharmacy 60.0 ml/min; Glucose 85.0 mg/dl (70-99(Fasting)); Magnesium 1.7 mg/dl (1.7-2.4); Potassium 3.5 mmol/L (3.5-5.1); Sodium 139.0 mmol/L (136-145)
[2025-01-03 07:08] LABS: Immature Granulocytes # (auto) 0.08 K/uL (0.01-0.20); Immature Granulocytes % (auto) 4.0 %
[2025-01-03 07:09] LABS: Ovalocytes 1+
[2025-01-03 07:22] VITALS: RESP 16
--- NOTE | 2025-01-03 08:16 | Hospitalist Progress Note ---
Date of Service January 03, 2025 Assessment & Plan (1) Cellulitis of groin: (2) Neutropenia associated with infection: (3) Hypomagnesemia: (4) Squamous cell carcinoma of vulva: (5) Urinary tract infection: Plan 74yo female presented with worsening groin pain and pelvic pain over the past several days. Recent chemotherapy for vulvar carcinoma on 12/24 with cisplatin and has been undergoing radiation to affected area. Also reporting increased urinary frequency/burning and found to have UA concerning for infection as well as neutropenic on admission w/ ANC 1.02/WBC 1.67 likely from recent chemotherapy. CTAP on admission w/ noted pathological lymphadenopathy redemonstrated w/ hyp odense lesion within left inguinal tissues increased from September 2024 concerning for necrotic lymph node, lymphocele or post op collection could appear similarly. #Neutropenia due to antineoplastic chemotherapy #SSTI of pannus/vulva/groins with wounds #UTI Continue pip-tazo based on wound cultures (MSSA, Pseudomonas, Prevotella), reviewed UTI - Cx silva-sensitive citrobacter on 12/28 Blood cultures reviewed - finalized negative ANC improved to 1400, neutropenia resolved -- now again 0.93 but ? if 2nd to fluconazole yesterday and will monitor but significantly improved on exam Continue wound care, WON consulted. wicking sheets to keep try, also on topical antifungal and Fluconazole q72hr x 3 doses per UTD guidelines cellulitis improved, immune system and wound healing are impaired. 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 Last session saturday this upcoming week #Anemia due to antineoplastic chemotherapy- Transfused 1 unit RBC for Hg 6 early in admission. Thereafter has been stable at apx 7.5 Iron mildly low at 28, ferritin in 500s consistent with inflammatory block. B12/folate were normal Monitor CBC - Hg remains 7.5. Does report some darkened black stools today and fecal occult has been ordered but vitals/renal function stable and monitor fecal occult testing/cbc. defer increasing PPI to BID for now until cdiff testing negative given diarrhea complaints #Right lower extremity DVT- diagnosed about 2 weeks ago, symptomatically improved Continue eliquis BID #Hypomagnesemia- repleting, stable on repeat and monitoring with continued PPI therapy. Can plan once daily slow mag in AM if remains borderline to prevent lows w ongoing PPI #Diarrhea- recent chemo and IV antibiotics aggravating this. PRN loperamide ordered but prior cdiff testing +gene but negative toxin and placed on empiric vanco once daily while ongoing abx. Avoid probiotic while neutropenic but can start soon, pending repeat cdiff testing. If +, avoid loperamide #Hypocalcemia- low, ionized ca added and low. 1gm IV ca gluconate given, remains low, not symptomatic -BMP with mag in AM #HTN - mild hypotension early admission resolved with treatment of infection, transfusion. Normotensive currently. Holding lisinopril Dispo: continued inpatient stay for IV abx/tx infection. Radiation for tomorrow to complete course. Continue perez at [place], wound care, complete course fluconazole. Consider extending abx for 10-14 day course give immunocompromised on chemo. PT/OT w benefit for rehab rec, CM following and agreeable to [facility] this upcomign week DVT proph: eliquis, recent DVT 2 wks ago. Monitor to inc PPI pending Admission and Anticipated Discharge Date Admission Date: December 28, 2024 Supervising Physician Co-Signing Physician Notes The patient was not seen by me. The chart was reviewed. Case discussed with RUPERT Pedersen. Agree with assessment and plan Subjective Patient evaluated this morning, sitting up in the chair, looks and reports feeling MUCH better than when I saw her last. Improvement in groin appearance, improvement w/ wicking and antifungal therapy. No fever. Perez in place. Some diarrhea -- x5, repeat cdiff discussed and ordered and message to nursing to alert for collection in place. For now on once daily empiric vancomycin. Reports stools also dark/black in color. No overt abdominal pain but also checking w anemia. Remains on eliquis for remote hx DVT/PE. On PPI once daily, may need increased. Reports cream to buttocks also helpful. Has repeat radiation tomorrow. Rehab planned in next day or two. Questions/concerns addressed at this time. Physical Exam Physical Exam: General: 74yo female sitting up in chair, appears and reports feeling MUCH better HEENT: head atraumatic, normocephalic, mmm, trachea midline Resp: even/unlabored, slightly diminished in the bases but no wheezing/rales, on room air CV: regular, no significant m/r/g, RLE edema > LLE (RLE recent DVT), sensation intact, cap refill wnl GI: +BS, soft, slight distension but no overt tenderness/guarding (does have lower abd tenderness to palpation to groin/skin folds as below) : perez w/ some blood tinged appearance but no overt clots Groin/skin: significant appearance in fungal appearance, improvement in erythema, much improved tenderness. wicking sheets needing changed MSK/Neuro: nonfocal not confused Psych: AOx3, cooperative with exam Results & Data Results & Data Vital Signs (Past 12 Hours) Vital Signs Temp Pulse Resp BP Pulse Ox O2 Del Method 01/03/25 07:19 36.3 C L 74 16 116/63 97 Room Air 01/02/25 22:40 36.6 C 83 116/74 97 Room Air Laboratory Results 01/03/25 Range/Units 05:54 WBC 1.99 L (4.8-10.8) K/ul RBC 2.37 L (4.20-5.40) M/uL Hgb 7.5 L (12.0-16.0) g/dl Hct 23.6 L (37.0-47.0) % MCV 99.6 (80.0-100.0) fL MCH 31.6 (25.0-34.0) pg MCHC 31.8 L (32.0-36.0) g/dL RDW Std Deviation 71.3 H (36.4-46.3) fL RDW Coeff of Melida 19.6 H (11.5-14.5) % Plt Count 215 (130-400) K/uL MPV 10.5 (9.4-12.4) fL Immature Gran % (Auto) 4.0 % Neut % (Auto) 46.7 % Lymph % (Auto) 12.1 % Love % (Auto) 21.1 % Eos % (Auto) 15.1 % Baso % (Auto) 1.0 % Neut # (Auto) 0.93 L* (1.40-6.50) K/uL Lymph # (Auto) 0.24 L (1.20-3.40) K/uL Love # (Auto) 0.42 (0.11-0.59) K/uL Eos # (Auto) 0.30 (0.00-0.50) K/uL Baso # (Auto) 0.02 (0.00-0.20) K/uL Immature Gran # (Auto) 0.08 (0.01-0.20) K/uL Ovalocytes 1+ Sodium 139 (136-145) mmol/L Potassium 3.5 (3.5-5.1) mmol/L Chloride 110 H (98-107) mmol/L Carbon Dioxide 23 (21-32) mmol/L Anion Gap 6 (3-11) BUN 14 (6-23) mg/dl Creatinine 1.18 (0.6-1.2) mg/dl Est Cr Clr Drug Dosing 60.0 ml/min eGFR 48.77 BUN/Creatinine Ratio 11.9 (10-20) Glucose 85 (70-99(Fasting)) mg/dl Calcium 7.2 L (8.6-10.3) mg/dl Ionized Calcium 1.10 L (1.12-1.32) mmol/L Magnesium 1.7 (1.7-2.4) mg/dl PG Care Time/CCT Total # of Minutes Spent Total Time Spent with Patient: Total time spent is greater than 50% in coordination of care (as documented) at patient's floor/unit and/or counseling patient: Coding Level of Care Code 40167 SUB INP/OBS CARE 3/50MIN Diagnoses Cellulitis of groin L03.314 Neutropenia associated with infection D70.3 Hypomagnesemia E83.42 Squamous cell carcinoma of vulva C51.9 Urinary tract infection N39.0
[2025-01-04 07:36] VITALS: TEMP 98.1; O2SAT 97
[2025-01-04 10:45] LABS: Hematocrit (blood only) 25.9 % (37.0-47.0); Hemoglobin 8.3 g/dl (12.0-16.0); Immature Granulocytes # (auto) 0.07 K/uL (0.01-0.20); Immature Granulocytes % (auto) 2.9 %; Mean Corpuscular Hemoglobin 32.3 pg (25.0-34.0); Mean Corpuscular Volume 100.8 fL (80.0-100.0); Platelet Count 244 K/uL (130-400); RDW Standard Deviation 71.4 fL (36.4-46.3); Red Blood Count 2.57 M/uL (4.20-5.40); White Blood Count 2.38 K/ul (4.8-10.8)
[2025-01-04 11:04] LABS: Anion Gap 7.0 (3-11); Blood Urea Nitrogen 15.0 mg/dl (6-23); Calcium 7.6 mg/dl (8.6-10.3); Carbon Dioxide 23.0 mmol/L (21-32); Chloride 108.0 mmol/L (98-107); Creatinine Clr Calc Pharmacy 54.1 ml/min; Glucose 87.0 mg/dl (70-99(Fasting)); Magnesium 1.6 mg/dl (1.7-2.4); Potassium 3.5 mmol/L (3.5-5.1); Sodium 138.0 mmol/L (136-145)
[2025-01-04 12:28] LABS: Cdiff Toxin B Gene (2yr or >) Negative Cdiff Gene (Neg)
--- NOTE | 2025-01-04 13:22 | Discharge Summary ---
Discharge Summary Date of Service January 04, 2025 Principal Dx & Hospital Course #1 = Principal Diagnosis (1) Cellulitis of groin: (2) Neutropenia associated with infection: (3) Hypomagnesemia: (4) Squamous cell carcinoma of vulva: (5) Urinary tract infection: Plan 74yo female presented with worsening groin pain and pelvic pain over the past several days. Recent chemotherapy for vulvar carcinoma on 12/24 with cisplatin and has been undergoing radiation to affected area. Also reporting increased urinary frequency/burning and found to have UA concerning for infection as well as neutropenic on admission w/ ANC 1.02/WBC 1.67 likely from recent chemotherapy. CTAP on admission w/ noted pathological lymphadenopathy redemonstrated w/ hypodense lesion within left inguinal tissues increased from September 2024 concerning for necrotic lymph node, lymphocele or post op collection could appear similarly. #Neutropenia due to antineoplastic chemotherapy #SSTI of pannus/vulva/groins with wounds #possible UTI Treated with pip-tazo based on wound cultures (MSSA, Pseudomonas, Prevotella), completed 7 days of treatment today UTI - Cx silva-sensitive citrobacter on 12/28. Never had urinary symptoms so may be colonization or contamination. Citrobacter has inducible PCN resistance so may develop PCN/cephalosporin resistance during treatment - if UTI symptoms start treatment with non- PCN/cephalosporin until C/S results Blood cultures reviewed - finalized negative ANC improved to 1400, 930, 1360 past three days neutropenia resolved Continue wound care, WON consulted. wicking sheets to keep dry, also on topical antifungal and Fluconazole q72hr x 3 doses per UTD guidelines - last dose 01/05 cellulitis resolved, immune system and wound healing are impaired. 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 Last treatment was today 01/04 #Anemia due to antineoplastic chemotherapy- Transfused 1 unit RBC for Hg 6 early in admission. Thereafter has been stable at apx 7.5 Iron mildly low at 28, ferritin in 500s consistent with inflammatory block. B12/folate were normal FOBT negative 01/04 #Right lower extremity DVT- diagnosed about 2 weeks ago, symptomatically improved Continue eliquis BID #Hypomagnesemia- repleted IV but remains borderline. No oral mag replacement at this time because of diarrhea #Diarrhea- ongoing/subacute. stool Biofire negative. recent chemo and IV antibiotics aggravating this. PRN loperamide prior cdiff testing +gene but negative toxin - continue oral vancomycin prophylaxis for 7 more days. C. diff negative on 01/04 -avoided probiotic while neutropenic but can start soon #Hypocalcemia- low, ionized ca added and low. 1gm IV ca gluconate given, remains low, not symptomatic #HTN - mild hypotension early admission resolved with treatment of infection, transfusion. Normotensive currently. Holding lisinopril Discharged to acute rehab at [facility] Notes For Next Care Provider last dose fluconazole 01/04 completed 7 days of IV pip-tazo on 01/04 finished XRT 01/04 planned to start keytruda q2 weeks in future perez left in place for now, wound healing Admission HPI Per Admitting Provider The patient is a 74-year-old female with a past medical history including localized spread of vulvar carcinoma, hypomagnesemia, groin infection, anemia, hypothyroidism, asthma, morbid obesity, hypertension, and GERD. She presents to the emergency department with complaint of severe and worsening groin and pelvic pain over the past several days. Her most recent chemotherapy with cisplatin was on 12/24, and is expected to undergo radiation therapy on Saturday, Saturday and , the next 3 days. She also is undergoing treatment with Keytruda, does not have her schedule with her at this time. In emergency department, patient was noted to be neutropenic, with a WBC of 1.67, and ANC of 1.02. She was also noted to have urinary tract infection. Emergency department was asked to change antibiotics from ceftriaxone to vancomycin IV and Zosyn IV. Patient will be placed on neutropenic precautions. Discharge Exam Last 24h vitals reviewed GEN: no acute distress, sitting up in chair HEENT: pupils equal, sclerae anicteric, moist MM RESP: dyspneic after up to commode but now improved CV: reg no mrg ABD: soft/nt/nd +BT : cellulitis of pannus, vulva resolved, continues to have multiple ulcers in groins and between folds of pannus SKIN: warm and dry, no generalized rashes. Photos of multiple bilateral buttock wounds reviewed EXT: right calf mild larger than L calf NEURO: AOx person, place, and situation. Face symmetric, speech normal, moves 4 ext spontaneously and equally Discharge Plan Discharge Items Patient Disposition: Transfer Inpatient Rehab Fac Reason For Visit: NEUTROPENIC INFECTION,HYPOTENSION,UTI,GROIN INFECT Discharge Diagnosis: Locally advanced vulvar carcinoma with chronic wounds, SSTI of pannus/groins/vulva Condition on Discharge: Fair Activity: Per Instructions section Weightbearing: Full weightbearing Non-emergency contact: Primary Care Provider and Oncologist Call non-emergency contact if: you have any medication questions and your symptoms worsen Follow-up/Referrals: Jenna Robertson PA-C [Physician Processes Chemical Design Engineer] - 04/21/25 2:30 pm (Radiation Oncology Post Treatment follow up. If you are unable to keep this appt, please call [phone].) Petr Freeman DO [Primary Care Provider] - [facility] [Non-Staff] - Analilia Espino MD [Hospitalist] - Diet: Regular Addtl Attending Provider Instructions: PT and OT evaluate and treat Completed course of pip-tazo 01/04 for SSTI Last dose of fluconazole due 01/05 Continue oral vancomycin prophylaxis for 7 days C. diff and FOBT negative 01/04 OK to use imodium PRN for diarrhea Not on oral magnesium because of diarrhea - probably related to chemotherapy and antibiotics. OK to start probiotic soon if ANC remaining >1200 Please check CBC with diff and BMP, mag in a few days Completed 39 fractions of XRT to vulvar carcinoma on 01/04 - end of treatment Planned to start keytruda q2 weeks - please schedule follow up with Dr. Kenzie Cheung heme/onc. CONSTANCE Womack. On apixaban because of RLE DVT diagnosed early December Hx hypertension but lisinopril held, has been normotensive Continue wound care for pannus/groins/vulva Leaving perez catheter in for now, to help with wound healing. Remove once mobility improved and able to get to commode more easily and avoid soiling wounds. Urine culture was positive for citrobacter freundii, silva-sensitive. She never had UTI symptoms, so may not represent infection. This bacteria has inducible B-lactamase and may develop resistance to PCN and cephalosporin during treatment. If onset of UTI symptoms start treatment with alternative antibiotic pending culture/sensis Pending Studies at Discharge: No Stand-Alone Forms: My [facility] Skilled Items Patient informed of condition?: Yes DNR: No Discharge Level of Care: Acute rehab Communicable Disease: No Discharge Prognosis: Improving Lines: None Urinary Catheter: Yes Medications and DC Order Prescriptions: New vancomycin 1,000 mg Recon Soln 125 mg PO DAILY Qty: 7 0RF nystatin [Nystop] 100,000 unit/gram Powder 1 applic EXT TID Qty: 0 0RF acetaminophen 325 mg Tablet 650 mg PO Q4H Qty: 0 0RF fluconazole 50 mg Tablet 150 mg PO Q72H Qty: 1 0RF Rx Instructions: last dose is 7/15 AM loperamide 2 mg Capsule 2 mg PO Q1H PRNQty: 0 0RF Continued PreserVision AREDS 2 Plus MV 200 mcg-15 mcg- 5 mg-1 mg capsule 1 cap PO DIRECTED Patient Comments: 12/28- otc unable to verify Rx Instructions: otc unable to verify oxycodone 5 mg tablet 5 mg PO Q4H PRN (Reason: Pain) omeprazole 20 mg capsule,delayed release(DR/EC) 0 mg PO DAILY Patient Comments: 12/28- OTC/ no fill history unable to verify loratadine 10 mg tablet 10 mg PO DAILY Patient Comments: 12/28- otc unable to verify cholecalciferol (vitamin D3) 25 mcg (1,000 unit) capsule 25 mcg PO DAILY Patient Comments: 12/28- otc unable to verify triamcinolone acetonide 0.1 % cream 1 applic topical BID PRN (Reason: Other) betamethasone dipropionate 0.05 % ointment 1 applic topical DAILY PRN (Reason: Other) Patient Comments: 12/28- no fill history unable to verify fluticasone propion-salmeterol [Advair Diskus] 250-50 mcg/dose blister with device 1 inh inhalation BID PRN (Reason: sob) Patient Comments: 12/28- no fill history unable to verify calcium carbonate-vitamin D3 [Calcium with Vitamin D] 600 mg-10 mcg (400 unit) tablet 1 tab PO DAILY Patient Comments: 12/28- otc unable to verify prochlorperazine maleate [Compazine] 10 mg tablet 10 mg PO Q6H PRN (Reason: n/v) Eliquis 5 mg tablet 0 mg PO BID Patient Comments: 12/28- last filled 11/18 30 day supply multivitamin Tablet 1 tab PO DAILY Patient Comments: 12/28- otc unable to verify Rx Instructions: otc unable to verify levothyroxine 25 mcg capsule 0 mcg PO DAILY Patient Comments: 12/28-Last filled 08/21/24 90 day supply levothyroxine 200 mcg capsule 0 mcg PO QAM Patient Comments: 12/28-Last filled 08/21/24 90 day supply Held hydroxyzine HCl 25 mg tablet 25 mg PO TID PRN (Reason: Other) Hold Instructions: Resume on 01/11/25. held because of interaction with fluconazole Patient Comments: 12/28- no fill history unable to verify ondansetron HCl 8 mg tablet 8 mg PO Q8H PRN (Reason: n/v) Hold Instructions: Resume on 01/11/25. held because of interaction with fluconazole silver sulfadiazine [Silvadene] 1 % cream 1 applic topical BID Hold Instructions: Resume on 01/18/25. resume depending on wound care plan Rx Instructions: apply a 1.5 mm thickness diphenoxylate-atropine 2.5-0.025 mg tablet 1 tab PO QID PRN (Reason: Diarrhea) Hold Instructions: Resume on 01/11/25. lisinopril 20 mg tablet 0 mg PO DAILY Hold Instructions: Resume on 01/18/25. held because BP has been normal to low normal Patient Comments: last filled 08/21 90 day supply Discontinued fluconazole [Diflucan] 100 mg tablet 0 mg PO DAILY Patient Comments: 12/28- filled 11/23 10 day supply Discharge Orders: Discharge Order (Routine); Ordered 01/04/25 Ordered By: Fina Maciel Admission Data Admit Date/Time: 12/28/24 14:06 Attending Provider: Fina Maciel Admit Provider: Chacorta Morgan Primary Care Provider: Petr Freeman Other Providers: [facility]; Chacorta Morgan; Kenyetta Doe Hospital Stay Data Consultations 12/28/24 13:31 ED Decision to Admit Stat 12/29/24 07:44 Consult Radiation Oncology Routine Diagnostic Imagining Performed 12/28/24 11:01 CT abd pelvis IV con only Stat Pending Results Patient Have Any Pending Studies at Discharge: No Discharge Instructions Given to Patient (Per Discharging Provider) PT and OT evaluate and treat Completed course of pip-tazo 01/04 for SSTI Last dose of fluconazole due 01/05 Continue oral vancomycin prophylaxis for 7 days C. diff and FOBT negative 01/04 OK to use imodium PRN for diarrhea Not on oral magnesium because of diarrhea - probably related to chemotherapy and antibiotics. OK to start probiotic soon if ANC remaining >1200 Please check CBC with diff and BMP, mag in a few days Completed 39 fractions of XRT to vulvar carcinoma on 01/04 - end of treatment Planned to start keytruda q2 weeks - please schedule follow up with Dr. Kenzie Cheung heme/onc. CONSTANCE Womack. On apixaban because of RLE DVT diagnosed early December Hx hypertension but lisinopril held, has been normotensive Continue wound care for pannus/groins/vulva Leaving perez catheter in for now, to help with wound healing. Remove once mobility improved and able to get to commode more easily and avoid soiling wounds. Urine culture was positive for citrobacter freundii, silva-sensitive. She never had UTI symptoms, so may not represent infection. This bacteria has inducible B-lactamase and may develop resistance to PCN and cephalosporin during treatment. If onset of UTI symptoms start treatment with alternative antibiotic pending culture/sensis Total Time Total Time Spent Total Time Spent (In Minutes): I personally spent: 50 minutes today on clinical care activities including: reviewing chart notes and vital signs x reviewing labs x discussion with daycare provider, bedside RN x examining and counseling the patient x writing orders x writing prescriptions, discharge instructions documentation Coding Level of Care Code 35346 INP/OBS DISCH >30 MIN Diagnoses Cellulitis of groin L03.314 Neutropenia associated with infection D70.3 Hypomagnesemia E83.42 Squamous cell carcinoma of vulva C51.9 Urinary tract infection N39.0
[2025-01-04 13:32] VITALS: BP 124/65; PULSE 77
== END 2025-01-04 13:33 | DRG 690 ==
LOC: ED 10:37 → 4W 14:06 → SUATTDRO 14:06 → 4W 16:05 → 3W 01-02 22:39

== ENCOUNTER 2025-05-09 22:41 | Inpatient (IN) ==
--- NOTE | 2025-05-09 22:53 | Emergency Department Note ---
Impression & Plan Fall, Acute dehydration, Hypomagnesemia, Elevated troponin I level ED Provider Note NAME: VONNIE IVY AGE: 75 SEX: F : 1950 ARRIVES VIA: Ambulance INFORMANT: Patient, EMS ED PROVIDER(S): Damien Kessler DO CHIEF COMPLAINT: Injury alert HPI: The patient is a 75-year-old female who presented to the emergency department after a fall. The patient fell on . She was not able to stand or get into her bed. She laid on the floor since . The patient has not been taking her medications. She complains of right knee pain and right hip pain. She denies having any back pain. She denies having any neck pain. She does complain of dizziness as well as a slight headache. The patient came to the emergency department by ambulance. Her family found her on the floor and called 911. ROS: See above HPI for pertinent positives & negatives. A total of 10 systems reviewed and were otherwise negative. PAST MEDICAL HISTORY: See Below PAST SURGICAL HISTORY: See Below FAMILY HISTORY: See Below SOCIAL HISTORY: See Below HOME MEDICATIONS: See Below ALLERGIES: See Below VITALS: See Below PHYSICAL EXAMINATION: Primary Survey Airway: Intact Breathing: Normal, breath sounds equal bilaterally Circulation: Skin warm, distal pulses 2+, capillary refill less than 2 seconds Disability Pupils: Equal and reactive to light, 4mm, brisk GCS: 15, Motor Function: Moves all extremities. Sensory: No deficits Secondary Survey GEN: Well developed and well-nourished HEAD: Normal cephalic atraumatic EYES: Pupils round reactive to light, conjunctiva clear, extraocular movements intact, no raccoons eyes. ENT: Mucous membranes are dry. NECK: No JVD, midline trachea, no cervical spine tenderness, C-collar in place HEART: Regular rate and rhythm LUNGS: Clear to auscultation bilaterally. CHEST: Chest wall non-tender, no bruising/deformity ABD: There is no tenderness guarding or rigidity noted. BACK: No step offs or deformities, T-L spine non tender SKIN: Trace pedal edema is noted bilaterally. There was some skin breakdown on the buttocks but no obvious pressure ulcer. EXT: 2+ global pulses, moving all extremities well, +5/5 muscle strength globally NEURO: The patient is awake alert and oriented x 3. Strength was symmetric. MEDICAL DECISION MAKING: The patient is a 75-year-old female who presented to the emergency department from her home. The patient was admitted to our facility recently. [facility] The patient was sent home and apparently when she got home she was trying to get into her bed. She had a fall onto her leg. She did not sustain any significant injury but she was not able to stand. She laid on her floor since . The patient arrived at the emergency department via ambulance. She was treated with IV fluids emergency department. Clinically she does appear to be very dehydrated. The patient has anemia which is not new. She has a history of GI bleed as well as a soft tissue infection. The patient states that she has not been taking her medications. The patient denies having any fever. I discussed the patient's condition with the on-call [facility] hospitalist. At this time I do not feel the patient would be a good candidate for outpatient management. Triage Nursing notes reviewed. Prior medical records reviewed Vital Signs: reviewed and remarkable for no significant abnormalities Differential diagnosis: Infection, dehydration, metabolic abnormality, hypo/hyperglycemia, electrolyte disturbance, anemia, hypoxia, cardiac sources, intracerebral event, toxicologic, neurologic, as well as other pathologies. ER treatment provided: See below Diagnostics interpreted by me: ECG: EKG was obtained in the emergency department. My interpretation is normal sinus rhythm at 82 bpm. There was no ectopy. There is no acute ST segment abnormalities noted. This was compared to a tracing from April 19, 2025. No changes were noted. Cardiac Monitoring: An order was placed for continuous cardiac monitoring. The monitor shows a rate of 76 bpm with sinus rhythm. Laboratory studies: As stated above and show below. Imaging studies: See below. Radiographic imaging was reviewed by myself Consultation(s): I discussed this case with Dr. Singleton [facility] 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 COVID-19 virus detected 07/03/21 positive; asymptomatic Nausea and vomiting after administration of anesthetic agent Surgical History History of cataract surgery Bilateral H/O thyroidectomy Excision of cystic mass left neck, completion total thyroidectomy with resection of the right lobe of the thyroid and the remaining part of the isthmus 01/15/12 H/O partial thyroidectomy Left thyroid lobectomy and isthmectomy 11/10/03 S/P debridement (09/08/24) Open wound left inner thigh with slough present measuring 6.5 cm x 9.2 cm x 3.2 cm total size 59.80 cm History of total hysterectomy with bilateral salpingo-oophorectomy (BSO) History of tooth extraction S/P tonsillectomy and adenoidectomy S/P thyroid surgery x2--d/t goiter S/P cholecystectomy S/P arthroscopy of knee left Family History Sister Colorectal cancer Mother , in her 80s Diabetes Stroke Asthma Father , in his 80s Myocardial infarction Brother Hypertension Asthma COPD (chronic obstructive pulmonary disease) Sister Asthma Endometrial cancer Brother Stroke Sister Medical history unknown Sister No problems noted. Daughter No problems noted. Son No problems noted. Other Cardiac disorder Hypothyroidism No family history of adverse response to anesthesia Denies family history of Ovarian cancer Prostate cancer Breast cancer Social History Smoking Status: Never smoker Second Hand Exposure: No; Do You Dip or Chew Tobacco: No; Hx Alcohol Use: No Hx Substance Use: No Preferred Language: Syriac Communication Ability: Effective Visual Impairment: No Limitations Hearing Ability: Normal Binder Lockstitch Required: No Beliefs That Will Affect Care: None marital status: Single Current Living Situation: Alone Current Living Situation Comment: lives with daughter current occupational status: retired How many Children do You have: 2 Feels Safe at Home: No Is there a partner from a previous relationship who is making you feel unsafe now?: No Childhood Exposure to Second-Hand Smoke: Yes Diet: regular caffeine: Yes during the past year weight has: decreased > 10 lbs Dental Care, Regularly: Yes Physical Activity Frequency: 1-2 Times per Week Seatbelt Use: always Sunscreen Use: Yes Do you think of yourself as: straight/heterosexual Sexual Activity: has been sexually active, but not for at least 12 months Gender Identity: Female Assistive Devices: None Allergies Allergies Allergy/AdvReac Type Severity Reaction Status Date / Time nickel Allergy Mild Rash Verified 05/09/25 23:35 tolterodine AdvReac Intermediate plaque Verified 05/09/25 23:35 psoriasis Home Meds Home Medications Medication Instructions Recorded Confirmed multivitamin 1 tab PO DAILY 08/12/23 05/09/25 mv-mn-folic 200 mcg-vit K 15 1 cap PO BID 09/04/24 05/09/25 mcg-lutein 5 mg-zeaxanthin 1 mg capsule (PreserVision AREDS 2 Plus Multivit) calcium 600 mg (as 1 tab PO DAILY 10/14/24 05/09/25 carbonate)-vitamin D3 10 mcg (400 unit) tablet (Calcium with Vitamin D) cholecalciferol (vitamin D3) 25 25 mcg PO DAILY 10/14/24 05/09/25 mcg (1,000 unit) capsule hydroxyzine HCl 25 mg tablet 25 mg PO TID PRN Anxiety 10/14/24 05/09/25 omeprazole 20 mg capsule,delayed 20 mg PO DAILY Acid Reflux 10/14/24 05/09/25 release diphenoxylate-atropine 2.5 1 tab PO QID PRN Diarrhea 12/28/24 05/09/25 mg-0.025 mg tablet levothyroxine 200 mcg capsule 200 mcg PO QAM 12/28/24 05/09/25 levothyroxine 25 mcg capsule 25 mcg PO DAILY 12/28/24 05/09/25 acetaminophen 325 mg tablet 650 mg PO Q4H PRN PAIN/FEVER 01/29/25 05/09/25 loperamide 2 mg capsule 2 mg PO Q1H PRN Diarrhea 05/09/25 05/09/25 nystatin 100,000 unit/gram topical 1 applic topical BID PRN SKIN 05/09/25 05/09/25 powder FOLDS NEEDED Previous Rx's Medication Instructions Recorded folic acid 1 mg tablet 1 mg PO QAM #30 tabs 04/26/25 loratadine 10 mg tablet 10 mg PO DAILY PRN Allergies #0 04/26/25 tabs rivaroxaban 20 mg tablet (Xarelto) 20 mg PO PM #30 tabs 04/26/25 Results & Data (ED) Vital Signs Vital Signs - 24 hr 05/09/25 22:45 05/09/25 22:45 05/09/25 22:45 Temperature 36.5 C Temperature Source Oral Pulse Rate 82 Pulse Rate [Right Finger] 87 79 Pulse Rhythm Pulse Rhythm [Right Finger] Regular Respiratory Rate 18 18 18 Respiratory Effort / Characteristics Non-Labored Non-Labored Non-Labored Respiratory Depth Normal Normal Normal Respiratory Pattern Regular Blood Pressure 117/66 Blood Pressure [Right Arm] 117/66 117/66 Blood Pressure Mean 83 Blood Pressure Mean [Right Arm] 83 83 Pulse Oximetry 100 100 100 Oxygen Delivery Method Room Air Room Air Room Air Oxygen Flow Rate Sepsis Recent Fever Within 48 Hours No Sepsis New/Unexplained Change in Mental Status No Sepsis Action Taken by Nursing No Action Required 05/09/25 22:49 05/09/25 23:02 05/09/25 23:02 Temperature Temperature Source Pulse Rate 85 85 Pulse Rate [Right Finger] 81 Pulse Rhythm Regular Pulse Rhythm [Right Finger] Regular Respiratory Rate 18 18 Respiratory Effort / Characteristics Non-Labored Respiratory Depth Normal Respiratory Pattern Blood Pressure Blood Pressure [Right Arm] 103/60 Blood Pressure Mean Blood Pressure Mean [Right Arm] 74 Pulse Oximetry 100 100 Oxygen Delivery Method Room Air Room Air Oxygen Flow Rate Sepsis Recent Fever Within 48 Hours Sepsis New/Unexplained Change in Mental Status Sepsis Action Taken by Nursing 05/09/25 23:15 05/09/25 23:30 05/10/25 00:06 Temperature Temperature Source Pulse Rate Pulse Rate [Right Finger] 80 90 87 Pulse Rhythm Pulse Rhythm [Right Finger] Regular Regular Regular Respiratory Rate 18 16 18 Respiratory Effort / Characteristics Non-Labored Non-Labored Non-Labored Respiratory Depth Normal Normal Normal Respiratory Pattern Blood Pressure Blood Pressure [Right Arm] 136/77 125/71 139/99 Blood Pressure Mean Blood Pressure Mean [Right Arm] 96 89 112 Pulse Oximetry 99 98 100 Oxygen Delivery Method Room Air Room Air Room Air Oxygen Flow Rate Sepsis Recent Fever Within 48 Hours Sepsis New/Unexplained Change in Mental Status Sepsis Action Taken by Nursing 05/10/25 00:45 Temperature Temperature Source Pulse Rate Pulse Rate [Right Finger] 76 Pulse Rhythm Pulse Rhythm [Right Finger] Regular Respiratory Rate 18 Respiratory Effort / Characteristics Respiratory Depth Normal Respiratory Pattern Blood Pressure Blood Pressure [Right Arm] 102/72 Blood Pressure Mean Blood Pressure Mean [Right Arm] 82 Pulse Oximetry 99 Oxygen Delivery Method Nasal Cannula Oxygen Flow Rate 2 Sepsis Recent Fever Within 48 Hours Sepsis New/Unexplained Change in Mental Status Sepsis Action Taken by [facility] Medications Current Medication List: was personally reviewed by me Laboratory Data Attestation: I reviewed the patient's lab results. 05/10/25 00:10 05/10/25 00:10 Lab Results 05/10/25 Range/Units 00:10 WBC 3.92 L (4.8-10.8) K/ul RBC 2.30 L (4.20-5.40) M/uL Hgb 7.5 L (12.0-16.0) g/dL Hct 22.9 L (37.0-47.0) % MCV 99.6 (80.0-100.0) fL MCH 32.6 (25.0-34.0) pg MCHC 32.8 (32.0-36.0) g/dL RDW Std Deviation 70.5 H (36.4-46.3) fL RDW Coeff of Melida 19.5 H (11.5-14.5) % Plt Count 304 (130-400) K/uL MPV 9.9 (9.4-12.4) fL Immature Gran % (Auto) 0.5 % Neut % (Auto) 57.3 % Lymph % (Auto) 13.8 % Greer % (Auto) 10.5 % Eos % (Auto) 17.1 % Baso % (Auto) 0.8 % Neut # (Auto) 2.25 (1.40-6.50) K/uL Lymph # (Auto) 0.54 L (1.20-3.40) K/uL Greer # (Auto) 0.41 (0.11-0.59) K/uL Eos # (Auto) 0.67 H (0.00-0.50) K/uL Baso # (Auto) 0.03 (0.00-0.20) K/uL Immature Gran # (Auto) 0.02 (0.01-0.20) K/uL Anisocytosis Present PT 11.9 (9.0-12.0) Seconds INR 1.1 (0.9-1.1) APTT 20 L (21-31) Seconds PTT Ratio 0.7 VBG pH 7.46 H (7.36-7.41) VBG pCO2 25 L (38-50) mmHg VBG pO2 43 mmHg VBG HCO3 18 mmol/L VBG O2 Saturation 69.3 % VBG Base Excess -4.3 mEq/L Sodium 148 H (136-145) mmol/L Potassium 3.5 (3.5-5.1) mmol/L Chloride 114 H (98-107) mmol/L Carbon Dioxide 20 L (21-32) mmol/L Anion Gap 14 H (3-11) BUN 21 (6-23) mg/dl Creatinine 1.30 H (0.6-1.2) mg/dl Est Cr Clr Drug Dosing 48.2 ml/min eGFR 43.15 BUN/Creatinine Ratio 16.2 (10-20) Glucose 64 L (70-99(Fasting)) mg/dl Lactate 1.3 (0.4-2.0) mmol/L Calcium 7.8 L (8.6-10.3) mg/dl Magnesium 1.4 L (1.7-2.4) mg/dl Total Bilirubin 1.0 (0.2-1.0) mg/dl Direct Bilirubin 0.3 H (0-0.2) mg/dl AST 14 (13-39) U/L ALT 9 (7-52) U/L Alkaline Phosphatase 48 (34-104) U/L Total Creatine Kinase 42 (26-192) U/L Troponin I High Sens 18.9 H (0-14) pg/ml Total Protein 5.3 L (6.0-8.3) gm/dl Albumin 2.4 L (3.4-5.0) gm/dl Procalcitonin 0.07 (0-0.5) ng/ml Administered Medications Discontinued Medications Sodium Chloride (Nss) 1,000 mls @ 999 mls/hr IV .Q1H1M ONE Stop: 05/09/25 23:48 Last Admin: 05/09/25 23:29 Dose: 999 mls/hr Documented By: ASHLEY Imaging Data Attestation: I personally reviewed and interpreted this imaging study as follows: My Impression: 1 view chest x-ray was obtained in the emergency department. My interpretation is no free air or definite infiltrate, final report below. Radiologist's Impression: Cervical Spine CT 05/09/25 22:48 Exam(s): CT C SPINE EXAM: CT Cervical Spine Without Intravenous Contrast CLINICAL HISTORY: fall. per ems, pt fell 3 days ago, -LOC, -head strike, +BT. pt states she felt too weak to get up. pt states she feels dizzy, lightheaded weak, n/v. pt currently throwing up attm. pt denies cp, sob, abdominal pain, arm hip or leg pain. pt has an abrasion on L buttox. pt has hx of cancer but not sure which, pt has hx of blood clots TECHNIQUE: Axial computed tomography images of the cervical spine without intravenous contrast. CTDI is 25.24 mGy and DLP is 407.25 mGy-cm. Automated exposure control was utilized for the study. A dose lowering technique was utilized adhering to the principles of ALARA. COMPARISON: 09/27/2011. FINDINGS: Vertebrae: No acute fracture. Maintenance of height of the vertebral bodies. Unchanged 1.6 mm anterior subluxation of C3 on C4 of the base of the degenerative facet changes. Discs/spinal canal/neural foramina: Multilevel degenerative changes, greatest at C5-6 and C6-7. Soft tissues: Prevertebral soft tissues are unremarkable. IMPRESSION: No acute post-traumatic abnormality. Multilevel degenerative changes. Electronically signed by: Mukul Grace M.D. 05/10/25 00:23 AM Chest X-Ray 05/09/25 22:48 Exam(s): XR CXR 1 VIEW EXAM: XR Chest, 1 View CLINICAL HISTORY: Sepsis. TECHNIQUE: Frontal view of the chest. COMPARISON: 04/19/2025. FINDINGS: Lungs: Unchanged interstitial changes of the right lung base suggesting scarring versus atelectasis. No CHF. Pleural space: No pleural effusion. No pneumothorax. Heart: Unremarkable. No cardiomegaly. Mediastinum: Unremarkable. Normal mediastinal contour. Bones/joints: Unremarkable. No acute fracture. IMPRESSION: No acute abnormality. Electronically signed by: Mukul Grace M.D. 05/10/25 01:[address] 05/09/25 22:48 Exam(s): CT HEAD Without Contrast EXAM: CT Head Without Intravenous Contrast CLINICAL HISTORY: fall. OTHER: Other Notes: per ems, pt fell 3 days ago, -LOC, -head strike, +BT. pt states she felt too weak to get up. pt states she feels dizzy, lightheaded weak, n/v. pt currently throwing up attm. pt denies cp, sob, abdominal pain, arm hip or leg pain. pt has an abrasion on L buttox. pt has hx of cancer but not sure which, pt has hx of blood clots TECHNIQUE: Axial computed tomography images of the head/brain without intravenous contrast. CTDI is 46.15 mGy and DLP is 699.34 mGy-cm. Automated exposure control was utilized for the study. A dose lowering technique was utilized adhering to the principles of ALARA. COMPARISON: 01/29/2025. FINDINGS: Study is limited by patient motion. Brain: Age-appropriate generalized atrophy. No acute stroke. Mild supratentorial periventricular and subcortical white matter changes. No acute hemorrhage or abnormal extra-axial fluid collection. Ventricles: No hydrocephalus. No midline shift. Bones/joints: Unremarkable. No acute fracture. Soft tissues: Unremarkable. Sinuses: Unremarkable as visualized. No acute sinusitis. IMPRESSION: No acute post-traumatic intracranial abnormality. Electronically signed by: Mukul Grace M.D. 05/10/25 00:12 AM Hip/Pelvis X-Ray 05/09/25 22:48 Exam(s): XR HIP + PELVIS, 2-3 views EXAM: XR Right Hip With Pelvis, 3 Views CLINICAL HISTORY: fall. TECHNIQUE: Three views of the right hip with pelvis. COMPARISON: No relevant prior studies available. FINDINGS: Bones/joints: Diffuse osteopenia. No acute fracture. No dislocation. Degenerative changes of the lower lumbar spine Soft tissues: Vascular calcifications. IMPRESSION: No acute post-traumatic abnormality. Electronically signed by: Mukul Grace M.D. 05/10/25 01:01 AM Knee X-Ray 05/09/25 22:48 Exam(s): XR RIGHT KNEE, 1-2 views EXAM: XR Right Knee, 2 Views CLINICAL HISTORY: fall. TECHNIQUE: Frontal and/or lateral views of the right knee. COMPARISON: No relevant prior studies available. FINDINGS: Diffuse soft tissue swelling. Lateral joint space narrowing with marginal osteophytes. No acute fracture. Bone mineralization is within normal limits. Suprapatellar joint fluid. IMPRESSION: No acute fracture. Suprapatellar joint effusion. Lateral joint space degenerative changes. Electronically signed by: Mukul Grace M.D. 05/10/25 00:54 AM Discharge Plan Visit Data Chief Complaint: Fall Stated Complaint: FELL OUT OF BED ON . ON FLOOR SINCE ED Provider: Damien Kessler Discharge Problem: Fall, Acute dehydration, Hypomagnesemia, Elevated troponin I level Patient Disposition: Being Evaluated by Hospitalist Condition: Fair Forms Stand Alone Forms: My [facility] [employer] Prescriptions Prescriptions: No Action PreserVision AREDS 2 Plus MV 200 mcg-15 mcg- 5 mg-1 mg capsule 1 cap PO BID Patient Comments: 12/28- otc unable to verify omeprazole 20 mg capsule,delayed release(DR/EC) 20 mg PO DAILY Patient Comments: 12/28- OTC/ no fill history unable to verify cholecalciferol (vitamin D3) 25 mcg (1,000 unit) capsule 25 mcg PO DAILY Patient Comments: 12/28- otc unable to verify hydroxyzine HCl 25 mg tablet 25 mg PO TID PRN (Reason: Anxiety) Hold Instructions: Resume on 01/11/25. held because of interaction with fluconazole Patient Comments: 12/28- no fill history unable to verify calcium carbonate-vitamin D3 [Calcium with Vitamin D] 600 mg-10 mcg (400 unit) tablet 1 tab PO DAILY Patient Comments: 12/28- otc unable to verify multivitamin Tablet 1 tab PO DAILY Patient Comments: 12/28- otc unable to verify diphenoxylate-atropine 2.5-0.025 mg tablet 1 tab PO QID PRN (Reason: Diarrhea) Hold Instructions: Resume on 01/11/25. levothyroxine 25 mcg capsule 25 mcg PO DAILY Rx Instructions: TOTAL DOSE 225 MCG--TAKES WITH 200 MCG TAB. levothyroxine 200 mcg capsule 200 mcg PO QAM Patient Comments: 12/28-Last filled 08/21/24 90 day supply Rx Instructions: TOTAL DOSE 225 MCG--TAKES WITH 25 MCG TAB. acetaminophen 325 mg tablet 650 mg PO Q4H PRN (Reason: PAIN/FEVER) folic acid 1 mg Tablet 1 mg PO QAM Qty: 30 0RF Xarelto 20 mg tablet 20 mg PO PM Qty: 30 0RF Rx Instructions: PER PT "DAUGHTER NEVER PICKED UP FROM PHARMACY, DIDN'T START AT HOME". must administer with evening meal loratadine 10 mg tablet 10 mg PO DAILY PRN (Reason: Allergies) Qty: 0 0RF Patient Comments: 12/28- otc unable to verify loperamide 2 mg capsule 2 mg PO Q1H PRN (Reason: Diarrhea) nystatin 100,000 unit/gram powder 1 applic topical BID PRN (Reason: SKIN FOLDS NEEDED) Referrals Referrals: PCP,NO [Primary Care Provider] -
[2025-05-09] MEDS: SODIUM CHLORIDE 0.9% 1,000 ML IV ONE (23:29)
--- NOTE | 2025-05-10 00:14 | CT Scan Report ---
Exam(s): CT HEAD Without Contrast EXAM: CT Head Without Intravenous Contrast CLINICAL HISTORY: fall. OTHER: Other Notes: per ems, pt fell 3 days ago, -LOC, -head strike, +BT. pt states she felt too weak to get up. pt states she feels dizzy, lightheaded weak, n/v. pt currently throwing up attm. pt denies cp, sob, abdominal pain, arm hip or leg pain. pt has an abrasion on L buttox. pt has hx of cancer but not sure which, pt has hx of blood clots TECHNIQUE: Axial computed tomography images of the head/brain without intravenous contrast. CTDI is 46.15 mGy and DLP is 699.34 mGy-cm. Automated exposure control was utilized for the study. A dose lowering technique was utilized adhering to the principles of ALARA. COMPARISON: 01/29/2025. FINDINGS: Study is limited by patient motion. Brain: Age-appropriate generalized atrophy. No acute stroke. Mild supratentorial periventricular and subcortical white matter changes. No acute hemorrhage or abnormal extra-axial fluid collection. Ventricles: No hydrocephalus. No midline shift. Bones/joints: Unremarkable. No acute fracture. Soft tissues: Unremarkable. Sinuses: Unremarkable as visualized. No acute sinusitis. IMPRESSION: No acute post-traumatic intracranial abnormality. Electronically signed by: Mukul Grace M.D. 05/10/25 00:12 AM
--- NOTE | 2025-05-10 00:24 | CT Scan Report ---
Exam(s): CT C SPINE EXAM: CT Cervical Spine Without Intravenous Contrast CLINICAL HISTORY: fall. per ems, pt fell 3 days ago, -LOC, -head strike, +BT. pt states she felt too weak to get up. pt states she feels dizzy, lightheaded weak, n/v. pt currently throwing up attm. pt denies cp, sob, abdominal pain, arm hip or leg pain. pt has an abrasion on L buttox. pt has hx of cancer but not sure which, pt has hx of blood clots TECHNIQUE: Axial computed tomography images of the cervical spine without intravenous contrast. CTDI is 25.24 mGy and DLP is 407.25 mGy-cm. Automated exposure control was utilized for the study. A dose lowering technique was utilized adhering to the principles of ALARA. COMPARISON: 09/27/2011. FINDINGS: Vertebrae: No acute fracture. Maintenance of height of the vertebral bodies. Unchanged 1.6 mm anterior subluxation of C3 on C4 of the base of the degenerative facet changes. Discs/spinal canal/neural foramina: Multilevel degenerative changes, greatest at C5-6 and C6-7. Soft tissues: Prevertebral soft tissues are unremarkable. IMPRESSION: No acute post-traumatic abnormality. Multilevel degenerative changes. Electronically signed by: Mukul Grace M.D. 05/10/25 00:23 AM
[2025-05-10 00:29] LABS: Base Excess VBG -4.3 mEq/L; HCO3 VBG 18 mmol/L; Oxygen Saturation VBG 69.3 %; PCO2 VBG 25 mmHg (38-50); PO2 VBG 43 mmHg; pH VBG 7.46 (7.36-7.41)
[2025-05-10 00:34] LABS: Hematocrit (blood only) 22.9 % (37.0-47.0); Hemoglobin 7.5 g/dL (12.0-16.0); Immature Granulocytes # (auto) 0.02 K/uL (0.01-0.20); Immature Granulocytes % (auto) 0.5 %; Mean Corpuscular Hemoglobin 32.6 pg (25.0-34.0); Mean Corpuscular Volume 99.6 fL (80.0-100.0); Platelet Count 304 K/uL (130-400); RDW Standard Deviation 70.5 fL (36.4-46.3); Red Blood Count 2.30 M/uL (4.20-5.40); White Blood Count 3.92 K/ul (4.8-10.8)
[2025-05-10 00:52] LABS: Anisocytosis Present
[2025-05-10 00:53] LABS: Alanine Aminotransferase 9.0 U/L (7-52); Albumin Level 2.4 gm/dl (3.4-5.0); Alkaline Phosphatase 48.0 U/L (34-104); Anion Gap 14.0 (3-11); Bilirubin,Total 1.0 mg/dl (0.2-1.0); Blood Urea Nitrogen 21.0 mg/dl (6-23); Calcium 7.8 mg/dl (8.6-10.3); Carbon Dioxide 20.0 mmol/L (21-32); Chloride 114.0 mmol/L (98-107); Creatine Kinase 42.0 U/L (26-192); Creatinine Clr Calc Pharmacy 48.2 ml/min; Glucose 64.0 mg/dl (70-99(Fasting)); Magnesium 1.4 mg/dl (1.7-2.4); Potassium 3.5 mmol/L (3.5-5.1); Sodium 148.0 mmol/L (136-145); Total Protein 5.3 gm/dl (6.0-8.3)
--- NOTE | 2025-05-10 00:54 | XRay Report ---
Exam(s): XR RIGHT KNEE, 1-2 views EXAM: XR Right Knee, 2 Views CLINICAL HISTORY: fall. TECHNIQUE: Frontal and/or lateral views of the right knee. COMPARISON: No relevant prior studies available. FINDINGS: Diffuse soft tissue swelling. Lateral joint space narrowing with marginal osteophytes. No acute fracture. Bone mineralization is within normal limits. Suprapatellar joint fluid. IMPRESSION: No acute fracture. Suprapatellar joint effusion. Lateral joint space degenerative changes. Electronically signed by: Mukul Grace M.D. 05/10/25 00:54 AM
--- NOTE | 2025-05-10 01:02 | XRay Report ---
Exam(s): XR HIP + PELVIS, 2-3 views EXAM: XR Right Hip With Pelvis, 3 Views CLINICAL HISTORY: fall. TECHNIQUE: Three views of the right hip with pelvis. COMPARISON: No relevant prior studies available. FINDINGS: Bones/joints: Diffuse osteopenia. No acute fracture. No dislocation. Degenerative changes of the lower lumbar spine Soft tissues: Vascular calcifications. IMPRESSION: No acute post-traumatic abnormality. Electronically signed by: Mukul Grace M.D. 05/10/25 01:01 AM
[2025-05-10 01:03] LABS: INR 1.1 (0.9-1.1); Partial Thromboplastin Time 20 Seconds (21-31); Prothrombin Time 11.9 Seconds (9.0-12.0)
--- NOTE | 2025-05-10 01:03 | XRay Report ---
Exam(s): XR CXR 1 VIEW EXAM: XR Chest, 1 View CLINICAL HISTORY: Sepsis. TECHNIQUE: Frontal view of the chest. COMPARISON: 04/19/2025. FINDINGS: Lungs: Unchanged interstitial changes of the right lung base suggesting scarring versus atelectasis. No CHF. Pleural space: No pleural effusion. No pneumothorax. Heart: Unremarkable. No cardiomegaly. Mediastinum: Unremarkable. Normal mediastinal contour. Bones/joints: Unremarkable. No acute fracture. IMPRESSION: No acute abnormality. Electronically signed by: Mukul Grace M.D. 05/10/25 01:02 AM
--- NOTE | 2025-05-10 01:35 | History & Physical Report ---
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 Her workup reveals around baseline CBC with slightly worsening anemia. VBGs significant for respiratory alkalosis. Some electrolyte discrepancies (Na 148, AG 14, Cr 1.3, bili 0.3, Mg 1.4, Ca 7.8), but lactate, procal, and CK WNL. No acute findings on imaging. Admission for rehydration and ambulatory dysfunction. #Fall/Dehydration/Ambulatory dysfunction D/c from hospital, went to rehab and when d/c home still weak; was trying to get into bed, unable to and fell to ground. Laid on ground x 3 days, grandson found her. Denies symptoms prior to fall, was just too weak too get back up. [place] dizzy the longer she laid on the floor. Dehydrated on admission, x 3 days no food or water. Did not take medications for that duration as well. - CBC H/H 7.5/22.9 (denies active bleeding); VBG pH 7.46, pCO2 25 (h/o asthma, some anxiety surrounding event); CMP (see below) - CXR, C spine CT, head CT, hip/pelvis XR WNL - R knee XR no fracture, suprapatellar joint effusion - Venous doppler RLE pending -- reports never starting Xarelto at home from time last d/c -- restarted for evening of 05/10 LONG H/H STABLE/no bleed - Fall precautions - PT/OT consulted - appreciate assistance #Hypomagnesemia/Hypernatremia/Hypocalcemia Prior history of hypomagnesemia; Ca falsely low 2/2 hypoalbuminemia; Na likely related to dehydration. - Na 148 - IVF LR @ 80 mL/hr - BMP am - Ca 7.8 (albumin 2.4; corrected 9.1) - trend - Mg 1.4 - Mag sulfate 1g IV given in ED -- Provide additional 3g IV - Mg am #Elevated troponin No chest pain, palpitations, or SOB. - Trop 18.9, pending repeat - EKG NSR, low voltage, prolonged QT - Likely 2/2 demand #Anemia- H/H 7.5/22.9, slight decrease from baseline, ? 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 Please excuse any grammatical errors that may be secondary to use of this software. 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 Most recent hospital admission 04/20/2025 until 04/26/2025 for cellulitis of the groin. Pt reports that she was d/c from the hospital and rehab following most recent admission. When being d/c home from rehab, she still felt some weakness and notes having difficulty getting in and out of her bed by herself. She was requiring assistance from a family member to get her legs into the bed. However, when she was left alone at home she had gotten out of bed to use the restroom. She came back to her bed, and was unsuccessful in getting her legs back into the bed, causing her to slip and fall to the ground. She reports that she was too weak to get herself up after this and her phone was not nearby, so she laid on the ground for 3 days. Her grandson found her the day of arrival, and called for assistance. Pt reports that overall, she is fatigued and is slightly sore, but no additional concerns. She denies CP, SOB, palpitations, abdominal pain, N/V/D/C, numbness/tingling, URI symptoms, LUTS, or LOC. She has not taken her medications for 3 days. ED evaluation reveals CBC leukopenia 3.92, H/H 7.5/22.9; PT/INR WNL, aPTT 20; VBG pH 7.46, pCO2 25; Na 148, Cl 114, CO2 20, AG 14, Cr 1.30, glucose 64, protein 5.3, albumin 2.4; direct bilirubin 0.3; Mg 1.4; Ca 7.8; trop 18.9, pending repeat; procal 0.07; CK 42; lactate 1.3; cortisol pending; C spine CT no acute changes, with multilevel degenerative changes; CXR no acute findings; head CT no acute findings; hip/pelvis XR no acute findings; R knee XR no fx, with suprapatellar joint effusion; blood cultures pending; EKG NSR, low voltage QRS, prolonged QT @ 82 bpm.; Provided with 1L NSS, mag sulfate IV, and Ceftriaxone 2g IV in ED. Please see Dr. Morgan attestation for adjustments/additions to treatment plan. Allergies Allergy/AdvReac Type Severity Reaction Status Date / Time nickel Allergy Mild Rash Verified 05/09/25 23:35 lactose AdvReac Intermediate Diarrhea Verified 05/10/25 15:10 tolterodine AdvReac Intermediate plaque Verified 05/09/25 23:35 psoriasis Home Medications Medication Instructions Recorded Confirmed Type multivitamin 1 tab PO DAILY 08/12/23 05/09/25 History mv-mn-folic 200 mcg-vit K 15 1 cap PO BID 09/04/24 05/09/25 History mcg-lutein 5 mg-zeaxanthin 1 mg capsule (PreserVision AREDS 2 Plus Multivit) calcium 600 mg (as 1 tab PO DAILY 10/14/24 05/09/25 History carbonate)-vitamin D3 10 mcg (400 unit) tablet (Calcium with Vitamin D) cholecalciferol (vitamin D3) 25 25 mcg PO DAILY 10/14/24 05/09/25 History mcg (1,000 unit) capsule hydroxyzine HCl 25 mg tablet 25 mg PO TID PRN Anxiety 10/14/24 05/09/25 History omeprazole 20 mg capsule,delayed 20 mg PO DAILY Acid Reflux 10/14/24 05/09/25 History release diphenoxylate-atropine 2.5 1 tab PO QID PRN Diarrhea 07/07/25 11/16/25 History mg-0.025 mg tablet levothyroxine 200 mcg capsule 200 mcg PO QAM 12/28/24 05/09/25 History levothyroxine 25 mcg capsule 25 mcg PO DAILY 12/28/24 05/09/25 History acetaminophen 325 mg tablet 650 mg PO Q4H PRN PAIN/FEVER 01/29/25 05/09/25 History folic acid 1 mg tablet 1 mg PO QAM #30 tabs 04/26/25 05/09/25 Rx loratadine 10 mg tablet 10 mg PO DAILY PRN Allergies #0 04/26/25 05/09/25 Rx tabs rivaroxaban 20 mg tablet (Xarelto) 20 mg PO PM #30 tabs 04/26/25 05/09/25 Rx loperamide 2 mg capsule 2 mg PO Q1H PRN Diarrhea 05/09/25 05/09/25 History nystatin 100,000 unit/gram topical 1 applic topical BID PRN SKIN 05/09/25 05/09/25 History powder FOLDS NEEDED Past Med/Surg History Problem List (Updated 05/10/25 @ 03:33 by Mago Dutton PA-C) Hypernatremia Elevated troponin I level (Acute) Hypomagnesemia (Acute) Acute dehydration (Acute) Fall (Acute) Non compliance w medication regimen Gastrointestinal bleed Acute blood loss anemia Groin swelling Nausea vomiting and diarrhea Elevated lactic acid level (Acute) Acute hypokalemia (Acute) Hypomagnesemia (Acute) Abdominal pain (Acute) DVT (deep venous thrombosis) Neutropenia associated with infection Leukopenia (Acute) Hypomagnesemia (Acute) Anemia (Acute) Wound discharge 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 COVID-19 virus detected 07/03/21 positive; asymptomatic Nausea and vomiting after administration of anesthetic agent Surgical History History of cataract surgery Bilateral H/O thyroidectomy Excision of cystic mass left neck, completion total thyroidectomy with resection of the right lobe of the thyroid and the remaining part of the isthmus 01/15/12 H/O partial thyroidectomy Left thyroid lobectomy and isthmectomy 11/10/03 S/P debridement (09/08/24) Open wound left inner thigh with slough present measuring 6.5 cm x 9.2 cm x 3.2 cm total size 59.80 cm History of total hysterectomy with bilateral salpingo-oophorectomy (BSO) History of tooth extraction S/P tonsillectomy and adenoidectomy S/P thyroid surgery x2--d/t goiter S/P cholecystectomy S/P arthroscopy of knee left Family History Sister Colorectal cancer Mother , in her 80s Diabetes Stroke Asthma Father , in his 80s Myocardial infarction Brother Hypertension Asthma COPD (chronic obstructive pulmonary disease) Sister Asthma Endometrial cancer Brother Stroke Sister Medical history unknown Sister No problems noted. Daughter No problems noted. Son No problems noted. 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 Beliefs That Will Affect Care: None marital status: Single Current Living Situation: Alone Current Living Situation Comment: lives with daughter current occupational status: retired How many Children do You have: 2 Other Information That Helps Us Care for You: No Feels Safe at Home: Yes Safety Concerns: Feels Safe At This Time Childhood Exposure to Second-Hand Smoke: Yes Diet: regular caffeine: Yes during the past year weight has: decreased > 10 lbs Dental Care, Regularly: Yes Physical Activity Frequency: 1-2 Times per Week Seatbelt Use: always Sunscreen Use: Yes Do you think of yourself as: straight/heterosexual Sexual Activity: has been sexually active, but not for at least 12 months Gender Identity: Female Assistive Devices: Glasses and Walker Review of Systems Review of Systems: All systems reviewed & are unremarkable except as noted in Subjective Physical Exam Physical Exam: General: No acute distress Skin: Warm and dry; Chronic dry skin changes Head: Normocephalic, atraumatic Eyes: PERRL, conjunctivae clear, sclera non-icteric ENT: External ear and ear canal without swelling; nose atraumatic; fair dentition, tongue normal appearance, pharynx normal Neck: IV access R neck; Supple, no LAD Cardio: RRR, no M/G/R, S1 and S2 normal Resp: No respiratory distress, Lungs CTA in all lobes bilaterally, no wheezes, rales, or rhonchi Abdomen: Soft, symmetric, nontender; No masses or hepatosplenomegaly MSK: No deformities; pulses palpable and equal; LLE erythematous and slight tightness/edema at calf; no other edema. Neuro: Awake, alert; Sensation intact bilaterally; CN grossly intact Psych: Appropriate mood and affect; good judgement and insight. Results & Data Results & Data Vital Signs (Past 12 Hours) Vital Signs Temp Pulse Pulse Resp BP BP Pulse Ox 05/10/25 00:45 76 18 102/72 99 05/10/25 00:06 87 18 139/99 100 05/09/25 23:30 90 16 125/71 98 05/09/25 23:15 80 18 136/77 99 05/09/25 23:02 81 18 103/60 100 05/09/25 23:02 85 18 100 05/09/25 22:49 85 05/09/25 22:45 79 18 117/66 100 05/09/25 22:45 87 18 117/66 100 05/09/25 22:45 36.5 C 82 18 117/66 100 O2 Del Method O2 Flow Rate 05/10/25 00:45 Nasal Cannula 2 05/10/25 00:06 Room Air 05/09/25 23:30 Room Air 05/09/25 23:15 Room Air 05/09/25 23:02 Room Air 05/09/25 23:02 Room Air 05/09/25 22:49 05/09/25 22:45 Room Air 05/09/25 22:45 Room Air 05/09/25 22:45 Room Air Laboratory Results 05/10/25 01:17 Aerobic Blood Culture - Pending Blood Anaerobic Blood Culture - Pending 05/10/25 00:10 Aerobic Blood Culture - Pending Blood Anaerobic Blood Culture - Pending 05/10/25 00:10 WBC 3.92 L RBC 2.30 L Hgb 7.5 L Hct 22.9 L MCV 99.6 MCH 32.6 MCHC 32.8 RDW Std Deviation 70.5 H RDW Coeff of [place] 19.5 H Plt Count 304 MPV 9.9 Immature Gran % (Auto) 0.5 Neut % (Auto) 57.3 Lymph % (Auto) 13.8 [place] % (Auto) 10.5 Eos % (Auto) 17.1 Baso % (Auto) 0.8 Neut # (Auto) 2.25 Lymph # (Auto) 0.54 L [place] # (Auto) 0.41 Eos # (Auto) 0.67 H Baso # (Auto) 0.03 Immature Gran # (Auto) 0.02 Anisocytosis Present PT 11.9 INR 1.1 APTT 20 L PTT Ratio 0.7 VBG pH 7.46 H VBG pCO2 25 L VBG pO2 43 VBG HCO3 18 VBG O2 Saturation 69.3 VBG Base Excess -4.3 Sodium 148 H Potassium 3.5 Chloride 114 H Carbon Dioxide 20 L Anion Gap 14 H BUN 21 Creatinine 1.30 H Est Cr Clr Drug Dosing 48.2 eGFR 43.15 BUN/Creatinine Ratio 16.2 Glucose 64 L Lactate 1.3 Calcium 7.8 L Magnesium 1.4 L Total Bilirubin 1.0 Direct Bilirubin 0.3 H AST 14 ALT 9 Alkaline Phosphatase 48 Total Creatine Kinase 42 Troponin I High Sens 18.9 H Total Protein 5.3 L Albumin 2.4 L Procalcitonin 0.07 Diagnostic Findings Cervical Spine CT 05/09/25 22:48 Exam(s): CT C SPINE EXAM: CT Cervical Spine Without Intravenous Contrast CLINICAL HISTORY: fall. per ems, pt fell 3 days ago, -LOC, -head strike, +BT. pt states she felt too weak to get up. pt states she feels dizzy, lightheaded weak, n/v. pt currently throwing up attm. pt denies cp, sob, abdominal pain, arm hip or leg pain. pt has an abrasion on L buttox. pt has hx of cancer but not sure which, pt has hx of blood clots TECHNIQUE: Axial computed tomography images of the cervical spine without intravenous contrast. CTDI is 25.24 mGy and DLP is 407.25 mGy-cm. Automated exposure control was utilized for the study. A dose lowering technique was utilized adhering to the principles of ALARA. COMPARISON: 09/27/2011. FINDINGS: Vertebrae: No acute fracture. Maintenance of height of the vertebral bodies. Unchanged 1.6 mm anterior subluxation of C3 on C4 of the base of the degenerative facet changes. Discs/spinal canal/neural foramina: Multilevel degenerative changes, greatest at C5-6 and C6-7. Soft tissues: Prevertebral soft tissues are unremarkable. IMPRESSION: No acute post-traumatic abnormality. Multilevel degenerative changes. Electronically signed by: Mukul Grace M.D. 05/10/25 00:23 AM Chest X-Ray 05/09/25 22:48 Exam(s): XR CXR 1 VIEW EXAM: XR Chest, 1 View CLINICAL HISTORY: Sepsis. TECHNIQUE: Frontal view of the chest. COMPARISON: 04/19/2025. FINDINGS: Lungs: Unchanged interstitial changes of the right lung base suggesting scarring versus atelectasis. No CHF. Pleural space: No pleural effusion. No pneumothorax. Heart: Unremarkable. No cardiomegaly. Mediastinum: Unremarkable. Normal mediastinal contour. Bones/joints: Unremarkable. No acute fracture. IMPRESSION: No acute abnormality. Electronically signed by: Mukul Grace M.D. 05/10/25 01:[address] 05/09/25 22:48 Exam(s): CT HEAD Without Contrast EXAM: CT Head Without Intravenous Contrast CLINICAL HISTORY: fall. OTHER: Other Notes: per ems, pt fell 3 days ago, -LOC, -head strike, +BT. pt states she felt too weak to get up. pt states she feels dizzy, lightheaded weak, n/v. pt currently throwing up attm. pt denies cp, sob, abdominal pain, arm hip or leg pain. pt has an abrasion on L buttox. pt has hx of cancer but not sure which, pt has hx of blood clots TECHNIQUE: Axial computed tomography images of the head/brain without intravenous contrast. CTDI is 46.15 mGy and DLP is 699.34 mGy-cm. Automated exposure control was utilized for the study. A dose lowering technique was utilized adhering to the principles of ALARA. COMPARISON: 01/29/2025. FINDINGS: Study is limited by patient motion. Brain: Age-appropriate generalized atrophy. No acute stroke. Mild supratentorial periventricular and subcortical white matter changes. No acute hemorrhage or abnormal extra-axial fluid collection. Ventricles: No hydrocephalus. No midline shift. Bones/joints: Unremarkable. No acute fracture. Soft tissues: Unremarkable. Sinuses: Unremarkable as visualized. No acute sinusitis. IMPRESSION: No acute post-traumatic intracranial abnormality. Electronically signed by: Mukul Grace M.D. 05/10/25 00:12 AM Hip/Pelvis X-Ray 05/09/25 22:48 Exam(s): XR HIP + PELVIS, 2-3 views EXAM: XR Right Hip With Pelvis, 3 Views CLINICAL HISTORY: fall. TECHNIQUE: Three views of the right hip with pelvis. COMPARISON: No relevant prior studies available. FINDINGS: Bones/joints: Diffuse osteopenia. No acute fracture. No dislocation. Degenerative changes of the lower lumbar spine Soft tissues: Vascular calcifications. IMPRESSION: No acute post-traumatic abnormality. Electronically signed by: Mukul Grace M.D. 05/10/25 01:01 AM Knee X-Ray 05/09/25 22:48 Exam(s): XR RIGHT KNEE, 1-2 views EXAM: XR Right Knee, 2 Views CLINICAL HISTORY: fall. TECHNIQUE: Frontal and/or lateral views of the right knee. COMPARISON: No relevant prior studies available. FINDINGS: Diffuse soft tissue swelling. Lateral joint space narrowing with marginal osteophytes. No acute fracture. Bone mineralization is within normal limits. Suprapatellar joint fluid. IMPRESSION: No acute fracture. Suprapatellar joint effusion. Lateral joint space degenerative changes. Electronically signed by: Mukul Grace M.D. 05/10/25 00:54 AM Medications Administered 1L NSS Mag sulfate IV Ceftriaxone 2g IV ECG Additional Comments: NSR, low voltage QRS, prolonged QT 82 bpm, LA 162, QRS 74, Qt/QTc 468/546, PRT 81/60/43 Code Status & VTE Plan Code Status Full Supervising Physician Co-Signing Physician Notes Attending addendum: I have physically seen this patient, have supervised the HOUSTON's activities, and agree with the H&P unless as otherwise noted. Assessment and Plan: The patient is a 75-year-old female with past medical history including DVT, on chronic anticoagulation with Xarelto, groin cellulitis, history of neutropenia with infection, SCC of vulva, hypothyroidism, hypertension, GERD, and vitamin D deficiency. She presents to the emergency department reporting a fall at home that occurred 3 days prior to arrival, was unable to get up and laid on the floor for 3 days until found by family. Significant laboratory abnormalities: Hemoglobin 7.5, sodium 148, glucose 64, creatinine 1.30, magnesium 1.4, calcium 7.8, and albumin 2.4. CK was normal. Patient was referred for evaluation for admission to hospitalist service Status post fall/ambulatory dysfunction- Was admitted from 04/20-04/26/2025. Was discharged to [facility]. When she was discharged to home she was still feeling weak, trying to get in the bed, and twisted around, fell to the ground, could not get up. She laid on the floor for 3 days as noted, reports feeling progressively more dizzy, weak and dehydrated. She reports not having taken any of her medications during this time as well. CT of head and C-spine were normal. X-rays of chest, hip and pelvis were all normal. X-ray right knee shows suprapatellar joint effusion. Consult PT/OT Fall precautions Electrolyte disturbances/hypomagnesemia/hyponatremia/hypocalcemia- Placed on LR at 80 mL/h, recheck BMP in the a.m. Calcium 7.8 corrects with albumin 2.4-9.1 Magnesium 1.4, given a total of 4 g of mag IV, recheck in the a.m. Hyponatremia sodium 148, fluids as above and recheck laboratories in the a.m. Elevated troponin- Troponin 18.9 with follow-up pending Likely supply/demand mismatch Remaining orders and notations as noted above PG Care Time/CCT Total # of Minutes Spent Total Time Spent with Patient: Total time spent is greater than 50% in coordination of care (as documented) at patient's floor/unit and/or counseling patient: Coding Level of Care Code 95279 INT INP/OBS CARE 3/75MIN Diagnoses Fall W19.XXXA Acute dehydration E86.0 Hypomagnesemia E83.42 Hypernatremia E87.0 Elevated troponin I level R79.89
[2025-05-10] MEDS: cefTRIAXone SODIUM 2,000 MG/50 ML BAG IV STA (01:39)
[2025-05-10] MEDS: MAGNESIUM SULFATE / D5W 1 GM/100 ML BAG IV STA (01:48)
[2025-05-10] MEDS ORDERED: NYSTATIN POWDER 15GM BTL EXT PRN (03:46)
[2025-05-10] MEDS ORDERED: POLYETHYLENE (MIRALAX) 17 GM PACK PO PRN (03:46)
[2025-05-10] MEDS ORDERED: MELATONIN 3 MG TAB PO PRN (03:46)
[2025-05-10] MEDS: MAGNESIUM SULFATE / D5W 1 GM/100 ML BAG IV SCH (04:16)
[2025-05-10] MEDS: LACTATED RINGER'S 1,000 ML IV SCH (04:16)
[2025-05-10 04:54] LABS: Hematocrit (blood only) 25.6 % (37.0-47.0); Hemoglobin 8.3 g/dL (12.0-16.0); Mean Corpuscular Hemoglobin 32.4 pg (25.0-34.0); Mean Corpuscular Volume 100.0 fL (80.0-100.0); Platelet Count 339 K/uL (130-400); RDW Standard Deviation 71.0 fL (36.4-46.3); Red Blood Count 2.56 M/uL (4.20-5.40); White Blood Count 4.22 K/ul (4.8-10.8)
[2025-05-10 04:57] LABS: Appearance Urine Cloudy (Clear); Bacteria Urine Automated 1+ (None Seen); Cast Urine Automated 0-2 /lpf (0-2); Glucose Urine UA Negative (Negative); RBC Urine Automated >20 /hpf (0-2); WBC Urine Automated >50 /hpf (0-5)
[2025-05-10 05:16] LABS: Anion Gap 13.0 (3-11); Blood Urea Nitrogen 20.0 mg/dl (6-23); Calcium 7.5 mg/dl (8.6-10.3); Carbon Dioxide 20.0 mmol/L (21-32); Chloride 113.0 mmol/L (98-107); Creatinine Clr Calc Pharmacy 49.3 ml/min; Glucose 76.0 mg/dl (70-99(Fasting)); Magnesium 1.6 mg/dl (1.7-2.4); Potassium 3.6 mmol/L (3.5-5.1); Sodium 146.0 mmol/L (136-145)
[2025-05-10] MEDS: LEVOTHYROXINE SODIUM 25 MCG TABLET PO SCH (05:44)
[2025-05-10] MEDS: LEVOTHYROXINE SODIUM 200 MCG TABLET PO SCH (05:44)
[2025-05-10] MEDS: FOLIC ACID 1 MG TAB PO SCH (09:22)
--- NOTE | 2025-05-10 11:52 | Communication Note ---
Date of Service: May 10, 2025 Patient was seen and examined but admitted the same day therefore I will not be billing for this encounter. Patient eating and drinking. No rhabdo or LAURA therefore will discontinue IV fluids and encourage oral intake. Mild erythema on left leg likely from lying on the ground but will monitor for cellulitis. Added clotrimazole to use on both legs. Monitor dysuria and urine culture - may need to use micafungin if does not resolve. PT/OT. Suspect willl need longer term placement on this occasion.
[2025-05-10] MEDS: CLOTRIMAZOLE 1% CR 15 GM TUBE EXT SCH (13:01)
[2025-05-10] MEDS: RIVAROXABAN 20 MG TAB PO SCH (21:11)
[2025-05-11 06:13] LABS: Magnesium 1.9 mg/dl (1.7-2.4)
[2025-05-11 06:28] LABS: Thyroid Stimulating Hormone 3.477 uIu/ml (0.300-4.500)
[2025-05-11] MEDS: PNEUMOCOCCAL VACCINE (PCV20) 20-VAL CONJ-DIP CRM/PF 0.5 ML SYR IM ONE (08:33)
[2025-05-11] MEDS: INFLUENZA VACC TS2025-26(65y+)/PF (IIV3) 0.5mL Syr IM ONE (08:35)
--- NOTE | 2025-05-11 09:06 | Hospitalist Progress Note ---
Date of Service May 11, 2025 Assessment & Plan (1) Fall: (2) Acute dehydration: (3) Hypomagnesemia: (4) Hypernatremia: (5) Elevated troponin I level: Plan 75-year-old female PMHx DVT on Xarelto, groin cellulitis, h/o neutropenia with infection, SCC of vulva, hypothyroidism, HTN, GERD, and vitamin D deficiency presenting for fall at home that occurred 3 days [employer], was unable to get up. Her workup reveals around baseline CBC with slightly worsening anemia. VBGs significant for respiratory alkalosis. Some electrolyte discrepancies (Na 148, AG 14, Cr 1.3, bili 0.3, Mg 1.4, Ca 7.8), but lactate, procal, and CK WNL. No acute findings on imaging. Admission for rehydration and ambulatory dysfunction. #Fall/Dehydration/Ambulatory dysfunction D/c from hospital, went to rehab and when d/c home still weak; was trying to get into bed, unable to and fell to ground. Laid on ground x 3 days, grandson found her. Denies symptoms prior to fall, was just too weak too get back up. [place] dizzy the longer she laid on the floor. Dehydrated on admission, x 3 days no food or water. Did not take medications for that duration as well. PT/OT - recommending rehab #Hypomagnesemia/Hypernatremia/hypokalemia Hypernatremia resolved with oral hydration and some IV fluids KCl 20 meq x3 today for low potassium, repeat with AM labs Addition Mg sulfate 1g IV today - will need oral supplementation on discharge #Left groin ulcer - POA Wound care seen and care instructions written #Elevated troponin Not significant elevation #Anemia- Hgb 8.3 (stable), hemorrhoidal bleed last admission, repeat with AM labs #GERD- Omeprazole - continue #Psych- Hydroxyzine prn - continue #Hypothyroidism- TSH improved from last admission but will need repeat level in 4 weeks to make sure not over treating as unclear correct dosing due to prior non compliance. 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 Asks about going home and I advised her plan is for rehab given she just failed being at home by herself and she needs a longer rehabilitation stay to build up her strength. Physical Exam Respiratory: normal respiratory effort, lungs clear to auscultation Cardiovascular: RRR, no murmur, no edema Gastrointestinal (Abdomen): normal bowel sounds, soft, nontender, no hepatosplenomegaly Results & Data Results & Data Vital Signs (Past 12 Hours) Vital Signs Temp Pulse Pulse Resp BP Pulse Ox O2 Del Method 05/11/25 07:27 36.3 C L 81 18 134/72 98 Room Air 05/11/25 05:10 75 05/11/25 02:38 36.6 C 85 18 98/61 L 97 Room Air 05/10/25 23:42 36.5 C 80 18 97/59 L 98 Room Air 05/10/25 21:41 81 PG Care Time/CCT Total # of Minutes Spent Total Time Spent with Patient: Total time spent is greater than 50% in coordination of care (as documented) at patient's floor/unit and/or counseling patient: Coding Level of Care Code 30046 SUB INP/OBS CARE 2/35MIN Diagnoses Fall W19.XXXA Acute dehydration E86.0 Hypomagnesemia E83.42 Hypernatremia E87.0 Elevated troponin I level R79.89
[2025-05-11 09:30] LABS: Anion Gap 9.0 (3-11); Blood Urea Nitrogen 17.0 mg/dl (6-23); Calcium 7.3 mg/dl (8.6-10.3); Carbon Dioxide 22.0 mmol/L (21-32); Chloride 111.0 mmol/L (98-107); Creatinine Clr Calc Pharmacy 52.6 ml/min; Glucose 92.0 mg/dl (70-99(Fasting)); Potassium 3.0 mmol/L (3.5-5.1); Sodium 142.0 mmol/L (136-145)
[2025-05-11] MEDS: MAGNESIUM SULFATE / D5W 1 GM/100 ML BAG IV ONE (11:05)
[2025-05-11] MEDS: POTASSIUM CHLORIDE CRTAB 20 MEQ TABCR PO SCH (11:05)
[2025-05-12 07:43] LABS: Hematocrit (blood only) 24.2 % (37.0-47.0); Hemoglobin 7.8 g/dL (12.0-16.0); Immature Granulocytes # (auto) 0.03 K/uL (0.01-0.20); Immature Granulocytes % (auto) 0.9 %; Mean Corpuscular Hemoglobin 31.8 pg (25.0-34.0); Mean Corpuscular Volume 98.8 fL (80.0-100.0); Platelet Count 274 K/uL (130-400); RDW Standard Deviation 66.4 fL (36.4-46.3); Red Blood Count 2.45 M/uL (4.20-5.40); White Blood Count 3.36 K/ul (4.8-10.8)
[2025-05-12 08:05] LABS: RBC Morphology Unremarkable
[2025-05-12 08:16] LABS: Alanine Aminotransferase 6.0 U/L (7-52); Albumin Globulin Ratio 0.8 (0.9-2); Albumin Level 2.2 gm/dl (3.4-5.0); Alkaline Phosphatase 43.0 U/L (34-104); Anion Gap 6.0 (3-11); Bilirubin,Total 0.4 mg/dl (0.2-1.0); Blood Urea Nitrogen 20.0 mg/dl (6-23); Calcium 7.6 mg/dl (8.6-10.3); Carbon Dioxide 24.0 mmol/L (21-32); Chloride 112.0 mmol/L (98-107); Creatinine Clr Calc Pharmacy 54.4 ml/min; Globulin 2.7 gm/dl (2.5-4.0); Glucose 86.0 mg/dl (70-99(Fasting)); Magnesium 1.9 mg/dl (1.7-2.4); Potassium 3.7 mmol/L (3.5-5.1); Sodium 142.0 mmol/L (136-145); Total Protein 4.9 gm/dl (6.0-8.3)
[2025-05-12] MEDS: NYSTATIN POWDER 15GM BTL EXT SCH (08:54)
--- NOTE | 2025-05-12 14:01 | Progress Note ---
Date of Service May 12, 2025 Assessment & Plan (1) Fall: (2) Acute dehydration: (3) Hypomagnesemia: (4) Hypernatremia: (5) Elevated troponin I level: Plan 75-year-old female PMHx DVT on Xarelto, groin cellulitis, h/o neutropenia with infection, SCC of vulva, hypothyroidism, HTN, GERD, and vitamin D deficiency presenting for fall at home that occurred 3 days [employer]NEY[employer], was unable to get up. Her workup reveals around baseline CBC with slightly worsening anemia. VBGs signifi cant for respiratory alkalosis. Some electrolyte discrepancies (Na 148, AG 14, Cr 1.3, bili 0.3, Mg 1.4, Ca 7.8), but lactate, procal, and CK WNL. No acute findings on imaging. Admission for rehydration and ambulatory dysfunction. #Fall/Dehydration/Ambulatory dysfunction D/c from hospital, went to rehab and when d/c home still weak; was trying to get into bed, unable to and fell to ground. Laid on ground x 3 days, grandson found her. Denies symptoms prior to fall, was just too weak too get back up. [place] dizzy the longer she laid on the floor. Dehydrated on admission, x 3 days no food or water. Did not take medications for that duration as well. PT/OT - recommending rehab 05/12 - patient medically stable for discharge - plan for rehab discharge - will need one more midnight stay per CM - f/u on Hgb and electrolytes in AM #Hypomagnesemia/Hypernatremia/hypokalemia Hypernatremia resolved with oral hydration and some IV fluids KCl 20 meq x3 today for low potassium, repeat with AM labs Addition Mg sulfate 1g IV today - will need oral supplementation on discharge #Left groin ulcer - POA Wound care seen and care instructions written #Elevated troponin Not significant elevation #Anemia- Hgb 8.3 (stable), hemorrhoidal bleed last admission, repeat with AM la bs #GERD- Omeprazole - continue #Psych- Hydroxyzine prn - continue #Hypothyroidism- TSH improved from last admission but will need repeat level in 4 weeks to make sure not over treating as unclear correct dosing due to prior non compliance. 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- Chemo + XRT #History of DVT - left leg diagnosed last admission, continue Xarelto VTE Prophylaxis: On Xarelto - continue Disposition - stable for transfer to med/surg, medically stable for discharge Admission and Anticipated Discharge Date Admission Date: May 10, 2025 Subjective She's feeling pretty good today; denies any acute issues ongoing weakness persists Review of Systems Review of Systems: Constitutional: No Weight Change, No Fever, No Chills, No Night Sweats, No Fatigue, No Malaise ENT/Mouth: No Hearing Changes, No Ear Pain, No Nasal Congestion, No Sinus Pain, No Hoarseness, No sore throat, No Rhinorrhea, No Swallowing Difficulty Eyes: No Eye Pain, No Swelling, No Redness, No Foreign Body, No Discharge, No Vision Changes Cardiovascular: No Chest Pain, No SOB, No PND, No Dyspnea on Exertion, No Orthopnea, No Claudication, No Edema, No Palpitations Respiratory: No Cough, No Sputum, No Wheezing, No Smoke Exposure, No Dyspnea Gastrointestinal: No Nausea, No Vomiting, No Diarrhea, No Constipation, No Pain, No Heartburn, No Anorexia, No Dysphagia, No Hematochezia, No Melena, No Flatulence, No Jaundice Genitourinary: No Dysmenorrhea, No DUB, No Dyspareunia, No Dysuria, No Urinary Frequency, No Hematuria, No Urinary Incontinence, No Urgency, No Flank Pain, No Urinary Flow Changes, No Hesitancy Musculoskeletal: No Arthralgias, No Myalgias, No Joint Swelling, No Joint Stiffness, No Back Pain, No Neck Pain, No Injury History Skin: No Skin Lesions, No Pruritis, No Hair Changes, No Breast/Skin Changes, No Nipple Discharge Neuro: No Weakness, No Numbness, No Paresthesias, No Loss of Consciousness, No Syncope, No Dizziness, No Headache, No Coordination Changes, No Recent Falls Psych: No Anxiety/Panic, No Depression, No Insomnia, No Personality Changes, No Delusions, No Rumination, No SI/HI/AH/VH, No Social Issues, No Memory Changes, No Violence/Abuse Hx., No Eating Concerns Heme/Lymph: No Bruising, No Bleeding, No Transfusions History, No Lymphadenopathy Endocrine: No Polyuria, No Polydipsia, No Temperature Intolerance Physical Exam Physical Exam: VITALS: Reviewed. WEIGHT/BMI reviewed. GEN: Healthy appearing, well-developed, NAD. PSYCH: Good Judgment. AOx3. Normal memory, mood, and affect. HEENT -Head: NC/AT; -Eyes: PERRL, EOMI. No discharge or redn ess; -Ears: External ears are normal. Normal TMs. -Nose: Normal nares. -Mouth and throat: MMM. Normal gums, muc jose, palate,. Good dentition. NECK: Supple, with no masses. CV: RRR, no m/r/g. LUNGS: CTAB, no w/r/c. ABD: Soft, NT/ND, NBS, no masses or organomegaly. : N/A SKIN: Warm, well perfused. No skin rashes or abnormal lesions. MSK: No deformities, Normal gait. EXT: No clubbing, cyanosis, or edema. NEURO: Ambulating with no limitations. Normal muscle strength and tone. No focal deficits. Results & Data Vital Signs (Past 12 Hours) Vital Signs Temp Pulse Resp BP Pulse Ox O2 Del Method 05/12/25 07:20 36.7 C 79 16 115/57 L 100 Room Air 05/12/25 00:15 36.5 C 83 16 122/76 97 Room Air 05/11/25 23:30 Room Air PG Care Time/CCT Total # of Minutes Spent Total Time Spent with Patient: Total time spent is greater than 50% in coordination of care (as documented) at patient's floor/unit and/or counseling patient: Coding Level of Care Code 00167 SUB INP/OBS CARE 2/35MIN Diagnoses Fall W19.XXXA Acute dehydration E86.0 Hypomagnesemia E83.42 Hypernatremia E87.0 Elevated troponin I level R79.89
[2025-05-12] MEDS: ACETAMINOPHEN 325 MG TAB PO PRN (14:05)
[2025-05-12 15:42] VITALS: RESP 18
[2025-05-12] MEDS: RIVAROXABAN 20 MG TAB PO SCH (17:26)
--- NOTE | 2025-05-13 06:22 | Electrocardiogram Report ---
Test Reason : Blood Pressure : */* mmHG Vent. Rate : 82 BPM Atrial Rate : 82 BPM P-R Int : 162 ms QRS Dur : 74 ms QT Int : 468 ms P-R-T Axes : 81 60 43 degrees QTcB Int : 546 ms Normal sinus rhythm Low voltage QRS Prolonged QT Abnormal ECG When compared with ECG of 19-Apr-2025 20:17, ST no longer depressed in Anterior leads T wave inversion no longer evident in Anterior leads Confirmed by Deven Kimbrough ([id number]) on 05/13/2025 6:21:41 AM Referred By: REFERRED SELF Confirmed By: Deven Kimbrough
[2025-05-13 07:10] VITALS: BP 96/48; PULSE 78; TEMP 97.9; O2SAT 97
[2025-05-13 07:21] LABS: Hematocrit (blood only) 22.1 % (37.0-47.0); Hemoglobin 7.2 g/dL (12.0-16.0); Immature Granulocytes # (auto) 0.05 K/uL (0.01-0.20); Immature Granulocytes % (auto) 1.7 %; Mean Corpuscular Hemoglobin 32.1 pg (25.0-34.0); Mean Corpuscular Volume 98.7 fL (80.0-100.0); Platelet Count 251 K/uL (130-400); RDW Standard Deviation 64.9 fL (36.4-46.3); Red Blood Count 2.24 M/uL (4.20-5.40); White Blood Count 2.91 K/ul (4.8-10.8)
[2025-05-13 07:47] LABS: RBC Morphology Unremarkable
[2025-05-13 07:50] LABS: Anion Gap 4.0 (3-11); Blood Urea Nitrogen 22.0 mg/dl (6-23); Calcium 7.5 mg/dl (8.6-10.3); Carbon Dioxide 25.0 mmol/L (21-32); Chloride 113.0 mmol/L (98-107); Creatinine Clr Calc Pharmacy 65.0 ml/min; Glucose 89.0 mg/dl (70-99(Fasting)); Magnesium 1.7 mg/dl (1.7-2.4); Potassium 3.7 mmol/L (3.5-5.1); Sodium 142.0 mmol/L (136-145)
--- NOTE | 2025-05-13 14:01 | Discharge Summary ---
Discharge Summary Date of Service May 13, 2025 Principal Dx & Hospital Course #1 = Principal Diagnosis (1) Fall: Generalized weakness, PERSISTING on discharge date 05/13/2025, in need of short- term rehab @ [facility] ([place], [place]). Hence, patient received daily PT/OT Service evaluations while in [facility] and will continue to receive daily PT/OT Service evaluations on hospital discharge to [facility] ([place], [place]) on 05/13/2025. 4. Recent development of chronic normocytic, normochromic anemia with baseline Hb range, 10.4 - 11.4 g/dL (09/05/2024 - 10/06/2024), followed by decline in Hb from 7.8 g/dL (04/22/2025), MCV 98.3, MCHC 33.2 to 7.2 g/dL, MCV 98.7, MCHC 32.6 (05/13/2025). 5. 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 6. Former tobacco abuse, 1 pack per day for 30 years (06/24/1968 through 06/24/1998). (2) Acute dehydration: Acute dehydration with admission BUN 17, creatinine 1.30 (05/10/2025, 12:10am), PERSISTING with discharge BUN 22, creatinine 0.97 (05/13/2025, 7:02am). Hence, patient received IV fluid rehydration (e.g., 1 liter of 0.9% NS @ 999 mL/hr on 05/10/2025, 1:52am; 1 liter of lactated Ringers @ 80 mL/hr on 05/10/2025, 4:16am) and a heart healthy diet while in [facility] and will continue to receive a heart healthy diet on hospital discharge to [facility] ([place], [place]) on 05/13/2025. (3) Hypomagnesemia: Acute hypomagnesemia with admission Mg 1.4 mg/dL (05/10/2025, 12:10am), RESOLVED, with discharge Mg 1.7 mg/dL (05/13/2025, 7:02am). Patient received magnesium sulfate 1g IV x 5 doses (05/10/2025, 1:48am, 4:16am, 5:44am, 7:48am; 05/11/2025, 11:05am) while in [facility] and acute hypomagnesemia RESOLVED: cf., post-supplement Mg 1.6 mg/dL (05/10/2025, 4:36am). cf., post-supplement Mg 1.9 mg/dL (05/11/2025, 5:32am). cf., post-supplement Mg 1.9 mg/dL (05/12/2025, 7:15am). cf., discharge Mg 1.7 mg/dL (05/13/2025, 7:02am). (4) Hypernatremia: cf., Na 147 mmol/L (05/10/2025, 4:36am). cf., Na 142 mmol/L (05/11/2025, 5:32am). cf., Na 142 mmol/L (05/12/2025, 7:15am). cf., Na 142 mmol/L (05/13/2025, 7:02am). Hence, patient received IV fluid rehydration (e.g., 1 liter of 0.9% NS @ 999 mL/hr on 05/10/2025, 1:52am; 1 liter of lactated Ringers @ 80 mL/hr on 05/10/2025, 4:16am) while in [facility] and acute hypovolemic hypernatremia RESOLVED, as shown above. (5) Elevated troponin I level: cf., troponin-I #1 18.9 pg/mL (05/10/2025, 12:10am). cf., troponin-I #2 18.1 pg/mL (05/10/2025, 4:36am). cf., EKG #1 (05/09/2025, 10:58pm): NSR @ 82, IA 162, QTC 546, no acute ST depressions/elevations, TWI, or q waves (by my review). Etiology of elevated troponin I level is attributed to demand ischemia (e.g., type II NSTEMI). Hence, I opted to observe this laboratory anomaly without further evaluation while patient remained in [facility]. Plan 75-year-old female PMHx DVT on Xarelto, groin cellulitis, h/o neutropenia with infection, SCC of vulva, hypothyroidism, HTN, GERD, and vitamin D deficiency presenting for fall at home that occurred 3 days [employer], was unable to get up. Her workup reveals around baseline CBC with slightly worsening anemia. VBGs significant for respiratory alkalosis. Some electrolyte discrepancies (Na 148, AG 14, Cr 1.3, bili 0.3, Mg 1.4, Ca 7.8), but lactate, procal, and CK WNL. No acute findings on imaging. Admission for rehydration and ambulatory dysfunction. #Fall/Dehydration/Ambulatory dysfunction D/c from hospital, went to rehab and when d/c home still weak; was trying to get into bed, unable to and fell to ground. Laid on ground x 3 days, grandson found her. Denies symptoms prior to fall, was just too weak too get back up. [place] dizzy the longer she laid on the floor. Dehydrated on admission, x 3 days no food or water. Did not take medications for that duration as well. PT/OT - recommending rehab 05/12 - patient medically stable for discharge - plan for rehab discharge - will need one more midnight stay per CM - f/u on Hgb and electrolytes in AM #Hypomagnesemia/Hypernatremia/hypokalemia Hypernatremia resolved with oral hydration and some IV fluids KCl 20 meq x3 today for low potassium, repeat with AM labs Addition Mg sulfate 1g IV today - will need oral supplementation on discharge #Left groin ulcer - POA Wound care seen and care instructions written #Elevated troponin Not significant elevation #Anemia- Hgb 8.3 (stable), hemorrhoidal bleed last admission, repeat with AM labs #GERD- Omeprazole - continue #Psych- Hydroxyzine prn - continue #Hypothyroidism- TSH improved from last admission but will need repeat level in 4 weeks to make sure not over treating as unclear correct dosing due to prior non compliance. 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 Most recent hospital admission 04/20/2025 until 04/26/2025 for cellulitis of the groin. Pt reports that she was d/c from the hospital and rehab following most recent admission. When being d/c home from rehab, she still felt some weakness and notes having difficulty getting in and out of her bed by herself. She was requiring assistance from a family member to get her legs into the bed. However, when she was left alone at home she had gotten out of bed to use the restroom. She came back to her bed, and was unsuccessful in getting her legs back into the bed, causing her to slip and fall to the ground. She reports that she was too weak to get herself up after this and her phone was not nearby, so she laid on the ground for 3 days. Her grandson found her the day of arrival, and called for assistance. Pt reports that overall, she is fatigued and is slightly sore, but no additional concerns. She denies CP, SOB, palpitations, abdominal pain, N/V/D/C, numbness/tingling, URI symptoms, LUTS, or LOC. She has not taken her medications for 3 days. ED evaluation reveals CBC leukopenia 3.92, H/H 7.5/22.9; PT/INR WNL, aPTT 20; VBG pH 7.46, pCO2 25; Na 148, Cl 114, CO2 20, AG 14, Cr 1.30, glucose 64, protein 5.3, albumin 2.4; direct bilirubin 0.3; Mg 1.4; Ca 7.8; trop 18.9, pending repeat; procal 0.07; CK 42; lactate 1.3; cortisol pending; C spine CT no acute changes, with multilevel degenerative changes; CXR no acute findings; head CT no acute findings; hip/pelvis XR no acute findings; R knee XR no fx, with suprapatellar joint effusion; blood cultures pending; EKG NSR, low voltage QRS, prolonged QT @ 82 bpm.; Provided with 1L NSS, mag sulfate IV, and Ceftriaxone 2g IV in ED. Please see Dr. Morgan attestation for adjustments/additions to treatment plan. Discharge Exam Constitutional General: comfortable, coherent, cooperative. Wide awake and alert. Not confused, lethargic, or obtunded. Patient speaks in complete, fluent, and articulate sentences without pause, interruption, cough, or wheeze. HEENT: Normocephalic, atraumatic. PERRL. EOMI. No nystagmus, gaze paresis, anisocoria, miosis, mydriasis, hyphema, scleral injection, conjunctivitis, or pterygium. No otorrhea. No rhinorrhea. No pharyngeal erythema, edema, ulceration, or discharge. Neck: Supple, no stridor, bruit, or goiter. Jugular venous pressure is estimated at 3 cm above the sternal angle of Jaden, which is 5 cm above the level of the right atrium. Lymph: No pre-auricular, post-auricular, supraclavicular, infraclavicular, axillary, epitrochlear, or inguinal adenopathy. Chest: Symmetric rise and fall with respirations. Non-tender to palpation. Heart: RRR, S1 and S2 noted. No S3 or S4 summation gallop noted. Grade II/ early systolic murmur @ LLSB without radiation to the carotids, axilla, or back, and which remains invariant in regards to the respiratory cycle. Lungs: Clear to auscultation and percussion. No audible expiratory wheeze, egophony, pectoriloquy, increase in tactile fremitus, or flatness/dullness to percussion at the bases. Abdomen: Soft, non-tender, non-distended. No rebound, guarding, Richard's sign, or organomegaly. Bowel sounds auscultated in all 4 quadrants. Pelvis: Soft, non-tender, non-distended. Extremities: No clubbing, cyanosis, or edema. 2+ pedal pulses bilaterally. Skin: No decubitus ulcer, exanthem, or enanthem. Neurology: Alert and oriented in regards to person, place, time, and situation. DTR+. 5/5 motor strength in all 4 extremities, both proximally and distally. Urology: No perez catheter. No purewick. No urethral discharge. Psych: Smiles appropriately. No flat affect. Discharge Plan Discharge Items Patient Disposition: Transfer [facility] Fac Reason For Visit: DEHYDRATION, FALL, ELECTROLYTE DISTURBANCES Discharge Diagnosis: 1. Generalized weakness, PERSISTING on discharge date 05/13/2025, in need of short-term rehab @ [facility] ([place], [place]). 2. Acute dehydration with admission BUN 17, creatinine 1.30 (05/10/2025, 12:10am), PERSISTING with discharge BUN 22, creatinine 0.97 (05/13/2025, 7:02am). 3. Acute hypomagnesemia with admission Mg 1.4 mg/dL (05/10/2025, 12:10am), RESOLVED, with discharge Mg 1.7 mg/dL (05/13/2025, 7:02am). 4. Recent development of chronic normocytic, normochromic anemia with baseline Hb range, 10.4 - 11.4 g/dL (09/05/2024 - 10/06/2024), followed by decline in Hb from 7.8 g/dL (04/22/2025), MCV 98.3, MCHC 33.2 to 7.2 g/dL, MCV 98.7, MCHC 32.6 (05/13/2025). 5. 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 6. Former tobacco abuse, 1 pack per day for 30 years (06/24/1968 through 06/24/1998). Condition on Discharge: Fair Activity: Resume your previous activity Lifting: Gradually increase as tolerated Bathing: No limitations Exercise/Sports: Gradually increase as tolerated Weightbearing: Full weightbearing Non-emergency contact: Primary Care Provider Call non-emergency contact if: you have any medication questions Follow-up/Referrals: PCP,NO [Primary Care Provider] - Diet: Heart Healthy Addtl Attending Provider Instructions: See the Seismic Survey Assistant @ [facility] ([place], [place]) within 3-5 days of hospital discharge. Pending Studies at Discharge: No Stand-Alone Forms: My [facility] Skilled Items Patient informed of condition?: Yes DNR: No Discharge Level of Care: Skilled Communicable Disease: No Discharge Prognosis: Stable Lines: None Urinary Catheter: No Medications and DC Order Prescriptions: Continued PreserVision AREDS 2 Plus MV 200 mcg-15 mcg- 5 mg-1 mg capsule 1 cap PO BID Patient Comments: 12/28- otc unable to verify omeprazole 20 mg capsule,delayed release(DR/EC) 20 mg PO DAILY Patient Comments: 12/28- OTC/ no fill history unable to verify cholecalciferol (vitamin D3) 25 mcg (1,000 unit) capsule 25 mcg PO DAILY Patient Comments: 12/28- otc unable to verify hydroxyzine HCl 25 mg tablet 25 mg PO TID PRN (Reason: Anxiety) Hold Instructions: Resume on 01/11/25. held because of interaction with fluconazole Patient Comments: 12/28- no fill history unable to verify calcium carbonate-vitamin D3 [Calcium with Vitamin D] 600 mg-10 mcg (400 unit) tablet 1 tab PO DAILY Patient Comments: 12/28- otc unable to verify multivitamin Tablet 1 tab PO DAILY Patient Comments: 12/28- otc unable to verify diphenoxylate-atropine 2.5-0.025 mg tablet 1 tab PO QID PRN (Reason: Diarrhea) Hold Instructions: Resume on 01/11/25. levothyroxine 25 mcg capsule 25 mcg PO DAILY Rx Instructions: TOTAL DOSE 225 MCG--TAKES WITH 200 MCG TAB. levothyroxine 200 mcg capsule 200 mcg PO QAM Patient Comments: 12/28-Last filled 08/21/24 90 day supply Rx Instructions: TOTAL DOSE 225 MCG--TAKES WITH 25 MCG TAB. acetaminophen 325 mg tablet 650 mg PO Q4H PRN (Reason: PAIN/FEVER) folic acid 1 mg Tablet 1 mg PO QAM Qty: 30 0RF Xarelto 20 mg tablet 20 mg PO PM Qty: 30 0RF Rx Instructions: PER PT "DAUGHTER NEVER PICKED UP FROM PHARMACY, DIDN'T START AT HOME". must administer with evening meal loratadine 10 mg tablet 10 mg PO DAILY PRN (Reason: Allergies) Qty: 0 0RF Patient Comments: 12/28- otc unable to verify loperamide 2 mg capsule 2 mg PO Q1H PRN (Reason: Diarrhea) nystatin 100,000 unit/gram powder 1 applic topical BID PRN (Reason: SKIN FOLDS NEEDED) Discharge Orders: Discharge Order (Routine); Ordered 05/13/25 Ordered By: Patrick Onofre Admission Data Admit Date/Time: 05/10/25 02:05 Attending Provider: Patrick Onofre Admit Provider: Chacorta Morgan Primary Care Provider: PCP,NO Other Providers: Stamps,[facility] [place]; Chacorta Morgan Hospital Stay Data Consultations 05/10/25 01:09 ED Decision to Admit Stat Diagnostic Imagining Performed 05/09/25 22:48 CT cervical spine wo con Stat CT head/brain wo con Stat Pending Results Patient Have Any Pending Studies at Discharge: No Discharge Instructions Given to Patient (Per Discharging Provider) See the Seismic Survey Assistant @ [facility] ([place], [place]) within 3-5 days of hospital discharge. Total Time Total Time Spent Total Time Spent (In Minutes): 35 minutes. Of this time period, 19 minutes were spent in coordinating patien t's discharge. Coding Level of Care Code 05042 INP/OBS DISCH >30 MIN Diagnoses Fall W19.XXXA Acute dehydration E86.0 Hypomagnesemia E83.42 Hypernatremia E87.0 Elevated troponin I level R79.89
== END 2025-05-13 16:55 | DRG 92 ==
LOC: ED 22:41 → 2S 05-10 02:05 → SUATTDRO 05-10 02:05 → 2S 05-10 03:16 → 3N 05-11 23:19